=== PATIENT | female | born 1975 | race American Indian/Alaskan Native ===

== ENCOUNTER 2017-04-01 17:31 | Emergency (ER) | payer MEDICAID ==
[2017-04-01 18:28] LABS: Alanine Aminotransferase 9 units/L (7-56); Albumin 3.9 g/dL (3.9-5); BUN/Creatinine Ratio 15; Basophils % (Auto) 0.5 % (0.0-1.8); Blood Urea Nitrogen 9 mg/dL (7-17); Calcium 8.5 mg/dL (8.4-10.2); Eosinophils # (Auto) 0.1 K/mm3 (0.0-0.4); Eosinophils % (Auto) 0.6 % (0.0-4.3); Hematocrit 28.8 % (30.3-42.9); Hemoglobin 9.3 gm/dl (10.1-14.3); Hemolysis Index 7; Lipase 84 units/L (13-60); Lymphocytes # (Auto) 3.5 K/mm3 (1.2-5.4); Lymphocytes % (Auto) 38.7 % (13.4-35.0); Mean Corpuscular HGB Conc 32 % (30-34); Mean Corpuscular Volume 79 fl (79-97); Monocytes # (Auto) 0.7 K/mm3 (0.0-0.8); Monocytes % (Auto) 7.9 % (0.0-7.3); Platelet Count 203 K/mm3 (140-440); Red Blood Count 3.66 M/mm3 (3.65-5.03)
[2017-04-01 18:33] LABS: Mean Corpuscular Hemoglobin 25 pg (28-32)
[2017-04-01 18:34] LABS: Red Cell Distribution Width 22.6 % (13.2-15.2)
[2017-04-01] MEDS ORDERED: MORPHINE IV ONE ×2 (20:56→23:01)
--- NOTE | 2017-04-01 20:59 | Emergency Department Report ---
HPI - General Chief Complaint: Vaginal Bleeding Time Seen by Provider: 04/01/17 20:25 - HPI HPI: 41-year-old female presents to the emergency department with complaint of a 2-3 day history of abdominal and pelvic pain and vaginal bleeding. The abdominal pain is generalized but worse in the upper quadrants with some radiation towards her back. The pelvic pain is less intense but is associated with heavy vaginal bleeding with clots. The patient says that the symptoms started around the time of her last menstrual cycle. She does have a history of fibroids that was diagnosed last year but she does not know how many or how large and does not have an [facility]. She does have a history of pancreatitis in the past. She has a previous cholecystectomy and has had gastric bypass surgery. She is not taking anything for symptoms of her presentation. No recent travel or sick contacts at home. Her primary care physician is a Dr. Little. ED Past Medical Hx - Past Medical History Previous Medical History?: Yes Hx Hypertension: Yes Additional medical history: Uterine fibroids with heavy vaginal bleeding, Pancreatitis - Surgical History Past Surgical History?: Yes Hx Cholecystectomy: Yes Additional Surgical History: Gastric bypassin 2006 - Social History Smoking Status: Never Smoker Substance Use Type: Alcohol, Non Opiate Pain, Prescribed - Medications Home Medications: Home Medications Medication Instructions Recorded Confirmed Last Taken Type HYDROcodone/ACETAMINOPHEN [[place] 1 each PO Q6H PRN #12 tablet 04/01/17 Unknown Rx 5-325 Tablet] ED Review of Systems ROS: Stated complaint: VAGINAL BLEEDING Other details as noted in HPI Comment: All other systems reviewed and negative Constitutional: denies: chills, fever Eyes: denies: eye pain, eye discharge, vision change ENT: denies: ear pain, throat pain Respiratory: denies: cough, shortness of breath, wheezing Cardiovascular: denies: chest pain, palpitations Gastrointestinal: abdominal pain. denies: vomiting Genitourinary: other (vaginal bleeding). denies: urgency, dysuria, discharge Musculoskeletal: denies: back pain, joint swelling, arthralgia Skin: denies: rash, lesions Neurological: denies: headache, weakness, paresthesias Physical Exam - Physical Exam Vital Signs: Vital Signs 04/01/17 04/01/17 17:36 20:29 Temperature 99.5 F Pulse Rate 110 H Respiratory 18 18 Rate Blood Pressure 119/83 O2 Sat by Pulse 99 100 Oximetry Physical Exam: GENERAL: The patient is well-developed well-nourished. HENT: Normocephalic. Atraumatic. Patient has moist mucous membranes. EYES: Extraocular motions are intact. Pupils equal reactive to light bilaterally. NECK: Supple. No meningitic signs are noted. There is no adenopathy noted. CHEST/LUNGS: Clear to auscultation. There is no respiratory distress noted. HEART/CARDIOVASCULAR: Regular. There is no tachycardia. There is no murmur. ABDOMEN: Abdomen is soft. Upper abdominal tenderness to palpation. No guarding or rebound tenderness. Patient has normal bowel sounds. Obese habitus. SKIN: There is no rash. There is no edema. There is no diaphoresis. NEURO: The patient is awake, alert, and oriented. The patient is cooperative. The patient has no focal neurologic deficits. The patient has normal speech. MUSCULOSKELETAL: There is no tenderness or deformity. There is no limitation range of motion. There is no evidence of acute injury. ED Course Vital Signs 04/01/17 04/01/17 17:36 20:29 Temperature 99.5 F Pulse Rate 110 H Respiratory 18 18 Rate Blood Pressure 119/83 O2 Sat by Pulse 99 100 Oximetry ED Medical Decision Making - Lab Data Result diagrams: 04/01/17 17:53 04/01/17 17:53 - Radiology Data Radiology results: report reviewed EXAM: US Abdomen CLINICAL INDICATIONS: Upper abd pain that radiates to back FINDINGS: Real-time ultrasound of the abdomen was performed. The visualized portion of pancreas is unremarkable. The right kidney measures 10.8 x 4.6 x 5.8 cm. Cortical thickness is 1.6 cm, which is normal. The left kidney measures 10.2 x 6.1 x 6.1 cm with cortical thickness of 1.9 cm. There is no evidence of hydronephrosis. The liver appears normal in size and echotexture. The aorta proximally measures 1.8 cm which is within normal limits. The spleen measures 10.8 cm which is within normal limits. There is been a cholecystectomy. The common duct measures 0.76 cm which is within normal limits for patient status post cholecystectomy. IMPRESSION: CHOLECYSTECTOMY NO HYDRONEPHROSIS OF EITHER KIDNEY Transcribed By: ENOCH Dictated By: MARKY ORELLANA MD Electronically Authenticated By: MARKY ORELLANA MD Signed Date/Time: 04/01/171847 EXAM: US Pelvic Trans-Vaginal CLINICAL INDICATIONS: pelvic pain, vaginal bleeding FINDINGS: Real-time ultrasound of the pelvis was performed by endovaginal technique and demonstrates that the uterus measures 9.6 x 5.1 x 5.6 cm. The endometrial stripe measures 0.24 cm which is within normal limits. There are uterine leiomyomas, the largest of which is on the right, 2.4 cm. Left uterine leiomyoma measures 1.9 cm. Anterior uterine leiomyoma measures 1.5 cm. The right ovary is not identified. The left ovary measures 2.3 x 1.9 x 2.2 cm. No adnexal mass or evidence of ovarian torsion is seen. IMPRESSION: UTERINE LEIOMYOMAS NORMAL LEFT OVARY THE RIGHT OVARY IS NOT SEEN Transcribed By: ENOCH Dictated By: MARKY ORELLANA MD Electronically Authenticated By: MARKY ORELLANA MD Signed Date/Time: 04/01/171846 PROCEDURE: XR ABDOMEN 2V TECHNIQUE: Abdominal series, including supine and upright AP views. HISTORY: Abdominal pain. COMPARISON: No prior studies are available for comparison. FINDINGS: Bowel gas pattern:Diffusely air-filled bowel, predominantly colon. Moderate stool in the ascending colon. Few mildly prominent scattered loops of small bowel. Masses or calcifications:None . Bony structures:Small multilevel osteophytes. Pneumoperitoneum:None . Other:Cholecystectomy. Impression Diffusely air-filled bowel, predominantly colon. Moderate stool in the ascending colon. Consider constipation. Consider ileus. Obstruction felt to be unlikely. Transcribed By: SHARYN Dictated By: GABY DAVIS MD Electronically Authenticated By: GABY DAVIS MD Signed Date/Time: 04/01/171922 - Medical Decision Making Patient presents with a few days of some abdominal discomfort, mostly in the upper abdomen, some mild pelvic discomfort and increased vaginal bleeding. Hemoglobin is 9.3 which does not appear to be a level that requires transfusion. She does not have any complaints of shortness breath, chest pain, weakness or anything to show signs of symptomatic anemia. There is no leukocytosis. No renal insufficiency. Normal bilirubin and LFTs. Her lipase is elevated at 80. Abdominal x-ray shows some nonspecific bowel gas but does not appear consistent with obstruction. Abdominal ultrasound shows previous cholecystectomy and normal-appearing kidneys. The portion of the pancreas that was visualized was normal. Transvaginal ultrasound does not show any signs of ovarian torsion but does show 3 small fibroids. This may be part of the source of her pelvic discomfort and increased or abnormal vaginal bleeding. I recommended to the patient that we get a CT scan to fully rule out any possible obstruction or pancreatitis but the patient says that she has an appointment coming up with her PCP and would rather go home. She had some hypokalemia that was replaced with potassium chloride. Vital signs stable throughout her ED course. The patient will be discharged home with a small amount of pain medication and encouraged to return to the emergency department immediately with any worsening of her symptoms or any acute distress. She's been encouraged to stay away from foods that are greasy, spicy, fatty and to stay away from alcohol consumption. - Differential Diagnosis pancreatitis, gastritis, diverticulitis, colitis, ovarian torsion, fibroids Critical Care Time: No Critical care attestation.: If time is entered above; I have spent that time in minutes in the direct care of this critically ill patient, excluding procedure time. ED Disposition Clinical Impression: Dysfunctional uterine bleeding Abdominal pain Qualifiers: Abdominal location: generalized Qualified Code(s): R10.84 - Generalized abdominal pain Fibroids Qualifiers: Uterine leiomyoma location: unspecified location Qualified Code(s): D25.9 - Leiomyoma of uterus, unspecified Anemia Qualifiers: Anemia type: iron deficiency Iron deficiency anemia type: unspecified iron deficiency Qualified Code(s): D50.9 - Iron deficiency anemia, unspecified Disposition: DC-01 TO HOME OR SELFCARE Is pt being admited?: No Condition: Stable Instructions: Dysfunctional Uterine Bleeding (ED), Abdominal Pain (ED), Menorrhagia (ED), Anemia (ED) Additional Instructions: Please follow-up with your primary care physician as soon as possible. I have given you multiple referrals for [facility] to follow up regarding your uterine fibroids and dysfunctional uterine bleeding. Return to the emergency Department with any worsening of her symptoms, development of shortness of breath, weakness, or any acute distress. You have been prescribed a medication that is sedating and therefore should not be taken prior to driving, working, and responsible for children and in no way should be mixed with alcohol of any quantity. Prescriptions: HYDROcodone/ACETAMINOPHEN [[place] 5-325 Tablet] 1 each PO Q6H PRN #12 tablet PRN Reason: Pain Referrals: [facility] [Provider Group] - 3-5 Days [facility] [Provider Group] - 3-5 Days [facility] [Provider Group] - 3-5 Days Time of Disposition: 23:46
[2017-04-01 21:47] LABS: Bacteria,Urine 4+ /HPF (Negative); Bilirubin,Urine NEG (Negative); Blood,Urine MOD (Negative); Color,Urine Yellow (Yellow); Hyaline Casts,Urine 20 /LPF; Mucus,Urine 2+ /HPF; Nitrite,Urine POS (Negative)
[2017-04-01 21:59] LABS: HCG Qualitative,Urine Negative (Negative)
[2017-04-01] MEDS ORDERED: K-DUR PO ONE (22:43)
--- NOTE | 2017-04-01 22:49 | Ultrasound Report ---
FINAL REPORT EXAM: US Pelvic Trans-Vaginal CLINICAL INDICATIONS: pelvic pain, vaginal bleeding FINDINGS: Real-time ultrasound of the pelvis was performed by endovaginal technique and demonstrates that the uterus measures 9.6 x 5.1 x 5.6 cm. The endometrial stripe measures 0.24 cm which is within normal limits. There are uterine leiomyomas, the largest of which is on the right, 2.4 cm. Left uterine leiomyoma measures 1.9 cm. Anterior uterine leiomyoma measures 1.5 cm. The right ovary is not identified. The left ovary measures 2.3 x 1.9 x 2.2 cm. No adnexal mass or evidence of ovarian torsion is seen. IMPRESSION: UTERINE LEIOMYOMAS NORMAL LEFT OVARY THE RIGHT OVARY IS NOT SEEN
--- NOTE | 2017-04-01 22:50 | Ultrasound Report ---
FINAL REPORT EXAM: US Abdomen CLINICAL INDICATIONS: Upper abd pain that radiates to back FINDINGS: Real-time ultrasound of the abdomen was performed. The visualized portion of pancreas is unremarkable. The right kidney measures 10.8 x 4.6 x 5.8 cm. Cortical thickness is 1.6 cm, which is normal. The left kidney measures 10.2 x 6.1 x 6.1 cm with cortical thickness of 1.9 cm. There is no evidence of hydronephrosis. The liver appears normal in size and echotexture. The aorta proximally measures 1.8 cm which is within normal limits. The spleen measures 10.8 cm which is within normal limits. There is been a cholecystectomy. The common duct measures 0.76 cm which is within normal limits for patient status post cholecystectomy. IMPRESSION: CHOLECYSTECTOMY NO HYDRONEPHROSIS OF EITHER KIDNEY
[2017-04-01 23:12] VITALS: BP 118/79
--- NOTE | 2017-04-01 23:25 | XRay Report ---
FINAL REPORT PROCEDURE: XR ABDOMEN 2V TECHNIQUE: Abdominal series, including supine and upright AP views. HISTORY: Abdominal pain. COMPARISON: No prior studies are available for comparison. FINDINGS: Bowel gas pattern:Diffusely air-filled bowel, predominantly colon. Moderate stool in the ascending colon. Few mildly prominent scattered loops of small bowel. Masses or calcifications:None . Bony structures:Small multilevel osteophytes. Pneumoperitoneum:None . Other:Cholecystectomy. Impression Diffusely air-filled bowel, predominantly colon. Moderate stool in the ascending colon. Consider constipation. Consider ileus. Obstruction felt to be unlikely.
== END 2017-04-01 23:15 | disposition home or self-care (01) ==
LOC: ED 17:31
DX: N93.8 Other specified abnormal uterine and vaginal bleeding (principal); R10.84 Generalized abdominal pain; D50.9 Iron deficiency anemia, unspecified; D25.9 Leiomyoma of uterus, unspecified; I10 Essential (primary) hypertension; K85.90 Acute pancreatitis without necrosis or infection, unspecified
CPT/HCPCS: 36415; 74019; 76700; 76830; 80053; 81001; 81025; 83690; 85025; 86850; 86900; 86901; 93975; 96374; 96376; 99285; J2270

== ENCOUNTER 2019-01-04 10:15 | Inpatient (IN) | payer MEDICAID ==
[2019-01-04 11:33] LABS: Hematocrit 26.2 % (30.3-42.9); Hemoglobin 7.8 gm/dl (10.1-14.3); Mean Corpuscular HGB Conc 30 % (30-34); Mean Corpuscular Volume 99 fl (79-97); Platelet Count 348 K/mm3 (140-440); Red Blood Count 2.64 M/mm3 (3.65-5.03)
[2019-01-04 11:37] LABS: Red Cell Distribution Width 26.1 % (13.2-15.2)
[2019-01-04] MEDS ORDERED: SODIUM CHLORIDE 0.9% 1000 ML 500 ML IV ONE (11:47)
[2019-01-04] MEDS ORDERED: SODIUM CHLORIDE 0.9% 500 ML 500 ML ONE (11:49)
[2019-01-04 11:52] LABS: Albumin 2.4 g/dL (3.9-5); Bilirubin,Direct 7.9 mg/dL (0-0.2)
--- NOTE | 2019-01-04 11:53 | XRay Report ---
CHEST 1 VIEW INDICATION: hypertension. COMPARISON: None. FINDINGS: Support devices: None. Heart: Upper limits of normal. Lungs/Pleura: No acute pulmonary or pleural findings. IMPRESSION: 1. No acute findings. Signer Name: Addison Quezada MD Signed: 01/04/2019 11:48 AM Workstation Name: [id number]
[2019-01-04 11:55] LABS: INR 2.14 (0.87-1.13)
[2019-01-04 12:02] LABS: Free T4 (Free Thyroxine) 0.83 ng/dL (0.76-1.46)
[2019-01-04 12:08] LABS: Total Cells Counted 100
[2019-01-04 12:09] LABS: Anisocytosis 2+; Band Neutrophils # (Manual) 3.8 K/mm3; Basophils % (Manual) 0 % (0.0-1.8); Eosinophils % (Manual) 0 % (0.0-4.3); Macrocytosis Few; Platelet Estimate Consistent w Auto
--- NOTE | 2019-01-04 12:29 | Cat Scan Report ---
CT HEAD WITHOUT CONTRAST INDICATION / CLINICAL INFORMATION: Altered mental status. TECHNIQUE: Axial imaging performed from the skull apex through the skull base without the use of cont rast. Sagittal and coronal reformatted images. All CT scans at this location are performed using CT dose reduction for ALARA by means of automated exposure control. COMPARISON: None available. FINDINGS: CEREBRAL PARENCHYMA: No significant abnormality. No acute territorial infarct. HEMORRHAGE: None. EXTRA-AXIAL SPACES: Normal in size and morphology for the patient's age. VENTRICULAR SYSTEM: Normal in size and morphology for the patient's age. MIDLINE SHIFT OR HERNIATION: None. CEREBELLUM / BRAINSTEM: No significant abnormality. CALVARIUM: No significant abnormality. ORBITS: Normal as visualized. PARANASAL SINUSES / MASTOID AIR CELLS: Normal as visualized. SOFT TISSUES of HEAD: No significant abnormality. ADDITIONAL FINDINGS: None. IMPRESSION: No acute intracranial abnormality. Signer Name: Trevon Burton Jr, MD Signed: 01/04/2019 12:24 PM Workstation Name: [id number]
[2019-01-04] MEDS ORDERED: MEROPENEM/NS 1 GRAM/100 ML 1 GRAM/100 ML BAG IV ONE (12:39)
[2019-01-04] MEDS ORDERED: VANCOMYCIN PHARMACY TO DOSE IV SCH (13:00)
[2019-01-04] MEDS ORDERED: SODIUM BICARBONATE 150 MEQ in DEXTROSE 5% IN WATER 1,000 ML IV ONE (13:00)
--- NOTE | 2019-01-04 13:18 | Emergency Department Report ---
ED General Adult HPI - General Chief complaint: Weakness Stated complaint: WEAKNESS Time Seen by Provider: 01/04/19 11:13 Source: patient, EMS Mode of arrival: Stretcher Limitations: Altered Mental Status - History of Present Illness Initial comments: This is a 43-year-old female who is confused and unable to provide any historical information. She is not frankly complaining of any pain on questioning. However she is not coherently speaking nor apparently oriented. She arrives with her daughter who states the patient indeed has been in bed for the past several days. The daughter states she is "getting worse". By this, I think she is referring to her confusional state and her inability to take care of herself. The daughter is fairly nonspecific about her long-term condition. She does admit that the patient is a heavy drinker. She really doesn't provide much further history. She does not think the patient is taking any current medications. Review of the patient's past medical records here reveals little. There are however remarkable for normal renal function in 2018. Severity scale (0 -10): 0 - Related Data Previous Rx's Medication Instructions Recorded Last Taken Type HYDROcodone/ACETAMINOPHEN [[place] 1 each PO Q6H PRN #12 tablet 04/01/17 Unknown Rx 5-325 Tablet] Allergies Allergy/AdvReac Type Severity Reaction Status Date / Time No Known Allergies Allergy Unverified 04/01/17 17:36 ED Review of Systems ROS: Stated complaint: WEAKNESS Other details as noted in HPI Comment: Unobtainable due to pts medical conditions ED Past Medical Hx - Past Medical History Previous Medical History?: No Hx Hypertension: Yes Additional medical history: Uterine fibroids with heavy vaginal bleeding, Pancreatitis, ETOH - Surgical History Hx Cholecystectomy: Yes Additional Surgical History: Gastric bypassin 2006 - Social History Smoking Status: Never Smoker Substance Use Type: Alcohol - Medications Home Medications: Home Medications Medication Instructions Recorded Confirmed Last Taken Type HYDROcodone/ACETAMINOPHEN [[place] 1 each PO Q6H PRN #12 tablet 04/01/17 Unknown Rx 5-325 Tablet] ED Physical Exam - General Limitations: Altered Mental Status General appearance: in no apparent distress, lethargic, other (ill appearing) - Head Head exam: Present: atraumatic, normocephalic - Eye Eye exam: Present: scleral icterus - ENT ENT exam: Present: mucous membranes dry - Neck Neck exam: Present: normal inspection, full ROM. Absent: tenderness, meningismus, lymphadenopathy, thyromegaly - Respiratory Respiratory exam: Present: normal lung sounds bilaterally. Absent: respiratory distress - Cardiovascular Cardiovascular Exam: Present: regular rate, normal rhythm. Absent: systolic murmur, diastolic murmur, rubs, gallop - GI/Abdominal GI/Abdominal exam: Present: soft, normal bowel sounds, other (obese). Absent: distended, tenderness, guarding, rebound - Extremities Exam Extremities exam: Present: other (3-4+ pitting pedal edema and leg edema) - Back Exam Back exam: Present: other (unable to inspect yet) - Neurological Exam Neurological exam: Present: altered, CN II-XII intact (no gross focal deficit evident). Absent: motor sensory deficit (no lateralizing weakness or numbness) - Psychiatric Psychiatric exam: Present: flat affect - Skin Skin exam: Present: warm, dry ED Course Vital Signs 01/04/19 01/04/19 01/04/19 10:44 10:45 10:47 Temperature 97.6 F Pulse Rate 98 H Respiratory 16 Rate Blood Pressure 102/57 102/57 O2 Sat by Pulse 100 100 100 Oximetry 01/04/19 01/04/19 01/04/19 11:00 11:15 11:30 Temperature Pulse Rate Respiratory Rate Blood Pressure 85/42 91/50 93/60 O2 Sat by Pulse 100 100 100 Oximetry 01/04/19 01/04/19 01/04/19 11:40 11:50 12:00 Temperature Pulse Rate Respiratory 16 Rate Blood Pressure 93/60 99/58 110/55 O2 Sat by Pulse 100 100 100 Oximetry 01/04/19 01/04/19 01/04/19 12:17 12:20 12:30 Temperature Pulse Rate Respiratory Rate Blood Pressure 110/55 110/55 100/62 O2 Sat by Pulse 100 100 99 Oximetry 01/04/19 01/04/19 01/04/19 12:40 12:50 13:00 Temperature Pulse Rate 153 H 97 H 97 H Respiratory 20 20 Rate Blood Pressure 100/62 107/70 111/72 O2 Sat by Pulse 100 100 Oximetry 01/04/19 01/04/19 01/04/19 13:10 13:20 13:30 Temperature Pulse Rate 97 H 97 H 96 H Respiratory 18 21 20 Rate Blood Pressure 111/72 160/129 105/59 O2 Sat by Pulse 100 100 Oximetry 01/04/19 13:40 Temperature Pulse Rate 98 H Respiratory 14 Rate Blood Pressure 105/59 O2 Sat by Pulse 100 Oximetry - Reevaluation(s) Reevaluation #1: The patient's initial blood pressure was low. She was given a 500 mL bolus. Her blood pressure became normotensive with a systolic over 100. The patient was treated with empiric antibiotics. Bicarbonate drip was started Considering the patient's lactic acidosis an extremely low CO2 as well as her renal failure. Historian Research Assistant Dr. Mccoy was consultation who agreed with the above. I'm going to continue her fluid substation judiciously as her proBNP is over 5000. Her chest x-ray is yet clear. Her albumin is 2.4. She is in liver failure with an elevated ammonia. Her daughter has been informed that the patient is likely septic and has multiple organ failure. Her prognosis is obviously guarded. She will be admitted by the hospitalist service to the intensive care unit. 01/04/19 13:18 ED Medical Decision Making - Lab Data Result diagrams: 01/04/19 11:08 01/04/19 11:15 Laboratory Results - last 24 hr 01/04/19 01/04/19 01/04/19 11:08 11:08 11:08 WBC 34.3 H RBC 2.64 L Hgb 7.8 L Hct 26.2 L MCV 99 H MCH 30 MCHC 30 RDW 26.1 H Plt Count 348 Add Manual Diff Complete Total Counted 100 Seg Neuts % (Manual) 67.0 Band Neutrophils % 11.0 Lymphocytes % (Manual) 15.0 Reactive Lymphs % (Man) 0 Monocytes % (Manual) 7.0 Eosinophils % (Manual) 0 Basophils % (Manual) 0 Metamyelocytes % 0 Myelocytes % 0 Promyelocytes % 0 Blast Cells % 0 Nucleated RBC % Not Reportable Seg Neutrophils # Man 23.0 H Band Neutrophils # 3.8 Lymphocytes # (Manual) 5.1 Abs React Lymphs (Man) 0.0 Monocytes # (Manual) 2.4 H Eosinophils # (Manual) 0.0 Basophils # (Manual) 0.0 Metamyelocytes # 0.0 Myelocytes # 0.0 Promyelocytes # 0.0 Blast Cells # 0.0 WBC Morphology Not Reportable Hypersegmented Neuts Not Reportable Hyposegmented Neuts Not Reportable Hypogranular Neuts Not Reportable Smudge Cells Not Reportable Toxic Granulation Not Reportable Toxic Vacuolation Not Reportable Dohle Bodies Not Reportable Pelger-Huet Anomaly Not Reportable Jonathan Rods Not Reportable Platelet Estimate Consistent w auto Clumped Platelets Not Reportable Plt Clumps, EDTA Not Reportable Large Platelets Not Reportable Giant Platelets Not Reportable Platelet Satelliting Not Reportable Plt Morphology Comment Not Reportable RBC Morphology Not Reportable Dimorphic RBCs Not Reportable Polychromasia Few Hypochromasia Not Reportable Poikilocytosis Not Reportable Anisocytosis 2+ Microcytosis Few Macrocytosis Few Spherocytes Not Reportable Pappenheimer Bodies Not Reportable Sickle Cells Not Reportable Target Cells Not Reportable Tear Drop Cells Not Reportable Ovalocytes Not Reportable Helmet Cells Not Reportable [place] Bodies Not Reportable [place] Rings Not Reportable [place] Cells Not Reportable Bite Cells Not Reportable Crenated Cell Not Reportable Elliptocytes Not Reportable Acanthocytes (Spur) Not Reportable Rouleaux Not Reportable Hemoglobin C Crystals Not Reportable Schistocytes Not Reportable Malaria parasites Not Reportable Bhavik Bodies Not Reportable Hem Pathologist Commnt No PT INR Sodium Potassium Chloride Carbon Dioxide Anion Gap BUN Creatinine Estimated GFR BUN/Creatinine Ratio Glucose POC Glucose Lactic Acid Calcium Magnesium Total Bilirubin Direct Bilirubin Indirect Bilirubin AST ALT Alkaline Phosphatase Ammonia NT-Pro-B Natriuret Pep 5269 H Total Protein Albumin Albumin/Globulin Ratio Lipase 8 L TSH Free T4 HCG, Qual Negative Acetaminophen Blood Type Antibody Screen 01/04/19 01/04/19 01/04/19 11:15 11:15 11:15 WBC RBC Hgb Hct MCV MCH MCHC RDW Plt Count Add Manual Diff Total Counted Seg Neuts % (Manual) Band Neutrophils % Lymphocytes % (Manual) Reactive Lymphs % (Man) Monocytes % (Manual) Eosinophils % (Manual) Basophils % (Manual) Metamyelocytes % Myelocytes % Promyelocytes % Blast Cells % Nucleated RBC % Seg Neutrophils # Man Band Neutrophils # Lymphocytes # (Manual) Abs React Lymphs (Man) Monocytes # (Manual) Eosinophils # (Manual) Basophils # (Manual) Metamyelocytes # Myelocytes # Promyelocytes # Blast Cells # WBC Morphology Hypersegmented Neuts Hyposegmented Neuts Hypogranular Neuts Smudge Cells Toxic Granulation Toxic Vacuolation Dohle Bodies Pelger-Huet Anomaly Jonathan Rods Platelet Estimate Clumped Platelets Plt Clumps, EDTA Large Platelets Giant Platelets Platelet Satelliting Plt Morphology Comment RBC Morphology Dimorphic RBCs Polychromasia Hypochromasia Poikilocytosis Anisocytosis Microcytosis Macrocytosis Spherocytes Pappenheimer Bodies Sickle Cells Target Cells Tear Drop Cells Ovalocytes Helmet Cells Felix-[place] Bodies [place] Rings [place] Cells Bite Cells Crenated Cell Elliptocytes Acanthocytes (Spur) Rouleaux Hemoglobin C Crystals Schistocytes Malaria parasites Bhavik Bodies Hem Pathologist Commnt PT INR Sodium 135 L Potassium 4.4 Chloride 90.7 L Carbon Dioxide 8 L* Anion Gap 41 BUN 44 H Creatinine 3.4 H Estimated GFR 18 BUN/Creatinine Ratio 13 Glucose 70 POC Glucose Lactic Acid Calcium 9.0 Magnesium 1.70 Total Bilirubin 10.20 H Direct Bilirubin 7.9 H Indirect Bilirubin 2.3 AST 227 H ALT 50 Alkaline Phosphatase 69 Ammonia NT-Pro-B Natriuret Pep Total Protein 7.5 Albumin 2.4 L Albumin/Globulin Ratio 0.5 Lipase TSH 2.830 Free T4 0.83 HCG, Qual Acetaminophen < 5.0 L Blood Type Antibody Screen 01/04/19 01/04/19 01/04/19 11:31 11:32 11:52 WBC RBC Hgb Hct MCV MCH MCHC RDW Plt Count Add Manual Diff Total Counted Seg Neuts % (Manual) Band Neutrophils % Lymphocytes % (Manual) Reactive Lymphs % (Man) Monocytes % (Manual) Eosinophils % (Manual) Basophils % (Manual) Metamyelocytes % Myelocytes % Promyelocytes % Blast Cells % Nucleated RBC % Seg Neutrophils # Man Band Neutrophils # Lymphocytes # (Manual) Abs React Lymphs (Man) Monocytes # (Manual) Eosinophils # (Manual) Basophils # (Manual) Metamyelocytes # Myelocytes # Promyelocytes # Blast Cells # WBC Morphology Hypersegmented Neuts Hyposegmented Neuts Hypogranular Neuts Smudge Cells Toxic Granulation Toxic Vacuolation Dohle Bodies Pelger-Huet Anomaly Jonathan Rods Platelet Estimate Clumped Platelets Plt Clumps, EDTA Large Platelets Giant Platelets Platelet Satelliting Plt Morphology Comment RBC Morphology Dimorphic RBCs Polychromasia Hypochromasia Poikilocytosis Anisocytosis Microcytosis Macrocytosis Spherocytes Pappenheimer Bodies Sickle Cells Target Cells Tear Drop Cells Ovalocytes Helmet Cells Felix-[place] Bodies [place] Rings [place] Cells Bite Cells Crenated Cell Elliptocytes Acanthocytes (Spur) Rouleaux Hemoglobin C Crystals Schistocytes Malaria parasites Bhavik Bodies Hem Pathologist Commnt PT 23.5 H INR 2.14 H Sodium Potassium Chloride Carbon Dioxide Anion Gap BUN Creatinine Estimated GFR BUN/Creatinine Ratio Glucose POC Glucose 82 Lactic Acid Calcium Magnesium Total Bilirubin Direct Bilirubin Indirect Bilirubin AST ALT Alkaline Phosphatase Ammonia NT-Pro-B Natriuret Pep Total Protein Albumin Albumin/Globulin Ratio Lipase TSH Free T4 HCG, Qual Acetaminophen Blood Type B POSITIVE Antibody Screen Negative 01/04/19 01/04/19 11:53 11:53 WBC RBC Hgb Hct MCV MCH MCHC RDW Plt Count Add Manual Diff Total Counted Seg Neuts % (Manual) Band Neutrophils % Lymphocytes % (Manual) Reactive Lymphs % (Man) Monocytes % (Manual) Eosinophils % (Manual) Basophils % (Manual) Metamyelocytes % Myelocytes % Promyelocytes % Blast Cells % Nucleated RBC % Seg Neutrophils # Man Band Neutrophils # Lymphocytes # (Manual) Abs React Lymphs (Man) Monocytes # (Manual) Eosinophils # (Manual) Basophils # (Manual) Metamyelocytes # Myelocytes # Promyelocytes # Blast Cells # WBC Morphology Hypersegmented Neuts Hyposegmented Neuts Hypogranular Neuts Smudge Cells Toxic Granulation Toxic Vacuolation Dohle Bodies Pelger-Huet Anomaly Jonathan Rods Platelet Estimate Clumped Platelets Plt Clumps, EDTA Large Platelets Giant Platelets Platelet Satelliting Plt Morphology Comment RBC Morphology Dimorphic RBCs Polychromasia Hypochromasia Poikilocytosis Anisocytosis Microcytosis Macrocytosis Spherocytes Pappenheimer Bodies Sickle Cells Target Cells Tear Drop Cells Ovalocytes Helmet Cells Felix-[place] Bodies [place] Rings [place] Cells Bite Cells Crenated Cell Elliptocytes Acanthocytes (Spur) Rouleaux Hemoglobin C Crystals Schistocytes Malaria parasites Bhavik Bodies Hem Pathologist Commnt PT INR Sodium Potassium Chloride Carbon Dioxide Anion Gap BUN Creatinine Estimated GFR BUN/Creatinine Ratio Glucose POC Glucose Lactic Acid 13.90 H* Calcium Magnesium Total Bilirubin Direct Bilirubin Indirect Bilirubin AST ALT Alkaline Phosphatase Ammonia 99.0 H NT-Pro-B Natriuret Pep Total Protein Albumin Albumin/Globulin Ratio Lipase TSH Free T4 HCG, Qual Acetaminophen Blood Type Antibody Screen - EKG Data -: EKG Interpreted by Me EKG shows normal: sinus rhythm Rate: normal - EKG Data Interpretation: other (low-voltage nonspecific changes.) - Radiology Data Radiology results: report reviewed (CT of the head and chest x-ray no acute process), image reviewed Critical Care Time: Yes Critical care time in (mins) excluding proc time.: 80 Critical care attestation.: If time is entered above; I have spent that time in minutes in the direct care of this critically ill patient, excluding procedure time. ED Disposition Clinical Impression: Severe sepsis, Acute encephalopathy, Metabolic acidosis, increased anion gap Acute renal failure Qualifiers: Acute renal failure type: unspecified Qualified Code(s): N17.9 - Acute kidney failure, unspecified Hepatic failure Qualifiers: Liver failure chronicity: acute Hepatic coma status: with hepatic coma Qualified Code(s): K72.01 - Acute and subacute hepatic failure with coma Disposition: DC-09 OP ADMIT IP TO THIS HOSP Is pt being admited?: Yes Does the pt Need Aspirin: Yes Condition: Stable Referrals: PRIMARY CARE, [Primary Care Provider] - 3-5 Days Time of Disposition: 13:53
[2019-01-04] MEDS ORDERED: SODIUM CHLORIDE 0.9% 1000 ML 1,000 ML IV ONE (13:20)
[2019-01-04] MEDS ORDERED: ASPIRIN 81 MG TAB CHEW PO ONE (13:53)
[2019-01-04] MEDS ORDERED: VANCOMYCIN 2,000 MG in SODIUM CHLORIDE 0.9% 500 ML 500 ML IV ONE (14:00)
[2019-01-04] MEDS ORDERED: HYDROmorphone 1 MG/1 ML INJ IV PRN (17:16)
[2019-01-04] MEDS ORDERED: HYDROmorphone 1 MG/1 ML INJ ONE (17:26)
--- NOTE | 2019-01-04 17:58 | Consultation ---
History of Present Illness - Reason for Consult acute renal failure - History of Present Illness This is a 43-year-old female with known liver disease, alcohol use who presents with acute confusion and lack of appropriate mentation. Much of history is provided by her family at bedside; patient known to be alcohol drinker with known liver disease. Family does not believe patient is taking any current me dications. She is not known to have any kidney problems and was known to have normal kidney function in 2018. No further pertinent information is available at time of consult. Past History Past Medical History: liver disease Past Surgical History: No surgical history Social history: lives with family, alcohol abuse Family history: no significant family history Medications and Allergies Allergies Allergy/AdvReac Type Severity Reaction Status Date / Time No Known Allergies Allergy Unverified 04/01/17 17:36 Home Medications Medication Instructions Recorded Confirmed Last Taken Type HYDROcodone/ACETAMINOPHEN [[place] 1 each PO Q6H PRN #12 tablet 04/01/17 Unknown Rx 5-325 Tablet] Active Meds: Active Medications Hydromorphone HCl (Dilaudid) 0.5 mg IV Q3H PRN PRN Reason: Pain , Severe (7-10) Sodium Bicarbonate 150 meq/ (Dextrose) 1,150 mls @ 75 mls/hr IV DIRECT ONE Stop: 01/05/19 04:19 Last Admin: 01/04/19 14:14 Dose: 75 mls/hr Documented by: Vancomycin HCl 1,500 mg/ (Sodium Chloride) 530 mls @ 333.333 mls/hr IV Q12H JULIETA Sodium Chloride (Nacl 0.9% 1000 Ml) 1,000 mls @ 125 mls/hr IV ONCE ONE Stop: 01/04/19 21:19 Last Admin: 01/04/19 15:28 Dose: 125 mls/hr Documented by: Review of Systems ROS unobtainable: due to mental status (unable to communicate well) Exam - Vital Signs Vital signs: Vital Signs Pulse Ox 100 01/04/19 10:44 - General Appearance General appearance: moderate distress, fatigue, frail, other (sick appearing) EENT: mucous membranes dry Neck: Present: neck supple, trachea midline Respiratory: Decreased Breath Sounds Heart: regular, S1S2 Gastrointestinal: Present: tenderness, distended Integumentary: no rash, warm and dry Neurologic: no focal deficit, no asterixis, confused, disoriented Musculoskeletal: Absent: deformities, joint swelling Results - Lab Results 01/04/19 11:08 01/04/19 11:15 Most recent lab results Calcium 9.0 mg/dL (8.4-10.2) 01/04/19 11:15 Magnesium 1.70 mg/dL (1.7-2.3) 01/04/19 11:15 Assessment and Plan This is a 43 year old woman with liver disease who presents with confusion, found to have severe lactic acidosis and ELIZABETH. # Acute Kidney Injury: differential for ELIZABETH in this patient includes tubular injury vs HRS vs infectious GN vs pre-renal. At this time, suspect tubular injury in setting of sepsis/infection and lactic acidosis. Cannot say HRS at this time given need to rule out other etiologies, so would not treat for HRS. - sending urinalysis, urine na/creatinine for further investigation - renal ultrasound - no indication for renal replacement therapy, but did discuss potential need if worsening injury with family - daily renal function panel - strict Is/Os - would be ok with cautious use of IVF as patient is very likely intravascularly depleted, but would monitor closely for volume overload on chest exam # Elevated Anion Gap Metabolic Acidosis: likely from lactate of 13.9 - ok to use HCO3 gtt, but need to treat underlying condition as noted below - sending ABG/VBG - agree with drugs of abuse panel given elevated gap - adding on serum osm # Leukocytosis: - concern for infection, f/u blood and urine cultures. Consider diagnostic paracentesis per primary team Thank you for this interesting consult. We will continue to follow patient closely. Please do not hesitate to call me on my cell at with any questions regarding this case.
[2019-01-04] MEDS ORDERED: LORazepam 2 MG/ML VIAL IV PRN ×2 (19:32)
[2019-01-04] MEDS ORDERED: HALOPERIDOL LACTATE 5 MG/1 ML INJ IV PRN (19:39)
--- NOTE | 2019-01-04 19:43 | History and Physical Report ---
History of Present Illness Date of examination: 01/04/19 Date of admission: 01/04/19 13:53 Chief complaint: ALtered mental status for 2 days History of present illness: 43-year-old female with history of HTN and heavy alcohol consumption comes in for altered sensorium and severe confusion.Family noticed yellow eyes.Patient drinks heavily on a regular basis.Unable to quantify.No fever or chills.Nausea present.No vomiting.No Hallucinations. Past Medical History Previous Medical History?: No Hypertension: Yes Additional medical history: Uterine fibroids with heavy vaginal bleeding, Pancreatitis, ETOH use --heavy Surgical History Cholecystectomy: Yes Additional Surgical History: Gastric bypassin 2006 Social History Smoking Status: Never Smoker Substance Use Type: Alcohol--regular and heavy Family history Htn Past History Past Medical History: liver disease Past Surgical History: No surgical history Social history: lives with family, alcohol abuse Family history: no significant family history Medications and Allergies Allergies Allergy/AdvReac Type Severity Reaction Status Date / Time No Known Allergies Allergy Unverified 04/01/17 17:36 Home Medications Medication Instructions Recorded Confirmed Last Taken Type HYDROcodone/ACETAMINOPHEN [[place] 1 each PO Q6H PRN #12 tablet 04/01/17 Unknown Rx 5-325 Tablet] Active Meds: Active Medications Hydromorphone HCl (Dilaudid) 0.5 mg IV Q3H PRN PRN Reason: Pain , Severe (7-10) Sodium Bicarbonate 150 meq/ (Dextrose) 1,150 mls @ 75 mls/hr IV DIRECT ONE Stop: 01/05/19 04:19 Last Admin: 01/04/19 14:14 Dose: 75 mls/hr Documented by: Vancomycin HCl 1,500 mg/ (Sodium Chloride) 530 mls @ 333.333 mls/hr IV Q12H JULIETA Sodium Chloride (Nacl 0.9% 1000 Ml) 1,000 mls @ 125 mls/hr IV ONCE ONE Stop: 01/04/19 21:19 Last Admin: 01/04/19 15:28 Dose: 125 mls/hr Documented by: Lorazepam (Ativan) 2 mg IV Q1H PRN PRN Reason: CIWA-Ar 8-15 Lorazepam (Ativan) 4 mg IV Q1H PRN PRN Reason: CIWA-Ar 16-25 Review of Systems Constitutional: weight loss, anorexia, fatigue, weakness, malaise, lethargy, poor appetite Cardiovascular: shortness of breath Gastrointestinal: nausea, early satiety, heartburn, jaundice Genitourinary Female: menorrhagia Integumentary: pruritis, jaundice Neurological: seizures, syncope Psychiatric: disorientation, confusion Exam - Constitutional Vitals: Temp Pulse Resp BP Pulse Ox 97.6 F 97 H 18 115/73 100 01/04/19 10:47 01/04/19 17:30 01/04/19 17:30 01/04/19 17:30 01/04/19 17:30 General appearance: Present: mild distress, well-nourished - EENT Eyes: Present: PERRL, scleral icterus ENT: hearing intact, clear oral mucosa - Neck Neck: Present: supple, normal ROM - Respiratory Respiratory effort: normal Respiratory: bilateral: CTA - Cardiovascular Heart rate: 98 Rhythm: regular Heart Sounds: Present: S1 & S2. Absent: rub, click - Extremities Extremities: no ischemia, pulses intact, pulses symmetrical, No edema Peripheral Pulses: within normal limits - Abdominal General gastrointestinal: Present: soft, non-tender, non-distended, normal bowel sounds Female genitourinary: Present: normal - Integumentary Integumentary: Present: clear, warm, dry - Musculoskeletal Musculoskeletal: strength equal bilaterally, generalized weakness - Psychiatric Psychiatric: other (Altered sensorium.COnfusion.Intermittently Lucid) - Neurologic Neurologic: CNII-XII intact, moves all extremities Results - Labs CBC & Chem 7: 01/04/19 11:08 01/05/19 01:20 Labs: Laboratory Last Values WBC 34.3 K/mm3 (4.5-11.0) H 01/04/19 11:08 RBC 2.64 M/mm3 (3.65-5.03) L 01/04/19 11:08 Hgb 7.8 gm/dl (10.1-14.3) L 01/04/19 11:08 Hct 26.2 % (30.3-42.9) L 01/04/19 11:08 MCV 99 fl (79-97) H 01/04/19 11:08 MCH 30 pg (28-32) 01/04/19 11:08 MCHC 30 % (30-34) 01/04/19 11:08 RDW 26.1 % (13.2-15.2) H 01/04/19 11:08 Plt Count 348 K/mm3 (140-440) 01/04/19 11:08 Add Manual Diff Complete 01/04/19 11:08 Total Counted 100 01/04/19 11:08 Seg Neuts % (Manual) 67.0 % (40.0-70.0) 01/04/19 11:08 Band Neutrophils % 11.0 % 01/04/19 11:08 Lymphocytes % (Manual) 15.0 % (13.4-35.0) 01/04/19 11:08 Reactive Lymphs % (Man) 0 % 01/04/19 11:08 Monocytes % (Manual) 7.0 % (0.0-7.3) 01/04/19 11:08 Eosinophils % (Manual) 0 % (0.0-4.3) 01/04/19 11:08 Basophils % (Manual) 0 % (0.0-1.8) 01/04/19 11:08 Metamyelocytes % 0 % 01/04/19 11:08 Myelocytes % 0 % 01/04/19 11:08 Promyelocytes % 0 % 01/04/19 11:08 Blast Cells % 0 % 01/04/19 11:08 Nucleated RBC % Not Reportable 01/04/19 11:08 Seg Neutrophils # Man 23.0 K/mm3 (1.8-7.7) H 01/04/19 11:08 Band Neutrophils # 3.8 K/mm3 01/04/19 11:08 Lymphocytes # (Manual) 5.1 K/mm3 (1.2-5.4) 01/04/19 11:08 Abs React Lymphs (Man) 0.0 K/mm3 01/04/19 11:08 Monocytes # (Manual) 2.4 K/mm3 (0.0-0.8) H 01/04/19 11:08 Eosinophils # (Manual) 0.0 K/mm3 (0.0-0.4) 01/04/19 11:08 Basophils # (Manual) 0.0 K/mm3 (0.0-0.1) 01/04/19 11:08 Metamyelocytes # 0.0 K/mm3 01/04/19 11:08 Myelocytes # 0.0 K/mm3 01/04/19 11:08 Promyelocytes # 0.0 K/mm3 01/04/19 11:08 Blast Cells # 0.0 K/mm3 01/04/19 11:08 WBC Morphology Not Reportable 01/04/19 11:08 Hypersegmented Neuts Not Reportable 01/04/19 11:08 Hyposegmented Neuts Not Reportable 01/04/19 11:08 Hypogranular Neuts Not Reportable 01/04/19 11:08 Smudge Cells Not Reportable 01/04/19 11:08 Toxic Granulation Not Reportable 01/04/19 11:08 Toxic Vacuolation Not Reportable 01/04/19 11:08 Dohle Bodies Not Reportable 01/04/19 11:08 Pelger-Huet Anomaly Not Reportable 01/04/19 11:08 Jonathan Rods Not Reportable 01/04/19 11:08 Platelet Estimate Consistent w auto 01/04/19 11:08 Clumped Platelets Not Reportable 01/04/19 11:08 Plt Clumps, EDTA Not Reportable 01/04/19 11:08 Large Platelets Not Reportable 01/04/19 11:08 Giant Platelets Not Reportable 01/04/19 11:08 Platelet Satelliting Not Reportable 01/04/19 11:08 Plt Morphology Comment Not Reportable 01/04/19 11:08 RBC Morphology Not Reportable 01/04/19 11:08 Dimorphic RBCs Not Reportable 01/04/19 11:08 Polychromasia Few 01/04/19 11:08 Hypochromasia Not Reportable 01/04/19 11:08 Poikilocytosis Not Reportable 01/04/19 11:08 Anisocytosis 2+ 01/04/19 11:08 Microcytosis Few 01/04/19 11:08 Macrocytosis Few 01/04/19 11:08 Spherocytes Not Reportable 01/04/19 11:08 Pappenheimer Bodies Not Reportable 01/04/19 11:08 Sickle Cells Not Reportable 01/04/19 11:08 Target Cells Not Reportable 01/04/19 11:08 Tear Drop Cells Not Reportable 01/04/19 11:08 Ovalocytes Not Reportable 01/04/19 11:08 Helmet Cells Not Reportable 01/04/19 11:08 Felix-Mcfarlan Bodies Not Reportable 01/04/19 11:08 [place] Rings Not Reportable 01/04/19 11:08 Louis Cells Not Reportable 01/04/19 11:08 Bite Cells Not Reportable 01/04/19 11:08 Crenated Cell Not Reportable 01/04/19 11:08 Elliptocytes Not Reportable 01/04/19 11:08 Acanthocytes (Spur) Not Reportable 01/04/19 11:08 Rouleaux Not Reportable 01/04/19 11:08 Hemoglobin C Crystals Not Reportable 01/04/19 11:08 Schistocytes Not Reportable 01/04/19 11:08 Malaria parasites Not Reportable 01/04/19 11:08 Bhavik Bodies Not Reportable 01/04/19 11:08 Hem Pathologist Commnt No 01/04/19 11:08 PT 23.5 Sec. (12.2-14.9) H 01/04/19 11:32 INR 2.14 (0.87-1.13) H 01/04/19 11:32 Sodium 135 mmol/L (137-145) L 01/04/19 11:15 Potassium 4.4 mmol/L (3.6-5.0) 01/04/19 11:15 Chloride 90.7 mmol/L (98-107) L 01/04/19 11:15 Carbon Dioxide 8 mmol/L (22-30) L* 01/04/19 11:15 Anion Gap 41 mmol/L 01/04/19 11:15 BUN 44 mg/dL (7-17) H 01/04/19 11:15 Creatinine 3.4 mg/dL (0.7-1.2) H 01/04/19 11:15 Estimated GFR 18 ml/min 01/04/19 11:15 BUN/Creatinine Ratio 13 % 01/04/19 11:15 Glucose 70 mg/dL (65-100) 01/04/19 11:15 POC Glucose 82 (70-105) 01/04/19 11:52 Osmolality 307 Mosm/kg 01/04/19 18:32 Lactic Acid 13.90 mmol/L (0.7-2.0) H* 01/04/19 11:53 Calcium 9.0 mg/dL (8.4-10.2) 01/04/19 11:15 Magnesium 1.70 mg/dL (1.7-2.3) 01/04/19 11:15 Total Bilirubin 10.20 mg/dL (0.1-1.2) H 01/04/19 11:15 Direct Bilirubin 7.9 mg/dL (0-0.2) H 01/04/19 11:15 Indirect Bilirubin 2.3 mg/dL 01/04/19 11:15 AST 227 units/L (5-40) H 01/04/19 11:15 ALT 50 units/L (7-56) 01/04/19 11:15 Alkaline Phosphatase 69 units/L (35-129) 01/04/19 11:15 Ammonia 99.0 umol/L (25-60) H 01/04/19 11:53 NT-Pro-B Natriuret Pep 5269 pg/mL (0-450) H 01/04/19 11:08 Total Protein 7.5 g/dL (6.3-8.2) 01/04/19 11:15 Albumin 2.4 g/dL (3.9-5) L 01/04/19 11:15 Albumin/Globulin Ratio 0.5 % 01/04/19 11:15 Lipase 8 units/L (13-60) L 01/04/19 11:08 TSH 2.830 mlU/mL (0.270-4.200) 01/04/19 11:15 Free T4 0.83 ng/dL (0.76-1.46) 01/04/19 11:15 HCG, Qual Negative (Negative) 01/04/19 11:08 Acetaminophen < 5.0 ug/mL (10.0-30.0) L 01/04/19 11:15 Blood Type B POSITIVE 01/04/19 11:31 Antibody Screen Negative 01/04/19 11:31 Short CBC 01/04/19 Range/Units 11:08 WBC 34.3 H (4.5-11.0) K/mm3 Hgb 7.8 L (10.1-14.3) gm/dl Hct 26.2 L (30.3-42.9) % Plt Count 348 (140-440) K/mm3 BMP 01/04/19 01/04/19 01/05/19 11:15 19:48 01:20 Sodium 135 L 132 L Potassium 4.4 7.1 H* D Chloride 90.7 L 92.7 L Carbon Dioxide 8 L* 11 L BUN 44 H 47 H Creatinine 3.4 H 2.5 H Glucose 70 117 H Calcium 9.0 8.6 8.1 L Liver Function 01/04/19 01/04/19 Range/Units 11:15 19:48 Total Bilirubin 10.20 H (0.1-1.2) mg/dL Direct Bilirubin 7.9 H (0-0.2) mg/dL AST 227 H (5-40) units/L ALT 50 (7-56) units/L Alkaline Phosphatase 69 (35-129) units/L Albumin 2.4 L 2.0 L (3.9-5) g/dL - Imaging and Cardiology EKG: report reviewed Chest x-ray: report reviewed (NAF) CT scan - abdomen: report reviewed CT Scan - head: report reviewed (NAF) Imaging and Cardiology: CT Abdomen IMPRESSION: 1. Hepatomegaly with marked diffuse fatty infiltration. Borderline splenomegaly. 2. Small pericardial effusion. Assessment and Plan Assessment and plan: CCT 42 minutes Advance Directives: Yes (Full code) VTE prophylaxis?: Chemical Plan of care discussed with patient/family: Yes - Patient Problems (1) Acute encephalopathy Current Visit: Yes Status: Acute Plan to address problem: Sec to hepatic failure Hyperammonemia Lactulose and Abx IV Fluids CIWA protocol for anticipated DT's (2) Hepatic failure Current Visit: Yes Status: Acute Qualifiers: Liver failure chronicity: acute Hepatic coma status: without hepatic coma Qualified Code(s): K72.00 - Acute and subacute hepatic failure without coma Plan to address problem: High Bilirubin levels and elevated transaminases c/w acute Hepatitis and Hepatic failure GI consult requested (3) Severe sepsis Current Visit: Yes Status: Acute Plan to address problem: On Zosyn and Vancomycin No source of infection identified (4) ELIZABETH (acute kidney injury) Current Visit: Yes Status: Acute Plan to address problem: Sec to ATN and volume depletion IV Fluids for now Nephrology consult requested (5) Hyperkalemia Current Visit: Yes Status: Acute Plan to address problem: treated (6) DVT prophylaxis Current Visit: Yes Status: Acute Plan to address problem: SCD's and GI prophylaxis
[2019-01-04] MEDS ORDERED: SODIUM CHLORIDE 0.9% 1000 ML 1,000 ML IV SCH (20:00)
[2019-01-04 20:30] LABS: Calcium 8.6 mg/dL (8.4-10.2)
--- NOTE | 2019-01-04 22:01 | Cat Scan Report ---
CT OF THE ABDOMEN AND PELVIS WITHOUT CONTRAST INDICATION / CLINICAL INFORMATION: Hepatic failure. TECHNIQUE: All CT scans at this location are performed using CT dose reduction for ALARA by means of automated e xposure control. COMPARISON: None available. FINDINGS: ABDOMEN: The liver measures 23.7 cm in length and demonstrates marked generalized decreased density c ompared to the spleen. The spleen measures 13.6 cm in greatest dimension. No focal hepatic or splenic lesion is seen. There is no evidence of ascites or varices. The gallbladder is surgically absent. There are surgical changes involving the stomach consistent wit h prior gastrojejunal gastric bypass. The bile ducts, pancreas, adrenal glands, kidneys and bowel are otherwise unremarkable. No adenopathy is seen. The lung bases are clear. There is a small pericardia l effusion. PELVIS: The distal ureters and urinary bladder are normal. There is a small amount of free fluid in t he pelvis. The uterus and adnexal regions are unremarkable. A normal appendix is present and there is no evidence of diverticulitis. No acute osseous abnormality is seen. IMPRESSION: 1. Hepatomegaly with marked diffuse fatty infiltration. Borderline splenomegaly. 2. Small pericardial effusion. Signer Name: Rony Little MD Signed: 01/04/2019 9:56 PM Workstation Name: [id number]
[2019-01-04] MEDS: PIPERACIL-TAZO 2.25 GM/50 ML 2.25 GM/50 ML BAG IV SCH (23:05)
[2019-01-05] MEDS ORDERED: MAGNESIUM SULFATE 1 GM in SODIUM CHLORIDE 0.9% 50 ML IV ONE (00:49)
[2019-01-05 02:42] LABS: Calcium 8.1 mg/dL (8.4-10.2)
[2019-01-05] MEDS ORDERED: INSULIN NPH/REGULAR 70/30 INJ SUB-Q ONE (03:11)
[2019-01-05] MEDS ORDERED: DEXTROSE 50% IN WATER (25GM) 50 ML SYRINGE IV ONE (03:11)
[2019-01-05] MEDS ORDERED: CALCIUM CHLORIDE 1,000 MG/10 ML SYRINGE IV ONE (03:11)
[2019-01-05] MEDS ORDERED: SODIUM BICARB 8.4% 50 MEQ/50 ML SYRINGE IV ONE (03:12)
[2019-01-05] MEDS ORDERED: INSULIN REGULAR, HUMAN 100 UNITS/1 ML SUB-Q ONE (03:47)
[2019-01-05] MEDS ORDERED: CALCIUM GLUCONATE 1,000 MG in SODIUM CHLORIDE 0.9% 100 ML IV ONE (03:48)
[2019-01-05] MEDS ORDERED: CALCIUM CHLORIDE 1,000 MG in SODIUM CHLORIDE 0.9% 100 ML IV ONE (04:00)
--- NOTE | 2019-01-05 04:07 | Event Note ---
Date: 01/05/19 Potassium 7.1, hyperkalemic cocktail given, follow-up on potassium labs
[2019-01-05] MEDS: PIPERACIL-TAZO 2.25 GM/50 ML 2.25 GM/50 ML BAG IV SCH ×2 (05:21→14:23)
[2019-01-05] MEDS ORDERED: MAGNESIUM SULFATE 2 GM/50 ML BAG IV ONE (06:35)
[2019-01-05] MEDS ORDERED: LACTULOSE 20 GM/30 ML ORAL LIQD PO PRN (06:39)
--- NOTE | 2019-01-05 08:08 | Consultation ---
History of Present Illness - Reason for Consult Consult date: 01/05/19 Liver Failure Requesting physician: MARTÍN HUBER - History of Present Illness 43 y/o female with known ETOH abuse, brought in by daughter for altered mental state. Patient found to be in presumptive acute renal failure, elevated AST, lactic acidosis and hyperkalemic. This am patient is Alert and oriented only to place. She continues to give [facility] for every answer. No family is present at bedside. Past History Past Medical History: liver disease Past Surgical History: No surgical history Social history: lives with family, alcohol abuse Family history: no significant family history Medications and Allergies Allergies Allergy/AdvReac Type Severity Reaction Status Date / Time No Known Allergies Allergy Unverified 04/01/17 17:36 Home Medications Medication Instructions Recorded Confirmed Last Taken Type HYDROcodone/ACETAMINOPHEN [[place] 1 each PO Q6H PRN #12 tablet 04/01/17 Unknown Rx 5-325 Tablet] Active Meds: Active Medications Fluconazole (Diflucan) 150 mg PO ONCE ONE Stop: 01/05/19 10:01 Haloperidol Lactate (Haldol) 5 mg IV Q1H PRN PRN Reason: Unrespon. to mult. doses BZD's Hydromorphone HCl (Dilaudid) 0.5 mg IV Q3H PRN PRN Reason: Pain , Severe (7-10) Last Admin: 01/04/19 17:30 Dose: 0.5 mg Documented by: Vancomycin HCl 1,500 mg/ (Sodium Chloride) 530 mls @ 333.333 mls/hr IV Q24H JULIETA Sodium Chloride (Nacl 0.9% 1000 Ml) 1,000 mls @ 100 mls/hr IV DIRECT JULIETA Last Admin: 01/05/19 05:19 Dose: 100 mls/hr Documented by: Piperacillin Sod/Tazobactam Sod (Zosyn/Ns 2.25 Gm/50ml) 2.25 gm in 50 mls @ 100 mls/hr IV Q8HR JULIETA; Protocol Last Admin: 01/05/19 05:21 Dose: 100 mls/hr Documented by: Magnesium Sulfate (Magnesium Sulfate 2gm/50ml) 2 gm in 50 mls @ 25 mls/hr IV ONCE ONE Stop: 01/05/19 08:34 Lactulose (Cephulac) 20 gm PO Q6H PRN PRN Reason: Constipation Lactulose (Cephulac) 20 gm PO Q2HR JULIETA Lorazepam (Ativan) 2 mg IV Q1H PRN PRN Reason: CIWA-Ar 8-15 Lorazepam (Ativan) 4 mg IV Q1H PRN PRN Reason: CIWA-Ar 16-25 Metronidazole (Flagyl) 500 mg PO Q12HR JULIETA; Protocol Sodium Chloride (Sodium Chloride Flush Syringe 10 Ml) 10 ml IV BID JULIETA Last Admin: 01/04/19 23:06 Dose: 10 ml Documented by: Sodium Chloride (Sodium Chloride Flush Syringe 10 Ml) 10 ml IV PRN PRN PRN Reason: LINE FLUSH Review of Systems ROS unobtainable: due to mental status Exam - Constitutional Vitals: Temp Pulse Resp BP Pulse Ox 97.9 F 102 H 16 98/55 99 01/05/19 04:00 01/05/19 05:31 01/05/19 05:31 01/05/19 05:31 01/05/19 05:31 General appearance: Present: no acute distress, obese - EENT ENT: poor dentition, edentulous - Neck Neck: Present: supple - Respiratory Respiratory effort: normal Respiratory: bilateral: CTA - Cardiovascular Rhythm: regular Heart Sounds: Present: S1 & S2 - Abdominal General gastrointestinal: Present: soft, non-tender, hepatomegaly Female genitourinary: Present: deferred - Rectal Rectal Exam: deferred Results - Labs CBC & Chem 7: 01/04/19 11:08 01/05/19 01:20 Labs: Abnormal lab results 01/04/19 01/04/19 01/04/19 Range/Units 11:08 11:08 11:15 WBC 34.3 H (4.5-11.0) K/mm3 RBC 2.64 L (3.65-5.03) M/mm3 Hgb 7.8 L (10.1-14.3) gm/dl Hct 26.2 L (30.3-42.9) % MCV 99 H (79-97) fl RDW 26.1 H (13.2-15.2) % Seg Neutrophils # Man 23.0 H (1.8-7.7) K/mm3 Monocytes # (Manual) 2.4 H (0.0-0.8) K/mm3 PT (12.2-14.9) Sec. INR (0.87-1.13) Sodium 135 L (137-145) mmol/L Potassium (3.6-5.0) mmol/L Chloride 90.7 L (98-107) mmol/L Carbon Dioxide 8 L* (22-30) mmol/L BUN 44 H (7-17) mg/dL Creatinine 3.4 H (0.7-1.2) mg/dL Glucose (65-100) mg/dL Lactic Acid (0.7-2.0) mmol/L Calcium (8.4-10.2) mg/dL Phosphorus (2.5-4.5) mg/dL Magnesium (1.7-2.3) mg/dL Total Bilirubin 10.20 H (0.1-1.2) mg/dL Direct Bilirubin 7.9 H (0-0.2) mg/dL AST 227 H (5-40) units/L Ammonia (25-60) umol/L NT-Pro-B Natriuret Pep 5269 H (0-450) pg/mL Albumin 2.4 L (3.9-5) g/dL Amylase (27-131) units/L Lipase 8 L (13-60) units/L Acetaminophen (10.0-30.0) ug/mL 01/04/19 01/04/19 01/04/19 Range/Units 11:15 11:32 11:53 WBC (4.5-11.0) K/mm3 RBC (3.65-5.03) M/mm3 Hgb (10.1-14.3) gm/dl Hct (30.3-42.9) % MCV (79-97) fl RDW (13.2-15.2) % Seg Neutrophils # Man (1.8-7.7) K/mm3 Monocytes # (Manual) (0.0-0.8) K/mm3 PT 23.5 H (12.2-14.9) Sec. INR 2.14 H (0.87-1.13) Sodium (137-145) mmol/L Potassium (3.6-5.0) mmol/L Chloride (98-107) mmol/L Carbon Dioxide (22-30) mmol/L BUN (7-17) mg/dL Creatinine (0.7-1.2) mg/dL Glucose (65-100) mg/dL Lactic Acid (0.7-2.0) mmol/L Calcium (8.4-10.2) mg/dL Phosphorus (2.5-4.5) mg/dL Magnesium (1.7-2.3) mg/dL Total Bilirubin (0.1-1.2) mg/dL Direct Bilirubin (0-0.2) mg/dL AST (5-40) units/L Ammonia 99.0 H (25-60) umol/L NT-Pro-B Natriuret Pep (0-450) pg/mL Albumin (3.9-5) g/dL Amylase (27-131) units/L Lipase (13-60) units/L Acetaminophen < 5.0 L (10.0-30.0) ug/mL 01/04/19 01/04/19 01/05/19 Range/Units 11:53 19:48 01:20 WBC (4.5-11.0) K/mm3 RBC (3.65-5.03) M/mm3 Hgb (10.1-14.3) gm/dl Hct (30.3-42.9) % MCV (79-97) fl RDW (13.2-15.2) % Seg Neutrophils # Man (1.8-7.7) K/mm3 Monocytes # (Manual) (0.0-0.8) K/mm3 PT (12.2-14.9) Sec. INR (0.87-1.13) Sodium 132 L (137-145) mmol/L Potassium 7.1 H* D (3.6-5.0) mmol/L Chloride 92.7 L (98-107) mmol/L Carbon Dioxide 11 L (22-30) mmol/L BUN 47 H (7-17) mg/dL Creatinine 2.5 H (0.7-1.2) mg/dL Glucose 117 H (65-100) mg/dL Lactic Acid 13.90 H* (0.7-2.0) mmol/L Calcium 8.1 L (8.4-10.2) mg/dL Phosphorus 6.40 H (2.5-4.5) mg/dL Magnesium 1.60 L (1.7-2.3) mg/dL Total Bilirubin (0.1-1.2) mg/dL Direct Bilirubin (0-0.2) mg/dL AST (5-40) units/L Ammonia (25-60) umol/L NT-Pro-B Natriuret Pep (0-450) pg/mL Albumin 2.0 L (3.9-5) g/dL Amylase 19 L (27-131) units/L Lipase (13-60) units/L Acetaminophen (10.0-30.0) ug/mL - Imaging and Cardiology Chest x-ray: image reviewed CT Scan - head: report reviewed CT scan - pelvis: report reviewed Assessment and Plan 43 y/o female with history of ETOH abuse admitted with elevated AST, altered mental state, renal failure, hyperkalemia and coagulopathy. 1. CT shows fatty infiltration of liver. Platelets normal but patient is coagulopathic. Consider giving Vitamin K x1. Agree with GI consultation. Likely needs abdominal ultrasound but had CT of ABD/Pelvis as well. Will defer to GI. Agree with lactulose and have asked that it be given every 2 hours until BM achieved, and then we can go back to PRN dosing. 2. Altered mental state is likely multifactorial. Renal failure, liver disease, ETOH abuse, metabolic acidosis. Addressing all of these issues. Head CT done and unremarkable 3. Renal Failure-evaluated by renal. Work up pending. Hydration has helped with Cr. Per labs this am patient was hyperkalemic and Cross cover treated with sub Q insulin. Appropriate therapy would be IV regular insulin accompanied by D50 to prevent hypoglycemia. ordered repeat K stat and will treat according. Doesn't make sense that K would increase with a decrease in Cr. Unless this specimen was hemolyzed or patient is undergoing active hemolysis. Will repeat CBC as well. Bladder scanning patient, if large amount will place florentino for accurate I/O 4. Agree with obtaining echo. Patient likely has some right heart disease. Concern for pericardial effusion on CT of chest. Can evaluate this as well. 5. ID- nursing concerned for yeast infection vs bacterial vaginosis. Will treat with Flagyl and Diflucan. No exam performed. 6. Overall prognosis is guarded. Uncertain of patient last drink. Does not appear to be in withdrawl at this time. patient not really a candidate for ICU, would be more of a step down patient. Pending other evaluations today, may try to down grade.
--- NOTE | 2019-01-05 08:46 | Progress Note ---
Assessment and Plan Assessment and plan: Patient is a 43 yo woman with a history of alcohol abuse, pancreatitis, obesity, uterine fibroids with heavy bleeding who presented to [facility] with AMS and jaundice. Last alcoholic drink unknown. * CT abd/pelvis without contrast IMPRESSION: 1. Hepatomegaly with marked diffuse fatty infiltration. Borderline splenomegaly. 2. Small pericardial effusion. * pCXR unremarkable * CT head without contrast reported no acute findings * UA ordered but uncollected per EMR AMS with Acute hepatic encephalopathy: treat with Lactulose Acute Alcoholic Liver Failure: consult GI, give vitamin k, follow coags and CMP Hypotension, tachycardic with SIRs with organ dysfunction, poa with suspected Sepsis: treat with empiric abx, need UA, blood cultures pending Alcoholic related fatty liver per CT: once mental status improve licensed mental health counselor on stopping alcohol use Hyponatremia: treat with IVF and monitor bmp/cmp Hyperkalemia: treat with kayexalate Metabolic Acidosis: treat the renal failure Acute Renal Failure vasomotor nephropathy, poa: treat with IVFs Hypomagnesemia: replete and monitor closely Severe Malnutrition: consult Offline Cutter BMI 37.4: lifesytle modification Hyperbilirubemina: treat the liver failure, get GB US Isolated AST elevation, serum ETOH not measured HyperAmmonemia: serial ammonia levels and treat with Lactulose Coagulopathic: best with vitamin k Small pericardial effusion: ECHO ordered Vaginal Discharge per chart: on flagyl, given Diflucan x 1 DVT ppx; scd only due to coagulopathy CCT 38 minutes History Interval history: Patient was seen and examined. Follow-up on current diagnosis of AMS. No overnight events reported to me. Imaging, nursing note, chart, labs and old chart reviewed. Hospitalist Physical - Physical exam Narrative exam: Gen: ill appearing, bmi 37.4 confused HEENT: NCAT, EOMI, PERRL, OP Clear, sclera icterus Neck: supple, no adenopathy, no thyromegaly, no JVD CVS/Heart: RRR, normal S1S2, pulses present bilaterally Chest/Lungs: CTA B, Symmetrical chest expansion, good air entry bilaterally GI/Abdomen: soft, NTND, good bowel sounds, no guarding or rebound /Bladder: no suprapubic tenderness, no CVA or paraspinal tenderness Extermity/Skin: jaundice MSK: spontaneous FROM x 4 Neuro: CN 2-12 grossly intact, doesn't follow all commands Psych: confused - Constitutional Vitals: Temp Pulse Resp BP Pulse Ox 97.9 F 102 H 16 98/55 99 01/05/19 04:00 01/05/19 05:31 01/05/19 05:31 01/05/19 05:31 01/05/19 05:31 General appearance: Present: no acute distress, obese Results - Labs CBC & Chem 7: 01/05/19 11:51 01/05/19 11:51 Labs: Laboratory Last Values WBC 34.3 K/mm3 (4.5-11.0) H 01/04/19 11:08 RBC 2.64 M/mm3 (3.65-5.03) L 01/04/19 11:08 Hgb 7.8 gm/dl (10.1-14.3) L 01/04/19 11:08 Hct 26.2 % (30.3-42.9) L 01/04/19 11:08 MCV 99 fl (79-97) H 01/04/19 11:08 MCH 30 pg (28-32) 01/04/19 11:08 MCHC 30 % (30-34) 01/04/19 11:08 RDW 26.1 % (13.2-15.2) H 01/04/19 11:08 Plt Count 348 K/mm3 (140-440) 01/04/19 11:08 Add Manual Diff Complete 01/04/19 11:08 Total Counted 100 01/04/19 11:08 Seg Neuts % (Manual) 67.0 % (40.0-70.0) 01/04/19 11:08 Band Neutrophils % 11.0 % 01/04/19 11:08 Lymphocytes % (Manual) 15.0 % (13.4-35.0) 01/04/19 11:08 Reactive Lymphs % (Man) 0 % 01/04/19 11:08 Monocytes % (Manual) 7.0 % (0.0-7.3) 01/04/19 11:08 Eosinophils % (Manual) 0 % (0.0-4.3) 01/04/19 11:08 Basophils % (Manual) 0 % (0.0-1.8) 01/04/19 11:08 Metamyelocytes % 0 % 01/04/19 11:08 Myelocytes % 0 % 01/04/19 11:08 Promyelocytes % 0 % 01/04/19 11:08 Blast Cells % 0 % 01/04/19 11:08 Nucleated RBC % Not Reportable 01/04/19 11:08 Seg Neutrophils # Man 23.0 K/mm3 (1.8-7.7) H 01/04/19 11:08 Band Neutrophils # 3.8 K/mm3 01/04/19 11:08 Lymphocytes # (Manual) 5.1 K/mm3 (1.2-5.4) 01/04/19 11:08 Abs React Lymphs (Man) 0.0 K/mm3 01/04/19 11:08 Monocytes # (Manual) 2.4 K/mm3 (0.0-0.8) H 01/04/19 11:08 Eosinophils # (Manual) 0.0 K/mm3 (0.0-0.4) 01/04/19 11:08 Basophils # (Manual) 0.0 K/mm3 (0.0-0.1) 01/04/19 11:08 Metamyelocytes # 0.0 K/mm3 01/04/19 11:08 Myelocytes # 0.0 K/mm3 01/04/19 11:08 Promyelocytes # 0.0 K/mm3 01/04/19 11:08 Blast Cells # 0.0 K/mm3 01/04/19 11:08 WBC Morphology Not Reportable 01/04/19 11:08 Hypersegmented Neuts Not Reportable 01/04/19 11:08 Hyposegmented Neuts Not Reportable 01/04/19 11:08 Hypogranular Neuts Not Reportable 01/04/19 11:08 Smudge Cells Not Reportable 01/04/19 11:08 Toxic Granulation Not Reportable 01/04/19 11:08 Toxic Vacuolation Not Reportable 01/04/19 11:08 Dohle Bodies Not Reportable 01/04/19 11:08 Pelger-Huet Anomaly Not Reportable 01/04/19 11:08 Jonathan Rods Not Reportable 01/04/19 11:08 Platelet Estimate Consistent w auto 01/04/19 11:08 Clumped Platelets Not Reportable 01/04/19 11:08 Plt Clumps, EDTA Not Reportable 01/04/19 11:08 Large Platelets Not Reportable 01/04/19 11:08 Giant Platelets Not Reportable 01/04/19 11:08 Platelet Satelliting Not Reportable 01/04/19 11:08 Plt Morphology Comment Not Reportable 01/04/19 11:08 RBC Morphology Not Reportable 01/04/19 11:08 Dimorphic RBCs Not Reportable 01/04/19 11:08 Polychromasia Few 01/04/19 11:08 Hypochromasia Not Reportable 01/04/19 11:08 Poikilocytosis Not Reportable 01/04/19 11:08 Anisocytosis 2+ 01/04/19 11:08 Microcytosis Few 01/04/19 11:08 Macrocytosis Few 01/04/19 11:08 Spherocytes Not Reportable 01/04/19 11:08 Pappenheimer Bodies Not Reportable 01/04/19 11:08 Sickle Cells Not Reportable 01/04/19 11:08 Target Cells Not Reportable 01/04/19 11:08 Tear Drop Cells Not Reportable 01/04/19 11:08 Ovalocytes Not Reportable 01/04/19 11:08 Helmet Cells Not Reportable 01/04/19 11:08 [place] Bodies Not Reportable 01/04/19 11:08 [place] Rings Not Reportable 01/04/19 11:08 Louis Cells Not Reportable 01/04/19 11:08 Bite Cells Not Reportable 01/04/19 11:08 Crenated Cell Not Reportable 01/04/19 11:08 Elliptocytes Not Reportable 01/04/19 11:08 Acanthocytes (Spur) Not Reportable 01/04/19 11:08 Rouleaux Not Reportable 01/04/19 11:08 Hemoglobin C Crystals Not Reportable 01/04/19 11:08 Schistocytes Not Reportable 01/04/19 11:08 Malaria parasites Not Reportable 01/04/19 11:08 Bhavik Bodies Not Reportable 01/04/19 11:08 Hem Pathologist Commnt No 01/04/19 11:08 PT 23.5 Sec. (12.2-14.9) H 01/04/19 11:32 INR 2.14 (0.87-1.13) H 01/04/19 11:32 Sodium 132 mmol/L (137-145) L 01/05/19 01:20 Potassium 7.1 mmol/L (3.6-5.0) H* D 01/05/19 01:20 Chloride 92.7 mmol/L (98-107) L 01/05/19 01:20 Carbon Dioxide 11 mmol/L (22-30) L 01/05/19 01:20 Anion Gap 35 mmol/L 01/05/19 01:20 BUN 47 mg/dL (7-17) H 01/05/19 01:20 Creatinine 2.5 mg/dL (0.7-1.2) H 01/05/19 01:20 Estimated GFR 25 ml/min 01/05/19 01:20 BUN/Creatinine Ratio 19 % 01/05/19 01:20 Glucose 117 mg/dL (65-100) H 01/05/19 01:20 POC Glucose 82 (70-105) 01/04/19 11:52 Osmolality 307 Mosm/kg 01/04/19 18:32 Lactic Acid 13.90 mmol/L (0.7-2.0) H* 01/04/19 11:53 Calcium 8.1 mg/dL (8.4-10.2) L 01/05/19 01:20 Phosphorus 6.40 mg/dL (2.5-4.5) H 01/04/19 19:48 Magnesium 1.60 mg/dL (1.7-2.3) L 01/04/19 19:48 Total Bilirubin 10.20 mg/dL (0.1-1.2) H 01/04/19 11:15 Direct Bilirubin 7.9 mg/dL (0-0.2) H 01/04/19 11:15 Indirect Bilirubin 2.3 mg/dL 01/04/19 11:15 AST 227 units/L (5-40) H 01/04/19 11:15 ALT 50 units/L (7-56) 01/04/19 11:15 Alkaline Phosphatase 69 units/L (35-129) 01/04/19 11:15 Ammonia 99.0 umol/L (25-60) H 01/04/19 11:53 NT-Pro-B Natriuret Pep 5269 pg/mL (0-450) H 01/04/19 11:08 Total Protein 7.5 g/dL (6.3-8.2) 01/04/19 11:15 Albumin 2.0 g/dL (3.9-5) L 01/04/19 19:48 Albumin/Globulin Ratio 0.5 % 01/04/19 11:15 Amylase 19 units/L (27-131) L 01/04/19 19:48 Lipase 8 units/L (13-60) L 01/04/19 11:08 TSH 2.830 mlU/mL (0.270-4.200) 01/04/19 11:15 Free T4 0.83 ng/dL (0.76-1.46) 01/04/19 11:15 HCG, Qual Negative (Negative) 01/04/19 11:08 Acetaminophen < 5.0 ug/mL (10.0-30.0) L 01/04/19 11:15 Blood Type B POSITIVE 01/04/19 11:31 Antibody Screen Negative 01/04/19 11:31 Active Medications - Current Medications Current Medications: Generic Name Dose Route Start Last Admin Trade Name Freq PRN Reason Stop Dose Admin Fluconazole 150 mg 01/05/19 10:00 Diflucan PO 01/05/19 10:01 ONCE ONE Haloperidol Lactate 5 mg 01/04/19 19:39 Haldol IV Q1H PRN Unrespon. to mult. doses BZD's Hydromorphone HCl 0.5 mg 01/04/19 17:16 01/04/19 17:30 Dilaudid IV 0.5 mg Q3H PRN Administration Pain , Severe (7-10) Vancomycin HCl 1,500 mg/ 530 mls @ 333.333 mls/hr 01/05/19 14:00 Sodium Chloride IV Q24H JULIETA Sodium Chloride 1,000 mls @ 100 mls/hr 01/04/19 20:00 01/05/19 05:19 Nacl 0.9% 1000 Ml IV 100 mls/hr DIRECT JULIETA Administration Piperacillin Sod/Tazobactam Sod 2.25 gm in 50 mls @ 100 mls/hr 01/04/19 22:00 01/05/19 05:21 Zosyn/Ns 2.25 Gm/50ml IV 100 mls/hr Q8HR JULIETA Administration Protocol Lactulose 20 gm 01/05/19 06:39 Cephulac PO Q6H PRN Constipation Lactulose 20 gm 01/05/19 08:00 Cephulac PO Q2HR JULIETA Lorazepam 2 mg 01/04/19 19:32 Ativan IV Q1H PRN CIWA-Ar 8-15 Lorazepam 4 mg 01/04/19 19:32 Ativan IV Q1H PRN CIWA-Ar 16-25 Metronidazole 500 mg 01/05/19 10:00 Flagyl PO Q12HR JULIETA Protocol Sodium Chloride 10 ml 01/04/19 22:00 01/04/19 23:06 Sodium Chloride Flush Syringe 10 Ml IV 10 ml BID JULIETA Administration Sodium Chloride 10 ml 01/04/19 19:36 Sodium Chloride Flush Syringe 10 Ml IV PRN PRN LINE FLUSH
[2019-01-05] MEDS: LACTULOSE 20 GM/30 ML ORAL LIQD PO SCH ×9 (08:54→22:36)
[2019-01-05] MEDS: metroNIDAZOLE 500 MG TAB PO SCH ×2 (09:01→22:36)
[2019-01-05] MEDS ORDERED: FLUCONAZOLE 150 MG TAB PO ONE (10:00)
--- NOTE | 2019-01-05 11:16 | XRay Report ---
ABDOMEN 1 VIEW(S) INDICATION / CLINICAL INFORMATION: dobhoff placement. COMPARISON: Chest x-ray from yesterday FINDINGS: TUBES / LINES: Dobbhoff tube tip in the proximal stomach should be advanced at least 10 cm into the d uodenum. BOWEL GAS PATTERN: No significant abnormality. FREE AIR / EXTRALUMINAL GAS: None seen. ADDITIONAL FINDINGS: No significant additional findings. IMPRESSION: 1. DHT as above. Signer Name: Jose Odonnell MD Signed: 01/05/2019 11:12 AM Workstation Name: [id number]
--- NOTE | 2019-01-05 11:42 | Ultrasound Report ---
ULTRASOUND ABDOMEN, COMPLETE INDICATION: Liver failure and renal failure. COMPARISON: None available. FINDINGS: Suboptimal examination due to body habitus. PANCREAS: Not well seen due to body habitus and bowel gas. ABDOMINAL AORTA: The distal abdominal aorta is obscured by bowel gas. The proximal and mid abdominal aorta are unremarkable. IVC: No significant abnormality.. LIVER: 16 cm in length with moderate generalized increased echogenicity compared to the right renal c ortex. No focal lesion. GALLBLADDER: Surgically absent. BILE DUCTS: No significant abnormality. Common bile duct measures 7.9 mm. KIDNEYS: Right: No significant abnormality Left: Suboptimally evaluated due to body habitus. SPLEEN: No significant abnormality. FREE FLUID: None. ADDITIONAL FINDINGS: None. IMPRESSION: 1. Suboptimal study due to body habitus and bowel gas. 2. Moderate diffuse fatty infiltration of the liver. 3. Mild bile duct prominence in a postcholecystectomy patient. Signer Name: Rony Little MD Signed: 01/05/2019 11:38 AM Workstation Name: [id number]
[2019-01-05 12:34] LABS: Hematocrit 23.6 % (30.3-42.9); Hemoglobin 7.6 gm/dl (10.1-14.3); Mean Corpuscular HGB Conc 32 % (30-34); Mean Corpuscular Volume 93 fl (79-97); Platelet Count 325 K/mm3 (140-440); Red Blood Count 2.55 M/mm3 (3.65-5.03)
[2019-01-05 12:40] LABS: Calcium 8.1 mg/dL (8.4-10.2)
--- NOTE | 2019-01-05 12:47 | XRay Report ---
ABDOMEN 1 VIEW(S) INDICATION / CLINICAL INFORMATION: advanced dobhoff. COMPARISON: Earlier today FINDINGS: TUBES / LINES: Dobbhoff tube tip remains in the proximal stomach and should be advanced at least 10 c m into the duodenum. BOWEL GAS PATTERN: No significant abnormality. FREE AIR / EXTRALUMINAL GAS: None seen. ADDITIONAL FINDINGS: No significant additional findings. IMPRESSION: 1. DHT as above. Signer Name: Jose Odonnell MD Signed: 01/05/2019 12:42 PM Workstation Name: [id number]
[2019-01-05 13:50] LABS: Anisocytosis 2+; Band Neutrophils # (Manual) 4.6 K/mm3; Basophils % (Manual) 0 % (0.0-1.8); Eosinophils % (Manual) 0 % (0.0-4.3); Hypochromasia 1+; Macrocytosis 1+; Platelet Clumps Rare; Platelet Estimate Consistent w Auto; Target Cells 1+; Total Cells Counted 100
[2019-01-05] MEDS ORDERED: VANCOMYCIN 1,500 MG in SODIUM CHLORIDE 0.9% 500 ML 500 ML IV SCH (14:00)
[2019-01-05 16:02] LABS: Hepatitis B Surface Antigen Non-Reactive (Negative); Hepatitis C Virus Antibody Non-Reactive (NonReactive)
--- NOTE | 2019-01-05 18:14 | Progress Note ---
Assessment and Plan This is a 43 year old woman with liver disease who presents with confusion, found to have severe lactic acidosis and ELIZABETH. # Acute Kidney Injury: differential for ELIZABETH in this patient includes tubular injury vs HRS vs infectious GN vs pre-renal. At this time, suspect tubular injury in setting of sepsis/infection and lactic acidosis. Creatinine stable since admission. Cannot say HRS at this time given need to rule out other etiologies, so would not treat for HRS. - sending urinalysis, urine na/creatinine for further investigation - renal ultrasound without acute abnormalities - no indication for renal replacement therapy, but did discuss potential need if worsening injury with family - daily renal function panel - strict Is/Os - would be ok with cautious use of IVF as patient is very likely intravascularly depleted, but would monitor closely for volume overload on chest exam - supportive care per primary # Elevated Anion Gap Metabolic Acidosis: likely from lactate of 13.9, improving - no indication for HCO3 gtt - supportive measures # Leukocytosis: - concern for infection, f/u blood and urine cultures. Consider diagnostic paracentesis per primary team Thank you for this interesting consult. We will continue to follow patient closely. Please do not hesitate to call me on my cell at with any questions regarding this case. Subjective Date of service: 01/05/19 Interval history: no acute events noted overnight. Initial K found be 7.1, but repeat was normal. Discussed with family and patient. Objective - Exam Narrative Exam: General appearance: no acute distress, fatigue, frail, other (sick appearing) EENT: mucous membranes dry Neck: Present: neck supple, trachea midline Respiratory: Decreased Breath Sounds bilaterally Heart: regular, S1S2 Gastrointestinal: Present: tenderness, distended Integumentary: no rash, warm and dry Neurologic: no focal deficit, no asterixis, confused, disoriented Musculoskeletal: Absent: deformities, joint swelling - Vital Signs Vital signs: Vital Signs - 12hr 01/05/19 01/05/19 01/05/19 06:21 06:31 06:41 Temperature Pulse Rate 102 H 102 H 102 H Respiratory 20 19 17 Rate Blood Pressure 95/58 95/58 95/58 O2 Sat by Pulse 99 99 98 Oximetry 01/05/19 01/05/19 01/05/19 06:51 07:00 07:11 Temperature Pulse Rate 102 H 102 H 102 H Respiratory 16 19 18 Rate Blood Pressure 95/58 95/58 95/58 O2 Sat by Pulse 99 100 99 Oximetry 01/05/19 01/05/19 01/05/19 07:21 07:31 07:41 Temperature Pulse Rate 101 H 102 H 102 H Respiratory 16 15 17 Rate Blood Pressure 95/58 95/58 95/58 O2 Sat by Pulse 99 99 99 Oximetry 01/05/19 01/05/19 01/05/19 07:51 08:00 08:11 Temperature 97.8 F Pulse Rate 102 H 101 H 101 H Respiratory 17 15 14 Rate Blood Pressure 95/58 98/61 98/61 O2 Sat by Pulse 99 98 99 Oximetry 01/05/19 01/05/19 01/05/19 08:21 08:31 08:41 Temperature Pulse Rate 102 H 102 H 101 H Respiratory 15 14 15 Rate Blood Pressure 98/61 98/61 98/61 O2 Sat by Pulse 99 98 97 Oximetry 01/05/19 01/05/19 01/05/19 08:51 09:01 09:11 Temperature Pulse Rate 101 H 101 H 101 H Respiratory 16 15 19 Rate Blood Pressure 98/61 97/51 97/51 O2 Sat by Pulse 98 99 99 Oximetry 01/05/19 01/05/19 01/05/19 09:21 09:31 09:41 Temperature Pulse Rate 102 H 102 H 102 H Respiratory 14 18 16 Rate Blood Pressure 97/51 97/51 97/51 O2 Sat by Pulse 96 94 93 Oximetry 01/05/19 01/05/19 01/05/19 09:51 10:00 10:01 Temperature Pulse Rate 102 H 104 H 101 H Respiratory 18 19 Rate Blood Pressure 97/51 94/62 O2 Sat by Pulse 97 98 Oximetry 01/05/19 01/05/19 01/05/19 10:11 10:21 10:31 Temperature Pulse Rate 101 H 101 H 101 H Respiratory 16 15 16 Rate Blood Pressure 94/62 94/62 94/62 O2 Sat by Pulse 97 99 97 Oximetry 01/05/19 01/05/19 01/05/19 10:41 10:51 11:02 Temperature Pulse Rate 101 H 100 H 100 H Respiratory 15 16 15 Rate Blood Pressure 94/62 94/62 101/70 O2 Sat by Pulse 97 97 98 Oximetry 10/26/19 10/26/19 10/26/19 11:10 11:21 11:31 Temperature Pulse Rate 100 H 101 H 100 H Respiratory 15 16 13 Rate Blood Pressure 101/70 101/70 O2 Sat by Pulse 98 97 96 Oximetry 01/05/19 01/05/19 01/05/19 11:41 11:51 12:00 Temperature 98.2 F Pulse Rate 100 H 100 H 100 H Respiratory 15 15 15 Rate Blood Pressure 101/70 101/70 101/68 O2 Sat by Pulse 97 96 98 Oximetry 01/05/19 01/05/19 01/05/19 12:11 12:21 12:31 Temperature Pulse Rate 101 H 101 H 102 H Respiratory 15 17 18 Rate Blood Pressure 101/68 101/68 101/68 O2 Sat by Pulse 97 99 98 Oximetry 01/05/19 01/05/19 01/05/19 12:41 12:51 13:00 Temperature Pulse Rate 103 H 102 H 101 H Respiratory 19 17 16 Rate Blood Pressure 101/68 101/68 102/54 O2 Sat by Pulse 99 97 98 Oximetry 01/05/19 01/05/19 01/05/19 13:11 13:21 13:31 Temperature Pulse Rate 101 H 101 H 101 H Respiratory 18 17 17 Rate Blood Pressure 102/54 102/54 102/54 O2 Sat by Pulse 98 97 98 Oximetry 01/05/19 01/05/19 01/05/19 13:41 13:51 14:00 Temperature Pulse Rate 101 H 101 H 101 H Respiratory 17 16 18 Rate Blood Pressure 102/54 102/54 92/55 O2 Sat by Pulse 98 98 98 Oximetry 01/05/19 01/05/19 01/05/19 14:11 14:21 14:30 Temperature Pulse Rate 101 H 101 H 99 H Respiratory 16 17 18 Rate Blood Pressure 92/55 92/55 92/55 O2 Sat by Pulse 98 98 98 Oximetry 01/05/19 01/05/19 01/05/19 14:40 14:50 15:00 Temperature Pulse Rate 100 H 101 H 101 H Respiratory 17 20 19 Rate Blood Pressure 92/55 92/55 94/61 O2 Sat by Pulse 98 97 97 Oximetry 01/05/19 01/05/19 01/05/19 15:10 15:20 15:30 Temperature Pulse Rate 101 H 100 H 100 H Respiratory 19 17 16 Rate Blood Pressure 94/61 94/61 94/61 O2 Sat by Pulse 97 97 97 Oximetry 10/26/19 10/26/19 10/26/19 15:40 15:50 16:00 Temperature 98.4 F Pulse Rate 98 H 101 H 101 H Respiratory 13 20 19 Rate Blood Pressure 94/61 94/61 103/64 O2 Sat by Pulse 97 98 98 Oximetry 01/05/19 01/05/19 01/05/19 16:10 16:20 16:30 Temperature Pulse Rate 101 H 100 H 100 H Respiratory 18 18 18 Rate Blood Pressure 103/64 103/64 103/64 O2 Sat by Pulse 98 98 97 Oximetry 01/05/19 01/05/19 01/05/19 16:40 16:50 17:00 Temperature Pulse Rate 100 H 101 H 101 H Respiratory 16 17 20 Rate Blood Pressure 103/64 103/64 111/64 O2 Sat by Pulse 97 99 98 Oximetry 01/05/19 01/05/19 01/05/19 17:10 17:20 17:30 Temperature Pulse Rate 101 H 100 H 101 H Respiratory 20 18 20 Rate Blood Pressure 111/64 111/64 111/64 O2 Sat by Pulse 98 98 97 Oximetry 01/05/19 01/05/19 01/05/19 17:40 17:50 18:00 Temperature Pulse Rate 101 H 102 H 101 H Respiratory 15 20 22 Rate Blood Pressure 111/64 111/64 101/59 O2 Sat by Pulse 98 98 98 Oximetry - Lab 01/05/19 11:51 01/05/19 11:51 Most recent lab results Calcium 8.1 mg/dL (8.4-10.2) L 01/05/19 11:51 Phosphorus 6.40 mg/dL (2.5-4.5) H 01/04/19 19:48 Magnesium 1.60 mg/dL (1.7-2.3) L 01/04/19 19:48 Medications & Allergies - Medications Allergies/Adverse Reactions: Allergies No Known Allergies Allergy (Unverified 04/01/17 17:36) Home Medications: Home Medications Medication Instructions Recorded Confirmed Last Taken Type HYDROcodone/ACETAMINOPHEN [[place] 1 each PO Q6H PRN #12 tablet 04/01/17 01/05/19 Unknown Rx 5-325 Tablet] Amoxicillin [Trimox CAP] 500 mg PO TID 01/05/19 01/05/19 Unknown History Cetirizine HCl [Allergy Relief] 10 mg PO QDAY 01/05/19 01/05/19 Unknown History Ferrous Sulfate [Ferrous Sulfate 324 mg PO QDAY 01/05/19 01/05/19 Unknown History 324 MG] Fexofenadine (Nf) 180 mg PO QDAY PRN 01/05/19 01/05/19 Unknown History Gabapentin 300 mg PO TID 01/05/19 01/05/19 Unknown History Montelukast [Singulair] 10 mg PO QPM 01/05/19 01/05/19 Unknown History Multivit-Min/Iron/Folic Acid/K 1 each PO QDAY 01/05/19 01/05/19 Unknown History [Adults Multivitamin Tablet] Omeprazole 40 mg PO PRN PRN 01/05/19 01/05/19 Unknown History Ranitidine HCl [Zantac] 300 mg PO QDAY 01/05/19 01/05/19 Unknown History Sod Phos Di, [place]/K Phos [place] 1 tab PO BID 01/05/19 01/05/19 Unknown History [Virt-Phos 250 Neutral Tablet] traZODone [Desyrel] 50 mg PO QHS 01/05/19 01/05/19 Unknown History Active Medications: Generic Name Dose Route Start Last Admin Trade Name Freq PRN Reason Stop Dose Admin Haloperidol Lactate 5 mg 01/04/19 19:39 Haldol IV Q1H PRN Unrespon. to mult. doses BZD's Hydromorphone HCl 0.5 mg 01/04/19 17:16 01/04/19 17:30 Dilaudid IV 0.5 mg Q3H PRN Administration Pain , Severe (7-10) Vancomycin HCl 1,500 mg/ 530 mls @ 333.333 mls/hr 01/05/19 14:00 01/05/19 14:24 Sodium Chloride IV 333.333 mls/hr Q24H JULIETA Administration Piperacillin Sod/Tazobactam Sod 2.25 gm in 50 mls @ 100 mls/hr 01/04/19 22:00 01/05/19 14:23 Zosyn/Ns 2.25 Gm/50ml IV 100 mls/hr Q8HR JULIETA Administration Protocol Lactulose 20 gm 01/05/19 06:39 Cephulac PO Q6H PRN Constipation Lactulose 20 gm 01/05/19 08:00 01/05/19 16:44 Cephulac PO 20 gm Q2HR JULIETA Administration Lorazepam 2 mg 01/04/19 19:32 Ativan IV Q1H PRN CIWA-Ar 8-15 Lorazepam 4 mg 01/04/19 19:32 Ativan IV Q1H PRN CIWA-Ar 16-25 Metronidazole 500 mg 01/05/19 10:00 01/05/19 09:01 Flagyl PO 500 mg Q12HR JULIETA Administration Protocol Sodium Chloride 10 ml 01/04/19 22:00 01/05/19 09:01 Sodium Chloride Flush Syringe 10 Ml IV 10 ml BID JULIETA Administration Sodium Chloride 10 ml 01/04/19 19:36 Sodium Chloride Flush Syringe 10 Ml IV PRN PRN LINE FLUSH
--- NOTE | 2019-01-05 19:06 | Consultation ---
History of Present Illness - Reason for Consult Consult date: 01/05/19 - History of Present Illness 43 yo F with known history of alcohol abuse admitted to the hospital in liver failure with altered mental status and confusion. She was also found to be in acute renal failure as well. I spoke with her daughter who notes that over the past few weeks the patient has not been activing like herself. SHe is normally independent, but has been requiring help to go to the bathroom and has not been eating as well. She also notes that the patient had been slurring her speech and not making sense. Afebrile since admission with an elevated white count now to 31. Currently receiving vancomycin, pip-ty, and metronidazole. Imaging personally reviewed: CTAP: fatty infilatration of the liver CXR: No acute abnormality. Past History Past Medical History: liver disease Past Surgical History: No surgical history Social history: lives with family, alcohol abuse Family history: no significant family history Medications and Allergies Allergies Allergy/AdvReac Type Severity Reaction Status Date / Time No Known Allergies Allergy Unverified 04/01/17 17:36 Home Medications Medication Instructions Recorded Confirmed Last Taken Type HYDROcodone/ACETAMINOPHEN [[place] 1 each PO Q6H PRN #12 tablet 04/01/17 01/05/19 Unknown Rx 5-325 Tablet] Amoxicillin [Trimox CAP] 500 mg PO TID 01/05/19 01/05/19 Unknown History Cetirizine HCl [Allergy Relief] 10 mg PO QDAY 01/05/19 01/05/19 Unknown History Ferrous Sulfate [Ferrous Sulfate 324 mg PO QDAY 01/05/19 01/05/19 Unknown History 324 MG] Fexofenadine (Nf) 180 mg PO QDAY PRN 01/05/19 01/05/19 Unknown History Gabapentin 300 mg PO TID 01/05/19 01/05/19 Unknown History Montelukast [Singulair] 10 mg PO QPM 01/05/19 01/05/19 Unknown History Multivit-Min/Iron/Folic Acid/K 1 each PO QDAY 01/05/19 01/05/19 Unknown History [Adults Multivitamin Tablet] Omeprazole 40 mg PO PRN PRN 01/05/19 01/05/19 Unknown History Ranitidine HCl [Zantac] 300 mg PO QDAY 01/05/19 01/05/19 Unknown History Sod Phos Di, [place]/K Phos [place] 1 tab PO BID 01/05/19 01/05/19 Unknown History [Virt-Phos 250 Neutral Tablet] traZODone [Desyrel] 50 mg PO QHS 01/05/19 01/05/19 Unknown History Active Meds: Active Medications Haloperidol Lactate (Haldol) 5 mg IV Q1H PRN PRN Reason: Unrespon. to mult. doses BZD's Hydromorphone HCl (Dilaudid) 0.5 mg IV Q3H PRN PRN Reason: Pain , Severe (7-10) Last Admin: 01/04/19 17:30 Dose: 0.5 mg Documented by: Vancomycin HCl 1,500 mg/ (Sodium Chloride) 530 mls @ 333.333 mls/hr IV Q24H JULIETA Last Admin: 01/05/19 14:24 Dose: 333.333 mls/hr Documented by: Piperacillin Sod/Tazobactam Sod (Zosyn/Ns 2.25 Gm/50ml) 2.25 gm in 50 mls @ 100 mls/hr IV Q8HR JULIETA; Protocol Last Admin: 01/05/19 14:23 Dose: 100 mls/hr Documented by: Lactulose (Cephulac) 20 gm PO Q6H PRN PRN Reason: Constipation Lactulose (Cephulac) 20 gm PO Q2HR JULIETA Last Admin: 01/05/19 18:29 Dose: 20 gm Documented by: Lorazepam (Ativan) 2 mg IV Q1H PRN PRN Reason: CIWA-Ar 8-15 Lorazepam (Ativan) 4 mg IV Q1H PRN PRN Reason: CIWA-Ar 16-25 Metronidazole (Flagyl) 500 mg PO Q12HR JULIETA; Protocol Last Admin: 01/05/19 09:01 Dose: 500 mg Documented by: Sodium Chloride (Sodium Chloride Flush Syringe 10 Ml) 10 ml IV BID JULIETA Last Admin: 01/05/19 09:01 Dose: 10 ml Documented by: Sodium Chloride (Sodium Chloride Flush Syringe 10 Ml) 10 ml IV PRN PRN PRN Reason: LINE FLUSH Review of Systems ROS unobtainable: due to mental status Physical Examination - Physical Exam Narrative exam: Constitutional: Alert, cooperative. No acute distress Head, Ears, Nose: Normocephalic, atraumatic. External ears, nose normal Eyes: Conjunctivae/corneas clear. No icterus. No ptosis. Neck: Supple, no meningeal signs Oral: dentition fair, no thrush Cardiovascular: S1, S2 normal. Respiratory: Good air entry, clear to auscultation bilaterally GI: Soft, non-tender; bowel sounds normal. No peritoneal signs. Musculoskeletal: No pedal edema, no cyanosis. Skin: No rash or abscess Hem/Lymphatic: No palpable cervical or supraclavicular nodes. No lymphangitis Psych: Mood ok. Affect normal Neurological: Awake, alert, oriented. No gross abnormality - Constitutional Vitals: Vital Signs Temp Pulse Resp BP Pulse Ox 98.4 F 101 H 22 101/59 98 01/05/19 16:00 01/05/19 18:00 01/05/19 18:00 01/05/19 18:00 01/05/19 18:00 Temperature -Last 24 Hours Temperature 98.4 F Temperature 98.2 F Temperature 97.8 F Temperature 97.9 F Temperature 97.6 F Temperature 97.2 F Temperature 97.6 F Results - Labs CBC & Chem 7: 01/05/19 11:51 01/05/19 11:51 Labs: Abnormal lab results 01/04/19 01/05/19 01/05/19 Range/Units 19:48 01:20 11:51 WBC 30.6 H (4.5-11.0) K/mm3 RBC 2.55 L (3.65-5.03) M/mm3 Hgb 7.6 L (10.1-14.3) gm/dl Hct 23.6 L (30.3-42.9) % RDW 26.0 H (13.2-15.2) % Seg Neutrophils # Man 19.0 H (1.8-7.7) K/mm3 Monocytes # (Manual) 1.2 H (0.0-0.8) K/mm3 Sodium 132 L (137-145) mmol/L Potassium 7.1 H* D (3.6-5.0) mmol/L Chloride 92.7 L (98-107) mmol/L Carbon Dioxide 11 L (22-30) mmol/L BUN 47 H (7-17) mg/dL Creatinine 2.5 H (0.7-1.2) mg/dL Glucose 117 H (65-100) mg/dL Calcium 8.1 L (8.4-10.2) mg/dL Phosphorus 6.40 H (2.5-4.5) mg/dL Magnesium 1.60 L (1.7-2.3) mg/dL Total Bilirubin (0.1-1.2) mg/dL AST (5-40) units/L ALT (7-56) units/L Albumin 2.0 L (3.9-5) g/dL Amylase 19 L (27-131) units/L 01/05/19 Range/Units 11:51 WBC (4.5-11.0) K/mm3 RBC (3.65-5.03) M/mm3 Hgb (10.1-14.3) gm/dl Hct (30.3-42.9) % RDW (13.2-15.2) % Seg Neutrophils # Man (1.8-7.7) K/mm3 Monocytes # (Manual) (0.0-0.8) K/mm3 Sodium (137-145) mmol/L Potassium (3.6-5.0) mmol/L Chloride 95.4 L (98-107) mmol/L Carbon Dioxide 20 L D (22-30) mmol/L BUN 47 H (7-17) mg/dL Creatinine 2.9 H (0.7-1.2) mg/dL Glucose (65-100) mg/dL Calcium 8.1 L (8.4-10.2) mg/dL Phosphorus (2.5-4.5) mg/dL Magnesium (1.7-2.3) mg/dL Total Bilirubin 9.10 H (0.1-1.2) mg/dL AST 257 H (5-40) units/L ALT 58 H (7-56) units/L Albumin 2.0 L (3.9-5) g/dL Amylase (27-131) units/L Assessment and Plan Cultures: 01/04/2019 blood cultures - no growth to date A/P: 43 yo F PMHx alcohol abuse admitted with altered mental status. 1. SIRS possible sepsis - unclear source, present on admission with leukocytosis and tachycardia. Would check HIV at this time, but so far no clear infectious cause of this issue, though she does have a significant bandemia but remains afebrile. Acute hepatitis panel negative. Would continue vancomycin, but discontinue pip-ty to avoid further nephrotoxicity in this patient,. Start cefepime while work up is pending. Agree with TTE which is pending. Given progress neurologic symptoms would get MRI of the brain and consider neurology consult 2. ELIZABETH - renally dose antibiotics 3. lactic Acidosis Recs: - continue vancomycin dosed per pharmacy, goal trough 15-20 - stop pip-ty - start cefepime 2g q24h - stasrt metronidazole 500mg q8h - follow up blood cultures - follow up TTE - HIV screen - MRI brain - consider neuo consult Thank you for the consult, we will continue to follow. Whitney June MD [facility] ([facility] M: [phone] O: [phone] F: [phone]
[2019-01-05] MEDS: CEFEPIME/NS 2 GM/100 ML 2 GM/100 ML BAG IV SCH (22:35)
[2019-01-06] MEDS: LACTULOSE 20 GM/30 ML ORAL LIQD PO SCH ×8 (00:04→13:01)
--- NOTE | 2019-01-06 05:43 | Progress Note ---
Assessment and Plan Assessment and plan: Patient is a 43 yo woman with a history of alcohol abuse, pancreatitis, obesity, uterine fibroids with heavy bleeding who presented to [facility] with AMS and jaundice. Last alcoholic drink unknown. * CT abd/pelvis without contrast IMPRESSION: 1. Hepatomegaly with marked diffuse fatty infiltration. Borderline splenomegaly. 2. Small pericardial effusion. * pCXR unremarkable * CT head without contrast reported no acute findings * UA ordered but uncollected per EMR * TTE Conclusions: There is a a small moderate size circumferential pericardial effusion, no evidence of tamponade, global left ventricular systolic function is normal, the estimated EF is 60-65%, trace MR, trace TR * US abdomen complete IMPRESSION: 1. Suboptimal study due to body habitus and bowel gas. 2. Moderate diffuse fatty infiltration of the liver. 3. Mild bile duct prominence in a postcholecystectomy patient. AMS with Acute hepatic encephalopathy: treat with Lactulose Acute Alcoholic Liver Failure: consult GI, give vitamin k, follow coags and CMP Hypotension, tachycardic with SIRs with organ dysfunction, poa with suspected Sepsis: treat with empiric abx, re-ordered UA, blood cultures pending Alcoholic related fatty liver per CT: once mental status improve, children's counselor on stopping alcohol use Hyponatremia: treated with IVF and monitor bmp/cmp Hyperkalemia: treated with kayexalate Metabolic Acidosis: treat the renal failure Acute Renal Failure vasomotor nephropathy, poa: treat with IVFs, Renal is following, input noted, abd/renal u/s reviewed Hypomagnesemia: replete and monitor closely Severe Malnutrition: consulted Maintenance Scheduler BMI 37.4: lifestyle modification Hyperbilirubemia: treat the liver failure, get GB US reviewed Isolated AST elevation, serum ETOH not measured HyperAmmonemia: serial ammonia levels and treat with Lactulose Coagulopathic: best with vitamin k Small pericardial effusion: ECHO ordered and reviewed, no tamponade Vaginal Discharge per chart: on flagyl, given Diflucan x 1 DVT ppx; scd only due to coagulopathy History Interval history: Patient was seen and examined. Follow-up on current diagnosis of AMS. No overnight events reported to me. Imaging, nursing note, chart, labs and old chart reviewed. Hospitalist Physical - Physical exam Narrative exam: Gen: ill appearing, bmi 37.4 confused HEENT: NCAT, EOMI, PERRL, OP Clear, sclera icterus Neck: supple, no adenopathy, no thyromegaly, no JVD CVS/Heart: RRR, normal S1S2, pulses present bilaterally Chest/Lungs: CTA B, Symmetrical chest expansion, good air entry bilaterally GI/Abdomen: soft, NTND, good bowel sounds, no guarding or rebound /Bladder: no suprapubic tenderness, no CVA or paraspinal tenderness Extermity/Skin: jaundice MSK: spontaneous FROM x 4 Neuro: CN 2-12 grossly intact, doesn't follow all commands Psych: confused - Constitutional Vitals: Temp Pulse Resp BP Pulse Ox 97.9 F 100 H 15 103/47 97 01/06/19 00:00 01/06/19 01:30 01/06/19 01:30 01/06/19 01:30 01/06/19 01:30 General appearance: Present: no acute distress, obese Results - Labs CBC & Chem 7: 01/05/19 11:51 01/05/19 11:51 Labs: Laboratory Last Values WBC 30.6 K/mm3 (4.5-11.0) H 01/05/19 11:51 RBC 2.55 M/mm3 (3.65-5.03) L 01/05/19 11:51 Hgb 7.6 gm/dl (10.1-14.3) L 01/05/19 11:51 Hct 23.6 % (30.3-42.9) L 01/05/19 11:51 MCV 93 fl (79-97) 01/05/19 11:51 MCH 30 pg (28-32) 01/05/19 11:51 MCHC 32 % (30-34) 01/05/19 11:51 RDW 26.0 % (13.2-15.2) H 01/05/19 11:51 Plt Count 325 K/mm3 (140-440) 01/05/19 11:51 Lymph % (Auto) Architecture Department Chair 01/05/19 11:51 Warrick % (Auto) Architecture Department Chair 01/05/19 11:51 Eos % (Auto) Architecture Department Chair 01/05/19 11:51 Baso % (Auto) Architecture Department Chair 01/05/19 11:51 Lymph # Architecture Department Chair 01/05/19 11:51 Warrick # Architecture Department Chair 01/05/19 11:51 Eos # Architecture Department Chair 01/05/19 11:51 Baso # Architecture Department Chair 01/05/19 11:51 Add Manual Diff Complete 01/05/19 11:51 Total Counted 100 01/05/19 11:51 Seg Neutrophils % Architecture Department Chair 01/05/19 11:51 Seg Neuts % (Manual) 62.0 % (40.0-70.0) 01/05/19 11:51 Band Neutrophils % 15.0 % 01/05/19 11:51 Lymphocytes % (Manual) 16.0 % (13.4-35.0) 01/05/19 11:51 Reactive Lymphs % (Man) 2.0 % 01/05/19 11:51 Monocytes % (Manual) 4.0 % (0.0-7.3) 01/05/19 11:51 Eosinophils % (Manual) 0 % (0.0-4.3) 01/05/19 11:51 Basophils % (Manual) 0 % (0.0-1.8) 01/05/19 11:51 Metamyelocytes % 1.0 % 01/05/19 11:51 Myelocytes % 0 % 01/05/19 11:51 Promyelocytes % 0 % 01/05/19 11:51 Blast Cells % 0 % 01/05/19 11:51 Nucleated RBC % Not Reportable 01/05/19 11:51 Seg Neutrophils # Architecture Department Chair 01/05/19 11:51 Seg Neutrophils # Man 19.0 K/mm3 (1.8-7.7) H 01/05/19 11:51 Band Neutrophils # 4.6 K/mm3 01/05/19 11:51 Lymphocytes # (Manual) 4.9 K/mm3 (1.2-5.4) 01/05/19 11:51 Abs React Lymphs (Man) 0.6 K/mm3 01/05/19 11:51 Monocytes # (Manual) 1.2 K/mm3 (0.0-0.8) H 01/05/19 11:51 Eosinophils # (Manual) 0.0 K/mm3 (0.0-0.4) 01/05/19 11:51 Basophils # (Manual) 0.0 K/mm3 (0.0-0.1) 01/05/19 11:51 Metamyelocytes # 0.3 K/mm3 01/05/19 11:51 Myelocytes # 0.0 K/mm3 01/05/19 11:51 Promyelocytes # 0.0 K/mm3 01/05/19 11:51 Blast Cells # 0.0 K/mm3 01/05/19 11:51 WBC Morphology Not Reportable 01/05/19 11:51 Hypersegmented Neuts Not Reportable 01/05/19 11:51 Hyposegmented Neuts Not Reportable 01/05/19 11:51 Hypogranular Neuts Not Reportable 01/05/19 11:51 Smudge Cells Not Reportable 01/05/19 11:51 Toxic Granulation Not Reportable 01/05/19 11:51 Toxic Vacuolation Not Reportable 01/05/19 11:51 Dohle Bodies Not Reportable 01/05/19 11:51 Pelger-Huet Anomaly Not Reportable 01/05/19 11:51 Jonathan Rods Not Reportable 01/05/19 11:51 Platelet Estimate Consistent w auto 01/05/19 11:51 Clumped Platelets Rare 01/05/19 11:51 Plt Clumps, EDTA Not Reportable 01/05/19 11:51 Large Platelets Not Reportable 01/05/19 11:51 Giant Platelets Not Reportable 01/05/19 11:51 Platelet Satelliting Not Reportable 01/05/19 11:51 Plt Morphology Comment Not Reportable 01/05/19 11:51 RBC Morphology Not Reportable 01/05/19 11:51 Dimorphic RBCs Not Reportable 01/05/19 11:51 Polychromasia Not Reportable 01/05/19 11:51 Hypochromasia 1+ 01/05/19 11:51 Poikilocytosis Not Reportable 01/05/19 11:51 Anisocytosis 2+ 01/05/19 11:51 Microcytosis Not Reportable 01/05/19 11:51 Macrocytosis 1+ 01/05/19 11:51 Spherocytes Not Reportable 01/05/19 11:51 Pappenheimer Bodies Not Reportable 01/05/19 11:51 Sickle Cells Not Reportable 01/05/19 11:51 Target Cells 1+ 01/05/19 11:51 Tear Drop Cells Not Reportable 01/05/19 11:51 Ovalocytes Not Reportable 01/05/19 11:51 Helmet Cells Not Reportable 01/05/19 11:51 [place] Bodies Not Reportable 01/05/19 11:51 [place] Rings Not Reportable 01/05/19 11:51 Louis Cells Not Reportable 01/05/19 11:51 Bite Cells Not Reportable 01/05/19 11:51 Crenated Cell Not Reportable 01/05/19 11:51 Elliptocytes Not Reportable 01/05/19 11:51 Acanthocytes (Spur) Not Reportable 01/05/19 11:51 Rouleaux Not Reportable 01/05/19 11:51 Hemoglobin C Crystals Not Reportable 01/05/19 11:51 Schistocytes Not Reportable 01/05/19 11:51 Malaria parasites Not Reportable 01/05/19 11:51 Bhavik Bodies Not Reportable 01/05/19 11:51 Hem Pathologist Commnt No 01/05/19 11:51 PT 23.5 Sec. (12.2-14.9) H 01/04/19 11:32 INR 2.14 (0.87-1.13) H 01/04/19 11:32 Sodium 139 mmol/L (137-145) D 01/05/19 11:51 Potassium 3.6 mmol/L (3.6-5.0) 01/05/19 11:51 Potassium 3.8 mmol/L (3.6-5.0) D 01/05/19 11:51 Chloride 95.4 mmol/L (98-107) L 01/05/19 11:51 Carbon Dioxide 20 mmol/L (22-30) L D 01/05/19 11:51 Anion Gap 27 mmol/L 01/05/19 11:51 BUN 47 mg/dL (7-17) H 01/05/19 11:51 Creatinine 2.9 mg/dL (0.7-1.2) H 01/05/19 11:51 Estimated GFR 21 ml/min 01/05/19 11:51 BUN/Creatinine Ratio 16 % 01/05/19 11:51 Glucose 88 mg/dL (65-100) 01/05/19 11:51 POC Glucose 82 (70-105) 01/04/19 11:52 Osmolality 307 Mosm/kg 01/04/19 18:32 Lactic Acid 13.90 mmol/L (0.7-2.0) H* 01/04/19 11:53 Calcium 8.1 mg/dL (8.4-10.2) L 01/05/19 11:51 Phosphorus 6.40 mg/dL (2.5-4.5) H 01/04/19 19:48 Magnesium 1.60 mg/dL (1.7-2.3) L 01/04/19 19:48 Total Bilirubin 9.10 mg/dL (0.1-1.2) H 01/05/19 11:51 Direct Bilirubin 7.9 mg/dL (0-0.2) H 01/04/19 11:15 Indirect Bilirubin 2.3 mg/dL 01/04/19 11:15 AST 257 units/L (5-40) H 01/05/19 11:51 ALT 58 units/L (7-56) H 01/05/19 11:51 Alkaline Phosphatase 65 units/L (35-129) 01/05/19 11:51 Ammonia 99.0 umol/L (25-60) H 01/04/19 11:53 NT-Pro-B Natriuret Pep 5269 pg/mL (0-450) H 01/04/19 11:08 Total Protein 6.6 g/dL (6.3-8.2) 01/05/19 11:51 Albumin 2.0 g/dL (3.9-5) L 01/05/19 11:51 Albumin/Globulin Ratio 0.4 % 01/05/19 11:51 Amylase 19 units/L (27-131) L 01/04/19 19:48 Lipase 8 units/L (13-60) L 01/04/19 11:08 TSH 2.830 mlU/mL (0.270-4.200) 01/04/19 11:15 Free T4 0.83 ng/dL (0.76-1.46) 01/04/19 11:15 HCG, Qual Negative (Negative) 01/04/19 11:08 Acetaminophen < 5.0 ug/mL (10.0-30.0) L 01/04/19 11:15 Hepatitis A IgM Ab Non-reactive (NonReactive) 01/05/19 11:51 Hep Bs Antigen Non-reactive (Negative) 01/05/19 11:51 Hep B Core IgM Ab Non-reactive (NonReactive) 01/05/19 11:51 Hepatitis C Antibody Non-reactive (NonReactive) 01/05/19 11:51 Blood Type B POSITIVE 01/04/19 11:31 Antibody Screen Negative 01/04/19 11:31 Active Medications - Current Medications Current Medications: Generic Name Dose Route Start Last Admin Trade Name Freq PRN Reason Stop Dose Admin Haloperidol Lactate 5 mg 01/04/19 19:39 Haldol IV Q1H PRN Unrespon. to mult. doses BZD's Hydromorphone HCl 0.5 mg 01/04/19 17:16 01/04/19 17:30 Dilaudid IV 0.5 mg Q3H PRN Administration Pain , Severe (7-10) Vancomycin HCl 1,500 mg/ 530 mls @ 333.333 mls/hr 01/05/19 14:00 01/05/19 14:24 Sodium Chloride IV 333.333 mls/hr Q24H JULIETA Administration Cefepime HCl 2 gm in 100 mls @ 200 mls/hr 01/05/19 20:00 01/05/19 22:35 Cefepime/Ns 2 Gm/100 Ml IV 200 mls/hr Q24H JULIETA Administration Protocol Lactulose 20 gm 01/05/19 06:39 Cephulac PO Q6H PRN Constipation Lactulose 20 gm 01/05/19 08:00 01/06/19 04:00 Cephulac PO Not Given Q2HR JULIETA Lorazepam 2 mg 01/04/19 19:32 Ativan IV Q1H PRN CIWA-Ar 8-15 Lorazepam 4 mg 01/04/19 19:32 Ativan IV Q1H PRN CIWA-Ar 16-25 Metronidazole 500 mg 01/05/19 10:00 01/05/19 22:36 Flagyl PO 500 mg Q12HR JULIETA Administration Protocol Sodium Chloride 10 ml 01/04/19 22:00 01/05/19 22:46 Sodium Chloride Flush Syringe 10 Ml IV 10 ml BID JULIETA Administration Sodium Chloride 10 ml 01/04/19 19:36 Sodium Chloride Flush Syringe 10 Ml IV PRN PRN LINE FLUSH Nutrition/Malnutrition Assess - Dietary Evaluation Nutrition/Malnutrition Findings: Nutrition Notes Start: 01/05/19 13:04 Freq: Status: Active Protocol: Document 01/05/19 13:04 CHAPIN (Rec: 01/05/19 13:06 CHAPIN [id number]) Nutrition Notes Need for Assessment generated from: MD Order,Education Initial or Follow up Brief Note Current Diagnosis Hypertension Other Pertinent Diagnosis AMS, ELIZABETH, liver disease, pancreatitis Subjective/Other Information Pt consulted for diet education. Labratory was in pt room during both attempted visits Nutrition Intervention Follow-Up By: 01/07/[address] to f/u for diet education
[2019-01-06 10:12] LABS: Hematocrit 22.3 % (30.3-42.9); Hemoglobin 7.4 gm/dl (10.1-14.3); Mean Corpuscular HGB Conc 33 % (30-34); Mean Corpuscular Volume 92 fl (79-97); Platelet Count 284 K/mm3 (140-440); Red Blood Count 2.42 M/mm3 (3.65-5.03)
[2019-01-06 10:14] LABS: Red Cell Distribution Width 25.8 % (13.2-15.2)
[2019-01-06 10:30] LABS: Albumin 1.9 g/dL (3.9-5); Calcium 8.3 mg/dL (8.4-10.2)
[2019-01-06] MEDS ORDERED: LIP THERAPY VASELINE TP PRN (10:33)
[2019-01-06] MEDS ORDERED: SODIUM BICARBONATE 325 MG TAB FEEDTUBE PRN (10:59)
[2019-01-06] MEDS ORDERED: SIMPLE SYRUP 15 ML FEEDTUBE PRN ×2 (10:59)
[2019-01-06] MEDS ORDERED: LIPASE 10,500/PROTEASE 25,000/AMYLASE 43,750 (UNITS) DR CAP FEEDTUBE PRN (10:59)
--- NOTE | 2019-01-06 13:11 | Progress Note ---
Assessment and Plan 43 y/o female with history of ETOH abuse admitted with elevated AST, altered mental state, renal failure, hyperkalemia and coagulopathy. 1. CT shows fatty infiltration of liver. Platelets normal but patient is coagulopathic. Consider giving Vitamin K x1. Agree with GI consultation. Likely needs abdominal ultrasound but had CT of ABD/Pelvis as well. Will defer to GI. Stopped scheduled lactulose. Continue PRN. Will need to have at least 3 bowel movements daily. 2. Altered mental state is likely multifactorial. Renal failure, liver disease, ETOH abuse, metabolic acidosis. Addressing all of these issues. Head CT done and unremarkable 3. Renal Failure-evaluated by renal. Work up pending. Hydration has helped with Cr. Cr is improving. Renal following. 4. Echo done and read but I cannot see this report ont his computer. 5. ID- consulted and made changes to abx therapy. Defer to them for further management. 6. Overall prognosis is guarded. Uncertain of patient last drink. Does not appear to be in withdrawl at this time. Stable for transfer to [facility] Subjective Date of service: 01/06/19 Interval history: Mental states is improved today. Can answer some orienting questions better with prompting. Objective - Constitutional Vitals: Vital Signs - 12hr 01/06/19 01/06/19 01/06/19 01:10 01:20 01:30 Temperature Pulse Rate 100 H 100 H 100 H Respiratory 15 16 15 Rate Blood Pressure 103/47 103/47 103/47 O2 Sat by Pulse 98 98 97 Oximetry 01/06/19 01/06/19 01/06/19 01:40 01:50 02:00 Temperature Pulse Rate 100 H 102 H 101 H Respiratory 15 19 18 Rate Blood Pressure 103/47 103/47 106/66 O2 Sat by Pulse 98 99 98 Oximetry 01/06/19 01/06/19 01/06/19 02:10 02:20 02:30 Temperature Pulse Rate 102 H 99 H 98 H Respiratory 18 16 14 Rate Blood Pressure 106/66 106/66 106/66 O2 Sat by Pulse 98 98 98 Oximetry 01/06/19 01/06/19 01/06/19 02:40 02:50 03:00 Temperature Pulse Rate 100 H 103 H 101 H Respiratory 17 22 19 Rate Blood Pressure 106/66 106/66 105/61 O2 Sat by Pulse 99 99 98 Oximetry 01/06/19 01/06/19 01/06/19 03:10 03:20 03:30 Temperature Pulse Rate 101 H 100 H 99 H Respiratory 20 19 18 Rate Blood Pressure 105/61 105/61 105/61 O2 Sat by Pulse 98 98 99 Oximetry 01/06/19 01/06/19 01/06/19 03:40 03:50 04:00 Temperature 97.9 F Pulse Rate 100 H 100 H 99 H Respiratory 16 19 17 Rate Blood Pressure 105/61 105/61 109/63 O2 Sat by Pulse 98 98 98 Oximetry 01/06/19 01/06/19 01/06/19 04:10 04:20 04:30 Temperature Pulse Rate 99 H 97 H 97 H Respiratory 19 16 16 Rate Blood Pressure 109/63 109/63 109/63 O2 Sat by Pulse 99 97 98 Oximetry 01/06/19 01/06/19 01/06/19 04:40 04:50 05:00 Temperature Pulse Rate 98 H 97 H 98 H Respiratory 16 17 16 Rate Blood Pressure 109/63 109/63 91/54 O2 Sat by Pulse 79 L 98 96 Oximetry 01/06/19 01/06/19 01/06/19 05:10 05:20 05:30 Temperature Pulse Rate 99 H 99 H 100 H Respiratory 18 16 15 Rate Blood Pressure 91/54 91/54 91/54 O2 Sat by Pulse 98 98 99 Oximetry 01/06/19 01/06/19 01/06/19 05:40 05:50 06:00 Temperature Pulse Rate 99 H 99 H 100 H Respiratory 18 16 18 Rate Blood Pressure 91/54 91/54 107/61 O2 Sat by Pulse 98 96 98 Oximetry 01/06/19 01/06/19 01/06/19 06:06 06:10 06:20 Temperature Pulse Rate 100 H 98 H 98 H Respiratory 18 16 17 Rate Blood Pressure 107/61 107/61 O2 Sat by Pulse 99 97 98 Oximetry 01/06/19 01/06/19 01/06/19 06:30 06:40 06:50 Temperature Pulse Rate 98 H 97 H 97 H Respiratory 16 12 15 Rate Blood Pressure 107/61 107/61 107/61 O2 Sat by Pulse 98 98 97 Oximetry 01/06/19 01/06/19 01/06/19 07:00 07:10 07:20 Temperature Pulse Rate 97 H 98 H 98 H Respiratory 15 14 15 Rate Blood Pressure 89/51 89/51 89/51 O2 Sat by Pulse 97 97 97 Oximetry 01/06/19 01/06/19 01/06/19 07:30 07:40 07:50 Temperature Pulse Rate 99 H 100 H 99 H Respiratory 15 18 17 Rate Blood Pressure 89/51 89/51 89/51 O2 Sat by Pulse 98 98 97 Oximetry 01/06/19 01/06/19 01/06/19 08:00 08:10 08:20 Temperature 98.4 F Pulse Rate 99 H 99 H 98 H Respiratory 16 16 12 Rate Blood Pressure 104/64 104/64 104/64 O2 Sat by Pulse 97 98 98 Oximetry 01/06/19 01/06/19 01/06/19 08:30 08:40 08:50 Temperature Pulse Rate 99 H 99 H 100 H Respiratory 16 17 21 Rate Blood Pressure 104/64 104/64 104/64 O2 Sat by Pulse 95 98 98 Oximetry 01/06/19 01/06/19 01/06/19 09:00 09:10 09:20 Temperature Pulse Rate 100 H 97 H 97 H Respiratory 16 19 18 Rate Blood Pressure 106/59 106/59 106/59 O2 Sat by Pulse 99 97 Oximetry 01/06/19 01/06/19 01/06/19 09:30 09:40 09:50 Temperature Pulse Rate 96 H 97 H 96 H Respiratory 18 16 18 Rate Blood Pressure 106/59 106/59 106/59 O2 Sat by Pulse 98 98 98 Oximetry 01/06/19 01/06/19 01/06/19 10:00 10:10 10:20 Temperature Pulse Rate 97 H 97 H 97 H Respiratory 17 17 16 Rate Blood Pressure 106/61 106/61 106/61 O2 Sat by Pulse 97 97 98 Oximetry 01/06/19 01/06/19 01/06/19 10:30 10:40 10:50 Temperature Pulse Rate 97 H 96 H 96 H Respiratory 16 16 15 Rate Blood Pressure 106/61 106/61 O2 Sat by Pulse 98 98 98 Oximetry 01/06/19 01/06/19 01/06/19 11:00 11:10 11:20 Temperature Pulse Rate 99 H 97 H 96 H Respiratory 19 19 16 Rate Blood Pressure 106/61 116/70 116/70 O2 Sat by Pulse 99 99 99 Oximetry 01/06/19 01/06/19 01/06/19 11:30 11:40 11:50 Temperature Pulse Rate 96 H 96 H 96 H Respiratory 16 15 16 Rate Blood Pressure 116/70 116/70 116/70 O2 Sat by Pulse 98 98 98 Oximetry 01/06/19 01/06/19 01/06/19 12:00 12:10 12:20 Temperature Pulse Rate 97 H 96 H 96 H Respiratory 18 15 15 Rate Blood Pressure 118/65 118/65 118/65 O2 Sat by Pulse 98 98 98 Oximetry 01/06/19 01/06/19 01/06/19 12:30 12:40 12:50 Temperature Pulse Rate 96 H 96 H 96 H Respiratory 16 15 15 Rate Blood Pressure 118/65 118/65 118/65 O2 Sat by Pulse 98 98 99 Oximetry 01/06/19 13:00 Temperature Pulse Rate 97 H Respiratory 17 Rate Blood Pressure 125/66 O2 Sat by Pulse 99 Oximetry - Labs CBC & Chem 7: 01/06/19 09:45 01/06/19 09:45 Labs: Abnormal lab results 01/05/19 01/06/19 01/06/19 Range/Units 11:51 09:45 09:45 WBC 29.6 H (4.5-11.0) K/mm3 RBC 2.42 L (3.65-5.03) M/mm3 Hgb 7.4 L (10.1-14.3) gm/dl Hct 22.3 L (30.3-42.9) % RDW 25.8 H (13.2-15.2) % Seg Neutrophils # Man 19.0 H (1.8-7.7) K/mm3 Monocytes # (Manual) 1.2 H (0.0-0.8) K/mm3 Chloride 97.9 L (98-107) mmol/L Carbon Dioxide 18 L (22-30) mmol/L BUN 52 H (7-17) mg/dL Creatinine 1.6 H (0.7-1.2) mg/dL Glucose 101 H (65-100) mg/dL Calcium 8.3 L (8.4-10.2) mg/dL Total Bilirubin 9.30 H (0.1-1.2) mg/dL AST 264 H (5-40) units/L ALT 61 H (7-56) units/L Albumin 1.9 L (3.9-5) g/dL Medications & Allergies - Medications Allergies/Adverse Reactions: Allergies No Known Allergies Allergy (Unverified 04/01/17 17:36) Home Medications: Home Medications Medication Instructions Recorded Confirmed Last Taken Type HYDROcodone/ACETAMINOPHEN [[place] 1 each PO Q6H PRN #12 tablet 04/01/17 01/05/19 Unknown Rx 5-325 Tablet] Amoxicillin [Trimox CAP] 500 mg PO TID 01/05/19 01/05/19 Unknown History Cetirizine HCl [Allergy Relief] 10 mg PO QDAY 01/05/19 01/05/19 Unknown History Ferrous Sulfate [Ferrous Sulfate 324 mg PO QDAY 01/05/19 01/05/19 Unknown History 324 MG] Fexofenadine (Nf) 180 mg PO QDAY PRN 01/05/19 01/05/19 Unknown History Gabapentin 300 mg PO TID 01/05/19 01/05/19 Unknown History Montelukast [Singulair] 10 mg PO QPM 01/05/19 01/05/19 Unknown History Multivit-Min/Iron/Folic Acid/K 1 each PO QDAY 01/05/19 01/05/19 Unknown History [Adults Multivitamin Tablet] Omeprazole 40 mg PO PRN PRN 01/05/19 01/05/19 Unknown History Ranitidine HCl [Zantac] 300 mg PO QDAY 01/05/19 01/05/19 Unknown History Sod Phos Di, [place]/K Phos [place] 1 tab PO BID 01/05/19 01/05/19 Unknown History [Virt-Phos 250 Neutral Tablet] traZODone [Desyrel] 50 mg PO QHS 01/05/19 01/05/19 Unknown History Active Medications: Generic Name Dose Route Start Last Admin Trade Name Freq PRN Reason Stop Dose Admin Lipase/Protease/Amylase 1 each 01/06/19 10:[address] 10,500 Unit FEEDTUBE PRN PRN For Clogged Feeding Tube Haloperidol Lactate 5 mg 01/04/19 19:39 Haldol IV Q1H PRN Unrespon. to mult. doses BZD's Hydromorphone HCl 0.5 mg 01/04/19 17:16 01/04/19 17:30 Dilaudid IV 0.5 mg Q3H PRN Administration Pain , Severe (7-10) Hydrophilic Ointment 1 applic 01/06/19 10:33 01/06/19 10:53 Vaseline Lip Therapy TP 1 applic DIRECT PRN Administration Dry Lips Cefepime HCl 2 gm in 100 mls @ 200 mls/hr 01/05/19 20:00 01/05/19 22:35 Cefepime/Ns 2 Gm/100 Ml IV 200 mls/hr Q24H JULIETA Administration Protocol Metronidazole 500 mg in 100 mls @ 100 mls/hr 01/06/19 14:00 Flagyl 500 Mg/100 Ml IV Q8HR JULIETA Lactulose 20 gm 01/05/19 06:39 Cephulac PO Q6H PRN Constipation Lorazepam 2 mg 01/04/19 19:32 Ativan IV Q1H PRN CIWA-Ar 8-15 Lorazepam 4 mg 01/04/19 19:32 Ativan IV Q1H PRN CIWA-Ar 16-25 Simple Syrup 15 ml 01/06/19 10:59 Simple Syrup FEEDTUBE PRN PRN Hypoglycemia Simple Syrup 30 ml 01/06/19 10:59 Simple Syrup FEEDTUBE PRN PRN Hypoglycemia Sodium Bicarbonate 325 mg 01/06/19 10:59 Sodium Bicarbonate FEEDTUBE PRN PRN For Clogged Feeding Tube Sodium Chloride 10 ml 01/04/19 22:00 01/06/19 10:53 Sodium Chloride Flush Syringe 10 Ml IV 10 ml BID JULIETA Administration Sodium Chloride 10 ml 01/04/19 19:36 Sodium Chloride Flush Syringe 10 Ml IV PRN PRN LINE FLUSH
--- NOTE | 2019-01-06 13:36 | Progress Note ---
Assessment and Plan This is a 43 year old woman with liver disease who presents with confusion, found to have severe lactic acidosis and ELIZABETH. # Acute Kidney Injury: differential for ELIZABETH in this patient includes tubular injury vs HRS vs infectious GN vs pre-renal. At this time, suspect tubular injury in setting of sepsis/infection and lactic acidosis. Creatinine improved since admission. Cannot say HRS at this time given need to rule out other etiologies, so would not treat for HRS. - sending urinalysis, urine na/creatinine for further investigation, has not been collected yet - renal ultrasound without acute abnormalities - no indication for renal replacement therapy - daily renal function panel - strict Is/Os - would be ok with cautious use of IVF as patient is very likely intravascularly depleted, but would monitor closely for volume overload on chest exam - supportive care per primary # Elevated Anion Gap Metabolic Acidosis: likely from lactate of 13.9, improving - no indication for HCO3 gtt - supportive measures # Leukocytosis: - concern for infection, f/u blood and urine cultures. Consider diagnostic paracentesis per primary team Thank you for this interesting consult. We will continue to follow patient closely. Please do not hesitate to call me on my cell at with any questions regarding this case. Subjective Date of service: 01/06/19 Interval history: no acute events noted overnight. Renal labs discussed with family and patient. Patient denies complaints Objective - Exam Narrative Exam: General appearance: no acute distress, fatigue, frail, other (sick appearing) EENT: mucous membranes dry Neck: Present: neck supple, trachea midline Respiratory: Decreased Breath Sounds bilaterally Heart: regular, S1S2 Gastrointestinal: Present: tenderness, distended Integumentary: no rash, warm and dry Neurologic: no focal deficit, no asterixis, confused, disoriented Musculoskeletal: Absent: deformities, joint swelling - Vital Signs Vital signs: Vital Signs - 12hr 01/06/19 01/06/19 01/06/19 01:40 01:50 02:00 Temperature Pulse Rate 100 H 102 H 101 H Respiratory 15 19 18 Rate Blood Pressure 103/47 103/47 106/66 O2 Sat by Pulse 98 99 98 Oximetry 01/06/19 01/06/19 01/06/19 02:10 02:20 02:30 Temperature Pulse Rate 102 H 99 H 98 H Respiratory 18 16 14 Rate Blood Pressure 106/66 106/66 106/66 O2 Sat by Pulse 98 98 98 Oximetry 01/06/19 01/06/19 01/06/19 02:40 02:50 03:00 Temperature Pulse Rate 100 H 103 H 101 H Respiratory 17 22 19 Rate Blood Pressure 106/66 106/66 105/61 O2 Sat by Pulse 99 99 98 Oximetry 01/06/19 01/06/19 01/06/19 03:10 03:20 03:30 Temperature Pulse Rate 101 H 100 H 99 H Respiratory 20 19 18 Rate Blood Pressure 105/61 105/61 105/61 O2 Sat by Pulse 98 98 99 Oximetry 01/06/19 01/06/19 01/06/19 03:40 03:50 04:00 Temperature 97.9 F Pulse Rate 100 H 100 H 99 H Respiratory 16 19 17 Rate Blood Pressure 105/61 105/61 109/63 O2 Sat by Pulse 98 98 98 Oximetry 01/06/19 01/06/19 01/06/19 04:10 04:20 04:30 Temperature Pulse Rate 99 H 97 H 97 H Respiratory 19 16 16 Rate Blood Pressure 109/63 109/63 109/63 O2 Sat by Pulse 99 97 98 Oximetry 01/06/19 01/06/19 01/06/19 04:40 04:50 05:00 Temperature Pulse Rate 98 H 97 H 98 H Respiratory 16 17 16 Rate Blood Pressure 109/63 109/63 91/54 O2 Sat by Pulse 79 L 98 96 Oximetry 01/06/19 01/06/19 01/06/19 05:10 05:20 05:30 Temperature Pulse Rate 99 H 99 H 100 H Respiratory 18 16 15 Rate Blood Pressure 91/54 91/54 91/54 O2 Sat by Pulse 98 98 99 Oximetry 01/06/19 01/06/19 01/06/19 05:40 05:50 06:00 Temperature Pulse Rate 99 H 99 H 100 H Respiratory 18 16 18 Rate Blood Pressure 91/54 91/54 107/61 O2 Sat by Pulse 98 96 98 Oximetry 01/06/19 01/06/19 01/06/19 06:06 06:10 06:20 Temperature Pulse Rate 100 H 98 H 98 H Respiratory 18 16 17 Rate Blood Pressure 107/61 107/61 O2 Sat by Pulse 99 97 98 Oximetry 01/06/19 01/06/19 01/06/19 06:30 06:40 06:50 Temperature Pulse Rate 98 H 97 H 97 H Respiratory 16 12 15 Rate Blood Pressure 107/61 107/61 107/61 O2 Sat by Pulse 98 98 97 Oximetry 01/06/19 01/06/19 01/06/19 07:00 07:10 07:20 Temperature Pulse Rate 97 H 98 H 98 H Respiratory 15 14 15 Rate Blood Pressure 89/51 89/51 89/51 O2 Sat by Pulse 97 97 97 Oximetry 01/06/19 01/06/19 01/06/19 07:30 07:40 07:50 Temperature Pulse Rate 99 H 100 H 99 H Respiratory 15 18 17 Rate Blood Pressure 89/51 89/51 89/51 O2 Sat by Pulse 98 98 97 Oximetry 01/06/19 01/06/19 01/06/19 08:00 08:10 08:20 Temperature 98.4 F Pulse Rate 99 H 99 H 98 H Respiratory 16 16 12 Rate Blood Pressure 104/64 104/64 104/64 O2 Sat by Pulse 97 98 98 Oximetry 01/06/19 01/06/19 01/06/19 08:30 08:40 08:50 Temperature Pulse Rate 99 H 99 H 100 H Respiratory 16 17 21 Rate Blood Pressure 104/64 104/64 104/64 O2 Sat by Pulse 95 98 98 Oximetry 01/06/19 01/06/19 01/06/19 09:00 09:10 09:20 Temperature Pulse Rate 100 H 97 H 97 H Respiratory 16 19 18 Rate Blood Pressure 106/59 106/59 106/59 O2 Sat by Pulse 99 97 Oximetry 01/06/19 01/06/19 01/06/19 09:30 09:40 09:50 Temperature Pulse Rate 96 H 97 H 96 H Respiratory 18 16 18 Rate Blood Pressure 106/59 106/59 106/59 O2 Sat by Pulse 98 98 98 Oximetry 01/06/19 01/06/19 01/06/19 10:00 10:10 10:20 Temperature Pulse Rate 97 H 97 H 97 H Respiratory 17 17 16 Rate Blood Pressure 106/61 106/61 106/61 O2 Sat by Pulse 97 97 98 Oximetry 01/06/19 01/06/19 01/06/19 10:30 10:40 10:50 Temperature Pulse Rate 97 H 96 H 96 H Respiratory 16 16 15 Rate Blood Pressure 106/61 106/61 O2 Sat by Pulse 98 98 98 Oximetry 1001/06/19 01/06/19 11:00 11:10 11:20 Temperature Pulse Rate 99 H 97 H 96 H Respiratory 19 19 16 Rate Blood Pressure 106/61 116/70 116/70 O2 Sat by Pulse 99 99 99 Oximetry 01/06/19 01/06/19 01/06/19 11:30 11:40 11:50 Temperature Pulse Rate 96 H 96 H 96 H Respiratory 16 15 16 Rate Blood Pressure 116/70 116/70 116/70 O2 Sat by Pulse 98 98 98 Oximetry 01/06/19 01/06/19 01/06/19 12:00 12:10 12:20 Temperature Pulse Rate 97 H 96 H 96 H Respiratory 18 15 15 Rate Blood Pressure 118/65 118/65 118/65 O2 Sat by Pulse 98 98 98 Oximetry 01/06/19 01/06/19 01/06/19 12:30 12:40 12:50 Temperature Pulse Rate 96 H 96 H 96 H Respiratory 16 15 15 Rate Blood Pressure 118/65 118/65 118/65 O2 Sat by Pulse 98 98 99 Oximetry 01/06/19 13:00 Temperature Pulse Rate 97 H Respiratory 17 Rate Blood Pressure 125/66 O2 Sat by Pulse 99 Oximetry - Lab 01/06/19 09:45 01/06/19 09:45 Most recent lab results Calcium 8.3 mg/dL (8.4-10.2) L 01/06/19 09:45 Phosphorus 6.40 mg/dL (2.5-4.5) H 01/04/19 19:48 Magnesium 1.60 mg/dL (1.7-2.3) L 01/04/19 19:48 Medications & Allergies - Medications Allergies/Adverse Reactions: Allergies No Known Allergies Allergy (Unverified 04/01/17 17:36) Home Medications: Home Medications Medication Instructions Recorded Confirmed Last Taken Type HYDROcodone/ACETAMINOPHEN [[place] 1 each PO Q6H PRN #12 tablet 04/01/17 01/05/19 Unknown Rx 5-325 Tablet] Amoxicillin [Trimox CAP] 500 mg PO TID 01/05/19 01/05/19 Unknown History Cetirizine HCl [Allergy Relief] 10 mg PO QDAY 01/05/19 01/05/19 Unknown History Ferrous Sulfate [Ferrous Sulfate 324 mg PO QDAY 01/05/19 01/05/19 Unknown History 324 MG] Fexofenadine (Nf) 180 mg PO QDAY PRN 01/05/19 01/05/19 Unknown History Gabapentin 300 mg PO TID 01/05/19 01/05/19 Unknown History Montelukast [Singulair] 10 mg PO QPM 01/05/19 01/05/19 Unknown History Multivit-Min/Iron/Folic Acid/K 1 each PO QDAY 01/05/19 01/05/19 Unknown History [Adults Multivitamin Tablet] Omeprazole 40 mg PO PRN PRN 01/05/19 01/05/19 Unknown History Ranitidine HCl [Zantac] 300 mg PO QDAY 01/05/19 01/05/19 Unknown History Sod Phos Di, [place]/K Phos [place] 1 tab PO BID 01/05/19 01/05/19 Unknown History [Virt-Phos 250 Neutral Tablet] traZODone [Desyrel] 50 mg PO QHS 01/05/19 01/05/19 Unknown History Active Medications: Generic Name Dose Route Start Last Admin Trade Name Freq PRN Reason Stop Dose Admin Lipase/Protease/Amylase 1 each 01/06/19 10:[address] 10,500 Unit FEEDTUBE PRN PRN For Clogged Feeding Tube Haloperidol Lactate 5 mg 01/04/19 19:39 Haldol IV Q1H PRN Unrespon. to mult. doses BZD's Hydromorphone HCl 0.5 mg 01/04/19 17:16 01/04/19 17:30 Dilaudid IV 0.5 mg Q3H PRN Administration Pain , Severe (7-10) Hydrophilic Ointment 1 applic 01/06/19 10:33 01/06/19 10:53 Vaseline Lip Therapy TP 1 applic DIRECT PRN Administration Dry Lips Cefepime HCl 2 gm in 100 mls @ 200 mls/hr 01/05/19 20:00 01/05/19 22:35 Cefepime/Ns 2 Gm/100 Ml IV 200 mls/hr Q24H JULIETA Administration Protocol Metronidazole 500 mg in 100 mls @ 100 mls/hr 01/06/19 14:00 Flagyl 500 Mg/100 Ml IV Q8HR JULIETA Lactulose 20 gm 01/05/19 06:39 Cephulac PO Q6H PRN Constipation Lorazepam 2 mg 01/04/19 19:32 Ativan IV Q1H PRN CIWA-Ar 8-15 Lorazepam 4 mg 01/04/19 19:32 Ativan IV Q1H PRN CIWA-Ar 16-25 Simple Syrup 15 ml 01/06/19 10:59 Simple Syrup FEEDTUBE PRN PRN Hypoglycemia Simple Syrup 30 ml 01/06/19 10:59 Simple Syrup FEEDTUBE PRN PRN Hypoglycemia Sodium Bicarbonate 325 mg 01/06/19 10:59 Sodium Bicarbonate FEEDTUBE PRN PRN For Clogged Feeding Tube Sodium Chloride 10 ml 01/04/19 22:00 01/06/19 10:53 Sodium Chloride Flush Syringe 10 Ml IV 10 ml BID JULIETA Administration Sodium Chloride 10 ml 01/04/19 19:36 Sodium Chloride Flush Syringe 10 Ml IV PRN PRN LINE FLUSH
[2019-01-06] MEDS: metroNIDAZOLE/NS 500 MG/100 ML 500 MG/100 ML BAG IV SCH ×2 (14:38→21:24)
--- NOTE | 2019-01-06 16:22 | Consultation ---
History of Present Illness - Reason for Consult Consult date: 01/06/19 Abnormal LFTs Requesting physician: KRISTIN ZAYAS - History of Present Illness Mrs. Nolen is a 43-year-old woman brought to the emergency room for altered mental status and jaundice. She was initially admitted to the intensive care unit because of elevated lactic acidosis. She was noted to have markedly jaundice and GI consultation is obtained. Family not available and patient is confused and fixated on 19 in terms of how many years she has had anything. On admission, her ammonia was elevated at 99. Her AST was moderately elevated but her alkaline phosphatase and AST are normal. Her platelet count is normal. Her bilirubin is elevated at approximately 10. Patient has a history of gastric bypass in 2006. There is reported history of alcohol abuse per the chart. Currently, patient denies any discomfort. Past History Past Medical History: anemia (due to uterine fibroids. Hgb 9.3 in 03/2017), liver disease, other Past Surgical History: cholecystectomy, Other (Gastric bypass - 2006) Social history: lives with family, alcohol abuse Family history: no significant family history Medications and Allergies Allergies Allergy/AdvReac Type Severity Reaction Status Date / Time No Known Allergies Allergy Unverified 04/01/17 17:36 Home Medications Medication Instructions Recorded Confirmed Last Taken Type HYDROcodone/ACETAMINOPHEN [[place] 1 each PO Q6H PRN #12 tablet 04/01/17 01/05/19 Unknown Rx 5-325 Tablet] Amoxicillin [Trimox CAP] 500 mg PO TID 01/05/19 01/05/19 Unknown History Cetirizine HCl [Allergy Relief] 10 mg PO QDAY 01/05/19 01/05/19 Unknown History Ferrous Sulfate [Ferrous Sulfate 324 mg PO QDAY 01/05/19 01/05/19 Unknown History 324 MG] Fexofenadine (Nf) 180 mg PO QDAY PRN 01/05/19 01/05/19 Unknown History Gabapentin 300 mg PO TID 01/05/19 01/05/19 Unknown History Montelukast [Singulair] 10 mg PO QPM 01/05/19 01/05/19 Unknown History Multivit-Min/Iron/Folic Acid/K 1 each PO QDAY 01/05/19 01/05/19 Unknown History [Adults Multivitamin Tablet] Omeprazole 40 mg PO PRN PRN 01/05/19 01/05/19 Unknown History Ranitidine HCl [Zantac] 300 mg PO QDAY 01/05/19 01/05/19 Unknown History Sod Phos Di, [place]/K Phos [place] 1 tab PO BID 01/05/19 01/05/19 Unknown History [Virt-Phos 250 Neutral Tablet] traZODone [Desyrel] 50 mg PO QHS 01/05/19 01/05/19 Unknown History Active Meds: Active Medications Lipase/Protease/Amylase (Priya Barber 10,500 Unit) 1 each FEEDTUBE PRN PRN PRN Reason: For Clogged Feeding Tube Haloperidol Lactate (Haldol) 5 mg IV Q1H PRN PRN Reason: Unrespon. to mult. doses BZD's Hydromorphone HCl (Dilaudid) 0.5 mg IV Q3H PRN PRN Reason: Pain , Severe (7-10) Last Admin: 01/04/19 17:30 Dose: 0.5 mg Documented by: Hydrophilic Ointment (Vaseline Lip Therapy) 1 applic TP DIRECT PRN PRN Reason: Dry Lips Last Admin: 01/06/19 10:53 Dose: 1 applic Documented by: Cefepime HCl (Cefepime/Ns 2 Gm/100 Ml) 2 gm in 100 mls @ 200 mls/hr IV Q24H JULIETA; Protocol Last Admin: 01/05/19 22:35 Dose: 200 mls/hr Documented by: Metronidazole (Flagyl 500 Mg/100 Ml) 500 mg in 100 mls @ 100 mls/hr IV Q8HR JULIETA Last Admin: 01/06/19 14:38 Dose: 100 mls/hr Documented by: Lactulose (Cephulac) 20 gm PO Q6H PRN PRN Reason: Constipation Lorazepam (Ativan) 2 mg IV Q1H PRN PRN Reason: CIWA-Ar 8-15 Lorazepam (Ativan) 4 mg IV Q1H PRN PRN Reason: CIWA-Ar 16-25 Simple Syrup (Simple Syrup) 15 ml FEEDTUBE PRN PRN PRN Reason: Hypoglycemia Simple Syrup (Simple Syrup) 30 ml FEEDTUBE PRN PRN PRN Reason: Hypoglycemia Sodium Bicarbonate (Sodium Bicarbonate) 325 mg FEEDTUBE PRN PRN PRN Reason: For Clogged Feeding Tube Sodium Chloride (Sodium Chloride Flush Syringe 10 Ml) 10 ml IV BID JULIETA Last Admin: 01/06/19 10:53 Dose: 10 ml Documented by: Sodium Chloride (Sodium Chloride Flush Syringe 10 Ml) 10 ml IV PRN PRN PRN Reason: LINE FLUSH Review of Systems ROS unobtainable: due to mental status Exam - Constitutional Vitals: Temp Pulse Resp BP Pulse Ox 97.8 F 97 H 15 114/63 98 01/06/19 12:00 01/06/19 15:00 01/06/19 15:00 01/06/19 15:00 01/06/19 15:00 General appearance: Present: no acute distress, obese - EENT Eyes: Present: PERRL, EOM intact, scleral icterus ENT: hearing intact - Respiratory Respiratory effort: normal Respiratory: bilateral: CTA - Cardiovascular Rhythm: regular Heart Sounds: Present: S1 & S2 - Abdominal General gastrointestinal: Present: soft, non-tender, normal bowel sounds Results - Labs CBC & Chem 7: 01/06/19 09:45 01/06/19 09:45 Labs: Abnormal lab results 01/06/19 01/06/19 Range/Units 09:45 09:45 WBC 29.6 H (4.5-11.0) K/mm3 RBC 2.42 L (3.65-5.03) M/mm3 Hgb 7.4 L (10.1-14.3) gm/dl Hct 22.3 L (30.3-42.9) % RDW 25.8 H (13.2-15.2) % Chloride 97.9 L (98-107) mmol/L Carbon Dioxide 18 L (22-30) mmol/L BUN 52 H (7-17) mg/dL Creatinine 1.6 H (0.7-1.2) mg/dL Glucose 101 H (65-100) mg/dL Calcium 8.3 L (8.4-10.2) mg/dL Total Bilirubin 9.30 H (0.1-1.2) mg/dL AST 264 H (5-40) units/L ALT 61 H (7-56) units/L Albumin 1.9 L (3.9-5) g/dL - Imaging and Cardiology CT scan - abdomen: report reviewed (fatty liver) US - abdomen: report reviewed (fatty liver) Assessment and Plan 1. Jaundice - with elevated T Bili and AST, but normal ALT and ALP. Plt count normal, not consistent with cirrhosis. This may be alcoholic hepatitis, or cholestasis for other reasons, and not necessarily a primary liver disease. Pt is confused but states she has been jaundiced for over a year. Viral serologies negative. Could be a nutritional component with bypass if pt not taking vitamins appropriately. - give vit K and recheck INR - agree with empiric lactulose - attempt to get more history. 2. Anemia - chronic. No evidence of GI losses. May be due to menstrual losses and to poor absorption from bypass.
[2019-01-06] MEDS ORDERED: PHYTONADIONE(ADULT ONLY) 10 MG in SODIUM CHLORIDE 0.9% 50 ML IV ONE (17:00)
[2019-01-06] MEDS: CEFEPIME/NS 2 GM/100 ML 2 GM/100 ML BAG IV SCH (20:55)
[2019-01-07 02:58] LABS: INR 1.96 (0.87-1.13)
[2019-01-07] MEDS: metroNIDAZOLE/NS 500 MG/100 ML 500 MG/100 ML BAG IV SCH ×3 (05:07→21:41)
--- NOTE | 2019-01-07 07:57 | Progress Note ---
Assessment and Plan Assessment and plan: Patient is a 43 yo woman with a history of alcohol abuse, pancreatitis, obesity, uterine fibroids with heavy bleeding who presented to [facility] with AMS and jaundice. Last alcoholic drink unknown. * CT abd/pelvis without contrast IMPRESSION: 1. Hepatomegaly with marked diffuse fatty infiltration. Borderline splenomegaly. 2. Small pericardial effusion. * pCXR unremarkable * CT head without contrast reported no acute findings * UA ordered but uncollected per EMR * TTE Conclusions: There is a a small moderate size circumferential pericardial effusion, no evidence of tamponade, global left ventricular systolic function is normal, the estimated EF is 60-65%, trace MR, trace TR * US abdomen complete IMPRESSION: 1. Suboptimal study due to body habitus and bowel gas. 2. Moderate diffuse fatty infiltration of the liver. 3. Mild bile duct prominence in a postcholecystectomy patient. AMS with Acute hepatic encephalopathy: treat with Lactulose Acute Alcoholic Liver Failure: consult GI, give vitamin k, follow coags and CMP Hypotension, tachycardic with SIRs with organ dysfunction, poa with suspected Sepsis: treat with empiric abx, re-ordered UA, blood cultures pending Alcoholic related fatty liver per CT: once mental status improve, marriage and family counselor on stopping alcohol use Hyponatremia: treated with IVF and monitor bmp/cmp Hyperkalemia: treated with kayexalate Metabolic Acidosis: treat the renal failure Acute Renal Failure vasomotor nephropathy, poa: treat with IVFs, Renal is following, input noted, abd/renal u/s reviewed Hypomagnesemia: replete and monitor closely Severe Malnutrition: consulted Immigration Associate BMI 37.4: lifestyle modification Hyperbilirubemia: treat the liver failure, get GB US reviewed Isolated AST elevation, serum ETOH not measured HyperAmmonemia: serial ammonia levels and treat with Lactulose Coagulopathic: best with vitamin k Small pericardial effusion: ECHO ordered and reviewed, no tamponade Vaginal Discharge per chart: on flagyl, given Diflucan x 1 Nutrition: dobhuff TF, consulted Immigration Associate Hypotension: give 1 liter NSS bolus DVT ppx; scd only due to coagulopathy full code History Interval history: Patient was seen and examined. Follow-up on current diagnosis of AMS. No overnight events reported to me. Imaging, nursing note, chart, labs and old chart reviewed. Hospitalist Physical - Physical exam Narrative exam: Gen: ill appearing, bmi 37.4 confused HEENT: NCAT, EOMI, PERRL, OP Clear, sclera icterus Neck: supple, no adenopathy, no thyromegaly, no JVD CVS/Heart: RRR, normal S1S2, pulses present bilaterally Chest/Lungs: CTA B, Symmetrical chest expansion, good air entry bilaterally GI/Abdomen: soft, NTND, good bowel sounds, no guarding or rebound /Bladder: no suprapubic tenderness, no CVA or paraspinal tenderness Extermity/Skin: jaundice MSK: spontaneous FROM x 4 Neuro: CN 2-12 grossly intact, doesn't follow all commands Psych: confused - Constitutional Vitals: Temp Pulse Resp BP Pulse Ox 98.5 F 103 H 19 108/74 100 01/07/19 04:03 01/07/19 04:03 01/07/19 04:03 01/07/19 04:03 01/07/19 04:03 General appearance: Present: no acute distress, obese Results - Labs CBC & Chem 7: 01/06/19 09:45 01/07/19 11:40 Labs: Laboratory Last Values WBC 29.6 K/mm3 (4.5-11.0) H 01/06/19 09:45 RBC 2.42 M/mm3 (3.65-5.03) L 01/06/19 09:45 Hgb 7.4 gm/dl (10.1-14.3) L 01/06/19 09:45 Hct 22.3 % (30.3-42.9) L 01/06/19 09:45 MCV 92 fl (79-97) 01/06/19 09:45 MCH 31 pg (28-32) 01/06/19 09:45 MCHC 33 % (30-34) 01/06/19 09:45 RDW 25.8 % (13.2-15.2) H 01/06/19 09:45 Plt Count 284 K/mm3 (140-440) 01/06/19 09:45 Lymph % (Auto) Cnc Manager 01/05/19 11:51 [place] % (Auto) Cnc Manager 01/05/19 11:51 Eos % (Auto) Cnc Manager 01/05/19 11:51 Baso % (Auto) Cnc Manager 01/05/19 11:51 Lymph # Cnc Manager 01/05/19 11:51 [place] # Cnc Manager 01/05/19 11:51 Eos # Cnc Manager 01/05/19 11:51 Baso # Cnc Manager 01/05/19 11:51 Add Manual Diff Complete 01/05/19 11:51 Total Counted 100 01/05/19 11:51 Seg Neutrophils % Cnc Manager 01/05/19 11:51 Seg Neuts % (Manual) 62.0 % (40.0-70.0) 01/05/19 11:51 Band Neutrophils % 15.0 % 01/05/19 11:51 Lymphocytes % (Manual) 16.0 % (13.4-35.0) 01/05/19 11:51 Reactive Lymphs % (Man) 2.0 % 01/05/19 11:51 Monocytes % (Manual) 4.0 % (0.0-7.3) 01/05/19 11:51 Eosinophils % (Manual) 0 % (0.0-4.3) 01/05/19 11:51 Basophils % (Manual) 0 % (0.0-1.8) 01/05/19 11:51 Metamyelocytes % 1.0 % 01/05/19 11:51 Myelocytes % 0 % 01/05/19 11:51 Promyelocytes % 0 % 01/05/19 11:51 Blast Cells % 0 % 01/05/19 11:51 Nucleated RBC % Not Reportable 01/05/19 11:51 Seg Neutrophils # Cnc Manager 01/05/19 11:51 Seg Neutrophils # Man 19.0 K/mm3 (1.8-7.7) H 01/05/19 11:51 Band Neutrophils # 4.6 K/mm3 01/05/19 11:51 Lymphocytes # (Manual) 4.9 K/mm3 (1.2-5.4) 01/05/19 11:51 Abs React Lymphs (Man) 0.6 K/mm3 01/05/19 11:51 Monocytes # (Manual) 1.2 K/mm3 (0.0-0.8) H 01/05/19 11:51 Eosinophils # (Manual) 0.0 K/mm3 (0.0-0.4) 01/05/19 11:51 Basophils # (Manual) 0.0 K/mm3 (0.0-0.1) 01/05/19 11:51 Metamyelocytes # 0.3 K/mm3 01/05/19 11:51 Myelocytes # 0.0 K/mm3 01/05/19 11:51 Promyelocytes # 0.0 K/mm3 01/05/19 11:51 Blast Cells # 0.0 K/mm3 01/05/19 11:51 WBC Morphology Not Reportable 01/05/19 11:51 Hypersegmented Neuts Not Reportable 01/05/19 11:51 Hyposegmented Neuts Not Reportable 01/05/19 11:51 Hypogranular Neuts Not Reportable 01/05/19 11:51 Smudge Cells Not Reportable 01/05/19 11:51 Toxic Granulation Not Reportable 01/05/19 11:51 Toxic Vacuolation Not Reportable 01/05/19 11:51 Dohle Bodies Not Reportable 01/05/19 11:51 Pelger-Huet Anomaly Not Reportable 01/05/19 11:51 Jonathan Rods Not Reportable 01/05/19 11:51 Platelet Estimate Consistent w auto 01/05/19 11:51 Clumped Platelets Rare 01/05/19 11:51 Plt Clumps, EDTA Not Reportable 01/05/19 11:51 Large Platelets Not Reportable 01/05/19 11:51 Giant Platelets Not Reportable 01/05/19 11:51 Platelet Satelliting Not Reportable 01/05/19 11:51 Plt Morphology Comment Not Reportable 01/05/19 11:51 RBC Morphology Not Reportable 01/05/19 11:51 Dimorphic RBCs Not Reportable 01/05/19 11:51 Polychromasia Not Reportable 01/05/19 11:51 Hypochromasia 1+ 01/05/19 11:51 Poikilocytosis Not Reportable 01/05/19 11:51 Anisocytosis 2+ 01/05/19 11:51 Microcytosis Not Reportable 01/05/19 11:51 Macrocytosis 1+ 01/05/19 11:51 Spherocytes Not Reportable 01/05/19 11:51 Pappenheimer Bodies Not Reportable 01/05/19 11:51 Sickle Cells Not Reportable 01/05/19 11:51 Target Cells 1+ 01/05/19 11:51 Tear Drop Cells Not Reportable 01/05/19 11:51 Ovalocytes Not Reportable 01/05/19 11:51 Helmet Cells Not Reportable 01/05/19 11:51 [place] Bodies Not Reportable 01/05/19 11:51 Guinda Rings Not Reportable 01/05/19 11:51 [place] Cells Not Reportable 01/05/19 11:51 Bite Cells Not Reportable 01/05/19 11:51 Crenated Cell Not Reportable 01/05/19 11:51 Elliptocytes Not Reportable 01/05/19 11:51 Acanthocytes (Spur) Not Reportable 01/05/19 11:51 Rouleaux Not Reportable 01/05/19 11:51 Hemoglobin C Crystals Not Reportable 01/05/19 11:51 Schistocytes Not Reportable 01/05/19 11:51 Malaria parasites Not Reportable 01/05/19 11:51 Bhavik Bodies Not Reportable 01/05/19 11:51 Hem Pathologist Commnt No 01/05/19 11:51 PT 22.0 Sec. (12.2-14.9) H 01/07/19 01:21 INR 1.96 (0.87-1.13) H 01/07/19 01:21 Sodium 139 mmol/L (137-145) 01/06/19 09:45 Potassium 4.2 mmol/L (3.6-5.0) 01/06/19 09:45 Chloride 97.9 mmol/L (98-107) L 01/06/19 09:45 Carbon Dioxide 18 mmol/L (22-30) L 01/06/19 09:45 Anion Gap 27 mmol/L 01/06/19 09:45 BUN 52 mg/dL (7-17) H 01/06/19 09:45 Creatinine 1.6 mg/dL (0.7-1.2) H 01/06/19 09:45 Estimated GFR 42 ml/min 01/06/19 09:45 BUN/Creatinine Ratio 33 % 01/06/19 09:45 Glucose 101 mg/dL (65-100) H 01/06/19 09:45 POC Glucose 82 (70-105) 01/04/19 11:52 Osmolality 307 Mosm/kg 01/04/19 18:32 Lactic Acid 13.90 mmol/L (0.7-2.0) H* 01/04/19 11:53 Calcium 8.3 mg/dL (8.4-10.2) L 01/06/19 09:45 Phosphorus 6.40 mg/dL (2.5-4.5) H 01/04/19 19:48 Magnesium 1.60 mg/dL (1.7-2.3) L 01/04/19 19:48 Total Bilirubin 9.30 mg/dL (0.1-1.2) H 01/06/19 09:45 Direct Bilirubin 7.9 mg/dL (0-0.2) H 01/04/19 11:15 Indirect Bilirubin 2.3 mg/dL 01/04/19 11:15 AST 264 units/L (5-40) H 01/06/19 09:45 ALT 61 units/L (7-56) H 01/06/19 09:45 Alkaline Phosphatase 64 units/L (35-129) 01/06/19 09:45 Ammonia 99.0 umol/L (25-60) H 01/04/19 11:53 NT-Pro-B Natriuret Pep 5269 pg/mL (0-450) H 01/04/19 11:08 Total Protein 7.4 g/dL (6.3-8.2) 01/06/19 09:45 Albumin 1.9 g/dL (3.9-5) L 01/06/19 09:45 Albumin/Globulin Ratio 0.3 % 01/06/19 09:45 Amylase 19 units/L (27-131) L 01/04/19 19:48 Lipase 8 units/L (13-60) L 01/04/19 11:08 TSH 2.830 mlU/mL (0.270-4.200) 01/04/19 11:15 Free T4 0.83 ng/dL (0.76-1.46) 01/04/19 11:15 HCG, Qual Negative (Negative) 01/04/19 11:08 Random Vancomycin 24.7 ug/mL (0-40.0) 01/07/19 02:31 Acetaminophen < 5.0 ug/mL (10.0-30.0) L 01/04/19 11:15 Hepatitis A IgM Ab Non-reactive (NonReactive) 01/05/19 11:51 Hep Bs Antigen Non-reactive (Negative) 01/05/19 11:51 Hep B Core IgM Ab Non-reactive (NonReactive) 01/05/19 11:51 Hepatitis C Antibody Non-reactive (NonReactive) 01/05/19 11:51 Blood Type B POSITIVE 01/04/19 11:31 Antibody Screen Negative 01/04/19 11:31 Active Medications - Current Medications Current Medications: Generic Name Dose Route Start Last Admin Trade Name Freq PRN Reason Stop Dose Admin Lipase/Protease/Amylase 1 each 01/06/19 10:59 Pancreaze 10,500 Unit FEEDTUBE PRN PRN For Clogged Feeding Tube Haloperidol Lactate 5 mg 01/04/19 19:39 Haldol IV Q1H PRN Unrespon. to mult. doses BZD's Hydrophilic Ointment 1 applic 01/06/19 10:33 01/06/19 10:53 Vaseline Lip Therapy TP 1 applic DIRECT PRN Administration Dry Lips Cefepime HCl 2 gm in 100 mls @ 200 mls/hr 01/05/19 20:00 01/06/19 20:55 Cefepime/Ns 2 Gm/100 Ml IV 200 mls/hr Q24H JULIETA Administration Protocol Metronidazole 500 mg in 100 mls @ 100 mls/hr 01/06/19 14:00 01/07/19 05:07 Flagyl 500 Mg/100 Ml IV 100 mls/hr Q8HR JULIETA Administration Lactulose 20 gm 01/05/19 06:39 Cephulac PO Q6H PRN Constipation Lorazepam 2 mg 01/04/19 19:32 Ativan IV Q1H PRN CIWA-Ar 8-15 Lorazepam 4 mg 01/04/19 19:32 Ativan IV Q1H PRN CIWA-Ar 16-25 Simple Syrup 15 ml 01/06/19 10:59 Simple Syrup FEEDTUBE PRN PRN Hypoglycemia Simple Syrup 30 ml 01/06/19 10:59 Simple Syrup FEEDTUBE PRN PRN Hypoglycemia Sodium Bicarbonate 325 mg 01/06/19 10:59 Sodium Bicarbonate FEEDTUBE PRN PRN For Clogged Feeding Tube Sodium Chloride 10 ml 01/04/19 22:00 01/06/19 22:27 Sodium Chloride Flush Syringe 10 Ml IV 10 ml BID JULIETA Administration Sodium Chloride 10 ml 01/04/19 19:36 Sodium Chloride Flush Syringe 10 Ml IV PRN PRN LINE FLUSH Nutrition/Malnutrition Assess - Dietary Evaluation Nutrition/Malnutrition Findings: Nutrition Notes Start: 01/05/19 13:04 Freq: Status: Active Protocol: Document 01/06/19 10:49 LP (Rec: 01/06/19 10:58 LP [email or web address]) Nutrition Notes Need for Assessment generated from: MD Order Initial or Follow up Assessment Current Diagnosis Acute Kidney Injury,Decubitus( Pressure Ulcer),Sepsis, Hypertension Other Pertinent Diagnosis AMS, ETOH abuse, liver disease , pancreatitis, sacral wound Current Diet NPO Labs/Tests BUN 52 Cr 1.6 Bili 9.3 Pertinent Medications Reviewed Height 5 ft 6 in Weight 105 kg [place] Body Weight (kg) 59.09 BMI 37.3 Subjective/Other Information Consult for TF. Pt noted to be lethargic. 2+ and 4+ edema noted in LE. Pt with wound on sacrum. Unable to obtain nutrition hx. 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 No Is Patient Ambulatory and/or Out of Bed No REE-([facility]-confined to bed) 2063.064 Kcal/Kg value to use for calculation 15 Approximate Energy Requirements Using 1575 kcal/Kg Calculation Used for Recommendations Kcal/kg Additional Notes Protein needs are 71-85g (1-1. 2g/kg Adjusted wt 70kg) Considering kidneys, liver, malnutrition, and wound. Fluid needs per MD Nutrition Intervention Change Diet Order: TF Nutrition Support: Nepro at 40ml/hr Flush with 130ml q4h Kcal 1,728 Protein (gm) 78 Fluid (mL) 698 Goal #1 Meet at least 80% of kcal and protein needs via TF Anticipated Discharge Needs: Unable to determine at this time Follow-Up By: 01/08/19 Additional Comments Follow for TF start/tolerance, renal labs
[2019-01-07] MEDS ORDERED: PHYTONADIONE(ADULT ONLY) 10 MG in SODIUM CHLORIDE 0.9% 50 ML IV ONE (10:15)
--- NOTE | 2019-01-07 11:13 | Gastroenterology Progress Note ---
<DARYA BELLE - Last Filed: 01/07/19 11:28> Assessment and Plan 1.jaundice 2.elevated LFTs 3.ETOH abuse 4.H/o gastric bypass -afebrile -WBC 29.6-trending down -H/H 7.4/22.3-stable; macrocytic; no active signs of bleeding -plt WNL -INR 1.96-trended down with vit K challenge -LFTs- T.tj 9.30, AST 264, ALT 61, alk phos 64 -abd CT and U/S- fatty liver -acetaminophen and hepatitis panel negative -etiology-most likely 2/2 alcoholic hepatitis -DF >32- will start on prednisolone 40mg daily -continue empiric lactulose -TFs via dietary recommendations -continue to trend labs and supportive care -need for alcohol cessation discussed with pt/family -will follow Subjective Date of service: 01/07/19 Principal diagnosis: jaundice, acute hepatic failure Interval history: Patient w/o acute distress but noted to be somnolent. No evidence of abd pain, N/v, or active signs of bleeding. Tolerating TFs. Family at bedside this am who reports patient has a hx of chronic heavy ETOH abuse. Objective - Constitutional Vitals: Temp Pulse Resp BP Pulse Ox 98.5 F 103 H 19 108/74 100 01/07/19 04:03 01/07/19 04:03 01/07/19 04:03 01/07/19 04:03 01/07/19 04:03 General appearance: no acute distress, other (somnolent) - EENT Eyes: scleral icterus ENT: other (+Dobhoff) - Respiratory Respiratory effort: normal - Cardiovascular Rhythm: other (tachycardia) - Gastrointestinal General gastrointestinal: Present: soft, non-distended, normal bowel sounds - Integumentary Integumentary: Present: warm, dry - Neurologic Neurological: oriented to person - Labs CBC & Chem 7: 01/06/19 09:45 01/06/19 09:45 Labs: Laboratory Results - last 24 hr 01/07/19 01/07/19 01:21 02:31 PT 22.0 H INR 1.96 H Random Vancomycin 24.7 <DELROY RIOS - Last Filed: 01/08/19 14:09> Assessment and Plan Pt seen and examined. Sister in room. Plan as noted. Objective - Constitutional Vitals: Temp Pulse Resp BP Pulse Ox 98.8 F 110 H 20 127/76 94 01/08/19 12:42 01/08/19 12:42 01/08/19 12:42 01/08/19 12:42 01/08/19 12:42 - Labs CBC & Chem 7: 01/06/19 09:45 01/08/19 07:32 Labs: Laboratory Results - last 24 hr 01/07/19 01/08/19 01/08/19 13:55 07:32 07:32 PT 19.4 H INR 1.67 H Sodium 142 Potassium 3.2 L Chloride 102.8 Carbon Dioxide 21 L Anion Gap 21 BUN 62 H Creatinine 1.6 H Estimated GFR 42 BUN/Creatinine Ratio 39 Glucose 269 H Calcium 8.5 Total Bilirubin 9.20 H AST 170 H ALT 51 Alkaline Phosphatase 67 Ammonia Total Protein 7.5 Albumin 1.9 L Albumin/Globulin Ratio 0.3 Urine Color Teena Urine Turbidity Cloudy Urine pH 5.0 Ur Specific [place] 1.018 Urine Protein 30 mg/dl Urine Glucose (UA) Neg Urine Ketones Neg Urine Blood Mod Urine Nitrite Neg Urine Bilirubin Mod Urine Ictotest Positive Urine Urobilinogen 2.0 Ur Leukocyte Esterase Mod Urine WBC (Auto) 33.0 H Urine RBC (Auto) 12.0 U Epithel Cells (Auto) 2.0 Urine Bacteria (Auto) 1+ Urine WBC Clumps 2+ Urine Mucus Few 01/08/19 07:32 PT INR Sodium Potassium Chloride Carbon Dioxide Anion Gap BUN Creatinine Estimated GFR BUN/Creatinine Ratio Glucose Calcium Total Bilirubin AST ALT Alkaline Phosphatase Ammonia 71.0 H Total Protein Albumin Albumin/Globulin Ratio Urine Color Urine Turbidity Urine pH Ur Specific [place] Urine Protein Urine Glucose (UA) Urine Ketones Urine Blood Urine Nitrite Urine Bilirubin Urine Ictotest Urine Urobilinogen Ur Leukocyte Esterase Urine WBC (Auto) Urine RBC (Auto) U Epithel Cells (Auto) Urine Bacteria (Auto) Urine WBC Clumps Urine Mucus
[2019-01-07 12:31] LABS: Calcium 8.8 mg/dL (8.4-10.2)
[2019-01-07] MEDS ORDERED: SODIUM CHLORIDE 0.9% 1000 ML 1,000 ML IV ONE (13:04)
[2019-01-07 14:14] LABS: Bacteria,Urine 1+ /HPF (Negative); Bilirubin,Urine MOD (Negative); Blood,Urine MOD (Negative); Color,Urine Amber (Yellow); Mucus,Urine FEW /HPF
[2019-01-07 14:18] LABS: Ictotest,Urine Positive (Negative)
--- NOTE | 2019-01-07 14:35 | Progress Note ---
Assessment and Plan Cultures: 01/04/2019 blood cultures - no growth to date A/P: 43 yo F PMHx alcohol abuse admitted with altered mental status. 1. SIRS possible sepsis - unclear source, present on admission with leukocytosis and tachycardia. TTE without acute infectious issue. MRI cancelled. Source of confusion most likely hepatic encephalopathy. Still has leukocytosis, likely made worse by steroid therapy. 2. ELIZABETH - renally dose antibiotics 3. lactic Acidosis Recs: - continue vancomycin dosed per pharmacy, goal trough 15-20 - continue cefepime 2g q24h - Continue metronidazole 500mg q8h - follow up blood cultures - HIV screen Thank you for the consult, we will continue to follow. Whitney June MD [facility] ([facility]) M: [phone] O: [phone] F: [phone] Subjective Date of service: 01/07/19 Principal diagnosis: jaundice, acute hepatic failure Interval history: Mildly improved mentation today. Objective - Exam Narrative Exam: Constitutional: confused, slurred speech Head, Ears, Nose: Normocephalic, atraumatic. External ears, nose normal Eyes: Conjunctivae/corneas clear. No icterus. No ptosis. Neck: Supple, no meningeal signs Oral: dentition fair, no thrush Cardiovascular: S1, S2 normal. Respiratory: Good air entry, clear to auscultation bilaterally GI: Soft, non-tender; bowel sounds normal. No peritoneal signs. Musculoskeletal: No pedal edema, no cyanosis. Skin: No rash or abscess Hem/Lymphatic: No palpable cervical or supraclavicular nodes. No lymphangitis Psych: Mood ok. Affect normal Neurological: Awake, alert, oriented. No gross abnormality - Constitutional Vitals: Vital Signs Temp Pulse Resp BP Pulse Ox 98.6 F 101 H 18 86/60 98 01/07/19 12:37 01/07/19 12:37 01/07/19 12:37 01/07/19 12:37 01/07/19 12:37 Temperature -Last 24 Hours Temperature 98.6 F Temperature 98.5 F Temperature 97.8 F Temperature 97.8 F - Labs CBC & Chem 7: 01/06/19 09:45 01/07/19 11:40 Labs: Abnormal lab results 01/07/19 01/07/19 01/07/19 Range/Units 01:21 11:40 13:55 PT 22.0 H (12.2-14.9) Sec. INR 1.96 H (0.87-1.13) Potassium 3.1 L D (3.6-5.0) mmol/L Carbon Dioxide 19 L (22-30) mmol/L BUN 60 H (7-17) mg/dL Creatinine 1.8 H (0.7-1.2) mg/dL Glucose 179 H (65-100) mg/dL Urine WBC (Auto) 33.0 H (0.0-6.0) /HPF
--- NOTE | 2019-01-07 17:51 | Progress Note ---
Assessment and Plan Assessment: * Acute kidney injury secondary to prerenal azotemia vs ATN vs HRS * SIRS --Blood cx negative (Jan 04) * Jaundice - r/o alcoholic hepatitis * Hepatic encephalopathy * Coagulopathy * Anion gap metabolic acidosis secondary to lactic acidosis * Alcohol abuse Plan: * Renal function improved but remains guarded * No acute indication for renal replacement therapy at this time * Dose medications for renal function * Abx per ID - Vanco/Cefepime/Flagyl * GI recommendations noted * Avoid potential nephrotoxins * Daughters and sister at bedside - updated Subjective Date of service: 01/07/19 Principal diagnosis: jaundice, acute hepatic failure Interval history: Patient seen this AM. Objective - Vital Signs Vital signs: Vital Signs - 12hr 01/07/19 12:37 Temperature 98.6 F Pulse Rate 101 H Respiratory 18 Rate Blood Pressure 86/60 O2 Sat by Pulse 98 Oximetry - General Appearance General appearance: well-developed, well-nourished EENT: ATNC, sclera incterus, other (DHT in place) Respiratory: Present: Clear to Ascultation Cardiology: regular Gastrointestinal: normal, no tenderness Integumentary: warm and dry, other (jaundiced) Musculoskeletal: other (no edema) Psychiatric: cooperative - Lab 01/06/19 09:45 01/07/19 11:40 Most recent lab results Calcium 8.8 mg/dL (8.4-10.2) 01/07/19 11:40 Phosphorus 6.40 mg/dL (2.5-4.5) H 01/04/19 19:48 Magnesium 1.60 mg/dL (1.7-2.3) L 01/04/19 19:48 Medications & Allergies - Medications Allergies/Adverse Reactions: Allergies No Known Allergies Allergy (Unverified 04/01/17 17:36) Home Medications: Home Medications Medication Instructions Recorded Confirmed Last Taken Type HYDROcodone/ACETAMINOPHEN [[place] 1 each PO Q6H PRN #12 tablet 04/01/17 01/05/19 Unknown Rx 5-325 Tablet] Amoxicillin [Trimox CAP] 500 mg PO TID 01/05/19 01/05/19 Unknown History Cetirizine HCl [Allergy Relief] 10 mg PO QDAY 01/05/19 01/05/19 Unknown History Ferrous Sulfate [Ferrous Sulfate 324 mg PO QDAY 01/05/19 01/05/19 Unknown Hist ory 324 MG] Fexofenadine (Nf) 180 mg PO QDAY PRN 01/05/19 01/05/19 Unknown History Gabapentin 300 mg PO TID 01/05/19 01/05/19 Unknown History Montelukast [Singulair] 10 mg PO QPM 01/05/19 01/05/19 Unknown History Multivit-Min/Iron/Folic Acid/K 1 each PO QDAY 01/05/19 01/05/19 Unknown History [Adults Multivitamin Tablet] Omeprazole 40 mg PO PRN PRN 01/05/19 01/05/19 Unknown History Ranitidine HCl [Zantac] 300 mg PO QDAY 01/05/19 01/05/19 Unknown History Sod Phos Di, Pickett/K Phos Pickett 1 tab PO BID 01/05/19 01/05/19 Unknown History [Virt-Phos 250 Neutral Tablet] traZODone [Desyrel] 50 mg PO QHS 01/05/19 01/05/19 Unknown History Active Medications: Generic Name Dose Route Start Last Admin Trade Name Freq PRN Reason Stop Dose Admin Lipase/Protease/Amylase 1 each 01/06/19 10:59 Pancreaze 10,500 Unit FEEDTUBE PRN PRN For Clogged Feeding Tube Haloperidol Lactate 5 mg 01/04/19 19:39 Haldol IV Q1H PRN Unrespon. to mult. doses BZD's Hydrophilic Ointment 1 applic 01/06/19 10:33 01/06/19 10:53 Vaseline Lip Therapy TP 1 applic DIRECT PRN Administration Dry Lips Cefepime HCl 2 gm in 100 mls @ 200 mls/hr 01/05/19 20:00 01/06/19 20:55 Cefepime/Ns 2 Gm/100 Ml IV 200 mls/hr Q24H JULIETA Administration Protocol Metronidazole 500 mg in 100 mls @ 100 mls/hr 01/06/19 14:00 01/07/19 14:57 Flagyl 500 Mg/100 Ml IV 100 mls/hr Q8HR JULIETA Administration Lactulose 20 gm 01/05/19 06:39 Cephulac PO Q6H PRN Constipation Lorazepam 2 mg 01/04/19 19:32 Ativan IV Q1H PRN CIWA-Ar 8-15 Lorazepam 4 mg 01/04/19 19:32 Ativan IV Q1H PRN LORRIWA-Ar 16-25 Prednisolone Sodium Phosphate 40 mg 01/07/19 14:00 Orapred PO DAILY JULIETA Simple Syrup 15 ml 01/06/19 10:59 Simple Syrup FEEDTUBE PRN PRN Hypoglycemia Simple Syrup 30 ml 01/06/19 10:59 Simple Syrup FEEDTUBE PRN PRN Hypoglycemia Sodium Bicarbonate 325 mg 01/06/19 10:59 Sodium Bicarbonate FEEDTUBE PRN PRN For Clogged Feeding Tube Sodium Chloride 10 ml 01/04/19 22:00 01/07/19 12:25 Sodium Chloride Flush Syringe 10 Ml IV 10 ml BID JULIETA Administration Sodium Chloride 10 ml 01/04/19 19:36 Sodium Chloride Flush Syringe 10 Ml IV PRN PRN LINE FLUSH
[2019-01-07] MEDS ORDERED: LIP THERAPY VASELINE TP PRN (17:56)
[2019-01-07] MEDS: prednisoLONE SOD PHOSPHATE 15 MG/5 ML ORAL LIQD PO SCH (18:05)
[2019-01-07] MEDS: CEFEPIME/NS 2 GM/100 ML 2 GM/100 ML BAG IV SCH (21:02)
[2019-01-08] MEDS: metroNIDAZOLE/NS 500 MG/100 ML 500 MG/100 ML BAG IV SCH ×3 (06:33→21:40)
[2019-01-08 08:26] LABS: INR 1.67 (0.87-1.13)
--- NOTE | 2019-01-08 08:28 | Progress Note ---
Assessment and Plan Assessment: * Acute kidney injury secondary to prerenal azotemia vs ATN vs HRS * SIRS --Blood cx negative (Jan 04) * Jaundice - r/o alcoholic hepatitis * Hepatic encephalopathy * Coagulopathy * Anion gap metabolic acidosis secondary to lactic acidosis * Alcohol abuse Plan: * Renal function is stable; rise in BUN likely related to steroids * No acute indication for renal replacement therapy at this time * Replete lytes prn - ordered KCl 40meq x 1 dose * Dose medications for renal function * Abx per ID - Vanco/Cefepime/Flagyl * GI recommendations noted * Avoid potential nephrotoxins * Daughter at bedside - updated Subjective Date of service: 01/08/19 Principal diagnosis: jaundice, acute hepatic failure Interval history: No acute events overnight Objective - Vital Signs Vital signs: Vital Signs - 12hr 01/07/19 01/07/19 01/07/19 20:43 21:09 23:29 Temperature 98.9 F Pulse Rate 105 H Pulse Rate [ 108 H From Monitor] Respiratory 18 Rate Blood Pressure 111/70 117/70 O2 Sat by Pulse 96 96 Oximetry 01/08/19 05:55 Temperature 99.2 F Pulse Rate 109 H Pulse Rate [ From Monitor] Respiratory 18 Rate Blood Pressure 123/72 O2 Sat by Pulse 92 Oximetry - General Appearance General appearance: well-developed, well-nourished EENT: ATNC, sclera incterus Neck: no JVD Respiratory: Present: Clear to Ascultation, Decreased Breath Sounds (at lateral bases) Cardiology: regular, S1S2 Gastrointestinal: no tenderness, no distended Neurologic: other (slow to respond to questions) Musculoskeletal: other (no edema) - Lab 01/06/19 09:45 01/08/19 07:32 Most recent lab results Calcium 8.8 mg/dL (8.4-10.2) 01/07/19 11:40 Phosphorus 6.40 mg/dL (2.5-4.5) H 01/04/19 19:48 Magnesium 1.60 mg/dL (1.7-2.3) L 01/04/19 19:48 Medications & Allergies - Medications Allergies/Adverse Reactions: Allergies No Known Allergies Allergy (Unverified 04/01/17 17:36) Home Medications: Home Medications Medication Instructions Recorded Confirmed Last Taken Type HYDROcodone/ACETAMINOPHEN [[place] 1 each PO Q6H PRN #12 tablet 04/01/17 01/05/19 Unknown Rx 5-325 Tablet] Amoxicillin [Trimox CAP] 500 mg PO TID 01/05/19 01/05/19 Unknown History Cetirizine HCl [Allergy Relief] 10 mg PO QDAY 01/05/19 01/05/19 Unknown History Ferrous Sulfate [Ferrous Sulfate 324 mg PO QDAY 01/05/19 01/05/19 Unknown History 324 MG] Fexofenadine (Nf) 180 mg PO QDAY PRN 01/05/19 01/05/19 Unknown History Gabapentin 300 mg PO TID 01/05/19 01/05/19 Unknown History Montelukast [Singulair] 10 mg PO QPM 01/05/19 01/05/19 Unknown History Multivit-Min/Iron/Folic Acid/K 1 each PO QDAY 01/05/19 01/05/19 Unknown History [Adults Multivitamin Tablet] Omeprazole 40 mg PO PRN PRN 01/05/19 01/05/19 Unknown History Ranitidine HCl [Zantac] 300 mg PO QDAY 01/05/19 01/05/19 Unknown History Sod Phos Di, [place]/K Phos [place] 1 tab PO BID 01/05/19 01/05/19 Unknown History [Virt-Phos 250 Neutral Tablet] traZODone [Desyrel] 50 mg PO QHS 01/05/19 01/05/19 Unknown History Active Medications: Generic Name Dose Route Start Last Admin Trade Name Freq PRN Reason Stop Dose Admin Lipase/Protease/Amylase 1 each 01/06/19 10:[address] 10,500 Unit FEEDTUBE PRN PRN For Clogged Feeding Tube Haloperidol Lactate 5 mg 01/04/19 19:39 Haldol IV Q1H PRN Unrespon. to mult. doses BZD's Hydrophilic Ointment 1 applic 01/06/19 10:33 01/06/19 10:53 Vaseline Lip Therapy TP 1 applic DIRECT PRN Administration Dry Lips Hydrophilic Ointment 1 applic 01/07/19 17:56 Vaseline Lip Therapy TP DIRECT PRN Dry Lips Cefepime HCl 2 gm in 100 mls @ 200 mls/hr 01/05/19 20:00 01/07/19 21:02 Cefepime/Ns 2 Gm/100 Ml IV 200 mls/hr Q24H JULIETA Administration Protocol Metronidazole 500 mg in 100 mls @ 100 mls/hr 01/06/19 14:00 01/08/19 06:33 Flagyl 500 Mg/100 Ml IV 100 mls/hr Q8HR JULIETA Administration Lactulose 20 gm 01/05/19 06:39 Cephulac PO Q6H PRN Constipation Lorazepam 2 mg 01/04/19 19:32 Ativan IV Q1H PRN CIWA-Ar 8-15 Lorazepam 4 mg 01/04/19 19:32 Ativan IV Q1H PRN CIWA-Ar 16-25 Prednisolone Sodium Phosphate 40 mg 01/07/19 14:00 01/07/19 18:05 Orapred PO 40 mg DAILY JULIETA Administration Simple Syrup 15 ml 01/06/19 10:59 Simple Syrup FEEDTUBE PRN PRN Hypoglycemia Simple Syrup 30 ml 01/06/19 10:59 Simple Syrup FEEDTUBE PRN PRN Hypoglycemia Sodium Bicarbonate 325 mg 01/06/19 10:59 Sodium Bicarbonate FEEDTUBE PRN PRN For Clogged Feeding Tube Sodium Chloride 10 ml 01/04/19 22:00 01/07/19 22:46 Sodium Chloride Flush Syringe 10 Ml IV 10 ml BID JULIETA Administration Sodium Chloride 10 ml 01/04/19 19:36 Sodium Chloride Flush Syringe 10 Ml IV PRN PRN LINE FLUSH
[2019-01-08 08:41] LABS: Albumin 1.9 g/dL (3.9-5); Calcium 8.5 mg/dL (8.4-10.2)
[2019-01-08] MEDS: prednisoLONE SOD PHOSPHATE 15 MG/5 ML ORAL LIQD PO SCH (09:19)
[2019-01-08] MEDS ORDERED: LORazepam 2 MG/ML VIAL IV NR (10:00)
[2019-01-08] MEDS ORDERED: POTASSIUM CHLORIDE 20 MEQ PACKET FEEDTUBE ONE ×2 (10:00→13:00)
--- NOTE | 2019-01-08 10:27 | Gastroenterology Progress Note ---
<DARYA BELLE - Last Filed: 01/08/19 10:24> Assessment and Plan 1.jaundice 2.elevated LFTs 3.ETOH abuse 4.H/o gastric bypass -WBC 29.6-trending down -H/H 7.4/22.3-stable; macrocytic; no active signs of bleeding -plt WNL -INR 1.67-trended down -LFTs- stable -abd CT and U/S- fatty liver -acetaminophen and hepatitis panel negative -etiology-most likely 2/2 alcoholic hepatitis -DF >32- continue prednisolone 40mg daily -continue empiric lactulose -TFs via dietary recommendations -continue to trend labs and supportive care -alcohol cessation discussed with pt/family -will follow Subjective Date of service: 01/08/19 Principal diagnosis: jaundice, acute hepatic failure Interval history: Patient remains confused but noted to be more alert today. No acute distress, evidence of abd pain, N/V, or signs of bleeding. Objective - Constitutional Vitals: Temp Pulse Resp BP Pulse Ox 99.2 F 109 H 18 123/72 92 01/08/19 05:55 01/08/19 05:55 01/08/19 05:55 01/08/19 05:55 01/08/19 05:55 General appearance: no acute distress, other (somnolent/confused) - EENT ENT: other (+Dobhoff) - Respiratory Respiratory effort: normal - Cardiovascular Rhythm: other (tachycardia) - Gastrointestinal General gastrointestinal: Present: soft, non-distended, normal bowel sounds - Neurologic Neurological: oriented to person - Labs CBC & Chem 7: 01/06/19 09:45 01/08/19 07:32 Labs: Laboratory Results - last 24 hr 01/04/19 01/07/19 01/07/19 12:10 11:40 13:55 Pathologist Review PT INR Sodium 141 Potassium 3.1 L D Chloride 100.8 Carbon Dioxide 19 L Anion Gap 24 BUN 60 H Creatinine 1.8 H Estimated GFR 37 BUN/Creatinine Ratio 33 Glucose 179 H Calcium 8.8 Total Bilirubin AST ALT Alkaline Phosphatase Ammonia Total Protein Albumin Albumin/Globulin Ratio Urine Color Teena Urine Turbidity Cloudy Urine pH 5.0 Ur Specific [place] 1.018 Urine Protein 30 mg/dl Urine Glucose (UA) Neg Urine Ketones Neg Urine Blood Mod Urine Nitrite Neg Urine Bilirubin Mod Urine Ictotest Positive Urine Urobilinogen 2.0 Ur Leukocyte Esterase Mod Urine WBC (Auto) 33.0 H Urine RBC (Auto) 12.0 U Epithel Cells (Auto) 2.0 Urine Bacteria (Auto) 1+ Urine WBC Clumps 2+ Urine Mucus Few 01/08/19 01/08/19 01/08/19 07:32 07:32 07:32 Pathologist Review PT 19.4 H INR 1.67 H Sodium 142 Potassium 3.2 L Chloride 102.8 Carbon Dioxide 21 L Anion Gap 21 BUN 62 H Creatinine 1.6 H Estimated GFR 42 BUN/Creatinine Ratio 39 Glucose 269 H Calcium 8.5 Total Bilirubin 9.20 H AST 170 H ALT 51 Alkaline Phosphatase 67 Ammonia 71.0 H Total Protein 7.5 Albumin 1.9 L Albumin/Globulin Ratio 0.3 Urine Color Urine Turbidity Urine pH Ur Specific [place] Urine Protein Urine Glucose (UA) Urine Ketones Urine Blood Urine Nitrite Urine Bilirubin Urine Ictotest Urine Urobilinogen Ur Leukocyte Esterase Urine WBC (Auto) Urine RBC (Auto) U Epithel Cells (Auto) Urine Bacteria (Auto) Urine WBC Clumps Urine Mucus <DELROY RIOS R - Last Filed: 01/08/19 14:11> Assessment and Plan Plans as noted. On empiric steroids for EtOHic hepatitis. Improving by labs. May be able to initiate oral diet soon. Objective - Constitutional Vitals: Temp Pulse Resp BP Pulse Ox 98.8 F 110 H 20 127/76 94 01/08/19 12:42 01/08/19 12:42 01/08/19 12:42 01/08/19 12:42 01/08/19 12:42 - Labs CBC & Chem 7: 01/06/19 09:45 01/08/19 07:32 Labs: Laboratory Results - last 24 hr 01/07/19 01/08/19 01/08/19 13:55 07:32 07:32 PT 19.4 H INR 1.67 H Sodium 142 Potassium 3.2 L Chloride 102.8 Carbon Dioxide 21 L Anion Gap 21 BUN 62 H Creatinine 1.6 H Estimated GFR 42 BUN/Creatinine Ratio 39 Glucose 269 H Calcium 8.5 Total Bilirubin 9.20 H AST 170 H ALT 51 Alkaline Phosphatase 67 Ammonia Total Protein 7.5 Albumin 1.9 L Albumin/Globulin Ratio 0.3 Urine Color Teena Urine Turbidity Cloudy Urine pH 5.0 Ur Specific [place] 1.018 Urine Protein 30 mg/dl Urine Glucose (UA) Neg Urine Ketones Neg Urine Blood Mod Urine Nitrite Neg Urine Bilirubin Mod Urine Ictotest Positive Urine Urobilinogen 2.0 Ur Leukocyte Esterase Mod Urine WBC (Auto) 33.0 H Urine RBC (Auto) 12.0 U Epithel Cells (Auto) 2.0 Urine Bacteria (Auto) 1+ Urine WBC Clumps 2+ Urine Mucus Few 01/08/19 07:32 PT INR Sodium Potassium Chloride Carbon Dioxide Anion Gap BUN Creatinine Estimated GFR BUN/Creatinine Ratio Glucose Calcium Total Bilirubin AST ALT Alkaline Phosphatase Ammonia 71.0 H Total Protein Albumin Albumin/Globulin Ratio Urine Color Urine Turbidity Urine pH Ur Specific [place] Urine Protein Urine Glucose (UA) Urine Ketones Urine Blood Urine Nitrite Urine Bilirubin Urine Ictotest Urine Urobilinogen Ur Leukocyte Esterase Urine WBC (Auto) Urine RBC (Auto) U Epithel Cells (Auto) Urine Bacteria (Auto) Urine WBC Clumps Urine Mucus
--- NOTE | 2019-01-08 11:46 | Progress Note ---
Assessment and Plan Cultures: 01/04/2019 blood cultures - no growth to date A/P: 43 yo F PMHx alcohol abuse admitted with altered mental status. 1. SIRS possible sepsis - unclear source, present on admission with leukocytosis and tachycardia. TTE without acute infectious issue. MRI cancelled. Source of confusion most likely hepatic encephalopathy. Still has leukocytosis, likely made worse by steroid therapy. 2. ELIZABETH - renally dose antibiotics 3. lactic Acidosis Recs: - continue vancomycin dosed per pharmacy, goal trough 15-20 - continue cefepime 2g q24h - Continue metronidazole 500mg q8h - pending AM CBC will potentially de-escalate antibiotics. - follow up blood cultures Thank you for the consult, we will continue to follow. Whitney June MD [facility] ([facility]) M: [phone] O: [phone] F: [phone] Subjective Date of service: 01/08/19 Principal diagnosis: jaundice, acute hepatic failure Interval history: Mildly improved mentation today. Objective - Exam Narrative Exam: Constitutional: confused, slurred speech Head, Ears, Nose: Normocephalic, atraumatic. External ears, nose normal Eyes: Conjunctivae/corneas clear. No icterus. No ptosis. Neck: Supple, no meningeal signs Oral: dentition fair, no thrush Cardiovascular: S1, S2 normal. Respiratory: Good air entry, clear to auscultation bilaterally GI: Soft, non-tender; bowel sounds normal. No peritoneal signs. Musculoskeletal: No pedal edema, no cyanosis. Skin: No rash or abscess Hem/Lymphatic: No palpable cervical or supraclavicular nodes. No lymphangitis Psych: Mood ok. Affect normal Neurological: Awake, alert, oriented. No gross abnormality - Constitutional Vitals: Vital Signs Temp Pulse Resp BP Pulse Ox 99.2 F 109 H 18 123/72 92 01/08/19 05:55 01/08/19 05:55 01/08/19 05:55 01/08/19 05:55 01/08/19 05:55 Temperature -Last 24 Hours Temperature 99.2 F Temperature 98.9 F Temperature 98.7 F Temperature 98.6 F - Labs CBC & Chem 7: 01/06/19 09:45 01/08/19 07:32 Labs: Abnormal lab results 01/07/19 01/07/19 01/08/19 Range/Units 11:40 13:55 07:32 PT (12.2-14.9) Sec. INR (0.87-1.13) Potassium 3.1 L D 3.2 L (3.6-5.0) mmol/L Carbon Dioxide 19 L 21 L (22-30) mmol/L BUN 60 H 62 H (7-17) mg/dL Creatinine 1.8 H 1.6 H (0.7-1.2) mg/dL Glucose 179 H 269 H (65-100) mg/dL Total Bilirubin 9.20 H (0.1-1.2) mg/dL AST 170 H (5-40) units/L Ammonia (25-60) umol/L Albumin 1.9 L (3.9-5) g/dL Urine WBC (Auto) 33.0 H (0.0-6.0) /HPF 01/08/19 01/08/19 Range/Units 07:32 07:32 PT 19.4 H (12.2-14.9) Sec. INR 1.67 H (0.87-1.13) Potassium (3.6-5.0) mmol/L Carbon Dioxide (22-30) mmol/L BUN (7-17) mg/dL Creatinine (0.7-1.2) mg/dL Glucose (65-100) mg/dL Total Bilirubin (0.1-1.2) mg/dL AST (5-40) units/L Ammonia 71.0 H (25-60) umol/L Albumin (3.9-5) g/dL Urine WBC (Auto) (0.0-6.0) /HPF
[2019-01-08] MEDS ORDERED: VANCOMYCIN 1,500 MG in SODIUM CHLORIDE 0.9% 500 ML 500 ML IV ONE (12:00)
--- NOTE | 2019-01-08 15:55 | Magnetic Resonance Report ---
MRI BRAIN WITHOUT CONTRAST INDICATION / CLINICAL INFORMATION: ams, gait instability, dysphagia. TECHNIQUE: Multiplanar, multisequence MR images of the brain were obtained. COMPARISON: The study is compared to the earlier CT of 01/04/2019. FINDINGS: BRAIN / INTRACRANIAL CONTENTS: The motion degrades the image quality. However, the brain appears to d emonstrate appropriate signal characteristics. The diffusion imaging reveals no evidence of acute inf arction. The ventricular system is appropriate in size and configuration. No extra-axial fluid collec tions or significant mass effect is identified. CRANIOCERVICAL JUNCTION: No significant abnormality. VASCULAR FLOW-VOIDS: There is relative small caliber of the vertebral basilar system which is likely developmental. ORBITS: No significant abnormality of visualized orbits. SINUSES / MASTOIDS: No significant abnormality of the visualized paranasal sinuses or mastoid air orestes ls. ADDITIONAL FINDINGS: None. IMPRESSION: 1. The motion degrades image quality. However, the MRI of the brain appears unremarkable without evid ence of recent infarction. Signer Name: Jonathan Brooks MD Signed: 01/08/2019 3:50 PM Workstation Name: [id number]
--- NOTE | 2019-01-08 18:40 | Consultation ---
Past History Past Medical History: anemia (due to uterine fibroids. Hgb 9.3 in 03/2017), liver disease, other Past Surgical History: cholecystectomy, Other (Gastric bypass - 2006) Social history: lives with family, alcohol abuse Family history: no significant family history Medications and Allergies Allergies Allergy/AdvReac Type Severity Reaction Status Date / Time No Known Allergies Allergy Unverified 04/01/17 17:36 Home Medications Medication Instructions Recorded Confirmed Last Taken Type HYDROcodone/ACETAMINOPHEN [[place] 1 each PO Q6H PRN #12 tablet 04/01/17 01/05/19 Unknown Rx 5-325 Tablet] Amoxicillin [Trimox CAP] 500 mg PO TID 01/05/19 01/05/19 Unknown History Cetirizine HCl [Allergy Relief] 10 mg PO QDAY 01/05/19 01/05/19 Unknown History Ferrous Sulfate [Ferrous Sulfate 324 mg PO QDAY 01/05/19 01/05/19 Unknown History 324 MG] Fexofenadine (Nf) 180 mg PO QDAY PRN 01/05/19 01/05/19 Unknown History Gabapentin 300 mg PO TID 01/05/19 01/05/19 Unknown History Montelukast [Singulair] 10 mg PO QPM 01/05/19 01/05/19 Unknown History Multivit-Min/Iron/Folic Acid/K 1 each PO QDAY 01/05/19 01/05/19 Unknown History [Adults Multivitamin Tablet] Omeprazole 40 mg PO PRN PRN 01/05/19 01/05/19 Unknown History Ranitidine HCl [Zantac] 300 mg PO QDAY 01/05/19 01/05/19 Unknown History Sod Phos Di, [place]/K Phos [place] 1 tab PO BID 01/05/19 01/05/19 Unknown History [Virt-Phos 250 Neutral Tablet] traZODone [Desyrel] 50 mg PO QHS 01/05/19 01/05/19 Unknown History Active Meds: Active Medications Lipase/Protease/Amylase (Priya Barber 10,500 Unit) 1 each FEEDTUBE PRN PRN PRN Reason: For Clogged Feeding Tube Haloperidol Lactate (Haldol) 5 mg IV Q1H PRN PRN Reason: Unrespon. to mult. doses BZD's Hydrophilic Ointment (Vaseline Lip Therapy) 1 applic TP DIRECT PRN PRN Reason: Dry Lips Last Admin: 01/06/19 10:53 Dose: 1 applic Documented by: Hydrophilic Ointment (Vaseline Lip Therapy) 1 applic TP DIRECT PRN PRN Reason: Dry Lips Cefepime HCl (Cefepime/Ns 2 Gm/100 Ml) 2 gm in 100 mls @ 200 mls/hr IV Q24H JULIETA; Protocol Last Admin: 01/07/19 21:02 Dose: 200 mls/hr Documented by: Metronidazole (Flagyl 500 Mg/100 Ml) 500 mg in 100 mls @ 100 mls/hr IV Q8HR JULIETA Last Admin: 01/08/19 13:10 Dose: 100 mls/hr Documented by: Lactulose (Cephulac) 20 gm PO Q6H PRN PRN Reason: Constipation Lorazepam (Ativan) 2 mg IV Q1H PRN PRN Reason: CIWA-Ar 8-15 Lorazepam (Ativan) 4 mg IV Q1H PRN PRN Reason: CIWA-Ar 16-25 Lorazepam (Ativan) 2 mg IV MANAGER PRESENTATION NR Stop: 01/08/19 22:00 Last Admin: 01/08/19 13:10 Dose: 2 mg Documented by: Prednisolone Sodium Phosphate (Orapred) 40 mg PO DAILY [facility] Last Admin: 01/08/19 09:19 Dose: 40 mg Documented by: Simple Syrup (Simple Syrup) 15 ml FEEDTUBE PRN PRN PRN Reason: Hypoglycemia Simple Syrup (Simple Syrup) 30 ml FEEDTUBE PRN PRN PRN Reason: Hypoglycemia Sodium Bicarbonate (Sodium Bicarbonate) 325 mg FEEDTUBE PRN PRN PRN Reason: For Clogged Feeding Tube Sodium Chloride (Sodium Chloride Flush Syringe 10 Ml) 10 ml IV BID [facility] Last Admin: 01/08/19 12:22 Dose: 10 ml Documented by: Sodium Chloride (Sodium Chloride Flush Syringe 10 Ml) 10 ml IV PRN PRN PRN Reason: LINE FLUSH Physical Examination - Vital Signs Vital Signs: Vital Signs Pulse Ox 100 01/04/19 10:44 Results - Laboratory Findings CBC and BMP: 01/06/19 09:45 01/08/19 07:32 Abnormal Lab Findings: Abnormal Labs 01/04/19 01/04/19 01/04/19 11:08 11:08 11:15 WBC 34.3 H RBC 2.64 L Hgb 7.8 L Hct 26.2 L MCV 99 H RDW 26.1 H Seg Neutrophils # Man 23.0 H Monocytes # (Manual) 2.4 H PT INR Sodium 135 L Potassium Chloride 90.7 L Carbon Dioxide 8 L* BUN 44 H Creatinine 3.4 H Glucose Lactic Acid Calcium Phosphorus Magnesium Total Bilirubin 10.20 H Direct Bilirubin 7.9 H AST 227 H ALT Ammonia NT-Pro-B Natriuret Pep 5269 H Albumin 2.4 L Amylase Lipase 8 L Urine WBC (Auto) Acetaminophen 01/04/19 01/04/19 01/04/19 11:15 11:32 11:53 WBC RBC Hgb Hct MCV RDW Seg Neutrophils # Man Monocytes # (Manual) PT 23.5 H INR 2.14 H Sodium Potassium Chloride Carbon Dioxide BUN Creatinine Glucose Lactic Acid Calcium Phosphorus Magnesium Total Bilirubin Direct Bilirubin AST ALT Ammonia 99.0 H NT-Pro-B Natriuret Pep Albumin Amylase Lipase Urine WBC (Auto) Acetaminophen < 5.0 L 01/04/19 01/04/19 01/05/19 11:53 19:48 01:20 WBC RBC Hgb Hct MCV RDW Seg Neutrophils # Man Monocytes # (Manual) PT INR Sodium 132 L Potassium 7.1 H* D Chloride 92.7 L Carbon Dioxide 11 L BUN 47 H Creatinine 2.5 H Glucose 117 H Lactic Acid 13.90 H* Calcium 8.1 L Phosphorus 6.40 H Magnesium 1.60 L Total Bilirubin Direct Bilirubin AST ALT Ammonia NT-Pro-B Natriuret Pep Albumin 2.0 L Amylase 19 L Lipase Urine WBC (Auto) Acetaminophen 01/05/19 01/05/19 01/06/19 11:51 11:51 09:45 WBC 30.6 H 29.6 H RBC 2.55 L 2.42 L Hgb 7.6 L 7.4 L Hct 23.6 L 22.3 L MCV RDW 26.0 H 25.8 H Seg Neutrophils # Man 19.0 H Monocytes # (Manual) 1.2 H PT INR Sodium Potassium Chloride 95.4 L Carbon Dioxide 20 L D BUN 47 H Creatinine 2.9 H Glucose Lactic Acid Calcium 8.1 L Phosphorus Magnesium Total Bilirubin 9.10 H Direct Bilirubin AST 257 H ALT 58 H Ammonia NT-Pro-B Natriuret Pep Albumin 2.0 L Amylase Lipase Urine WBC (Auto) Acetaminophen 01/06/19 01/07/19 01/07/19 09:45 01:21 11:40 WBC RBC Hgb Hct MCV RDW Seg Neutrophils # Man Monocytes # (Manual) PT 22.0 H INR 1.96 H Sodium Potassium 3.1 L D Chloride 97.9 L Carbon Dioxide 18 L 19 L BUN 52 H 60 H Creatinine 1.6 H 1.8 H Glucose 101 H 179 H Lactic Acid Calcium 8.3 L Phosphorus Magnesium Total Bilirubin 9.30 H Direct Bilirubin AST 264 H ALT 61 H Ammonia NT-Pro-B Natriuret Pep Albumin 1.9 L Amylase Lipase Urine WBC (Auto) Acetaminophen 01/07/19 01/08/19 01/08/19 13:55 07:32 07:32 WBC RBC Hgb Hct MCV RDW Seg Neutrophils # Man Monocytes # (Manual) PT 19.4 H INR 1.67 H Sodium Potassium 3.2 L Chloride Carbon Dioxide 21 L BUN 62 H Creatinine 1.6 H Glucose 269 H Lactic Acid Calcium Phosphorus Magnesium Total Bilirubin 9.20 H Direct Bilirubin AST 170 H ALT Ammonia NT-Pro-B Natriuret Pep Albumin 1.9 L Amylase Lipase Urine WBC (Auto) 33.0 H Acetaminophen 01/08/19 07:32 WBC RBC Hgb Hct MCV RDW Seg Neutrophils # Man Monocytes # (Manual) PT INR Sodium Potassium Chloride Carbon Dioxide BUN Creatinine Glucose Lactic Acid Calcium Phosphorus Magnesium Total Bilirubin Direct Bilirubin AST ALT Ammonia 71.0 H NT-Pro-B Natriuret Pep Albumin Amylase Lipase Urine WBC (Auto) Acetaminophen Assessment and Plan 43YR OLD FEMALE WITH HISTORY OF CHRONIC ETOH ABUSE AND ADVANCED LIVER DISEASE WHO WAS BROUGHT IN BY [facility] ON BECAUSE OF CONFUSION WHICH STARTED FEW DAYS PRIOR TO THE ER VISIT. PATIENT [facility] REPORTED THAT SHE DEVELOPED LETHARGY AND FOUND TO BE CONFUSED WHICH GOT LITTLE BETTER AT TIMES AND AGAIN BECAME WORSE.AFTER ADMISSION SHE HAD EVIDENCE OF UTI AND ALSO INCREASED WBC IN THE BLOOD. ANTIBIOTICS HAS BEEN STARTED. [facility] REPORTS TODAY THAT SHE IS BETTER THAN WHEN SHE CAME IN CT SCAN WAS NORMAL. LIVER FUNCTION TESTS SHOWS EVIDENCE OF SIGNIFICANT LIVER DYSFUNCTION.DESPITE CONTINUED ADVISE FROM HER GASTRO ENTEROLOGIST SHE CONTINUES TO DRINK ALCOHOL PHYSICAL EXAMINATION PATIENT IS UNDER SEDATION,UNCOOPERATIVE,RESISTS EXAMINATION.MOVES ALL FOUR EXTREMITIES.FOLLOWS SIMPLE COMMAND AT TIMES. CRANIAL NERVES ARE WITHIN NORMAL LIMIT WITHIN LIMITATION OF EXAMINATION.REFLEXES ARE WITH IN NORMAL LIMIT WITH BILATERAL DOWN GOING TOES. COORDINATION AND GAIT COULD BNOT BE TESTED DUE PATIENT'S LACK OF COOPERATION. IMPRESSION. 1. SEPTIC METABOLIC ENCEPHALOPATHY FROM UTI AND PROBABLE SYSTEMIC INFECTION 2. ADVANCED HEPATIC DYSFUNCTION RECOMMEND 1. PLEASE CHECK SERUM AMMONIA AND IF FOUND ELEVATED WILL NEED LACTULOSE FOE A LONGER PERIOD. 2. CHANGE LACTULOSE TO TID INSTEAD OF TID PRN. 3. WILL FOLLOW UP FOR FURTHER RECOMMENDATION IF INDICATED.
[2019-01-08] MEDS: CEFEPIME/NS 2 GM/100 ML 2 GM/100 ML BAG IV SCH (20:44)
[2019-01-08] MEDS: LACTULOSE 20 GM/30 ML ORAL LIQD PO SCH (21:39)
[2019-01-09] MEDS: LACTULOSE 20 GM/30 ML ORAL LIQD PO SCH ×3 (02:44→22:00)
[2019-01-09] MEDS: metroNIDAZOLE/NS 500 MG/100 ML 500 MG/100 ML BAG IV SCH ×3 (05:03→22:39)
[2019-01-09 05:13] LABS: Hematocrit 21.8 % (30.3-42.9); Hemoglobin 6.9 gm/dl (10.1-14.3); Mean Corpuscular HGB Conc 32 % (30-34); Mean Corpuscular Volume 94 fl (79-97); Platelet Count 227 K/mm3 (140-440); Red Blood Count 2.33 M/mm3 (3.65-5.03)
[2019-01-09 05:17] LABS: Red Cell Distribution Width 25.6 % (13.2-15.2)
[2019-01-09 05:23] LABS: INR 1.63 (0.87-1.13)
[2019-01-09 05:25] LABS: Calcium 8.8 mg/dL (8.4-10.2)
[2019-01-09 07:45] LABS: Basophils % (Manual) 0 % (0.0-1.8); Eosinophils % (Manual) 0 % (0.0-4.3); Total Cells Counted 100
[2019-01-09 07:46] LABS: Anisocytosis 2+; Platelet Estimate Consistent w Auto; Poikilocytosis 1+; Target Cells 1+
--- NOTE | 2019-01-09 07:54 | Progress Note ---
Assessment and Plan Assessment: * Acute kidney injury secondary to prerenal azotemia vs ATN vs HRS * SIRS --Blood cx negative (Jan 04) * Jaundice - r/o alcoholic hepatitis * Hepatic encephalopathy * Coagulopathy * Anion gap metabolic acidosis secondary to lactic acidosis * Alcohol abuse Plan: * Renal function is stable; rise in BUN likely related to steroids * No acute indication for renal replacement therapy at this time * Replete lytes prn - note order for KCl 40meq this AM; will order an additional dose * Check Mg * Repeat BMP this afternoon * Dose medications for renal function * Abx per ID - Vanco/Cefepime/Flagyl * GI recommendations noted * Avoid potential nephrotoxins * Daughter at bedside - updated Subjective Date of service: 01/09/19 Principal diagnosis: jaundice, acute hepatic failure Interval history: No acute events overnight. Objective - Vital Signs Vital signs: Vital Signs - 12hr 01/08/19 01/08/19 01/09/19 22:00 22:50 05:33 Temperature 98.5 F 98.0 F Pulse Rate 116 H 109 H Respiratory 20 18 18 Rate Blood Pressure 122/77 125/72 O2 Sat by Pulse 93 96 Oximetry - General Appearance General appearance: well-developed, well-nourished EENT: ATNC, sclera incterus Respiratory: Present: Clear to Ascultation Cardiology: regular, S1S2 Gastrointestinal: no tenderness, no distended Integumentary: warm and dry - Lab 01/09/19 04:41 01/09/19 04:41 Most recent lab results Calcium 8.8 mg/dL (8.4-10.2) 01/09/19 04:41 Phosphorus 6.40 mg/dL (2.5-4.5) H 01/04/19 19:48 Magnesium 1.60 mg/dL (1.7-2.3) L 01/04/19 19:48 Medications & Allergies - Medications Allergies/Adverse Reactions: Allergies No Known Allergies Allergy (Unverified 04/01/17 17:36) Home Medications: Home Medications Medication Instructions Recorded Confirmed Last Taken Type HYDROcodone/ACETAMINOPHEN [[place] 1 each PO Q6H PRN #12 tablet 04/01/17 01/05/19 Unknown Rx 5-325 Tablet] Amoxicillin [Trimox CAP] 500 mg PO TID 01/05/19 01/05/19 Unknown History Cetirizine HCl [Allergy Relief] 10 mg PO QDAY 01/05/19 01/05/19 Unknown History Ferrous Sulfate [Ferrous Sulfate 324 mg PO QDAY 01/05/19 01/05/19 Unknown History 324 MG] Fexofenadine (Nf) 180 mg PO QDAY PRN 01/05/19 01/05/19 Unknown History Gabapentin 300 mg PO TID 01/05/19 01/05/19 Unknown History Montelukast [Singulair] 10 mg PO QPM 01/05/19 01/05/19 Unknown History Multivit-Min/Iron/Folic Acid/K 1 each PO QDAY 01/05/19 01/05/19 Unknown History [Adults Multivitamin Tablet] Omeprazole 40 mg PO PRN PRN 01/05/19 01/05/19 Unknown History Ranitidine HCl [Zantac] 300 mg PO QDAY 01/05/19 01/05/19 Unknown History Sod Phos Di, [place]/K Phos [place] 1 tab PO BID 01/05/19 01/05/19 Unknown History [Virt-Phos 250 Neutral Tablet] traZODone [Desyrel] 50 mg PO QHS 01/05/19 01/05/19 Unknown History Active Medications: Generic Name Dose Route Start Last Admin Trade Name Freq PRN Reason Stop Dose Admin Lipase/Protease/Amylase 1 each 01/06/19 10:59 Pancreaze 10,500 Unit FEEDTUBE PRN PRN For Clogged Feeding Tube Haloperidol Lactate 5 mg 01/04/19 19:39 Haldol IV Q1H PRN Unrespon. to mult. doses BZD's Hydrophilic Ointment 1 applic 01/07/19 17:56 Vaseline Lip Therapy TP DIRECT PRN Dry Lips Cefepime HCl 2 gm in 100 mls @ 200 mls/hr 01/05/19 20:00 01/08/19 20:44 Cefepime/Ns 2 Gm/100 Ml IV 200 mls/hr Q24H JULIETA Administration Protocol Metronidazole 500 mg in 100 mls @ 100 mls/hr 01/06/19 14:00 01/09/19 05:03 Flagyl 500 Mg/100 Ml IV 100 mls/hr Q8HR JULIETA Administration Lactulose 20 gm 01/05/19 06:39 Cephulac PO Q6H PRN Constipation Lactulose 20 gm 01/08/19 21:00 01/09/19 02:44 Cephulac PO 01/10/19 20:59 20 gm Q6H JULIETA Administration Lorazepam 2 mg 01/04/19 19:32 Ativan IV Q1H PRN CIWA-Ar 8-15 Lorazepam 4 mg 01/04/19 19:32 Ativan IV Q1H PRN CIWA-Ar 16-25 Potassium Chloride 40 meq 01/09/19 08:30 Potassium Chloride FEEDTUBE 01/09/19 08:31 ONCE ONE Prednisolone Sodium Phosphate 40 mg 01/07/19 14:00 01/08/19 09:19 Orapred PO 40 mg DAILY JULIETA Administration Simple Syrup 15 ml 01/06/19 10:59 Simple Syrup FEEDTUBE PRN PRN Hypoglycemia Simple Syrup 30 ml 01/06/19 10:59 Simple Syrup FEEDTUBE PRN PRN Hypoglycemia Sodium Bicarbonate 325 mg 01/06/19 10:59 Sodium Bicarbonate FEEDTUBE PRN PRN For Clogged Feeding Tube Sodium Chloride 10 ml 01/04/19 22:00 01/08/19 21:39 Sodium Chloride Flush Syringe 10 Ml IV 10 ml BID JULIETA Administration Sodium Chloride 10 ml 01/04/19 19:36 Sodium Chloride Flush Syringe 10 Ml IV PRN PRN LINE FLUSH
[2019-01-09] MEDS ORDERED: POTASSIUM CHLORIDE 20 MEQ PACKET FEEDTUBE ONE ×2 (08:30→12:00)
--- NOTE | 2019-01-09 09:56 | Progress Note ---
Assessment and Plan Assessment and plan: 43-year-old woman with history of alcohol abuse who was brought into the hospital by her daughter. They state that the patient was confused and jaundiced. The patient had became housebound, progressively weak, jaundiced and not eating. They also stated that she had been having trouble sleeping at [facility]. Alcoholic liver cirrhosis with decompensated liver failure GI input appreciated, patient has history of gastric bypass. Continue prednisolone -Coagulopathy, patient received vitamin K and improved Hyponatremia and hypokalemia Most likely alcoholic potomania improved with IV fluids : Hepatic encephalopathy Continue lactulose Altered mentation MR brain, neurology consult Acute kidney injury due to vasomotor nephropathy, ATN and prerenal azotemia Improving, continue hydration Etoh dependence and withdrawal - ciwa protocol, thiamine and folate -preventative health counseling performed for 17 minutes with both her daughters Sirs Empiric antibiotics, no obvious source of infection, infectious disease input appreciated Patient had episodes of hypotension which were likely due to dehydration. Severe malnutrition; dietitian consult Dysphasia Continue tube feeding, continue speech and swallow therapy Hypokalemia Has been repleted, tube feeding changed from Nepro to Glucerna Hyperglycemia Sliding scale insulin, obtain A1c Explained to her daughter as it is unlikely that she will improve, this is most likely her new state. Disposition is home with services when patient is im proved Awaiting PT evaluation History Interval history: Patient apparently has episodes of agitation and confusion She has been bedbound and weak Per nursing staff she wakes up and is conversant and makes sense most of the time but sometimes goes off tangents She has not been sleeping well at night No vomiting no seizures, no reported pain anywhere Hospitalist Physical - Physical exam Narrative exam: General.: Appears chronically ill HEENT: Moist mucous membranes, icteric sclera Neck: supple Cardiac: S1-S2 heard Lungs: clear to auscultation bilaterally Abdomen: soft , nontender, nondistended, bowel sounds positive Extremities: no edema clubbing or cyanosis Skin: no rash or lesions Neurologic: Patient is somnolent, she apparently received Ativan in the middle of the night, but she wakes up and is conversant. Speaks a few words and goes back to sleep Psych: Calm and cooperative - Constitutional Vitals: Temp Pulse Resp BP Pulse Ox 98.0 F 109 H 18 125/72 96 01/09/19 05:33 01/09/19 05:33 01/09/19 05:33 01/09/19 05:33 01/09/19 05:33 General appearance: Present: no acute distress, obese Results - Labs CBC & Chem 7: 01/09/19 04:41 01/09/19 04:41 Labs: Laboratory Last Values WBC 32.4 K/mm3 (4.5-11.0) H 01/09/19 04:41 RBC 2.33 M/mm3 (3.65-5.03) L 01/09/19 04:41 Hgb 6.9 gm/dl (10.1-14.3) L 01/09/19 04:41 Hct 21.8 % (30.3-42.9) L 01/09/19 04:41 MCV 94 fl (79-97) 01/09/19 04:41 MCH 30 pg (28-32) 01/09/19 04:41 MCHC 32 % (30-34) 01/09/19 04:41 RDW 25.6 % (13.2-15.2) H 01/09/19 04:41 Plt Count 227 K/mm3 (140-440) 01/09/19 04:41 Lymph % (Auto) Gas Shovel [employer] 01/05/19 11:51 [place] % (Auto) Gas Shovel Operator 01/05/19 11:51 Eos % (Auto) Gas Shovel Operator 01/05/19 11:51 Baso % (Auto) Gas Sho[employer] Operator 01/05/19 11:51 Lymph # [employer] Operator 01/09/19 04:41 [place] # Gas Shovel Operator 01/05/19 11:51 Eos # Gas Shovel Operator 01/05/19 11:51 Baso # Gas Shovel Operator 01/05/19 11:51 Add Manual Diff Complete 01/09/19 04:41 Total Counted 100 01/09/19 04:41 Seg Neutrophils % Gas Shovel Operator 01/05/19 11:51 Seg Neuts % (Manual) 90.0 % (40.0-70.0) H 01/09/19 04:41 Band Neutrophils % 0 % 01/09/19 04:41 Lymphocytes % (Manual) 5.0 % (13.4-35.0) L 01/09/19 04:41 Reactive Lymphs % (Man) 0 % 01/09/19 04:41 Monocytes % (Manual) 4.0 % (0.0-7.3) 01/09/19 04:41 Eosinophils % (Manual) 0 % (0.0-4.3) 01/09/19 04:41 Basophils % (Manual) 0 % (0.0-1.8) 01/09/19 04:41 Metamyelocytes % 1.0 % 01/09/19 04:41 Myelocytes % 0 % 01/09/19 04:41 Promyelocytes % 0 % 01/09/19 04:41 Blast Cells % 0 % 01/09/19 04:41 Nucleated RBC % Not Reportable 01/09/19 04:41 Seg Neutrophils # Gas Shovel Operator 01/05/19 11:51 Seg Neutrophils # Man 29.2 K/mm3 (1.8-7.7) H 01/09/19 04:41 Band Neutrophils # 0.0 K/mm3 01/09/19 04:41 Lymphocytes # (Manual) 1.6 K/mm3 (1.2-5.4) 01/09/19 04:41 Abs React Lymphs (Man) 0.0 K/mm3 01/09/19 04:41 Monocytes # (Manual) 1.3 K/mm3 (0.0-0.8) H 01/09/19 04:41 Eosinophils # (Manual) 0.0 K/mm3 (0.0-0.4) 01/09/19 04:41 Basophils # (Manual) 0.0 K/mm3 (0.0-0.1) 01/09/19 04:41 Metamyelocytes # 0.3 K/mm3 01/09/19 04:41 Myelocytes # 0.0 K/mm3 01/09/19 04:41 Promyelocytes # 0.0 K/mm3 01/09/19 04:41 Blast Cells # 0.0 K/mm3 01/09/19 04:41 Pathologist Review 01/04/19 12:10 WBC Morphology Not Reportable 01/09/19 04:41 Hypersegmented Neuts Not Reportable 01/09/19 04:41 Hyposegmented Neuts Not Reportable 01/09/19 04:41 Hypogranular Neuts Not Reportable 01/09/19 04:41 Smudge Cells Not Reportable 01/09/19 04:41 Toxic Granulation Not Reportable 01/09/19 04:41 Toxic Vacuolation Not Reportable 01/09/19 04:41 Dohle Bodies Not Reportable 01/09/19 04:41 Pelger-Huet Anomaly Not Reportable 01/09/19 04:41 Jonathan Rods Not Reportable 01/09/19 04:41 Platelet Estimate Consistent w auto 01/09/19 04:41 Clumped Platelets Not Reportable 01/09/19 04:41 Plt Clumps, EDTA Not Reportable 01/09/19 04:41 Large Platelets Not Reportable 01/09/19 04:41 Giant Platelets Not Reportable 01/09/19 04:41 Platelet Satelliting Not Reportable 01/09/19 04:41 Plt Morphology Comment Not Reportable 01/09/19 04:41 RBC Morphology Not Reportable 01/09/19 04:41 Dimorphic RBCs Not Reportable 01/09/19 04:41 Polychromasia Not Reportable 01/09/19 04:41 Hypochromasia Not Reportable 01/09/19 04:41 Poikilocytosis 1+ 01/09/19 04:41 Anisocytosis 2+ 01/09/19 04:41 Microcytosis Not Reportable 01/09/19 04:41 Macrocytosis Not Reportable 01/09/19 04:41 Spherocytes Not Reportable 01/09/19 04:41 Pappenheimer Bodies Not Reportable 01/09/19 04:41 Sickle Cells Not Reportable 01/09/19 04:41 Target Cells 1+ 01/09/19 04:41 Tear Drop Cells Not Reportable 01/09/19 04:41 Ovalocytes Not Reportable 01/09/19 04:41 Helmet Cells Not Reportable 01/09/19 04:41 Felix-Fairford Bodies Not Reportable 01/09/19 04:41 [place] Rings Not Reportable 01/09/19 04:41 Louis Cells Not Reportable 01/09/19 04:41 Bite Cells Not Reportable 01/09/19 04:41 Crenated Cell Not Reportable 01/09/19 04:41 Elliptocytes Not Reportable 01/09/19 04:41 Acanthocytes (Spur) Not Reportable 01/09/19 04:41 Rouleaux Not Reportable 01/09/19 04:41 Hemoglobin C Crystals Not Reportable 01/09/19 04:41 Schistocytes Not Reportable 01/09/19 04:41 Malaria parasites Not Reportable 01/09/19 04:41 Bhavik Bodies Not Reportable 01/09/19 04:41 Hem Pathologist Commnt No 01/09/19 04:41 PT 19.1 Sec. (12.2-14.9) H 01/09/19 04:41 INR 1.63 (0.87-1.13) H 01/09/19 04:41 Sodium 144 mmol/L (137-145) 01/09/19 04:41 Potassium 2.9 mmol/L (3.6-5.0) L* 01/09/19 04:41 Chloride 106.8 mmol/L (98-107) 01/09/19 04:41 Carbon Dioxide 22 mmol/L (22-30) 01/09/19 04:41 Anion Gap 18 mmol/L 01/09/19 04:41 BUN 62 mg/dL (7-17) H 01/09/19 04:41 Creatinine 1.3 mg/dL (0.7-1.2) H 01/09/19 04:41 Estimated GFR 54 ml/min 01/09/19 04:41 BUN/Creatinine Ratio 48 % 01/09/19 04:41 Glucose 282 mg/dL (65-100) H 01/09/19 04:41 POC Glucose 82 (70-105) 01/04/19 11:52 Osmolality 307 Mosm/kg 01/04/19 18:32 Lactic Acid 13.90 mmol/L (0.7-2.0) H* 01/04/19 11:53 Calcium 8.8 mg/dL (8.4-10.2) 01/09/19 04:41 Phosphorus 6.40 mg/dL (2.5-4.5) H 01/04/19 19:48 Magnesium 1.60 mg/dL (1.7-2.3) L 01/04/19 19:48 Total Bilirubin 9.50 mg/dL (0.1-1.2) H 01/09/19 04:41 Direct Bilirubin 7.9 mg/dL (0-0.2) H 01/04/19 11:15 Indirect Bilirubin 2.3 mg/dL 01/04/19 11:15 AST 149 units/L (5-40) H 01/09/19 04:41 ALT 52 units/L (7-56) 01/09/19 04:41 Alkaline Phosphatase 57 units/L (35-129) 01/09/19 04:41 Ammonia 43.0 umol/L (25-60) 01/09/19 04:41 NT-Pro-B Natriuret Pep 5269 pg/mL (0-450) H 01/04/19 11:08 Total Protein 7.4 g/dL (6.3-8.2) 01/09/19 04:41 Albumin 2.0 g/dL (3.9-5) L 01/09/19 04:41 Albumin/Globulin Ratio 0.4 % 01/09/19 04:41 Amylase 19 units/L (27-131) L 01/04/19 19:48 Lipase 8 units/L (13-60) L 01/04/19 11:08 TSH 2.830 mlU/mL (0.270-4.200) 01/04/19 11:15 Free T4 0.83 ng/dL (0.76-1.46) 01/04/19 11:15 HCG, Qual Negative (Negative) 01/04/19 11:08 Urine Color Teena (Yellow) 01/07/19 13:55 Urine Turbidity Cloudy (Clear) 01/07/19 13:55 Urine pH 5.0 (5.0-7.0) 01/07/19 13:55 Ur Specific [place] 1.018 (1.003-1.030) 01/07/19 13:55 Urine Protein 30 mg/dl mg/dL (Negative) 01/07/19 13:55 Urine Glucose (UA) Neg mg/dL (Negative) 01/07/19 13:55 Urine Ketones Neg mg/dL (Negative) 01/07/19 13:55 Urine Blood Mod (Negative) 01/07/19 13:55 Urine Nitrite Neg (Negative) 01/07/19 13:55 Urine Bilirubin Mod (Negative) 01/07/19 13:55 Urine Ictotest Positive (Negative) 01/07/19 13:55 Urine Urobilinogen 2.0 mg/dL (<2.0) 01/07/19 13:55 Ur Leukocyte Esterase Mod (Negative) 01/07/19 13:55 Urine WBC (Auto) 33.0 /HPF (0.0-6.0) H 01/07/19 13:55 Urine RBC (Auto) 12.0 /HPF (0.0-6.0) 01/07/19 13:55 U Epithel Cells (Auto) 2.0 /HPF (0-13.0) 01/07/19 13:55 Urine Bacteria (Auto) 1+ /HPF (Negative) 01/07/19 13:55 Urine WBC Clumps 2+ /HPF 01/07/19 13:55 Urine Mucus Few /HPF 01/07/19 13:55 Random Vancomycin 24.8 ug/mL (0-40.0) 01/09/19 04:41 Acetaminophen < 5.0 ug/mL (10.0-30.0) L 01/04/19 11:15 Hepatitis A IgM Ab Non-reactive (NonReactive) 01/05/19 11:51 Hep Bs Antigen Non-reactive (Negative) 01/05/19 11:51 Hep B Core IgM Ab Non-reactive (NonReactive) 01/05/19 11:51 Hepatitis C Antibody Non-reactive (NonReactive) 01/05/19 11:51 Blood Type B POSITIVE 01/04/19 11:31 Antibody Screen Negative 01/04/19 11:31 Active Medications - Current Medications Current Medications: Generic Name Dose Route Start Last Admin Trade Name Freq PRN Reason Stop Dose Admin Lipase/Protease/Amylase 1 each 01/06/19 10:[address] 10,500 Unit FEEDTUBE PRN PRN For Clogged Feeding Tube Haloperidol Lactate 5 mg 01/04/19 19:39 Haldol IV Q1H PRN Unrespon. to mult. doses BZD's Hydrophilic Ointment 1 applic 01/07/19 17:56 Vaseline Lip Therapy TP DIRECT PRN Dry Lips Cefepime HCl 2 gm in 100 mls @ 200 mls/hr 01/05/19 20:00 01/08/19 20:44 Cefepime/Ns 2 Gm/100 Ml IV 200 mls/hr Q24H JULIETA Administration Protocol Metronidazole 500 mg in 100 mls @ 100 mls/hr 01/06/19 14:00 01/09/19 05:03 Flagyl 500 Mg/100 Ml IV 100 mls/hr Q8HR JULIETA Administration Vancomycin HCl 1,500 mg/ 530 mls @ 333.333 mls/hr 01/09/19 12:00 Sodium Chloride IV Q24HR@1200 JULIETA Potassium Chloride 40 meq/ 520 mls @ 125 mls/hr 01/09/19 10:00 Sodium Chloride IV 01/09/19 14:10 DIRECT JULIETA Magnesium Sulfate 2 gm in 50 mls @ 25 mls/hr 01/09/19 09:54 Magnesium Sulfate 2gm/50ml IV 01/09/19 11:53 ONCE ONE Lactulose 20 gm 01/05/19 06:39 Cephulac PO Q6H PRN Constipation Lactulose 20 gm 01/09/19 14:00 Cephulac PO TID JULIETA Lorazepam 2 mg 01/04/19 19:32 Ativan IV Q1H PRN CIWA-Ar 8-15 Lorazepam 4 mg 01/04/19 19:32 Ativan IV Q1H PRN CIWA-Ar 16-25 Potassium Chloride 40 meq 01/09/19 12:00 Potassium Chloride FEEDTUBE 01/09/19 12:01 ONCE ONE Prednisolone Sodium Phosphate 40 mg 01/07/19 14:00 01/08/19 09:19 Orapred PO 40 mg DAILY JULIETA Administration Simple Syrup 15 ml 01/06/19 10:59 Simple Syrup FEEDTUBE PRN PRN Hypoglycemia Simple Syrup 30 ml 01/06/19 10:59 Simple Syrup FEEDTUBE PRN PRN Hypoglycemia Sodium Bicarbonate 325 mg 01/06/19 10:59 Sodium Bicarbonate FEEDTUBE PRN PRN For Clogged Feeding Tube Sodium Chloride 10 ml 01/04/19 22:00 01/08/19 21:39 Sodium Chloride Flush Syringe 10 Ml IV 10 ml BID JULIETA Administration Sodium Chloride 10 ml 01/04/19 19:36 Sodium Chloride Flush Syringe 10 Ml IV PRN PRN LINE FLUSH Nutrition/Malnutrition Assess - Dietary Evaluation Nutrition/Malnutrition Findings: Nutrition Notes Start: 01/05/19 13:04 Freq: Status: Active Protocol: Document 01/08/19 11:46 AP (Rec: 01/08/19 11:52 AP [id number]) Co-Sign 01/08/19 11:46 LP Nutrition Notes Need for Assessment generated from: MD Order Initial or Follow up Reassessment Current Diagnosis Acute Kidney Injury,Decubitus( Pressure Ulcer),Sepsis, Hypertension Other Pertinent Diagnosis AMS, ETOH abuse, liver disease , pancreatitis, sacral wound Current Diet Nepro w/carb steady at 40ml/hr Labs/Tests BUN 62 Cr 1.2 BG 269 Ammonia 71 Pertinent Medications Reviewed Height 5 ft 6 in Weight 96.9 kg [place] Body Weight (kg) 59.09 BMI 34.4 Weight change and time frame Weight loss noted. Subjective/Other Information F/U for TF intitiation/ tolerance. Pt TF running at 40ml/hr, tolerating. Percent of energy/protein needs met: 89%/97% Burn Absent Trauma Absent Minimum of two criteria Yes Fluid Accumulation Moderate to Severe (severe) Reduced Wheat Grower Strength Measurably Reduced (severe) #2 Nutrition Diagnosis Inadequate oral intake Diagnosis Progress(for reassessment Continues documentation) #1 Nutrition Diagnosis Malnutrition Diagnosis Progress(for reassessment Continues documentation) Is patient on ventilator? No Is Patient Ambulatory and/or Out of Bed No REE-([place]-confined to bed) 1965.960 Kcal/Kg value to use for calculation 16 Approximate Energy Requirements Using 1550 kcal/Kg Calculation Used for Recommendations Kcal/kg Additional Notes Protein needs are 71-85g (1-1. 2g/kg Adjusted wt 70kg) Considering kidneys, liver, malnutrition, and wound. Fluid needs per MD Nutrition Intervention Change Diet Order: TF Nutrition Support: Nepro at 40ml/hr Flush with 130ml q4h Kcal 1,728 Protein (gm) 78 Fluid (mL) 698 Goal #1 Meet at least 80% of kcal and protein needs via TF Anticipated Discharge Needs: Unable to determine at this time Follow-Up By: 01/11/19 Additional Comments F/U for TF tolerance/renal labs.
[2019-01-09] MEDS: prednisoLONE SOD PHOSPHATE 15 MG/5 ML ORAL LIQD PO SCH (10:00)
[2019-01-09] MEDS ORDERED: POTASSIUM CHLORIDE 40 MEQ in SODIUM CHLORIDE 0.45% 500 ML IV ONE (11:00)
[2019-01-09] MEDS ORDERED: MAGNESIUM SULFATE 2 GM/50 ML BAG IV ONE (11:00)
--- NOTE | 2019-01-09 11:29 | Gastroenterology Progress Note ---
<DARYA BELLE - Last Filed: 01/09/19 11:52> Assessment and Plan 1.jaundice 2.elevated LFTs 3.ETOH abuse 4.H/o gastric bypass -WBC 32.4 (no source of infection found; reactive?) -H/H 6.9/21.8 -no active signs of bleeding -plt WNL -INR 1.63-trended down -LFTs- stable -ammonia now WNL -abd CT and U/S- fatty liver -acetaminophen and hepatitis panel negative -etiology-most likely 2/2 alcoholic hepatitis -DF >32- continue prednisolone 40mg daily -continue empiric lactulose -TFs via dietary recommendations -continue to trend labs and supportive care -alcohol cessation discussed with pt/family -will follow Subjective Date of service: 01/09/19 Principal diagnosis: jaundice, acute hepatic failure Interval history: No acute distress. Remains somnolent. No evidence of abd pain, N/V, or signs of bleeding. Objective - Constitutional Vitals: Temp Pulse Resp BP Pulse Ox 98.0 F 109 H 18 125/72 96 01/09/19 05:33 01/09/19 05:33 01/09/19 05:33 01/09/19 05:33 01/09/19 05:33 General appearance: no acute distress, other (somnolent) - EENT ENT: other (+Dobhoff) - Respiratory Respiratory effort: normal - Cardiovascular Rhythm: other (tachycardia) - Gastrointestinal General gastrointestinal: Present: soft, non-distended, normal bowel sounds - Neurologic Neurological: oriented to person, other - Labs CBC & Chem 7: 01/09/19 04:41 01/09/19 04:41 Labs: Laboratory Results - last 24 hr 01/09/19 01/09/19 01/09/19 04:41 04:41 04:41 WBC 32.4 H RBC 2.33 L Hgb 6.9 L Hct 21.8 L MCV 94 MCH 30 MCHC 32 RDW 25.6 H Plt Count 227 Lymph # Hydraulic Press Tender Add Manual Diff Complete Total Counted 100 Seg Neuts % (Manual) 90.0 H Band Neutrophils % 0 Lymphocytes % (Manual) 5.0 L Reactive Lymphs % (Man) 0 Monocytes % (Manual) 4.0 Eosinophils % (Manual) 0 Basophils % (Manual) 0 Metamyelocytes % 1.0 Myelocytes % 0 Promyelocytes % 0 Blast Cells % 0 Nucleated RBC % Not Reportable Seg Neutrophils # Man 29.2 H Band Neutrophils # 0.0 Lymphocytes # (Manual) 1.6 Abs React Lymphs (Man) 0.0 Monocytes # (Manual) 1.3 H Eosinophils # (Manual) 0.0 Basophils # (Manual) 0.0 Metamyelocytes # 0.3 Myelocytes # 0.0 Promyelocytes # 0.0 Blast Cells # 0.0 WBC Morphology Not Reportable Hypersegmented Neuts Not Reportable Hyposegmented Neuts Not Reportable Hypogranular Neuts Not Reportable Smudge Cells Not Reportable Toxic Granulation Not Reportable Toxic Vacuolation Not Reportable Dohle Bodies Not Reportable Pelger-Huet Anomaly Not Reportable Jonathan Rods Not Reportable Platelet Estimate Consistent w auto Clumped Platelets Not Reportable Plt Clumps, EDTA Not Reportable Large Platelets Not Reportable Giant Platelets Not Reportable Platelet Satelliting Not Reportable Plt Morphology Comment Not Reportable RBC Morphology Not Reportable Dimorphic RBCs Not Reportable Polychromasia Not Reportable Hypochromasia Not Reportable Poikilocytosis 1+ Anisocytosis 2+ Microcytosis Not Reportable Macrocytosis Not Reportable Spherocytes Not Reportable Pappenheimer Bodies Not Reportable Sickle Cells Not Reportable Target Cells 1+ Tear Drop Cells Not Reportable Ovalocytes Not Reportable Helmet Cells Not Reportable [place] Bodies Not Reportable [place] Rings Not Reportable Paige Cells Not Reportable Bite Cells Not Reportable Crenated Cell Not Reportable Elliptocytes Not Reportable Acanthocytes (Spur) Not Reportable Rouleaux Not Reportable Hemoglobin C Crystals Not Reportable Schistocytes Not Reportable Malaria parasites Not Reportable Bhavik Bodies Not Reportable Hem Pathologist Commnt No PT 19.1 H INR 1.63 H Sodium 144 Potassium 2.9 L* Chloride 106.8 Carbon Dioxide 22 Anion Gap 18 BUN 62 H Creatinine 1.3 H Estimated GFR 54 BUN/Creatinine Ratio 48 Glucose 282 H Calcium 8.8 Phosphorus Magnesium Total Bilirubin 9.50 H AST 149 H ALT 52 Alkaline Phosphatase 57 Ammonia Total Protein 7.4 Albumin 2.0 L Albumin/Globulin Ratio 0.4 Random Vancomycin 01/09/19 01/09/19 01/09/19 04:41 04:41 04:41 WBC RBC Hgb Hct MCV MCH MCHC RDW Plt Count Lymph # Add Manual Diff Total Counted Seg Neuts % (Manual) Band Neutrophils % Lymphocytes % (Manual) Reactive Lymphs % (Man) Monocytes % (Manual) Eosinophils % (Manual) Basophils % (Manual) Metamyelocytes % Myelocytes % Promyelocytes % Blast Cells % Nucleated RBC % Seg Neutrophils # Man Band Neutrophils # Lymphocytes # (Manual) Abs React Lymphs (Man) Monocytes # (Manual) Eosinophils # (Manual) Basophils # (Manual) Metamyelocytes # Myelocytes # Promyelocytes # Blast Cells # WBC Morphology Hypersegmented Neuts Hyposegmented Neuts Hypogranular Neuts Smudge Cells Toxic Granulation Toxic Vacuolation Dohle Bodies Pelger-Huet Anomaly Jonathan Rods Platelet Estimate Clumped Platelets Plt Clumps, EDTA Large Platelets Giant Platelets Platelet Satelliting Plt Morphology Comment RBC Morphology Dimorphic RBCs Polychromasia Hypochromasia Poikilocytosis Anisocytosis Microcytosis Macrocytosis Spherocytes Pappenheimer Bodies Sickle Cells Target Cells Tear Drop Cells Ovalocytes Helmet Cells [place] Bodies [place] Cells Bite Cells Crenated Cell Elliptocytes Acanthocytes (Spur) Rouleaux Hemoglobin C Crystals Schistocytes Malaria parasites Bhavik Bodies Hem Pathologist Commnt PT INR Sodium Potassium Chloride Carbon Dioxide Anion Gap BUN Creatinine Estimated GFR BUN/Creatinine Ratio Glucose Calcium Phosphorus 2.60 Magnesium 1.90 Total Bilirubin AST ALT Alkaline Phosphatase Ammonia 43.0 Total Protein Albumin Albumin/Globulin Ratio Random Vancomycin 24.8 <DELROY RIOS R - Last Filed: 01/09/19 16:00> Assessment and Plan No significant change. Plan as noted. Minimize narcotics and benzodiazepines. Objective - Constitutional Vitals: Temp Pulse Resp BP Pulse Ox 98.6 F 109 H 20 123/78 98 01/09/19 11:19 01/09/19 11:19 01/09/19 11:19 01/09/19 11:19 01/09/19 11:19 - Labs CBC & Chem 7: 01/09/19 04:41 01/09/19 04:41 Labs: Laboratory Results - last 24 hr 01/09/19 01/09/19 01/09/19 04:41 04:41 04:41 WBC 32.4 H RBC 2.33 L Hgb 6.9 L Hct 21.8 L MCV 94 MCH 30 MCHC 32 RDW 25.6 H Plt Count 227 Lymph # Hydraulic Press Tender Add Manual Diff Complete Total Counted 100 Seg Neuts % (Manual) 90.0 H Band Neutrophils % 0 Lymphocytes % (Manual) 5.0 L Reactive Lymphs % (Man) 0 Monocytes % (Manual) 4.0 Eosinophils % (Manual) 0 Basophils % (Manual) 0 Metamyelocytes % 1.0 Myelocytes % 0 Promyelocytes % 0 Blast Cells % 0 Nucleated RBC % Not Reportable Seg Neutrophils # Man 29.2 H Band Neutrophils # 0.0 Lymphocytes # (Manual) 1.6 Abs React Lymphs (Man) 0.0 Monocytes # (Manual) 1.3 H Eosinophils # (Manual) 0.0 Basophils # (Manual) 0.0 Metamyelocytes # 0.3 Myelocytes # 0.0 Promyelocytes # 0.0 Blast Cells # 0.0 WBC Morphology Not Reportable Hypersegmented Neuts Not Reportable Hyposegmented Neuts Not Reportable Hypogranular Neuts Not Reportable Smudge Cells Not Reportable Toxic Granulation Not Reportable Toxic Vacuolation Not Reportable Dohle Bodies Not Reportable Pelger-Huet Anomaly Not Reportable Jonathan Rods Not Reportable Platelet Estimate Consistent w auto Clumped Platelets Not Reportable Plt Clumps, EDTA Not Reportable Large Platelets Not Reportable Giant Platelets Not Reportable Platelet Satelliting Not Reportable Plt Morphology Comment Not Reportable RBC Morphology Not Reportable Dimorphic RBCs Not Reportable Polychromasia Not Reportable Hypochromasia Not Reportable Poikilocytosis 1+ Anisocytosis 2+ Microcytosis Not Reportable Macrocytosis Not Reportable Spherocytes Not Reportable Pappenheimer Bodies Not Reportable Sickle Cells Not Reportable Target Cells 1+ Tear Drop Cells Not Reportable Ovalocytes Not Reportable Helmet Cells Not Reportable [place] Bodies Not Reportable [place] Rings Not Reportable Paige Cells Not Reportable Bite Cells Not Reportable Crenated Cell Not Reportable Elliptocytes Not Reportable Acanthocytes (Spur) Not Reportable Rouleaux Not Reportable Hemoglobin C Crystals Not Reportable Schistocytes Not Reportable Malaria parasites Not Reportable Bhavik Bodies Not Reportable Hem Pathologist Commnt No PT 19.1 H INR 1.63 H Sodium 144 Potassium 2.9 L* Chloride 106.8 Carbon Dioxide 22 Anion Gap 18 BUN 62 H Creatinine 1.3 H Estimated GFR 54 BUN/Creatinine Ratio 48 Glucose 282 H POC Glucose Calcium 8.8 Phosphorus Magnesium Total Bilirubin 9.50 H AST 149 H ALT 52 Alkaline Phosphatase 57 Ammonia Total Protein 7.4 Albumin 2.0 L Albumin/Globulin Ratio 0.4 Random Vancomycin 01/09/19 01/09/19 01/09/19 04:41 04:41 04:41 WBC RBC Hgb Hct MCV MCH MCHC RDW Plt Count Lymph # Add Manual Diff Total Counted Seg Neuts % (Manual) Band Neutrophils % Lymphocytes % (Manual) Reactive Lymphs % (Man) Monocytes % (Manual) Eosinophils % (Manual) Basophils % (Manual) Metamyelocytes % Myelocytes % Promyelocytes % Blast Cells % Nucleated RBC % Seg Neutrophils # Man Band Neutrophils # Lymphocytes # (Manual) Abs React Lymphs (Man) Monocytes # (Manual) Eosinophils # (Manual) Basophils # (Manual) Metamyelocytes # Myelocytes # Promyelocytes # Blast Cells # WBC Morphology Hypersegmented Neuts Hyposegmented Neuts Hypogranular Neuts Smudge Cells Toxic Granulation Toxic Vacuolation Dohle Bodies Pelger-Huet Anomaly Jonathan Rods Platelet Estimate Clumped Platelets Plt Clumps, EDTA Large Platelets Giant Platelets Platelet Satelliting Plt Morphology Comment RBC Morphology Dimorphic RBCs Polychromasia Hypochromasia Poikilocytosis Anisocytosis Microcytosis Macrocytosis Spherocytes Pappenheimer Bodies Sickle Cells Target Cells Tear Drop Cells Ovalocytes Helmet Cells [place] Bodies [place] Cells Bite Cells Crenated Cell Elliptocytes Acanthocytes (Spur) Rouleaux Hemoglobin C Crystals Schistocytes Malaria parasites Bhavik Bodies Hem Pathologist Commnt PT INR Sodium Potassium Chloride Carbon Dioxide Anion Gap BUN Creatinine Estimated GFR BUN/Creatinine Ratio Glucose POC Glucose Calcium Phosphorus 2.60 Magnesium 1.90 Total Bilirubin AST ALT Alkaline Phosphatase Ammonia 43.0 Total Protein Albumin Albumin/Globulin Ratio Random Vancomycin 24.8 01/09/19 11:30 WBC RBC Hgb Hct MCV MCH MCHC RDW Plt Count Lymph # Add Manual Diff Total Counted Seg Neuts % (Manual) Band Neutrophils % Lymphocytes % (Manual) Reactive Lymphs % (Man) Monocytes % (Manual) Eosinophils % (Manual) Basophils % (Manual) Metamyelocytes % Myelocytes % Promyelocytes % Blast Cells % Nucleated RBC % Seg Neutrophils # Man Band Neutrophils # Lymphocytes # (Manual) Abs React Lymphs (Man) Monocytes # (Manual) Eosinophils # (Manual) Basophils # (Manual) Metamyelocytes # Myelocytes # Promyelocytes # Blast Cells # WBC Morphology Hypersegmented Neuts Hyposegmented Neuts Hypogranular Neuts Smudge Cells Toxic Granulation Toxic Vacuolation Dohle Bodies Pelger-Huet Anomaly Jonathan Rods Platelet Estimate Clumped Platelets Plt Clumps, EDTA Large Platelets Giant Platelets Platelet Satelliting Plt Morphology Comment RBC Morphology Dimorphic RBCs Polychromasia Hypochromasia Poikilocytosis Anisocytosis Microcytosis Macrocytosis Spherocytes Pappenheimer Bodies Sickle Cells Target Cells Tear Drop Cells Ovalocytes Helmet Cells [place] Bodies [place] Rings Paige Cells Bite Cells Crenated Cell Elliptocytes Acanthocytes (Spur) Rouleaux Hemoglobin C Crystals Schistocytes Malaria parasites Bhavik Bodies Hem Pathologist Commnt PT INR Sodium Potassium Chloride Carbon Dioxide Anion Gap BUN Creatinine Estimated GFR BUN/Creatinine Ratio Glucose POC Glucose 240 H Calcium Phosphorus Magnesium Total Bilirubin AST ALT Alkaline Phosphatase Ammonia Total Protein Albumin Albumin/Globulin Ratio Random Vancomycin
[2019-01-09] MEDS ORDERED: SODIUM CHLORIDE 0.9% 500 ML 500 ML IV NR (11:54)
[2019-01-09] MEDS ORDERED: VANCOMYCIN 1,500 MG in SODIUM CHLORIDE 0.9% 500 ML 500 ML IV SCH (12:00)
--- NOTE | 2019-01-09 12:01 | Progress Note ---
Assessment and Plan Assessment and plan: 43-year-old woman with history of alcohol abuse who was brought into the hospital by her daughter. They state that the patient was confused and jaundiced. The patient had became housebound, progressively weak, jaundiced and not eating. They also stated that she had been having trouble sleeping at [facility]. Alcoholic liver cirrhosis with decompensated liver failure GI input appreciated, patient has history of gastric bypass. Continue prednisolone and rifaximin -Coagulopathy, patient received vitamin K and improved Hyponatremia and hypokalemia Most likely alcoholic potomania improved with IV fluids : Hepatic encephalopathy Continue lactulose Altered mentation MR brain, neurology consult Acute kidney injury due to vasomotor nephropathy, ATN and prerenal azotemia Improving, continue hydration Etoh dependence and withdrawal - ciwa protocol, thiamine and folate -preventative health counseling performed for 17 minutes with both her daughters Sirs Empiric antibiotics, no obvious source of infection, infectious disease input appreciated Patient had episodes of hypotension which were likely due to dehydration. Severe malnutrition; dietitian consult Dysphasia Continue tube feeding, continue speech and swallow therapy Hypokalemia Replete Explained to her daughter as it is unlikely that she will improve, this is most likely her new state. Disposition is home with services when patient is improved History Interval history: Patient apparently has episodes of agitation and confusion She has been bedbound and weak Per nursing staff she wakes up and is conversant and makes sense most of the time but sometimes goes off tangents She has not been sleeping well at night No vomiting no seizures, no reported pain anywhere Hospitalist Physical - Physical exam Narrative exam: General.: Appears chronically ill HEENT: Moist mucous membranes, sclerae [place] Neck: supple Cardiac: S1-S2 heard Lungs: clear to auscultation bilaterally Abdomen: soft , nontender, nondistended, bowel sounds positive Extremities: no edema clubbing or cyanosis Skin: no rash or lesions Neurologic: Patient is sedated, has just received Ativan Psych: Sedated - Constitutional Vitals: Temp Pulse Resp BP Pulse Ox 98.0 F 109 H 18 125/72 96 01/09/19 05:33 01/09/19 05:33 01/09/19 05:33 01/09/19 05:33 01/09/19 05:33 General appearance: Present: no acute distress, obese Results - Labs CBC & Chem 7: 01/09/19 04:41 01/09/19 04:41 Labs: Laboratory Last Values WBC 32.4 K/mm3 (4.5-11.0) H 01/09/19 04:41 RBC 2.33 M/mm3 (3.65-5.03) L 01/09/19 04:41 Hgb 6.9 gm/dl (10.1-14.3) L 01/09/19 04:41 Hct 21.8 % (30.3-42.9) L 01/09/19 04:41 MCV 94 fl (79-97) 01/09/19 04:41 MCH 30 pg (28-32) 01/09/19 04:41 MCHC 32 % (30-34) 01/09/19 04:41 RDW 25.6 % (13.2-15.2) H 01/09/19 04:41 Plt Count 227 K/mm3 (140-440) 01/09/19 04:41 Lymph % (Auto) Personnel Research Psychologist 01/05/19 11:51 Collin % (Auto) Personnel Research Psychologist 01/05/19 11:51 Eos % (Auto) Personnel Research Psychologist 01/05/19 11:51 Baso % (Auto) Personnel Research Psychologist 01/05/19 11:51 Lymph # Personnel Research Psychologist 01/09/19 04:41 Collin # Personnel Research Psychologist 01/05/19 11:51 Eos # Personnel Research Psychologist 01/05/19 11:51 Baso # Personnel Research Psychologist 01/05/19 11:51 Add Manual Diff Complete 01/09/19 04:41 Total Counted 100 01/09/19 04:41 Seg Neutrophils % Personnel Research Psychologist 01/05/19 11:51 Seg Neuts % (Manual) 90.0 % (40.0-70.0) H 01/09/19 04:41 Band Neutrophils % 0 % 01/09/19 04:41 Lymphocytes % (Manual) 5.0 % (13.4-35.0) L 01/09/19 04:41 Reactive Lymphs % (Man) 0 % 01/09/19 04:41 Monocytes % (Manual) 4.0 % (0.0-7.3) 01/09/19 04:41 Eosinophils % (Manual) 0 % (0.0-4.3) 01/09/19 04:41 Basophils % (Manual) 0 % (0.0-1.8) 01/09/19 04:41 Metamyelocytes % 1.0 % 01/09/19 04:41 Myelocytes % 0 % 01/09/19 04:41 Promyelocytes % 0 % 01/09/19 04:41 Blast Cells % 0 % 01/09/19 04:41 Nucleated RBC % Not Reportable 01/09/19 04:41 Seg Neutrophils # Personnel Research Psychologist 01/05/19 11:51 Seg Neutrophils # Man 29.2 K/mm3 (1.8-7.7) H 01/09/19 04:41 Band Neutrophils # 0.0 K/mm3 01/09/19 04:41 Lymphocytes # (Manual) 1.6 K/mm3 (1.2-5.4) 01/09/19 04:41 Abs React Lymphs (Man) 0.0 K/mm3 01/09/19 04:41 Monocytes # (Manual) 1.3 K/mm3 (0.0-0.8) H 01/09/19 04:41 Eosinophils # (Manual) 0.0 K/mm3 (0.0-0.4) 01/09/19 04:41 Basophils # (Manual) 0.0 K/mm3 (0.0-0.1) 01/09/19 04:41 Metamyelocytes # 0.3 K/mm3 01/09/19 04:41 Myelocytes # 0.0 K/mm3 01/09/19 04:41 Promyelocytes # 0.0 K/mm3 01/09/19 04:41 Blast Cells # 0.0 K/mm3 01/09/19 04:41 Pathologist Review 01/04/19 12:10 WBC Morphology Not Reportable 01/09/19 04:41 Hypersegmented Neuts Not Reportable 01/09/19 04:41 Hyposegmented Neuts Not Reportable 01/09/19 04:41 Hypogranular Neuts Not Reportable 01/09/19 04:41 Smudge Cells Not Reportable 01/09/19 04:41 Toxic Granulation Not Reportable 01/09/19 04:41 Toxic Vacuolation Not Reportable 01/09/19 04:41 Dohle Bodies Not Reportable 01/09/19 04:41 Pelger-Huet Anomaly Not Reportable 01/09/19 04:41 Jonathan Rods Not Reportable 01/09/19 04:41 Platelet Estimate Consistent w auto 01/09/19 04:41 Clumped Platelets Not Reportable 01/09/19 04:41 Plt Clumps, EDTA Not Reportable 01/09/19 04:41 Large Platelets Not Reportable 01/09/19 04:41 Giant Platelets Not Reportable 01/09/19 04:41 Platelet Satelliting Not Reportable 01/09/19 04:41 Plt Morphology Comment Not Reportable 01/09/19 04:41 RBC Morphology Not Reportable 01/09/19 04:41 Dimorphic RBCs Not Reportable 01/09/19 04:41 Polychromasia Not Reportable 01/09/19 04:41 Hypochromasia Not Reportable 01/09/19 04:41 Poikilocytosis 1+ 01/09/19 04:41 Anisocytosis 2+ 01/09/19 04:41 Microcytosis Not Reportable 01/09/19 04:41 Macrocytosis Not Reportable 01/09/19 04:41 Spherocytes Not Reportable 01/09/19 04:41 Pappenheimer Bodies Not Reportable 01/09/19 04:41 Sickle Cells Not Reportable 01/09/19 04:41 Target Cells 1+ 01/09/19 04:41 Tear Drop Cells Not Reportable 01/09/19 04:41 Ovalocytes Not Reportable 01/09/19 04:41 Helmet Cells Not Reportable 01/09/19 04:41 [place] Bodies Not Reportable 01/09/19 04:41 [place] Rings Not Reportable 01/09/19 04:41 Louis Cells Not Reportable 01/09/19 04:41 Bite Cells Not Reportable 01/09/19 04:41 Crenated Cell Not Reportable 01/09/19 04:41 Elliptocytes Not Reportable 01/09/19 04:41 Acanthocytes (Spur) Not Reportable 01/09/19 04:41 Rouleaux Not Reportable 01/09/19 04:41 Hemoglobin C Crystals Not Reportable 01/09/19 04:41 Schistocytes Not Reportable 01/09/19 04:41 Malaria parasites Not Reportable 01/09/19 04:41 Bhavik Bodies Not Reportable 01/09/19 04:41 Hem Pathologist Commnt No 01/09/19 04:41 PT 19.1 Sec. (12.2-14.9) H 01/09/19 04:41 INR 1.63 (0.87-1.13) H 01/09/19 04:41 Sodium 144 mmol/L (137-145) 01/09/19 04:41 Potassium 2.9 mmol/L (3.6-5.0) L* 01/09/19 04:41 Chloride 106.8 mmol/L (98-107) 01/09/19 04:41 Carbon Dioxide 22 mmol/L (22-30) 01/09/19 04:41 Anion Gap 18 mmol/L 01/09/19 04:41 BUN 62 mg/dL (7-17) H 01/09/19 04:41 Creatinine 1.3 mg/dL (0.7-1.2) H 01/09/19 04:41 Estimated GFR 54 ml/min 01/09/19 04:41 BUN/Creatinine Ratio 48 % 01/09/19 04:41 Glucose 282 mg/dL (65-100) H 01/09/19 04:41 POC Glucose 82 (70-105) 01/04/19 11:52 Osmolality 307 Mosm/kg 01/04/19 18:32 Lactic Acid 13.90 mmol/L (0.7-2.0) H* 01/04/19 11:53 Calcium 8.8 mg/dL (8.4-10.2) 01/09/19 04:41 Phosphorus 2.60 mg/dL (2.5-4.5) 01/09/19 04:41 Magnesium 1.90 mg/dL (1.7-2.3) 01/09/19 04:41 Total Bilirubin 9.50 mg/dL (0.1-1.2) H 01/09/19 04:41 Direct Bilirubin 7.9 mg/dL (0-0.2) H 01/04/19 11:15 Indirect Bilirubin 2.3 mg/dL 01/04/19 11:15 AST 149 units/L (5-40) H 01/09/19 04:41 ALT 52 units/L (7-56) 01/09/19 04:41 Alkaline Phosphatase 57 units/L (35-129) 01/09/19 04:41 Ammonia 43.0 umol/L (25-60) 01/09/19 04:41 NT-Pro-B Natriuret Pep 5269 pg/mL (0-450) H 01/04/19 11:08 Total Protein 7.4 g/dL (6.3-8.2) 01/09/19 04:41 Albumin 2.0 g/dL (3.9-5) L 01/09/19 04:41 Albumin/Globulin Ratio 0.4 % 01/09/19 04:41 Amylase 19 units/L (27-131) L 01/04/19 19:48 Lipase 8 units/L (13-60) L 01/04/19 11:08 TSH 2.830 mlU/mL (0.270-4.200) 01/04/19 11:15 Free T4 0.83 ng/dL (0.76-1.46) 01/04/19 11:15 HCG, Qual Negative (Negative) 01/04/19 11:08 Urine Color Teena (Yellow) 01/07/19 13:55 Urine Turbidity Cloudy (Clear) 01/07/19 13:55 Urine pH 5.0 (5.0-7.0) 01/07/19 13:55 Ur Specific [place] 1.018 (1.003-1.030) 01/07/19 13:55 Urine Protein 30 mg/dl mg/dL (Negative) 01/07/19 13:55 Urine Glucose (UA) Neg mg/dL (Negative) 01/07/19 13:55 Urine Ketones Neg mg/dL (Negative) 01/07/19 13:55 Urine Blood Mod (Negative) 01/07/19 13:55 Urine Nitrite Neg (Negative) 01/07/19 13:55 Urine Bilirubin Mod (Negative) 01/07/19 13:55 Urine Ictotest Positive (Negative) 01/07/19 13:55 Urine Urobilinogen 2.0 mg/dL (<2.0) 01/07/19 13:55 Ur Leukocyte Esterase Mod (Negative) 01/07/19 13:55 Urine WBC (Auto) 33.0 /HPF (0.0-6.0) H 01/07/19 13:55 Urine RBC (Auto) 12.0 /HPF (0.0-6.0) 01/07/19 13:55 U Epithel Cells (Auto) 2.0 /HPF (0-13.0) 01/07/19 13:55 Urine Bacteria (Auto) 1+ /HPF (Negative) 01/07/19 13:55 Urine WBC Clumps 2+ /HPF 01/07/19 13:55 Urine Mucus Few /HPF 01/07/19 13:55 Random Vancomycin 24.8 ug/mL (0-40.0) 01/09/19 04:41 Acetaminophen < 5.0 ug/mL (10.0-30.0) L 01/04/19 11:15 Hepatitis A IgM Ab Non-reactive (NonReactive) 01/05/19 11:51 Hep Bs Antigen Non-reactive (Negative) 01/05/19 11:51 Hep B Core IgM Ab Non-reactive (NonReactive) 01/05/19 11:51 Hepatitis C Antibody Non-reactive (NonReactive) 01/05/19 11:51 Blood Type B POSITIVE 01/04/19 11:31 Antibody Screen Negative 01/04/19 11:31 Active Medications - Current Medications Current Medications: Generic Name Dose Route Start Last Admin Trade Name Freq PRN Reason Stop Dose Admin Lipase/Protease/Amylase 1 each 01/06/19 10:[address] 10,500 Unit FEEDTUBE PRN PRN For Clogged Feeding Tube Haloperidol Lactate 5 mg 01/04/19 19:39 Haldol IV Q1H PRN Unrespon. to mult. doses BZD's Hydrophilic Ointment 1 applic 01/07/19 17:56 Vaseline Lip Therapy TP DIRECT PRN Dry Lips Cefepime HCl 2 gm in 100 mls @ 200 mls/hr 01/05/19 20:00 01/08/19 20:44 Cefepime/Ns 2 Gm/100 Ml IV 200 mls/hr Q24H JULIETA Administration Protocol Metronidazole 500 mg in 100 mls @ 100 mls/hr 01/06/19 14:00 01/09/19 05:03 Flagyl 500 Mg/100 Ml IV 100 mls/hr Q8HR JULIETA Administration Vancomycin HCl 1,500 mg/ 530 mls @ 333.333 mls/hr 01/09/19 12:00 Sodium Chloride IV Q24HR@1200 JULIETA Potassium Chloride 40 meq/ 520 mls @ 125 mls/hr 01/09/19 11:00 01/09/19 11:34 Sodium Chloride IV 01/09/19 15:09 125 mls/hr ONCE ONE Administration Magnesium Sulfate 2 gm in 50 mls @ 25 mls/hr 01/09/19 11:00 01/09/19 11:40 Magnesium Sulfate 2gm/50ml IV 01/09/19 12:59 25 mls/hr ONCE ONE Administration Sodium Chloride 500 mls @ 0 mls/hr 01/09/19 11:54 Nacl 0.9% 500 Ml IV 01/09/19 11:55 ONCE ONE As Directed Lactulose 20 gm 01/05/19 06:39 Cephulac PO Q6H PRN Constipation Lactulose 20 gm 01/09/19 14:00 Cephulac PO TID JULIETA Lorazepam 2 mg 01/04/19 19:32 Ativan IV Q1H PRN CIWA-Ar 8-15 Lorazepam 4 mg 01/04/19 19:32 Ativan IV Q1H PRN CIWA-Ar 16-25 Prednisolone Sodium Phosphate 40 mg 01/07/19 14:00 01/08/19 09:19 Orapred PO 40 mg DAILY JULIETA Administration Simple Syrup 15 ml 01/06/19 10:59 Simple Syrup FEEDTUBE PRN PRN Hypoglycemia Simple Syrup 30 ml 01/06/19 10:59 Simple Syrup FEEDTUBE PRN PRN Hypoglycemia Sodium Bicarbonate 325 mg 01/06/19 10:59 Sodium Bicarbonate FEEDTUBE PRN PRN For Clogged Feeding Tube Sodium Chloride 10 ml 01/04/19 22:00 01/08/19 21:39 Sodium Chloride Flush Syringe 10 Ml IV 10 ml BID JULIETA Administration Sodium Chloride 10 ml 01/04/19 19:36 Sodium Chloride Flush Syringe 10 Ml IV PRN PRN LINE FLUSH Nutrition/Malnutrition Assess - Dietary Evaluation Nutrition/Malnutrition Findings: Nutrition Notes Start: 01/05/19 13:04 Freq: Status: Active Protocol: Document 01/08/19 11:46 AP (Rec: 01/08/19 11:52 AP [id number]) Co-Sign 01/08/19 11:46 LP Nutrition Notes Need for Assessment generated from: MD Order Initial or Follow up Reassessment Current Diagnosis Acute Kidney Injury,Decubitus( Pressure Ulcer),Sepsis, Hypertension Other Pertinent Diagnosis AMS, ETOH abuse, liver disease , pancreatitis, sacral wound Current Diet Nepro w/carb steady at 40ml/hr Labs/Tests BUN 62 Cr 1.2 BG 269 Ammonia 71 Pertinent Medications Reviewed Height 5 ft 6 in Weight 96.9 kg [place] Body Weight (kg) 59.09 BMI 34.4 Weight change and time frame Weight loss noted. Subjective/Other Information F/U for TF intitiation/ tolerance. Pt TF running at 40ml/hr, tolerating. Percent of energy/protein needs met: 89%/97% Burn Absent Trauma Absent Minimum of two criteria Yes Fluid Accumulation Moderate to Severe (severe) Reduced [employer] [place] Strength Measurably Reduced (severe) #2 Nutrition Diagnosis Inadequate oral intake Diagnosis Progress(for reassessment Continues documentation) #1 Nutrition Diagnosis Malnutrition Diagnosis Progress(for reassessment Continues documentation) Is patient on ventilator? No Is Patient Ambulatory and/or Out of Bed No REE-([place]-confined to bed) 1965.960 Kcal/Kg value to use for calculation 16 Approximate Energy Requirements Using 1550 kcal/Kg Calculation Used for Recommendations Kcal/kg Additional Notes Protein needs are 71-85g (1-1. 2g/kg Adjusted wt 70kg) Considering kidneys, liver, malnutrition, and wound. Fluid needs per MD Nutrition Intervention Change Diet Order: TF Nutrition Support: Nepro at 40ml/hr Flush with 130ml q4h Kcal 1,728 Protein (gm) 78 Fluid (mL) 698 Goal #1 Meet at least 80% of kcal and protein needs via TF Anticipated Discharge Needs: Unable to determine at this time Follow-Up By: 01/11/19 Additional Comments F/U for TF tolerance/renal labs.
--- NOTE | 2019-01-09 13:21 | Progress Note ---
Assessment and Plan Cultures: 01/04/2019 blood cultures - negative A/P: 43 yo F PMHx alcohol abuse admitted with altered mental status. 1. SIRS possible sepsis - unclear source, present on admission with leukocytosis and tachycardia. TTE without acute infectious issue. MRI cancelled. Source of confusion most likely hepatic encephalopathy. Still has leukocytosis, likely reactive, and now with systemic steroids. Cultures negative, and UTI fully treated at this point. Begin de-escalation of antibiotics today. 2. ELIZABETH - renally dose antibiotics 3. lactic Acidosis Recs: - stop vancomycin - continue cefepime 2g q12h - Continue metronidazole 500mg q8h Thank you for the consult, we will continue to follow. Whitney June MD [facility] ([facility]) M: [phone] O: [phone] F: [phone] Subjective Date of service: 01/09/19 Principal diagnosis: jaundice, acute hepatic failure Interval history: Mildly improved mentation today. Objective - Exam Narrative Exam: Constitutional: confused, slurred speech Head, Ears, Nose: Normocephalic, atraumatic. External ears, nose normal Eyes: Conjunctivae/corneas clear. No icterus. No ptosis. Neck: Supple, no meningeal signs Oral: dentition fair, no thrush Cardiovascular: S1, S2 normal. Respiratory: Good air entry, clear to auscultation bilaterally GI: Soft, non-tender; bowel sounds normal. No peritoneal signs. Musculoskeletal: No pedal edema, no cyanosis. Skin: No rash or abscess Hem/Lymphatic: No palpable cervical or supraclavicular nodes. No lymphangitis Psych: Mood ok. Affect normal Neurological: Awake, alert, oriented. No gross abnormality - Constitutional Vitals: Vital Signs Temp Pulse Resp BP Pulse Ox 98.6 F 109 H 20 123/78 98 01/09/19 11:19 01/09/19 11:19 01/09/19 11:19 01/09/19 11:19 01/09/19 11:19 Temperature -Last 24 Hours Temperature 98.6 F Temperature 98.0 F Temperature 98.5 F Temperature 99.0 F - Labs CBC & Chem 7: 01/09/19 04:41 01/09/19 04:41 Labs: Abnormal lab results 01/09/19 01/09/19 01/09/19 Range/Units 04:41 04:41 04:41 WBC 32.4 H (4.5-11.0) K/mm3 RBC 2.33 L (3.65-5.03) M/mm3 Hgb 6.9 L (10.1-14.3) gm/dl Hct 21.8 L (30.3-42.9) % RDW 25.6 H (13.2-15.2) % Seg Neuts % (Manual) 90.0 H (40.0-70.0) % Lymphocytes % (Manual) 5.0 L (13.4-35.0) % Seg Neutrophils # Man 29.2 H (1.8-7.7) K/mm3 Monocytes # (Manual) 1.3 H (0.0-0.8) K/mm3 PT 19.1 H (12.2-14.9) Sec. INR 1.63 H (0.87-1.13) Potassium 2.9 L* (3.6-5.0) mmol/L BUN 62 H (7-17) mg/dL Creatinine 1.3 H (0.7-1.2) mg/dL Glucose 282 H (65-100) mg/dL POC Glucose (70-105) Total Bilirubin 9.50 H (0.1-1.2) mg/dL AST 149 H (5-40) units/L Albumin 2.0 L (3.9-5) g/dL 01/09/19 Range/Units 11:30 WBC (4.5-11.0) K/mm3 RBC (3.65-5.03) M/mm3 Hgb (10.1-14.3) gm/dl Hct (30.3-42.9) % RDW (13.2-15.2) % Seg Neuts % (Manual) (40.0-70.0) % Lymphocytes % (Manual) (13.4-35.0) % Seg Neutrophils # Man (1.8-7.7) K/mm3 Monocytes # (Manual) (0.0-0.8) K/mm3 PT (12.2-14.9) Sec. INR (0.87-1.13) Potassium (3.6-5.0) mmol/L BUN (7-17) mg/dL Creatinine (0.7-1.2) mg/dL Glucose (65-100) mg/dL POC Glucose 240 H (70-105) Total Bilirubin (0.1-1.2) mg/dL AST (5-40) units/L Albumin (3.9-5) g/dL
[2019-01-09] MEDS ORDERED: DEXTROSE 50% IN WATER (25GM) 50 ML SYRINGE IV PRN (15:35)
[2019-01-09] MEDS: INSULIN LISPRO 100 UNIT/ML SUB-Q SCH (18:00)
--- NOTE | 2019-01-09 18:44 | Progress Note ---
Assessment and Plan PATIENT IS ALERT AND APPROPRIATE. MAKES EYE CONTACT, TRIES TO TALK AND STATES THAT SHE FINDS IT DIFFICULT TO TALK. SHE KNOWS WHERE SHE IS AND KNOWS WHO I WAS. SERUM AMMONIA HAS SHOWN IMPROVEMENT WITH LACTULOSE GIVEN ON REGULAR DOSE INSTEAD OF PRN, ALSO WBC COUNT IS DOWN FROM PREVIOUS LEVEL. RESPONDING TO ANTIBIOTICS, SERUM AMMONIA IS 42 THIS MORNING COMPARED TO 70 YESTERDAY RECOMMEND. 1.CONTINUE LACTULOSE AND ANTIBIOTICS 2. 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 Subjective Principal diagnosis: jaundice, acute hepatic failure Objective - Vital Sign Vital Signs - 12hr 01/09/19 11:19 Temperature 98.6 F Pulse Rate 109 H Respiratory 20 Rate Blood Pressure 123/78 O2 Sat by Pulse 98 Oximetry - Laboratory Findings CBC and BMP: 01/09/19 04:41 01/09/19 04:41 Abnormal Lab Findings: Abnormal Labs 01/04/19 01/04/19 01/04/19 11:08 11:08 11:15 WBC 34.3 H RBC 2.64 L Hgb 7.8 L Hct 26.2 L MCV 99 H RDW 26.1 H Seg Neuts % (Manual) Lymphocytes % (Manual) Seg Neutrophils # Man 23.0 H Monocytes # (Manual) 2.4 H PT INR Sodium 135 L Potassium Chloride 90.7 L Carbon Dioxide 8 L* BUN 44 H Creatinine 3.4 H Glucose POC Glucose Lactic Acid Calcium Phosphorus Magnesium Total Bilirubin 10.20 H Direct Bilirubin 7.9 H AST 227 H ALT Ammonia NT-Pro-B Natriuret Pep 5269 H Albumin 2.4 L Amylase Lipase 8 L Urine WBC (Auto) Acetaminophen 01/04/19 01/04/19 01/04/19 11:15 11:32 11:53 WBC RBC Hgb Hct MCV RDW Seg Neuts % (Manual) Lymphocytes % (Manual) Seg Neutrophils # Man Monocytes # (Manual) PT 23.5 H INR 2.14 H Sodium Potassium Chloride Carbon Dioxide BUN Creatinine Glucose POC Glucose Lactic Acid Calcium Phosphorus Magnesium Total Bilirubin Direct Bilirubin AST ALT Ammonia 99.0 H NT-Pro-B Natriuret Pep Albumin Amylase Lipase Urine WBC (Auto) Acetaminophen < 5.0 L 01/04/19 01/04/19 01/05/19 11:53 19:48 01:20 WBC RBC Hgb Hct MCV RDW Seg Neuts % (Manual) Lymphocytes % (Manual) Seg Neutrophils # Man Monocytes # (Manual) PT INR Sodium 132 L Potassium 7.1 H* D Chloride 92.7 L Carbon Dioxide 11 L BUN 47 H Creatinine 2.5 H Glucose 117 H POC Glucose Lactic Acid 13.90 H* Calcium 8.1 L Phosphorus 6.40 H Magnesium 1.60 L Total Bilirubin Direct Bilirubin AST ALT Ammonia NT-Pro-B Natriuret Pep Albumin 2.0 L Amylase 19 L Lipase Urine WBC (Auto) Acetaminophen 01/05/19 01/05/19 01/06/19 11:51 11:51 09:45 WBC 30.6 H 29.6 H RBC 2.55 L 2.42 L Hgb 7.6 L 7.4 L Hct 23.6 L 22.3 L MCV RDW 26.0 H 25.8 H Seg Neuts % (Manual) Lymphocytes % (Manual) Seg Neutrophils # Man 19.0 H Monocytes # (Manual) 1.2 H PT INR Sodium Potassium Chloride 95.4 L Carbon Dioxide 20 L D BUN 47 H Creatinine 2.9 H Glucose POC Glucose Lactic Acid Calcium 8.1 L Phosphorus Magnesium Total Bilirubin 9.10 H Direct Bilirubin AST 257 H ALT 58 H Ammonia NT-Pro-B Natriuret Pep Albumin 2.0 L Amylase Lipase Urine WBC (Auto) Acetaminophen 01/06/19 01/07/19 01/07/19 09:45 01:21 11:40 WBC RBC Hgb Hct MCV RDW Seg Neuts % (Manual) Lymphocytes % (Manual) Seg Neutrophils # Man Monocytes # (Manual) PT 22.0 H INR 1.96 H Sodium Potassium 3.1 L D Chloride 97.9 L Carbon Dioxide 18 L 19 L BUN 52 H 60 H Creatinine 1.6 H 1.8 H Glucose 101 H 179 H POC Glucose Lactic Acid Calcium 8.3 L Phosphorus Magnesium Total Bilirubin 9.30 H Direct Bilirubin AST 264 H ALT 61 H Ammonia NT-Pro-B Natriuret Pep Albumin 1.9 L Amylase Lipase Urine WBC (Auto) Acetaminophen 01/07/19 01/08/19 01/08/19 13:55 07:32 07:32 WBC RBC Hgb Hct MCV RDW Seg Neuts % (Manual) Lymphocytes % (Manual) Seg Neutrophils # Man Monocytes # (Manual) PT 19.4 H INR 1.67 H Sodium Potassium 3.2 L Chloride Carbon Dioxide 21 L BUN 62 H Creatinine 1.6 H Glucose 269 H POC Glucose Lactic Acid Calcium Phosphorus Magnesium Total Bilirubin 9.20 H Direct Bilirubin AST 170 H ALT Ammonia NT-Pro-B Natriuret Pep Albumin 1.9 L Amylase Lipase Urine WBC (Auto) 33.0 H Acetaminophen 01/08/19 01/09/19 01/09/19 07:32 04:41 04:41 WBC 32.4 H RBC 2.33 L Hgb 6.9 L Hct 21.8 L MCV RDW 25.6 H Seg Neuts % (Manual) 90.0 H Lymphocytes % (Manual) 5.0 L Seg Neutrophils # Man 29.2 H Monocytes # (Manual) 1.3 H PT INR Sodium Potassium 2.9 L* Chloride Carbon Dioxide BUN 62 H Creatinine 1.3 H Glucose 282 H POC Glucose Lactic Acid Calcium Phosphorus Magnesium Total Bilirubin 9.50 H Direct Bilirubin AST 149 H ALT Ammonia 71.0 H NT-Pro-B Natriuret Pep Albumin 2.0 L Amylase Lipase Urine WBC (Auto) Acetaminophen 01/09/19 01/09/19 04:41 11:30 WBC RBC Hgb Hct MCV RDW Seg Neuts % (Manual) Lymphocytes % (Manual) Seg Neutrophils # Man Monocytes # (Manual) PT 19.1 H INR 1.63 H Sodium Potassium Chloride Carbon Dioxide BUN Creatinine Glucose POC Glucose 240 H Lactic Acid Calcium Phosphorus Magnesium Total Bilirubin Direct Bilirubin AST ALT Ammonia NT-Pro-B Natriuret Pep Albumin Amylase Lipase Urine WBC (Auto) Acetaminophen
[2019-01-09] MEDS: CEFEPIME/NS 2 GM/100 ML 2 GM/100 ML BAG IV SCH (21:59)
[2019-01-09] MEDS: traZODone 50 MG TAB PO SCH (22:00)
[2019-01-09 22:11] LABS: Hematocrit 22.2 % (30.3-42.9); Mean Corpuscular HGB Conc 31 % (30-34); Mean Corpuscular Volume 96 fl (79-97); Platelet Count 191 K/mm3 (140-440); Red Blood Count 2.31 M/mm3 (3.65-5.03)
[2019-01-09 22:14] LABS: Red Cell Distribution Width 25.2 % (13.2-15.2)
[2019-01-09 22:21] LABS: BUN/Creatinine Ratio 56; Blood Urea Nitrogen 56 mg/dL (7-17); Calcium 8.8 mg/dL (8.4-10.2); Hemolysis Index 6
[2019-01-09 22:50] LABS: Anisocytosis 2+; Basophils % (Manual) 0 % (0.0-1.8); Eosinophils % (Manual) 0 % (0.0-4.3); Poikilocytosis 1+; Target Cells 1+; Total Cells Counted 100
[2019-01-09 22:51] LABS: Dimorphic RBC Yes
[2019-01-10] MEDS: INSULIN LISPRO 100 UNIT/ML SUB-Q SCH ×4 (01:15→18:35)
[2019-01-10] MEDS: metroNIDAZOLE/NS 500 MG/100 ML 500 MG/100 ML BAG IV SCH ×3 (06:15→22:05)
[2019-01-10] MEDS: LACTULOSE 20 GM/30 ML ORAL LIQD PO SCH ×3 (08:00→20:54)
[2019-01-10] MEDS: prednisoLONE SOD PHOSPHATE 15 MG/5 ML ORAL LIQD PO SCH (10:00)
[2019-01-10] MEDS: CEFEPIME/NS 2 GM/100 ML 2 GM/100 ML BAG IV SCH ×2 (10:00→22:05)
--- NOTE | 2019-01-10 10:16 | Event Note ---
Date: 01/09/19 Was alerted by the RN that patient had dark blood in the diaper. Patient is not actively passing bloody stool at this time. Vitals stable Stat CBC ordered, communicated to Dr. Farr to follow-up labs -Patient placed n.p.o., lactulose held, tube feeds held
--- NOTE | 2019-01-10 11:27 | Gastroenterology Progress Note ---
<DARYA BELLE - Last Filed: 01/10/19 11:22> Assessment and Plan 1.jaundice 2.elevated LFTs 3.ETOH abuse 4.H/o gastric bypass -WBC 29-trending down (no source of infection found; reactive?) -H/H 7.0/22.2-stable; no active signs of bleeding -plt WNL -INR trending down -LFTs- stable -ammonia now WNL -abd CT and U/S- fatty liver -acetaminophen and hepatitis panel negative -etiology-most likely 2/2 alcoholic hepatitis -DF >32- continue prednisolone 40mg daily -continue PPI and empiric lactulose -recommend speech re-evaluate patient's swallowing- if safe for PO, start on diet and transition meds to PO -continue to trend labs and supportive care -alcohol cessation discussed with pt/family -will follow (d/c hopefully in the next 1-2 days) Subjective Date of service: 01/10/19 Principal diagnosis: jaundice, acute hepatic failure Interval history: Patient sitting up in bed this am w/o acute distress. Noted to be alert and more commutative with mental status improved. Objective - Constitutional Vitals: Temp Pulse Resp BP Pulse Ox 98.4 F 103 H 20 128/82 97 01/10/19 05:17 01/10/19 05:17 01/10/19 05:17 01/10/19 05:17 01/10/19 05:17 General appearance: no acute distress, other (alert) - EENT Eyes: scleral icterus - Respiratory Respiratory effort: normal - Cardiovascular Rhythm: other (tachycardia) - Gastrointestinal General gastrointestinal: Present: soft, non-distended, normal bowel sounds - Neurologic Neurological: oriented to person, oriented to place - Labs CBC & Chem 7: 01/09/19 21:48 01/09/19 21:48 Labs: Laboratory Results - last 24 hr 01/09/19 01/09/19 01/09/19 11:30 21:32 21:48 WBC RBC Hgb Hct MCV MCH MCHC RDW Plt Count Add Manual Diff Total Counted Seg Neuts % (Manual) Band Neutrophils % Lymphocytes % (Manual) Reactive Lymphs % (Man) Monocytes % (Manual) Eosinophils % (Manual) Basophils % (Manual) Metamyelocytes % Myelocytes % Promyelocytes % Blast Cells % Nucleated RBC % Seg Neutrophils # Man Band Neutrophils # Lymphocytes # (Manual) Abs React Lymphs (Man) Monocytes # (Manual) Eosinophils # (Manual) Basophils # (Manual) Metamyelocytes # Myelocytes # Promyelocytes # Blast Cells # WBC Morphology Hypersegmented Neuts Hyposegmented Neuts Hypogranular Neuts Smudge Cells Toxic Granulation Toxic Vacuolation Dohle Bodies Pelger-Huet Anomaly Jonathan Rods Platelet Estimate Clumped Platelets Plt Clumps, EDTA Large Platelets Giant Platelets Platelet Satelliting Plt Morphology Comment RBC Morphology Dimorphic RBCs Polychromasia Hypochromasia Poikilocytosis Anisocytosis Microcytosis Macrocytosis Spherocytes Pappenheimer Bodies Sickle Cells Target Cells Tear Drop Cells Ovalocytes Helmet Cells Felix-Seama Bodies [place] Rings [place] Cells Bite Cells Crenated Cell Elliptocytes Acanthocytes (Spur) Rouleaux Hemoglobin C Crystals Schistocytes Malaria parasites Bhavik Bodies Hem Pathologist Commnt Sodium 145 Potassium 3.6 D Chloride 110.8 H Carbon Dioxide 19 L Anion Gap 19 BUN 56 H Creatinine 1.0 Estimated GFR > 60 BUN/Creatinine Ratio 56 Glucose 286 H POC Glucose 240 H Calcium 8.8 Blood Type B POSITIVE Antibody Screen Negative Crossmatch See Detail 01/09/19 01/09/19 01/10/19 21:48 23:52 05:50 WBC 29.0 H RBC 2.31 L Hgb 7.0 L Hct 22.2 L MCV 96 MCH 30 MCHC 31 RDW 25.2 H Plt Count 191 Add Manual Diff Complete Total Counted 100 Seg Neuts % (Manual) 81.0 H Band Neutrophils % 0 Lymphocytes % (Manual) 12.0 L Reactive Lymphs % (Man) 0 Monocytes % (Manual) 7.0 Eosinophils % (Manual) 0 Basophils % (Manual) 0 Metamyelocytes % 0 Myelocytes % 0 Promyelocytes % 0 Blast Cells % 0 Nucleated RBC % Not Reportable Seg Neutrophils # Man 23.5 H Band Neutrophils # 0.0 Lymphocytes # (Manual) 3.5 Abs React Lymphs (Man) 0.0 Monocytes # (Manual) 2.0 H Eosinophils # (Manual) 0.0 Basophils # (Manual) 0.0 Metamyelocytes # 0.0 Myelocytes # 0.0 Promyelocytes # 0.0 Blast Cells # 0.0 WBC Morphology Not Reportable Hypersegmented Neuts Not Reportable Hyposegmented Neuts Not Reportable Hypogranular Neuts Not Reportable Smudge Cells Not Reportable Toxic Granulation Not Reportable Toxic Vacuolation Not Reportable Dohle Bodies Not Reportable Pelger-Huet Anomaly Not Reportable Jonathan Rods Not Reportable Platelet Estimate Not Reportable Clumped Platelets Not Reportable Plt Clumps, EDTA Not Reportable Large Platelets Not Reportable Giant Platelets Not Reportable Platelet Satelliting Not Reportable Plt Morphology Comment Not Reportable RBC Morphology Not Reportable Dimorphic RBCs Yes Polychromasia Not Reportable Hypochromasia Not Reportable Poikilocytosis 1+ Anisocytosis 2+ Microcytosis Not Reportable Macrocytosis Not Reportable Spherocytes Not Reportable Pappenheimer Bodies Not Reportable Sickle Cells Not Reportable Target Cells 1+ Tear Drop Cells Not Reportable Ovalocytes Not Reportable Helmet Cells Not Reportable Felix-Seama Bodies Not Reportable [place] Rings Not Reportable Louis Cells Not Reportable Bite Cells Not Reportable Crenated Cell Not Reportable Elliptocytes Not Reportable Acanthocytes (Spur) Not Reportable Rouleaux Not Reportable Hemoglobin C Crystals Not Reportable Schistocytes Not Reportable Malaria parasites Not Reportable Bhavik Bodies Not Reportable Hem Pathologist Commnt No Sodium Potassium Chloride Carbon Dioxide Anion Gap BUN Creatinine Estimated GFR BUN/Creatinine Ratio Glucose POC Glucose 302 H 197 H Calcium Blood Type Antibody Screen Crossmatch <DELROY RIOS R - Last Filed: 01/10/19 14:54> Assessment and Plan Pt seen and examined. Stool yellowish brown. Plan as noted. Hopefully can advance diet, and stop Dobhoff. Objective - Constitutional Vitals: Temp Pulse Resp BP Pulse Ox 98.1 F 105 H 22 112/72 98 01/10/19 11:53 01/10/19 11:53 01/10/19 11:53 01/10/19 11:53 01/10/19 11:53 - Labs CBC & Chem 7: 01/10/19 14:06 01/09/19 21:48 Labs: Laboratory Results - last 24 hr 01/09/19 01/09/19 01/09/19 21:32 21:48 21:48 WBC 29.0 H RBC 2.31 L Hgb 7.0 L Hct 22.2 L MCV 96 MCH 30 MCHC 31 RDW 25.2 H Plt Count 191 Add Manual Diff Complete Total Counted 100 Seg Neuts % (Manual) 81.0 H Band Neutrophils % 0 Lymphocytes % (Manual) 12.0 L Reactive Lymphs % (Man) 0 Monocytes % (Manual) 7.0 Eosinophils % (Manual) 0 Basophils % (Manual) 0 Metamyelocytes % 0 Myelocytes % 0 Promyelocytes % 0 Blast Cells % 0 Nucleated RBC % Not Reportable Seg Neutrophils # Man 23.5 H Band Neutrophils # 0.0 Lymphocytes # (Manual) 3.5 Abs React Lymphs (Man) 0.0 Monocytes # (Manual) 2.0 H Eosinophils # (Manual) 0.0 Basophils # (Manual) 0.0 Metamyelocytes # 0.0 Myelocytes # 0.0 Promyelocytes # 0.0 Blast Cells # 0.0 WBC Morphology Not Reportable Hypersegmented Neuts Not Reportable Hyposegmented Neuts Not Reportable Hypogranular Neuts Not Reportable Smudge Cells Not Reportable Toxic Granulation Not Reportable Toxic Vacuolation Not Reportable Dohle Bodies Not Reportable Pelger-Huet Anomaly Not Reportable Jonathan Rods Not Reportable Platelet Estimate Not Reportable Clumped Platelets Not Reportable Plt Clumps, EDTA Not Reportable Large Platelets Not Reportable Giant Platelets Not Reportable Platelet Satelliting Not Reportable Plt Morphology Comment Not Reportable RBC Morphology Not Reportable Dimorphic RBCs Yes Polychromasia Not Reportable Hypochromasia Not Reportable Poikilocytosis 1+ Anisocytosis 2+ Microcytosis Not Reportable Macrocytosis Not Reportable Spherocytes Not Reportable Pappenheimer Bodies Not Reportable Sickle Cells Not Reportable Target Cells 1+ Tear Drop Cells Not Reportable Ovalocytes Not Reportable Helmet Cells Not Reportable Felix-Seama Bodies Not Reportable [place] Rings Not Reportable Louis Cells Not Reportable Bite Cells Not Reportable Crenated Cell Not Reportable Elliptocytes Not Reportable Acanthocytes (Spur) Not Reportable Rouleaux Not Reportable Hemoglobin C Crystals Not Reportable Schistocytes Not Reportable Malaria parasites Not Reportable Bhavik Bodies Not Reportable Hem Pathologist Commnt No PT INR Sodium 145 Potassium 3.6 D Chloride 110.8 H Carbon Dioxide 19 L Anion Gap 19 BUN 56 H Creatinine 1.0 Estimated GFR > 60 BUN/Creatinine Ratio 56 Glucose 286 H POC Glucose Calcium 8.8 Blood Type B POSITIVE Antibody Screen Negative Crossmatch See Detail 01/09/19 01/10/19 01/10/19 23:52 05:50 12:01 WBC RBC Hgb Hct MCV MCH MCHC RDW Plt Count Add Manual Diff Total Counted Seg Neuts % (Manual) Band Neutrophils % Lymphocytes % (Manual) Reactive Lymphs % (Man) Monocytes % (Manual) Eosinophils % (Manual) Basophils % (Manual) Metamyelocytes % Myelocytes % Promyelocytes % Blast Cells % Nucleated RBC % Seg Neutrophils # Man Band Neutrophils # Lymphocytes # (Manual) Abs React Lymphs (Man) Monocytes # (Manual) Eosinophils # (Manual) Basophils # (Manual) Metamyelocytes # Myelocytes # Promyelocytes # Blast Cells # WBC Morphology Hypersegmented Neuts Hyposegmented Neuts Hypogranular Neuts Smudge Cells Toxic Granulation Toxic Vacuolation Dohle Bodies Pelger-Huet Anomaly Jonathan Rods Platelet Estimate Clumped Platelets Plt Clumps, EDTA Large Platelets Giant Platelets Platelet Satelliting Plt Morphology Comment RBC Morphology Dimorphic RBCs Polychromasia Hypochromasia Poikilocytosis Anisocytosis Microcytosis Macrocytosis Spherocytes Pappenheimer Bodies Sickle Cells Target Cells Tear Drop Cells Ovalocytes Helmet Cells Felix-Seama Bodies [place] Rings [place] Cells Bite Cells Crenated Cell Elliptocytes Acanthocytes (Spur) Rouleaux Hemoglobin C Crystals Schistocytes Malaria parasites Bhavik Bodies Hem Pathologist Commnt PT INR Sodium Potassium Chloride Carbon Dioxide Anion Gap BUN Creatinine Estimated GFR BUN/Creatinine Ratio Glucose POC Glucose 302 H 197 H 187 H Calcium Blood Type Antibody Screen Crossmatch 01/10/19 01/10/19 14:06 14:06 WBC 34.3 H RBC 2.69 L Hgb 8.2 L Hct 25.5 L MCV 95 MCH 31 MCHC 32 RDW 23.1 H Plt Count 198 Add Manual Diff Total Counted Seg Neuts % (Manual) Band Neutrophils % Lymphocytes % (Manual) Reactive Lymphs % (Man) Monocytes % (Manual) Eosinophils % (Manual) Basophils % (Manual) Metamyelocytes % Myelocytes % Promyelocytes % Blast Cells % Nucleated RBC % Seg Neutrophils # Man Band Neutrophils # Lymphocytes # (Manual) Abs React Lymphs (Man) Monocytes # (Manual) Eosinophils # (Manual) Basophils # (Manual) Metamyelocytes # Myelocytes # Promyelocytes # Blast Cells # WBC Morphology Hypersegmented Neuts Hyposegmented Neuts Hypogranular Neuts Smudge Cells Toxic Granulation Toxic Vacuolation Dohle Bodies Pelger-Huet Anomaly Jonathan Rods Platelet Estimate Clumped Platelets Plt Clumps, EDTA Large Platelets Giant Platelets Platelet Satelliting Plt Morphology Comment RBC Morphology Dimorphic RBCs Polychromasia Hypochromasia Poikilocytosis Anisocytosis Microcytosis Macrocytosis Spherocytes Pappenheimer Bodies Sickle Cells Target Cells Tear Drop Cells Ovalocytes Helmet Cells Felix-Seama Bodies [place] Rings [place] Cells Bite Cells Crenated Cell Elliptocytes Acanthocytes (Spur) Rouleaux Hemoglobin C Crystals Schistocytes Malaria parasites Bhavik Bodies Hem Pathologist Commnt PT 19.1 H INR 1.63 H Sodium Potassium Chloride Carbon Dioxide Anion Gap BUN Creatinine Estimated GFR BUN/Creatinine Ratio Glucose POC Glucose Calcium Blood Type Antibody Screen Crossmatch
--- NOTE | 2019-01-10 11:31 | Progress Note ---
Assessment and Plan Cultures: 01/04/2019 blood cultures - negative A/P: 43 yo F PMHx alcohol abuse admitted with altered mental status. 1. SIRS possible sepsis - unclear source, present on admission with leukocytosis and tachycardia. TTE without acute infectious issue. MRI cancelled. Source of confusion most likely hepatic encephalopathy. Still has leukocytosis, likely reactive, and now with systemic steroids. Cultures negative, and UTI fully treated at this point. Will consider stopping antibiotics tomorrow. No infective focus found, and she remains afebrile. 2. ELIZABETH - renally dose antibiotics 3. lactic Acidosis Recs: - repeat CBC in AM - continue cefepime 2g q12h - Continue metronidazole 500mg q8h Thank you for the consult, we will continue to follow. Whitney June MD [facility] ([facility] ([facility]) M: [phone] O: [phone] F: [phone] Subjective Date of service: 01/10/19 Principal diagnosis: jaundice, acute hepatic failure Interval history: Mildly improved mentation today. Objective - Exam Narrative Exam: Constitutional: more alert today. Head, Ears, Nose: Normocephalic, atraumatic. External ears, nose normal Eyes: Conjunctivae/corneas clear. No icterus. No ptosis. Neck: Supple, no meningeal signs Oral: dentition fair, no thrush Cardiovascular: S1, S2 normal. Respiratory: Good air entry, clear to auscultation bilaterally GI: Soft, non-tender; bowel sounds normal. No peritoneal signs. Musculoskeletal: No pedal edema, no cyanosis. Skin: No rash or abscess Hem/Lymphatic: No palpable cervical or supraclavicular nodes. No lymphangitis Psych: Mood ok. Affect normal Neurological: Awake, alert, oriented. No gross abnormality - Constitutional Vitals: Vital Signs Temp Pulse Resp BP Pulse Ox 98.4 F 103 H 20 128/82 97 01/10/19 05:17 01/10/19 05:17 01/10/19 05:17 01/10/19 05:17 01/10/19 05:17 Temperature -Last 24 Hours Temperature 98.4 F Temperature 98.7 F Temperature 98.8 F - Labs CBC & Chem 7: 01/09/19 21:48 01/09/19 21:48 Labs: Abnormal lab results 01/09/19 01/09/19 01/09/19 Range/Units 11:30 21:32 21:48 WBC (4.5-11.0) K/mm3 RBC (3.65-5.03) M/mm3 Hgb (10.1-14.3) gm/dl Hct (30.3-42.9) % RDW (13.2-15.2) % Seg Neuts % (Manual) (40.0-70.0) % Lymphocytes % (Manual) (13.4-35.0) % Seg Neutrophils # Man (1.8-7.7) K/mm3 Monocytes # (Manual) (0.0-0.8) K/mm3 Chloride 110.8 H (98-107) mmol/L Carbon Dioxide 19 L (22-30) mmol/L BUN 56 H (7-17) mg/dL Glucose 286 H (65-100) mg/dL POC Glucose 240 H (70-105) Crossmatch See Detail 01/09/19 01/09/19 01/10/19 Range/Units 21:48 23:52 05:50 WBC 29.0 H (4.5-11.0) K/mm3 RBC 2.31 L (3.65-5.03) M/mm3 Hgb 7.0 L (10.1-14.3) gm/dl Hct 22.2 L (30.3-42.9) % RDW 25.2 H (13.2-15.2) % Seg Neuts % (Manual) 81.0 H (40.0-70.0) % Lymphocytes % (Manual) 12.0 L (13.4-35.0) % Seg Neutrophils # Man 23.5 H (1.8-7.7) K/mm3 Monocytes # (Manual) 2.0 H (0.0-0.8) K/mm3 Chloride (98-107) mmol/L Carbon Dioxide (22-30) mmol/L BUN (7-17) mg/dL Glucose (65-100) mg/dL POC Glucose 302 H 197 H (70-105) Crossmatch
[2019-01-10] MEDS: PANTOPRAZOLE 40 MG INJ IV SCH ×2 (12:00→22:08)
--- NOTE | 2019-01-10 13:38 | Progress Note ---
Assessment and Plan Assessment: * Acute kidney injury secondary to prerenal azotemia vs ATN vs HRS * SIRS --Blood cx negative (Jan 04) * Jaundice - r/o alcoholic hepatitis * Hepatic encephalopathy * Coagulopathy * Anion gap metabolic acidosis secondary to lactic acidosis * Alcohol abuse Plan: * AM labs not collected * However, renal function has improved. No acute indication for renal replacement therapy at this time * Replete lytes prn * Dose medications for renal function * Abx per ID - Vanco/Cefepime/Flagyl * GI recommendations noted * Avoid potential nephrotoxins Subjective Date of service: 01/10/19 Principal diagnosis: jaundice, acute hepatic failure Interval history: No acute event. More alert but remains confused Objective - Vital Signs Vital signs: Vital Signs - 12hr 01/10/19 01/10/19 01/10/19 03:24 05:17 11:53 Temperature 98.4 F 98.1 F Pulse Rate 103 H 105 H Pulse Rate [ 107 H Right Dorsalis Pedis] Respiratory 20 22 Rate Blood Pressure 128/82 112/72 O2 Sat by Pulse 97 98 Oximetry - General Appearance General appearance: well-developed, well-nourished EENT: ATNC, sclera incterus Respiratory: Present: Clear to Ascultation Cardiology: regular, S1S2 Gastrointestinal: normal, no tenderness, no distended Neurologic: confused Psychiatric: cooperative - Lab 01/11/19 04:09 01/11/19 04:09 Medications & Allergies - Medications Allergies/Adverse Reactions: Allergies No Known Allergies Allergy (Unverified 04/01/17 17:36) Home Medications: Home Medications Medication Instructions Recorded Confirmed Last Taken Type HYDROcodone/ACETAMINOPHEN [[place] 1 each PO Q6H PRN #12 tablet 04/01/17 01/05/19 Unknown Rx 5-325 Tablet] Amoxicillin [Trimox CAP] 500 mg PO TID 01/05/19 01/05/19 Unknown History Cetirizine HCl [Allergy Relief] 10 mg PO QDAY 01/05/19 01/05/19 Unknown History Ferrous Sulfate [Ferrous Sulfate 324 mg PO QDAY 01/05/19 01/05/19 Unknown History 324 MG] Fexofenadine (Nf) 180 mg PO QDAY PRN 01/05/19 01/05/19 Unknown History Gabapentin 300 mg PO TID 01/05/19 01/05/19 Unknown History Montelukast [Singulair] 10 mg PO QPM 01/05/19 01/05/19 Unknown History Multivit-Min/Iron/Folic Acid/K 1 each PO QDAY 01/05/19 01/05/19 Unknown History [Adults Multivitamin Tablet] Omeprazole 40 mg PO PRN PRN 01/05/19 01/05/19 Unknown History Ranitidine HCl [Zantac] 300 mg PO QDAY 01/05/19 01/05/19 Unknown History Sod Phos Di, Bland/K Phos Bland 1 tab PO BID 01/05/19 01/05/19 Unknown History [Virt-Phos 250 Neutral Tablet] traZODone [Desyrel] 50 mg PO QHS 01/05/19 01/05/19 Unknown History Active Medications: Generic Name Dose Route Start Last Admin Trade Name Freq PRN Reason Stop Dose Admin Lipase/Protease/Amylase 1 each 01/06/19 10:[address] 10,500 Unit FEEDTUBE PRN PRN For Clogged Feeding Tube Dextrose 50 ml 01/09/19 15:35 D50w (25gm) Syringe IV Q30MIN PRN Hypoglycemia Hydrophilic Ointment 1 applic 01/07/19 17:56 Vaseline Lip Therapy TP DIRECT PRN Dry Lips Metronidazole 500 mg in 100 mls @ 100 mls/hr 01/06/19 14:00 01/10/19 06:15 Flagyl 500 Mg/100 Ml IV 100 mls/hr Q8HR JULIETA Administration Cefepime HCl 2 gm in 100 mls @ 200 mls/hr 01/09/19 22:00 01/09/19 21:59 Cefepime/Ns 2 Gm/100 Ml IV 200 mls/hr Q12HR JULIETA Administration Protocol Insulin Human Lispro 0 unit 01/09/19 18:00 01/10/19 06:28 Humalog SUB-Q 2 unit Q6HR JULIETA Administration Protocol Lactulose 20 gm 01/05/19 06:39 Cephulac PO Q6H PRN Constipation Lactulose 20 gm 01/09/19 14:00 01/09/19 22:00 Cephulac PO Not Given TID JULIETA Pantoprazole Sodium 40 mg 01/10/19 12:00 Protonix IV BID JULIETA Prednisolone Sodium Phosphate 40 mg 01/07/19 14:00 01/09/19 10:00 Orapred PO 40 mg DAILY JULIETA Administration Simple Syrup 15 ml 01/06/19 10:59 Simple Syrup FEEDTUBE PRN PRN Hypoglycemia Simple Syrup 30 ml 01/06/19 10:59 Simple Syrup FEEDTUBE PRN PRN Hypoglycemia Sodium Bicarbonate 325 mg 01/06/19 10:59 Sodium Bicarbonate FEEDTUBE PRN PRN For Clogged Feeding Tube Sodium Chloride 10 ml 01/04/19 22:00 01/09/19 22:00 Sodium Chloride Flush Syringe 10 Ml IV 10 ml BID JULIETA Administration Sodium Chloride 10 ml 01/04/19 19:36 Sodium Chloride Flush Syringe 10 Ml IV PRN PRN LINE FLUSH Trazodone HCl 50 mg 01/09/19 22:00 01/09/19 22:00 Desyrel PO 50 mg QHS JULIETA Administration
[2019-01-10 14:33] LABS: Hematocrit 25.5 % (30.3-42.9); Hemoglobin 8.2 gm/dl (10.1-14.3); Mean Corpuscular HGB Conc 32 % (30-34); Mean Corpuscular Volume 95 fl (79-97); Platelet Count 198 K/mm3 (140-440); Red Blood Count 2.69 M/mm3 (3.65-5.03); Red Cell Distribution Width 23.1 % (13.2-15.2)
[2019-01-10 14:45] LABS: INR 1.63 (0.87-1.13)
[2019-01-10 14:54] LABS: Alanine Aminotransferase 65 units/L (7-56); BUN/Creatinine Ratio 55; Blood Urea Nitrogen 55 mg/dL (7-17); Calcium 9.1 mg/dL (8.4-10.2); Hemolysis Index 3
--- NOTE | 2019-01-10 14:54 | Progress Note ---
Assessment and Plan Assessment and plan: 43-year-old woman with history of alcohol abuse who was brought into the hospital by her daughter. They state that the patient was confused and jaundiced. The patient had became housebound, progressively weak, jaundiced and not eating. They also stated that she had been having trouble sleeping at [facility]. 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 Continue prednisolone -Coagulopathy, patient received vitamin K and improved Hyponatremia and hypokalemia Most likely alcoholic potomania improved with IV fluids : Hepatic encephalopathy Continue lactulose Altered mentation MR brain, neurology consult Acute kidney injury due to vasomotor nephropathy, ATN and prerenal azotemia Resolved with hydration Etoh dependence and withdrawal - ciwa protocol, thiamine and folate -preventative health counseling performed for 17 minutes with both her daughters Sirs Empiric antibiotics, no obvious source of infection, infectious disease input appreciated Patient had episodes of hypotension which were likely due to dehydration. Severe malnutrition; dietitian consult appreciated Dysphasia Speech and swallow eval appreciated. Patient started on pured diet with nectar thickened liquids per speech therapy recommendation Hypokalemia Was repleted Hyperglycemia, concern for type 2 diabetes Sliding scale insulin, obtain A1c Explained to her daughter as it is unlikely that she will improve, this is most likely her new state. Disposition is home with services when patient is improved Awaiting PT evaluation GI bleed appears to have resolved, spoke to the RN Cindy and asked her to restart lactulose Daughters were unhappy because they found that that they are not listed as the next of kin in the medical record. Her sister is instead listed as the next of kin. The patient sister stated that she is not the next of kin and does not want the chart to reflect that. Discussed with Wilfred case management assistant who will speak to registration/risk-management to have the chart amended and corrected. History Interval history: Patient is confused, but conversant and pleasant today She has been bedbound and weak Per nursing staff she wakes up and is conversant and makes sense most of the time but sometimes goes off tangents Slept well last night No vomiting no seizures, no reported pain anywhere No further episodes of blood in diaper Hospitalist Physical - Physical exam Narrative exam: General.: Appears chronically ill HEENT: Moist mucous membranes, icteric sclera Neck: supple Cardiac: S1-S2 heard Lungs: clear to auscultation bilaterally Abdomen: soft , nontender, nondistended, bowel sounds positive Extremities: no edema clubbing or cyanosis Skin: no rash or lesions Neurologic: Awake alert oriented to person, she is confused and having visual hallucinations Psych: Calm and cooperative - Constitutional Vitals: Temp Pulse Resp BP Pulse Ox 98.1 F 105 H 22 112/72 98 01/10/19 11:53 01/10/19 11:53 01/10/19 11:53 01/10/19 11:53 01/10/19 11:53 General appearance: Present: no acute distress, obese Results - Labs CBC & Chem 7: 01/10/19 14:06 01/10/19 14:06 Labs: Laboratory Last Values WBC 34.3 K/mm3 (4.5-11.0) H 01/10/19 14:06 RBC 2.69 M/mm3 (3.65-5.03) L 01/10/19 14:06 Hgb 8.2 gm/dl (10.1-14.3) L 01/10/19 14:06 Hct 25.5 % (30.3-42.9) L 01/10/19 14:06 MCV 95 fl (79-97) 01/10/19 14:06 MCH 31 pg (28-32) 01/10/19 14:06 MCHC 32 % (30-34) 01/10/19 14:06 RDW 23.1 % (13.2-15.2) H 01/10/19 14:06 Plt Count 198 K/mm3 (140-440) 01/10/19 14:06 Lymph % (Auto) Halal Butcher 01/05/19 11:51 [place] % (Auto) Halal Butcher 01/05/19 11:51 Eos % (Auto) Halal Butcher 01/05/19 11:51 Baso % (Auto) Halal Butcher 01/05/19 11:51 Lymph # Halal Butcher 01/09/19 04:41 [place] # Halal Butcher 01/05/19 11:51 Eos # Halal Butcher 01/05/19 11:51 Baso # Halal Butcher 01/05/19 11:51 Add Manual Diff Complete 01/09/19 21:48 Total Counted 100 01/09/19 21:48 Seg Neutrophils % Halal Butcher 01/05/19 11:51 Seg Neuts % (Manual) 81.0 % (40.0-70.0) H 01/09/19 21:48 Band Neutrophils % 0 % 01/09/19 21:48 Lymphocytes % (Manual) 12.0 % (13.4-35.0) L 01/09/19 21:48 Reactive Lymphs % (Man) 0 % 01/09/19 21:48 Monocytes % (Manual) 7.0 % (0.0-7.3) 01/09/19 21:48 Eosinophils % (Manual) 0 % (0.0-4.3) 01/09/19 21:48 Basophils % (Manual) 0 % (0.0-1.8) 01/09/19 21:48 Metamyelocytes % 0 % 01/09/19 21:48 Myelocytes % 0 % 01/09/19 21:48 Promyelocytes % 0 % 01/09/19 21:48 Blast Cells % 0 % 01/09/19 21:48 Nucleated RBC % Not Reportable 01/09/19 21:48 Seg Neutrophils # Halal Butcher 01/05/19 11:51 Seg Neutrophils # Man 23.5 K/mm3 (1.8-7.7) H 01/09/19 21:48 Band Neutrophils # 0.0 K/mm3 01/09/19 21:48 Lymphocytes # (Manual) 3.5 K/mm3 (1.2-5.4) 01/09/19 21:48 Abs React Lymphs (Man) 0.0 K/mm3 01/09/19 21:48 Monocytes # (Manual) 2.0 K/mm3 (0.0-0.8) H 01/09/19 21:48 Eosinophils # (Manual) 0.0 K/mm3 (0.0-0.4) 01/09/19 21:48 Basophils # (Manual) 0.0 K/mm3 (0.0-0.1) 01/09/19 21:48 Metamyelocytes # 0.0 K/mm3 01/09/19 21:48 Myelocytes # 0.0 K/mm3 01/09/19 21:48 Promyelocytes # 0.0 K/mm3 01/09/19 21:48 Blast Cells # 0.0 K/mm3 01/09/19 21:48 Pathologist Review 01/04/19 12:10 WBC Morphology Not Reportable 01/09/19 21:48 Hypersegmented Neuts Not Reportable 01/09/19 21:48 Hyposegmented Neuts Not Reportable 01/09/19 21:48 Hypogranular Neuts Not Reportable 01/09/19 21:48 Smudge Cells Not Reportable 01/09/19 21:48 Toxic Granulation Not Reportable 01/09/19 21:48 Toxic Vacuolation Not Reportable 01/09/19 21:48 Dohle Bodies Not Reportable 01/09/19 21:48 Pelger-Huet Anomaly Not Reportable 01/09/19 21:48 Jonathan Rods Not Reportable 01/09/19 21:48 Platelet Estimate Not Reportable 01/09/19 21:48 Clumped Platelets Not Reportable 01/09/19 21:48 Plt Clumps, EDTA Not Reportable 01/09/19 21:48 Large Platelets Not Reportable 01/09/19 21:48 Giant Platelets Not Reportable 01/09/19 21:48 Platelet Satelliting Not Reportable 01/09/19 21:48 Plt Morphology Comment Not Reportable 01/09/19 21:48 RBC Morphology Not Reportable 01/09/19 21:48 Dimorphic RBCs Yes 01/09/19 21:48 Polychromasia Not Reportable 01/09/19 21:48 Hypochromasia Not Reportable 01/09/19 21:48 Poikilocytosis 1+ 01/09/19 21:48 Anisocytosis 2+ 01/09/19 21:48 Microcytosis Not Reportable 01/09/19 21:48 Macrocytosis Not Reportable 01/09/19 21:48 Spherocytes Not Reportable 01/09/19 21:48 Pappenheimer Bodies Not Reportable 01/09/19 21:48 Sickle Cells Not Reportable 01/09/19 21:48 Target Cells 1+ 01/09/19 21:48 Tear Drop Cells Not Reportable 01/09/19 21:48 Ovalocytes Not Reportable 01/09/19 21:48 Helmet Cells Not Reportable 01/09/19 21:48 [place] Bodies Not Reportable 01/09/19 21:48 [place] Rings Not Reportable 01/09/19 21:48 Louis Cells Not Reportable 01/09/19 21:48 Bite Cells Not Reportable 01/09/19 21:48 Crenated Cell Not Reportable 01/09/19 21:48 Elliptocytes Not Reportable 01/09/19 21:48 Acanthocytes (Spur) Not Reportable 01/09/19 21:48 Rouleaux Not Reportable 01/09/19 21:48 Hemoglobin C Crystals Not Reportable 01/09/19 21:48 Schistocytes Not Reportable 01/09/19 21:48 Malaria parasites Not Reportable 01/09/19 21:48 Bhavik Bodies Not Reportable 01/09/19 21:48 Hem Pathologist Commnt No 01/09/19 21:48 PT 19.1 Sec. (12.2-14.9) H 01/10/19 14:06 INR 1.63 (0.87-1.13) H 01/10/19 14:06 Sodium 145 mmol/L (137-145) 01/09/19 21:48 Potassium 3.6 mmol/L (3.6-5.0) D 01/09/19 21:48 Chloride 110.8 mmol/L (98-107) H 01/09/19 21:48 Carbon Dioxide 19 mmol/L (22-30) L 01/09/19 21:48 Anion Gap 19 mmol/L 01/09/19 21:48 BUN 56 mg/dL (7-17) H 01/09/19 21:48 Creatinine 1.0 mg/dL (0.7-1.2) 01/09/19 21:48 Estimated GFR > 60 ml/min 01/09/19 21:48 BUN/Creatinine Ratio 56 % 01/09/19 21:48 Glucose 286 mg/dL (65-100) H 01/09/19 21:48 POC Glucose 187 (70-105) H 01/10/19 12:01 Osmolality 307 Mosm/kg 01/04/19 18:32 Lactic Acid 13.90 mmol/L (0.7-2.0) H* 01/04/19 11:53 Calcium 8.8 mg/dL (8.4-10.2) 01/09/19 21:48 Phosphorus 2.60 mg/dL (2.5-4.5) 01/09/19 04:41 Magnesium 1.90 mg/dL (1.7-2.3) 01/09/19 04:41 Total Bilirubin 9.50 mg/dL (0.1-1.2) H 01/09/19 04:41 Direct Bilirubin 7.9 mg/dL (0-0.2) H 01/04/19 11:15 Indirect Bilirubin 2.3 mg/dL 01/04/19 11:15 AST 149 units/L (5-40) H 01/09/19 04:41 ALT 52 units/L (7-56) 01/09/19 04:41 Alkaline Phosphatase 57 units/L (35-129) 01/09/19 04:41 Ammonia 43.0 umol/L (25-60) 01/09/19 04:41 NT-Pro-B Natriuret Pep 5269 pg/mL (0-450) H 01/04/19 11:08 Total Protein 7.4 g/dL (6.3-8.2) 01/09/19 04:41 Albumin 2.0 g/dL (3.9-5) L 01/09/19 04:41 Albumin/Globulin Ratio 0.4 % 01/09/19 04:41 Amylase 19 units/L (27-131) L 01/04/19 19:48 Lipase 8 units/L (13-60) L 01/04/19 11:08 TSH 2.830 mlU/mL (0.270-4.200) 01/04/19 11:15 Free T4 0.83 ng/dL (0.76-1.46) 01/04/19 11:15 HCG, Qual Negative (Negative) 01/04/19 11:08 Urine Color Teena (Yellow) 01/07/19 13:55 Urine Turbidity Cloudy (Clear) 01/07/19 13:55 Urine pH 5.0 (5.0-7.0) 01/07/19 13:55 Ur Specific [place] 1.018 (1.003-1.030) 01/07/19 13:55 Urine Protein 30 mg/dl mg/dL (Negative) 01/07/19 13:55 Urine Glucose (UA) Neg mg/dL (Negative) 01/07/19 13:55 Urine Ketones Neg mg/dL (Negative) 01/07/19 13:55 Urine Blood Mod (Negative) 01/07/19 13:55 Urine Nitrite Neg (Negative) 01/07/19 13:55 Urine Bilirubin Mod (Negative) 01/07/19 13:55 Urine Ictotest Positive (Negative) 01/07/19 13:55 Urine Urobilinogen 2.0 mg/dL (<2.0) 01/07/19 13:55 Ur Leukocyte Esterase Mod (Negative) 01/07/19 13:55 Urine WBC (Auto) 33.0 /HPF (0.0-6.0) H 01/07/19 13:55 Urine RBC (Auto) 12.0 /HPF (0.0-6.0) 01/07/19 13:55 U Epithel Cells (Auto) 2.0 /HPF (0-13.0) 01/07/19 13:55 Urine Bacteria (Auto) 1+ /HPF (Negative) 01/07/19 13:55 Urine WBC Clumps 2+ /HPF 01/07/19 13:55 Urine Mucus Few /HPF 01/07/19 13:55 Random Vancomycin 24.8 ug/mL (0-40.0) 01/09/19 04:41 Acetaminophen < 5.0 ug/mL (10.0-30.0) L 01/04/19 11:15 Hepatitis A IgM Ab Non-reactive (NonReactive) 01/05/19 11:51 Hep Bs Antigen Non-reactive (Negative) 01/05/19 11:51 Hep B Core IgM Ab Non-reactive (NonReactive) 01/05/19 11:51 Hepatitis C Antibody Non-reactive (NonReactive) 01/05/19 11:51 Blood Type B POSITIVE 01/09/19 21:32 Antibody Screen Negative 01/09/19 21:32 Crossmatch See Detail 01/09/19 21:32 Active Medications - Current Medications Current Medications: Generic Name Dose Route Start Last Admin Trade Name Freq PRN Reason Stop Dose Admin Lipase/Protease/Amylase 1 each 01/06/19 10:59 Pancreaze 10,500 Unit FEEDTUBE PRN PRN For Clogged Feeding Tube Dextrose 50 ml 01/09/19 15:35 D50w (25gm) Syringe IV Q30MIN PRN Hypoglycemia Hydrophilic Ointment 1 applic 01/07/19 17:56 Vaseline Lip Therapy TP DIRECT PRN Dry Lips Metronidazole 500 mg in 100 mls @ 100 mls/hr 01/06/19 14:00 01/10/19 14:18 Flagyl 500 Mg/100 Ml IV 100 mls/hr Q8HR JULIETA Administration Cefepime HCl 2 gm in 100 mls @ 200 mls/hr 01/09/19 22:00 01/10/19 10:00 Cefepime/Ns 2 Gm/100 Ml IV 200 mls/hr Q12HR JULIETA Administration Protocol Insulin Human Lispro 0 unit 01/09/19 18:00 01/10/19 12:00 Humalog SUB-Q Not Given Q6HR [facility] Protocol Lactulose 20 gm 01/05/19 06:39 Cephulac PO Q6H PRN Constipation Lactulose 20 gm 01/09/19 14:00 01/10/19 14:07 Cephulac PO Not Given TID JULIETA Pantoprazole Sodium 40 mg 01/10/19 12:00 01/10/19 12:00 Protonix IV 40 mg BID JULIETA Administration Prednisolone Sodium Phosphate 40 mg 01/07/19 14:00 01/10/19 10:00 Orapred PO Not Given DAILY JULIETA Simple Syrup 15 ml 01/06/19 10:59 Simple Syrup FEEDTUBE PRN PRN Hypoglycemia Simple Syrup 30 ml 01/06/19 10:59 Simple Syrup FEEDTUBE PRN PRN Hypoglycemia Sodium Bicarbonate 325 mg 01/06/19 10:59 Sodium Bicarbonate FEEDTUBE PRN PRN For Clogged Feeding Tube Sodium Chloride 10 ml 01/04/19 22:00 01/10/19 10:00 Sodium Chloride Flush Syringe 10 Ml IV 10 ml BID JULIETA Administration Sodium Chloride 10 ml 01/04/19 19:36 Sodium Chloride Flush Syringe 10 Ml IV PRN PRN LINE FLUSH Trazodone HCl 50 mg 01/09/19 22:00 01/09/19 22:00 Desyrel PO 50 mg QHS JULIETA Administration Nutrition/Malnutrition Assess - Dietary Evaluation Nutrition/Malnutrition Findings: Nutrition Notes Start: 01/05/19 13:04 Freq: Status: Active Protocol: Document 01/10/19 11:05 LILY (Rec: 01/10/19 11:20 DW [id number]) Co-Sign 01/10/19 11:05 KH Nutrition Notes Need for Assessment generated from: MD Order Initial or Follow up Assessment Current Diagnosis Acute Kidney Injury,Decubitus( Pressure Ulcer),Sepsis, Hypertension Other Pertinent Diagnosis AMS, ETOH abuse, liver disease , pancreatitis, sacral wound Current Diet Nepro w/carb steady at 40ml/hr Labs/Tests POC Glu: 197 Pertinent Medications Reviewed Height 5 ft 6 in Weight 101.5 kg [place] Body Weight (kg) 59.09 BMI 36.1 Subjective/Other Information MD consult for tube feed management. Upon arrival tube feed was not running. Per event note tube feed held d/t dark bloody stool. Burn Absent Trauma Absent Current % PO Negligible Minimum of two criteria Yes Fluid Accumulation Moderate to Severe (severe) Reduced [employer] Marker Strength Measurably Reduced (severe) #2 Nutrition Diagnosis Inadequate oral intake As Evidenced by Signs and Symptoms Tube feed stopped d/t bloody stools Diagnosis Progress(for reassessment Continues documentation) #1 Nutrition Diagnosis Malnutrition As Evidenced by Signs and Symptoms Tube feed stopped d/t bloody stools Diagnosis Progress(for reassessment Worsened documentation) Is patient on ventilator? No Is Patient Ambulatory and/or Out of Bed No REE-([facility]-confined to bed) 2020.112 Kcal/Kg value to use for calculation 16 Approximate Energy Requirements Using 1624 kcal/Kg Calculation Used for Recommendations Kcal/kg Additional Notes Protein needs are 71-85g (1-1. 2g/kg Adjusted wt 70kg) Considering kidneys, liver, malnutrition, and wound. Fluid needs per MD Nutrition Intervention Change Diet Order: Reinitiate tube feed when medically feasible Goal #1 Restart tube feed Anticipated Discharge Needs: Unable to determine at this time Follow-Up By: 01/14/19 Additional Comments F/U tube feed restart
[2019-01-10 15:27] LABS: Basophils % (Manual) 0 % (0.0-1.8); Eosinophils % (Manual) 0 % (0.0-4.3); Total Cells Counted 100
[2019-01-10 15:38] LABS: Anisocytosis 2+
[2019-01-10] MEDS: traZODone 50 MG TAB PO SCH (22:08)
[2019-01-11] MEDS: INSULIN LISPRO 100 UNIT/ML SUB-Q SCH ×4 (00:07→18:57)
[2019-01-11] MEDS: LACTULOSE 20 GM/30 ML ORAL LIQD PO SCH ×4 (01:42→22:12)
[2019-01-11 04:47] LABS: Hemoglobin 8.8 gm/dl (10.1-14.3); Mean Corpuscular HGB Conc 33 % (30-34); Mean Corpuscular Volume 97 fl (79-97); Platelet Count 202 K/mm3 (140-440)
[2019-01-11 04:56] LABS: Red Cell Distribution Width 23.2 % (13.2-15.2)
[2019-01-11 05:01] LABS: Alanine Aminotransferase 70 units/L (7-56); Albumin 2.1 g/dL (3.9-5); BUN/Creatinine Ratio 49; Blood Urea Nitrogen 54 mg/dL (7-17); Calcium 9.3 mg/dL (8.4-10.2); Hemolysis Index 1
[2019-01-11] MEDS ORDERED: POTASSIUM CHLORIDE ER 20 MEQ TAB PO ONE (05:25)
[2019-01-11] MEDS ORDERED: POTASSIUM CHLORIDE 20 MEQ PACKET FEEDTUBE ONE (05:48)
[2019-01-11 06:43] LABS: Band Neutrophils # (Manual) 1.4 K/mm3; Basophils % (Manual) 0 % (0.0-1.8); Eosinophils % (Manual) 0 % (0.0-4.3); Total Cells Counted 100
[2019-01-11 06:44] LABS: Anisocytosis 2+
[2019-01-11 06:45] LABS: Target Cells 1+
[2019-01-11 06:46] LABS: Schistocytes Few
[2019-01-11 06:47] LABS: Platelet Estimate Consistent w Auto
[2019-01-11] MEDS: metroNIDAZOLE/NS 500 MG/100 ML 500 MG/100 ML BAG IV SCH ×2 (07:12→13:27)
[2019-01-11] MEDS: CEFEPIME/NS 2 GM/100 ML 2 GM/100 ML BAG IV SCH (10:00)
[2019-01-11] MEDS: PANTOPRAZOLE 40 MG INJ IV SCH ×2 (10:00→22:12)
[2019-01-11] MEDS: prednisoLONE SOD PHOSPHATE 15 MG/5 ML ORAL LIQD PO SCH (10:00)
--- NOTE | 2019-01-11 10:12 | Progress Note ---
Assessment and Plan Assessment and plan: 43-year-old woman with history of alcohol abuse who was brought into the hospital by her daughter. They state that the patient was confused and jaundiced. The patient had became housebound, progressively weak, jaundiced and not eating. They also stated that she had been having trouble sleeping at [facility]. 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 Continue prednisol one -Coagulopathy, patient received vitamin K and improved Hyponatremia and hypokalemia Most likely alcoholic potomania improved with IV fluids : Hepatic encephalopathy Continue lactulose, decrease dose bid Altered mentation MR brain, neurology consult Acute kidney injury due to vasomotor nephropathy, ATN and prerenal azotemia Resolved with hydration Etoh dependence and withdrawal - ciwa protocol, thiamine and folate -preventative health counseling performed for 17 minutes with both her daughters Sirs Empiric antibiotics, no obvious source of infection, infectious disease input appreciated Patient had episodes of hypotension which were likely due to dehydration. Severe malnutrition; dietitian consult appreciated Dysphasia Speech and swallow eval appreciated. Patient started on pured diet with nectar thickened liquids per speech therapy recommendation Hyperglycemia, patient does not have diabetes Sliding scale insulin as needed, A1c is normal Explained to her daughter as it is unlikely that she will improve, this is most likely her new state. Disposition is home with services when patient is improved Awaiting PT evaluation, will likely need walker and other devices at home Disposition likely home tomorrow with services, daughter expressed that she needs transportation to help get the mother up the steps at home History Interval history: She pulled out her NG tube last night, pulled out her IV this morning, when stated why she pulled it she said "why not?" Patient is confused, but conversant and pleasant today She has been bedbound and weak Per nursing staff she wakes up and is conversant and makes sense most of the time but sometimes goes off tangents Slept well last night No vomiting no seizures, no reported pain anywhere No further episodes of blood in diaper Hospitalist Physical - Physical exam Narrative exam: General.: Appears chronically ill HEENT: Moist mucous membranes, icteric sclera Neck: supple Cardiac: S1-S2 heard Lungs: clear to auscultation bilaterally Abdomen: soft , nontender, nondistended, bowel sounds positive Extremities: no edema clubbing or cyanosis Skin: no rash or lesions Neurologic: Awake alert oriented to person, she is confused Psych: Calm and cooperative - Constitutional Vitals: Temp Pulse Resp BP Pulse Ox 98.1 F 107 H 20 113/75 100 01/11/19 05:28 01/11/19 05:28 01/11/19 05:28 01/11/19 05:28 01/11/19 05:28 General appearance: Present: no acute distress, obese Results - Labs CBC & Chem 7: 01/11/19 04:09 01/11/19 04:09 Labs: Laboratory Last Values WBC 35.0 K/mm3 (4.5-11.0) H 01/11/19 04:09 RBC 2.80 M/mm3 (3.65-5.03) L 01/11/19 04:09 Hgb 8.8 gm/dl (10.1-14.3) L 01/11/19 04:09 Hct 27.0 % (30.3-42.9) L 01/11/19 04:09 MCV 97 fl (79-97) 01/11/19 04:09 MCH 31 pg (28-32) 01/11/19 04:09 MCHC 33 % (30-34) 01/11/19 04:09 RDW 23.2 % (13.2-15.2) H 01/11/19 04:09 Plt Count 202 K/mm3 (140-440) 01/11/19 04:09 Lymph % (Auto) [place]ane [place]ume Feeding Machine Operator 01/05/19 11:51 [place] % (Auto) Cane Flume Feeding Machine Operator 01/05/19 11:51 Eos % (Auto) Cane [employer] Feeding Machine Operator 01/05/19 11:51 Baso % (Auto) [employer]ane [employer] Feeding Machine Operator 01/05/19 11:51 Lymph # Cane [employer]ume Feeding Machine Operator 01/11/19 04:09 [place] # Cane Flume Feeding Machine Operator 01/05/19 11:51 Eos # Cane Flume Feeding Machine Operator 01/05/19 11:51 Baso # Cane [employer] Feeding Machine Operator 01/05/19 11:51 Add Manual Diff Complete 01/11/19 04:09 Total Counted 100 01/11/19 04:09 Seg Neutrophils % [place] [place] Feeding Machine Operator 01/05/19 11:51 Seg Neuts % (Manual) 80.0 % (40.0-70.0) H 01/11/19 04:09 Band Neutrophils % 4.0 % 01/11/19 04:09 Lymphocytes % (Manual) 13.0 % (13.4-35.0) L 01/11/19 04:09 Reactive Lymphs % (Man) 0 % 01/11/19 04:09 Monocytes % (Manual) 3.0 % (0.0-7.3) 01/11/19 04:09 Eosinophils % (Manual) 0 % (0.0-4.3) 01/11/19 04:09 Basophils % (Manual) 0 % (0.0-1.8) 01/11/19 04:09 Metamyelocytes % 0 % 01/11/19 04:09 Myelocytes % 0 % 01/11/19 04:09 Promyelocytes % 0 % 01/11/19 04:09 Blast Cells % 0 % 01/11/19 04:09 Nucleated RBC % Not Reportable 01/11/19 04:09 Seg Neutrophils # Cane [place]ume Feeding Machine Operator 01/05/19 11:51 Seg Neutrophils # Man 28.0 K/mm3 (1.8-7.7) H 01/11/19 04:09 Band Neutrophils # 1.4 K/mm3 01/11/19 04:09 Lymphocytes # (Manual) 4.6 K/mm3 (1.2-5.4) 01/11/19 04:09 Abs React Lymphs (Man) 0.0 K/mm3 01/11/19 04:09 Monocytes # (Manual) 1.1 K/mm3 (0.0-0.8) H 01/11/19 04:09 Eosinophils # (Manual) 0.0 K/mm3 (0.0-0.4) 01/11/19 04:09 Basophils # (Manual) 0.0 K/mm3 (0.0-0.1) 01/11/19 04:09 Metamyelocytes # 0.0 K/mm3 01/11/19 04:09 Myelocytes # 0.0 K/mm3 01/11/19 04:09 Promyelocytes # 0.0 K/mm3 01/11/19 04:09 Blast Cells # 0.0 K/mm3 01/11/19 04:09 Pathologist Review 01/04/19 12:10 WBC Morphology Not Reportable 01/11/19 04:09 Hypersegmented Neuts Not Reportable 01/11/19 04:09 Hyposegmented Neuts Not Reportable 01/11/19 04:09 Hypogranular Neuts Not Reportable 01/11/19 04:09 Smudge Cells Not Reportable 01/11/19 04:09 Toxic Granulation Not Reportable 01/11/19 04:09 Toxic Vacuolation Not Reportable 01/11/19 04:09 Dohle Bodies Not Reportable 01/11/19 04:09 Pelger-Huet Anomaly Not Reportable 01/11/19 04:09 Jonathan Rods Not Reportable 01/11/19 04:09 Platelet Estimate Consistent w auto 01/11/19 04:09 Clumped Platelets Not Reportable 01/11/19 04:09 Plt Clumps, EDTA Not Reportable 01/11/19 04:09 Large Platelets Not Reportable 01/11/19 04:09 Giant Platelets Not Reportable 01/11/19 04:09 Platelet Satelliting Not Reportable 01/11/19 04:09 Plt Morphology Comment Not Reportable 01/11/19 04:09 RBC Morphology Not Reportable 01/11/19 04:09 Dimorphic RBCs Not Reportable 01/11/19 04:09 Polychromasia Not Reportable 01/11/19 04:09 Hypochromasia Not Reportable 01/11/19 04:09 Poikilocytosis Not Reportable 01/11/19 04:09 Anisocytosis 2+ 01/11/19 04:09 Microcytosis Not Reportable 01/11/19 04:09 Macrocytosis Not Reportable 01/11/19 04:09 Spherocytes Not Reportable 01/11/19 04:09 Pappenheimer Bodies Not Reportable 01/11/19 04:09 Sickle Cells Not Reportable 01/11/19 04:09 Target Cells 1+ 01/11/19 04:09 Tear Drop Cells Not Reportable 01/11/19 04:09 Ovalocytes Not Reportable 01/11/19 04:09 Helmet Cells Not Reportable 01/11/19 04:09 Felix-Kill[place] Bodies Not Reportable 01/11/19 04:09 [place] Rings Not Reportable 01/11/19 04:09 Louis Cells Not Reportable 01/11/19 04:09 Bite Cells Not Reportable 01/11/19 04:09 Crenated Cell Not Reportable 01/11/19 04:09 Elliptocytes Not Reportable 01/11/19 04:09 Acanthocytes (Spur) Not Reportable 01/11/19 04:09 Rouleaux Not Reportable 01/11/19 04:09 Hemoglobin C Crystals Not Reportable 01/11/19 04:09 Schistocytes Few 01/11/19 04:09 Malaria parasites Not Reportable 01/11/19 04:09 Bhavik Bodies Not Reportable 01/11/19 04:09 Hem Pathologist Commnt No 01/11/19 04:09 PT 19.1 Sec. (12.2-14.9) H 01/10/19 14:06 INR 1.63 (0.87-1.13) H 01/10/19 14:06 Sodium 150 mmol/L (137-145) H 01/11/19 04:09 Potassium 2.9 mmol/L (3.6-5.0) L* 01/11/19 04:09 Chloride 113.7 mmol/L (98-107) H 01/11/19 04:09 Carbon Dioxide 20 mmol/L (22-30) L 01/11/19 04:09 Anion Gap 19 mmol/L 01/11/19 04:09 BUN 54 mg/dL (7-17) H 01/11/19 04:09 Creatinine 1.1 mg/dL (0.7-1.2) 01/11/19 04:09 Estimated GFR > 60 ml/min 01/11/19 04:09 BUN/Creatinine Ratio 49 % 01/11/19 04:09 Glucose 152 mg/dL (65-100) H 01/11/19 04:09 POC Glucose 147 (70-105) H 01/11/19 06:14 Hemoglobin A1c 5.3 % (4-6) 01/10/19 14:06 Osmolality 307 Mosm/kg 01/04/19 18:32 Lactic Acid 13.90 mmol/L (0.7-2.0) H* 01/04/19 11:53 Calcium 9.3 mg/dL (8.4-10.2) 01/11/19 04:09 Phosphorus 2.60 mg/dL (2.5-4.5) 01/09/19 04:41 Magnesium 1.90 mg/dL (1.7-2.3) 01/09/19 04:41 Total Bilirubin 9.30 mg/dL (0.1-1.2) H 01/11/19 04:09 Direct Bilirubin 7.9 mg/dL (0-0.2) H 01/04/19 11:15 Indirect Bilirubin 2.3 mg/dL 01/04/19 11:15 AST 165 units/L (5-40) H 01/11/19 04:09 ALT 70 units/L (7-56) H 01/11/19 04:09 Alkaline Phosphatase 47 units/L (35-129) 01/11/19 04:09 Ammonia 34.0 umol/L (25-60) 01/11/19 04:09 NT-Pro-B Natriuret Pep 5269 pg/mL (0-450) H 01/04/19 11:08 Total Protein 7.8 g/dL (6.3-8.2) 01/11/19 04:09 Albumin 2.1 g/dL (3.9-5) L 01/11/19 04:09 Albumin/Globulin Ratio 0.4 % 01/11/19 04:09 Amylase 19 units/L (27-131) L 01/04/19 19:48 Lipase 8 units/L (13-60) L 01/04/19 11:08 TSH 2.830 mlU/mL (0.270-4.200) 01/04/19 11:15 Free T4 0.83 ng/dL (0.76-1.46) 01/04/19 11:15 HCG, Qual Negative (Negative) 01/04/19 11:08 Urine Color Teena (Yellow) 01/07/19 13:55 Urine Turbidity Cloudy (Clear) 01/07/19 13:55 Urine pH 5.0 (5.0-7.0) 01/07/19 13:55 Ur Specific [place] 1.018 (1.003-1.030) 01/07/19 13:55 Urine Protein 30 mg/dl mg/dL (Negative) 01/07/19 13:55 Urine Glucose (UA) Neg mg/dL (Negative) 01/07/19 13:55 Urine Ketones Neg mg/dL (Negative) 01/07/19 13:55 Urine Blood Mod (Negative) 01/07/19 13:55 Urine Nitrite Neg (Negative) 01/07/19 13:55 Urine Bilirubin Mod (Negative) 01/07/19 13:55 Urine Ictotest Positive (Negative) 01/07/19 13:55 Urine Urobilinogen 2.0 mg/dL (<2.0) 01/07/19 13:55 Ur Leukocyte Esterase Mod (Negative) 01/07/19 13:55 Urine WBC (Auto) 33.0 /HPF (0.0-6.0) H 01/07/19 13:55 Urine RBC (Auto) 12.0 /HPF (0.0-6.0) 01/07/19 13:55 U Epithel Cells (Auto) 2.0 /HPF (0-13.0) 01/07/19 13:55 Urine Bacteria (Auto) 1+ /HPF (Negative) 01/07/19 13:55 Urine WBC Clumps 2+ /HPF 01/07/19 13:55 Urine Mucus Few /HPF 01/07/19 13:55 Random Vancomycin 24.8 ug/mL (0-40.0) 01/09/19 04:41 Acetaminophen < 5.0 ug/mL (10.0-30.0) L 01/04/19 11:15 Hepatitis A IgM Ab Non-reactive (NonReactive) 01/05/19 11:51 Hep Bs Antigen Non-reactive (Negative) 01/05/19 11:51 Hep B Core IgM Ab Non-reactive (NonReactive) 01/05/19 11:51 Hepatitis C Antibody Non-reactive (NonReactive) 01/05/19 11:51 Blood Type B POSITIVE 01/09/19 21:32 Antibody Screen Negative 01/09/19 21:32 Crossmatch See Detail 01/09/19 21:32 Active Medications - Current Medications Current Medications: Generic Name Dose Route Start Last Admin Trade Name Freq PRN Reason Stop Dose Admin Lipase/Protease/Amylase 1 each 01/06/19 10:59 Pancreaze 10,500 Unit FEEDTUBE PRN PRN For Clogged Feeding Tube Dextrose 50 ml 01/09/19 15:35 D50w (25gm) Syringe IV Q30MIN PRN Hypoglycemia Hydrophilic Ointment 1 applic 01/07/19 17:56 Vaseline Lip Therapy TP DIRECT PRN Dry Lips Metronidazole 500 mg in 100 mls @ 100 mls/hr 01/06/19 14:00 01/11/19 07:12 Flagyl 500 Mg/100 Ml IV 100 mls/hr Q8HR JULIETA Administration Cefepime HCl 2 gm in 100 mls @ 200 mls/hr 01/09/19 22:00 01/10/19 22:05 Cefepime/Ns 2 Gm/100 Ml IV 200 mls/hr Q12HR JULIETA Administration Protocol Potassium Chloride 20 meq/ 1,010 mls @ 125 mls/hr 01/11/19 10:30 Dextrose IV DIRECT JULIETA Insulin Human Lispro 0 unit 01/09/19 18:00 01/11/19 06:36 Humalog SUB-Q Not Given Q6HR [facility] Protocol Lactulose 20 gm 01/05/19 06:39 Cephulac PO Q6H PRN Constipation Lactulose 20 gm 01/09/19 14:00 01/10/19 20:54 Cephulac PO 20 gm TID JULIETA Administration Pantoprazole Sodium 40 mg 01/10/19 12:00 01/10/19 22:08 Protonix IV 40 mg BID JULIETA Administration Prednisolone Sodium Phosphate 40 mg 01/07/19 14:00 01/10/19 10:00 Orapred PO Not Given DAILY JULIETA Simple Syrup 15 ml 01/06/19 10:59 Simple Syrup FEEDTUBE PRN PRN Hypoglycemia Simple Syrup 30 ml 01/06/19 10:59 Simple Syrup FEEDTUBE PRN PRN Hypoglycemia Sodium Bicarbonate 325 mg 01/06/19 10:59 Sodium Bicarbonate FEEDTUBE PRN PRN For Clogged Feeding Tube Sodium Chloride 10 ml 01/04/19 22:00 01/10/19 22:19 Sodium Chloride Flush Syringe 10 Ml IV 10 ml BID JULIETA Administration Sodium Chloride 10 ml 01/04/19 19:36 Sodium Chloride Flush Syringe 10 Ml IV PRN PRN LINE FLUSH Trazodone HCl 50 mg 01/09/19 22:00 01/10/19 22:08 Desyrel PO 50 mg QHS JULIETA Administration Nutrition/Malnutrition Assess - Dietary Evaluation Nutrition/Malnutrition Findings: Nutrition Notes Start: 01/05/19 13:04 Freq: Status: Active Protocol: Document 01/10/19 11:05 LILY (Rec: 01/10/19 11:20 LILY [id number]) Co-Sign 01/10/19 11:05 KH Nutrition Notes Need for Assessment generated from: MD Order Initial or Follow up Assessment Current Diagnosis Acute Kidney Injury,Decubitus( Pressure Ulcer),Sepsis, Hypertension Other Pertinent Diagnosis AMS, ETOH abuse, liver disease , pancreatitis, sacral wound Current Diet Nepro w/carb steady at 40ml/hr Labs/Tests POC Glu: 197 Pertinent Medications Reviewed Height 5 ft 6 in Weight 101.5 kg [place] Body Weight (kg) 59.09 BMI 36.1 Subjective/Other Information MD consult for tube feed management. Upon arrival tube feed was not running. Per event note tube feed held d/t dark bloody stool. Burn Absent Trauma Absent Current % PO Negligible Minimum of two criteria Yes Fluid Accumulation Moderate to Severe (severe) Reduced Bowstring Maker Strength Measurably Reduced (severe) #2 Nutrition Diagnosis Inadequate oral intake As Evidenced by Signs and Symptoms Tube feed stopped d/t bloody stools Diagnosis Progress(for reassessment Continues documentation) #1 Nutrition Diagnosis Malnutrition As Evidenced by Signs and Symptoms Tube feed stopped d/t bloody stools Diagnosis Progress(for reassessment Worsened documentation) Is patient on ventilator? No Is Patient Ambulatory and/or Out of Bed No REE-([facility]-confined to bed) 2020.112 Kcal/Kg value to use for calculation 16 Approximate Energy Requirements Using 1624 kcal/Kg Calculation Used for Recommendations Kcal/kg Additional Notes Protein needs are 71-85g (1-1. 2g/kg Adjusted wt 70kg) Considering kidneys, liver, malnutrition, and wound. Fluid needs per MD Nutrition Intervention Change Diet Order: Reinitiate tube feed when medically feasible Goal #1 Restart tube feed Anticipated Discharge Needs: Unable to determine at this time Follow-Up By: 01/14/19 Additional Comments F/U tube feed restart
[2019-01-11] MEDS ORDERED: LORazepam 1 MG TAB PO PRN (11:58)
[2019-01-11] MEDS ORDERED: LORazepam 2 MG/ML VIAL IV PRN (11:58)
--- NOTE | 2019-01-11 12:31 | Gastroenterology Progress Note ---
<DARYA BELLE - Last Filed: 01/11/19 13:03> Assessment and Plan 1.jaundice 2.elevated LFTs 3.ETOH abuse 4.H/o gastric bypass -WBC 35-stable (no source of infection found; reactive?) -H/H 8.8/27.0- no active signs of bleeding -plt WNL -INR and LFTs stable -ammonia now WNL -abd CT and U/S- fatty liver -acetaminophen and hepatitis panel negative -etiology-most likely 2/2 alcoholic hepatitis -DF >32- continue prednisolone 40mg daily (x total of 28 then taper off by 10mg daily each week) -continue PPI and empiric lactulose -tolerating diet (transition medications to PO) -continue to trend labs and supportive care -alcohol cessation discussed with pt/family -no further recommendations at this time per GI standpoint -patient to f/u in clinic in 2-3 weeks upon discharge -will sign off, please call back if needed Subjective Date of service: 01/11/19 Principal diagnosis: jaundice, acute hepatic failure Interval history: Patient sitting up in bed this am noted to be alert w/o acute distress. Admits to mild abdominal discomfort but no N/v or active signs of bleeding. Tolerating pureed diet. Objective - Constitutional Vitals: Temp Pulse Resp BP Pulse Ox 98.1 F 107 H 20 113/75 100 01/11/19 05:28 01/11/19 05:28 01/11/19 05:28 01/11/19 05:28 01/11/19 05:28 General appearance: no acute distress, obese - EENT Eyes: scleral icterus - Respiratory Respiratory effort: normal - Cardiovascular Rhythm: other (tachycardia) - Gastrointestinal General gastrointestinal: Present: soft, tender (slight TTP in RUQ), non- distended, normal bowel sounds - Neurologic Neurological: oriented to person, oriented to place - Labs CBC & Chem 7: 01/11/19 04:09 01/11/19 04:09 Labs: Laboratory Results - last 24 hr 01/10/19 01/10/19 01/10/19 14:06 14:06 14:06 WBC RBC Hgb Hct MCV MCH MCHC RDW Plt Count Lymph # Add Manual Diff Total Counted Seg Neuts % (Manual) Band Neutrophils % Lymphocytes % (Manual) Reactive Lymphs % (Man) Monocytes % (Manual) Eosinophils % (Manual) Basophils % (Manual) Metamyelocytes % Myelocytes % Promyelocytes % Blast Cells % Nucleated RBC % Seg Neutrophils # Man Band Neutrophils # Lymphocytes # (Manual) Abs React Lymphs (Man) Monocytes # (Manual) Eosinophils # (Manual) Basophils # (Manual) Metamyelocytes # Myelocytes # Promyelocytes # Blast Cells # WBC Morphology Hypersegmented Neuts Hyposegmented Neuts Hypogranular Neuts Smudge Cells Toxic Granulation Toxic Vacuolation Dohle Bodies Pelger-Huet Anomaly Jonathan Rods Platelet Estimate Clumped Platelets Plt Clumps, EDTA Large Platelets Giant Platelets Platelet Satelliting Plt Morphology Comment RBC Morphology Dimorphic RBCs Polychromasia Hypochromasia Poikilocytosis Anisocytosis Microcytosis Macrocytosis Spherocytes Pappenheimer Bodies Sickle Cells Target Cells Tear Drop Cells Ovalocytes Helmet Cells Felix-Minto Bodies [place] Rings [place] Cells Bite Cells Crenated Cell Elliptocytes Acanthocytes (Spur) Rouleaux Hemoglobin C Crystals Schistocytes Malaria parasites Bhavik Bodies Hem Pathologist Commnt PT INR Sodium 148 H Potassium 3.1 L Chloride 112.2 H Carbon Dioxide 19 L Anion Gap 20 BUN 55 H Creatinine 1.0 Estimated GFR > 60 BUN/Creatinine Ratio 55 Glucose 153 H POC Glucose Hemoglobin A1c 5.3 Calcium 9.1 Total Bilirubin 9.40 H AST 149 H ALT 65 H Alkaline Phosphatase 48 Ammonia 46.0 Total Protein 7.6 Albumin 2.0 L Albumin/Globulin Ratio 0.4 01/10/19 01/10/19 01/10/19 14:06 14:06 18:14 WBC 34.3 H RBC 2.69 L Hgb 8.2 L Hct 25.5 L MCV 95 MCH 31 MCHC 32 RDW 23.1 H Plt Count 198 Lymph # Add Manual Diff Complete Total Counted 100 Seg Neuts % (Manual) 78.0 H Band Neutrophils % 0 Lymphocytes % (Manual) 12.0 L Reactive Lymphs % (Man) 0 Monocytes % (Manual) 10.0 H Eosinophils % (Manual) 0 Basophils % (Manual) 0 Metamyelocytes % 0 Myelocytes % 0 Promyelocytes % 0 Blast Cells % 0 Nucleated RBC % Not Reportable Seg Neutrophils # Man 26.8 H Band Neutrophils # 0.0 Lymphocytes # (Manual) 4.1 Abs React Lymphs (Man) 0.0 Monocytes # (Manual) 3.4 H Eosinophils # (Manual) 0.0 Basophils # (Manual) 0.0 Metamyelocytes # 0.0 Myelocytes # 0.0 Promyelocytes # 0.0 Blast Cells # 0.0 WBC Morphology Hypersegmented Neuts Not Reportable Hyposegmented Neuts Not Reportable Hypogranular Neuts Not Reportable Smudge Cells Not Reportable Toxic Granulation Not Reportable Toxic Vacuolation Not Reportable Dohle Bodies Not Reportable Pelger-Huet Anomaly Not Reportable Jonathan Rods Not Reportable Platelet Estimate Not Reportable Clumped Platelets Not Reportable Plt Clumps, EDTA Not Reportable Large Platelets Not Reportable Giant Platelets Not Reportable Platelet Satelliting Not Reportable Plt Morphology Comment Not Reportable RBC Morphology Not Reportable Dimorphic RBCs Not Reportable Polychromasia Not Reportable Hypochromasia Not Reportable Poikilocytosis Not Reportable Anisocytosis 2+ Microcytosis Not Reportable Macrocytosis Not Reportable Spherocytes Not Reportable Pappenheimer Bodies Not Reportable Sickle Cells Not Reportable Target Cells Not Reportable Tear Drop Cells Not Reportable Ovalocytes Not Reportable Helmet Cells Not Reportable Felix-Minto Bodies Not Reportable [place] Rings Not Reportable [place] Cells Not Reportable Bite Cells Not Reportable Crenated Cell Not Reportable Elliptocytes Not Reportable Acanthocytes (Spur) Not Reportable Rouleaux Not Reportable Hemoglobin C Crystals Not Reportable Schistocytes Not Reportable Malaria parasites Not Reportable Bhavik Bodies Not Reportable Hem Pathologist Commnt Sent to pathology PT 19.1 H INR 1.63 H Sodium Potassium Chloride Carbon Dioxide Anion Gap BUN Creatinine Estimated GFR BUN/Creatinine Ratio Glucose POC Glucose 128 H Hemoglobin A1c Calcium Total Bilirubin AST ALT Alkaline Phosphatase Ammonia Total Protein Albumin Albumin/Globulin Ratio 01/10/19 01/11/19 01/11/19 23:57 04:09 04:09 WBC RBC Hgb Hct MCV MCH MCHC RDW Plt Count Lymph # Add Manual Diff Total Counted Seg Neuts % (Manual) Band Neutrophils % Lymphocytes % (Manual) Reactive Lymphs % (Man) Monocytes % (Manual) Eosinophils % (Manual) Basophils % (Manual) Metamyelocytes % Myelocytes % Promyelocytes % Blast Cells % Nucleated RBC % Seg Neutrophils # Man Band Neutrophils # Lymphocytes # (Manual) Abs React Lymphs (Man) Monocytes # (Manual) Eosinophils # (Manual) Basophils # (Manual) Metamyelocytes # Myelocytes # Promyelocytes # Blast Cells # WBC Morphology Hypersegmented Neuts Hyposegmented Neuts Hypogranular Neuts Smudge Cells Toxic Granulation Toxic Vacuolation Dohle Bodies Pelger-Huet Anomaly Jonathan Rods Platelet Estimate Clumped Platelets Plt Clumps, EDTA Large Platelets Giant Platelets Platelet Satelliting Plt Morphology Comment RBC Morphology Dimorphic RBCs Polychromasia Hypochromasia Poikilocytosis Anisocytosis Microcytosis Macrocytosis Spherocytes Pappenheimer Bodies Sickle Cells Target Cells Tear Drop Cells Ovalocytes Helmet Cells Felix-Minto Bodies [place] Rings [place] Cells Bite Cells Crenated Cell Elliptocytes Acanthocytes (Spur) Rouleaux Hemoglobin C Crystals Schistocytes Malaria parasites Bhavik Bodies Hem Pathologist Commnt PT INR Sodium 150 H Potassium 2.9 L* Chloride 113.7 H Carbon Dioxide 20 L Anion Gap 19 BUN 54 H Creatinine 1.1 Estimated GFR > 60 BUN/Creatinine Ratio 49 Glucose 152 H POC Glucose 134 H Hemoglobin A1c Calcium 9.3 Total Bilirubin 9.30 H AST 165 H ALT 70 H Alkaline Phosphatase 47 Ammonia 34.0 Total Protein 7.8 Albumin 2.1 L Albumin/Globulin Ratio 0.4 01/11/19 01/11/19 04:09 06:14 WBC 35.0 H RBC 2.80 L Hgb 8.8 L Hct 27.0 L MCV 97 MCH 31 MCHC 33 RDW 23.2 H Plt Count 202 Lymph # Broodmare Foreman Add Manual Diff Complete Total Counted 100 Seg Neuts % (Manual) 80.0 H Band Neutrophils % 4.0 Lymphocytes % (Manual) 13.0 L Reactive Lymphs % (Man) 0 Monocytes % (Manual) 3.0 Eosinophils % (Manual) 0 Basophils % (Manual) 0 Metamyelocytes % 0 Myelocytes % 0 Promyelocytes % 0 Blast Cells % 0 Nucleated RBC % Not Reportable Seg Neutrophils # Man 28.0 H Band Neutrophils # 1.4 Lymphocytes # (Manual) 4.6 Abs React Lymphs (Man) 0.0 Monocytes # (Manual) 1.1 H Eosinophils # (Manual) 0.0 Basophils # (Manual) 0.0 Metamyelocytes # 0.0 Myelocytes # 0.0 Promyelocytes # 0.0 Blast Cells # 0.0 WBC Morphology Not Reportable Hypersegmented Neuts Not Reportable Hyposegmented Neuts Not Reportable Hypogranular Neuts Not Reportable Smudge Cells Not Reportable Toxic Granulation Not Reportable Toxic Vacuolation Not Reportable Dohle Bodies Not Reportable Pelger-Huet Anomaly Not Reportable Jonathan Rods Not Reportable Platelet Estimate Consistent w auto Clumped Platelets Not Reportable Plt Clumps, EDTA Not Reportable Large Platelets Not Reportable Giant Platelets Not Reportable Platelet Satelliting Not Reportable Plt Morphology Comment Not Reportable RBC Morphology Not Reportable Dimorphic RBCs Not Reportable Polychromasia Not Reportable Hypochromasia Not Reportable Poikilocytosis Not Reportable Anisocytosis 2+ Microcytosis Not Reportable Macrocytosis Not Reportable Spherocytes Not Reportable Pappenheimer Bodies Not Reportable Sickle Cells Not Reportable Target Cells 1+ Tear Drop Cells Not Reportable Ovalocytes Not Reportable Helmet Cells Not Reportable Felix-Minto Bodies Not Reportable [place] Rings Not Reportable [place] Cells Not Reportable Bite Cells Not Reportable Crenated Cell Not Reportable Elliptocytes Not Reportable Acanthocytes (Spur) Not Reportable Rouleaux Not Reportable Hemoglobin C Crystals Not Reportable Schistocytes Few Malaria parasites Not Reportable Bhavik Bodies Not Reportable Hem Pathologist Commnt No PT INR Sodium Potassium Chloride Carbon Dioxide Anion Gap BUN Creatinine Estimated GFR BUN/Creatinine Ratio Glucose POC Glucose 147 H Hemoglobin A1c Calcium Total Bilirubin AST ALT Alkaline Phosphatase Ammonia Total Protein Albumin Albumin/Globulin Ratio <DELROY RIOS R - Last Filed: 01/11/19 13:19> Assessment and Plan Pt doing well. Plan as noted. Objective - Constitutional Vitals: Temp Pulse Resp BP Pulse Ox 98.1 F 107 H 20 113/75 100 01/11/19 05:28 01/11/19 05:28 01/11/19 05:28 01/11/19 05:28 01/11/19 05:28 - Labs CBC & Chem 7: 01/11/19 04:09 01/11/19 04:09 Labs: Laboratory Results - last 24 hr 01/10/19 01/10/19 01/10/19 14:06 14:06 14:06 WBC RBC Hgb Hct MCV MCH MCHC RDW Plt Count Lymph # Add Manual Diff Total Counted Seg Neuts % (Manual) Band Neutrophils % Lymphocytes % (Manual) Reactive Lymphs % (Man) Monocytes % (Manual) Eosinophils % (Manual) Basophils % (Manual) Metamyelocytes % Myelocytes % Promyelocytes % Blast Cells % Nucleated RBC % Seg Neutrophils # Man Band Neutrophils # Lymphocytes # (Manual) Abs React Lymphs (Man) Monocytes # (Manual) Eosinophils # (Manual) Basophils # (Manual) Metamyelocytes # Myelocytes # Promyelocytes # Blast Cells # WBC Morphology Hypersegmented Neuts Hyposegmented Neuts Hypogranular Neuts Smudge Cells Toxic Granulation Toxic Vacuolation Dohle Bodies Pelger-Huet Anomaly Jonathan Rods Platelet Estimate Clumped Platelets Plt Clumps, EDTA Large Platelets Giant Platelets Platelet Satelliting Plt Morphology Comment RBC Morphology Dimorphic RBCs Polychromasia Hypochromasia Poikilocytosis Anisocytosis Microcytosis Macrocytosis Spherocytes Pappenheimer Bodies Sickle Cells Target Cells Tear Drop Cells Ovalocytes Helmet Cells Felix-Minto Bodies [place] Rings [place] Cells Bite Cells Crenated Cell Elliptocytes Acanthocytes (Spur) Rouleaux Hemoglobin C Crystals Schistocytes Malaria parasites Bhavik Bodies Hem Pathologist Commnt PT INR Sodium 148 H Potassium 3.1 L Chloride 112.2 H Carbon Dioxide 19 L Anion Gap 20 BUN 55 H Creatinine 1.0 Estimated GFR > 60 BUN/Creatinine Ratio 55 Glucose 153 H POC Glucose Hemoglobin A1c 5.3 Calcium 9.1 Total Bilirubin 9.40 H AST 149 H ALT 65 H Alkaline Phosphatase 48 Ammonia 46.0 Total Protein 7.6 Albumin 2.0 L Albumin/Globulin Ratio 0.4 01/10/19 01/10/19 01/10/19 14:06 14:06 18:14 WBC 34.3 H RBC 2.69 L Hgb 8.2 L Hct 25.5 L MCV 95 MCH 31 MCHC 32 RDW 23.1 H Plt Count 198 Lymph # Add Manual Diff Complete Total Counted 100 Seg Neuts % (Manual) 78.0 H Band Neutrophils % 0 Lymphocytes % (Manual) 12.0 L Reactive Lymphs % (Man) 0 Monocytes % (Manual) 10.0 H Eosinophils % (Manual) 0 Basophils % (Manual) 0 Metamyelocytes % 0 Myelocytes % 0 Promyelocytes % 0 Blast Cells % 0 Nucleated RBC % Not Reportable Seg Neutrophils # Man 26.8 H Band Neutrophils # 0.0 Lymphocytes # (Manual) 4.1 Abs React Lymphs (Man) 0.0 Monocytes # (Manual) 3.4 H Eosinophils # (Manual) 0.0 Basophils # (Manual) 0.0 Metamyelocytes # 0.0 Myelocytes # 0.0 Promyelocytes # 0.0 Blast Cells # 0.0 WBC Morphology Hypersegmented Neuts Not Reportable Hyposegmented Neuts Not Reportable Hypogranular Neuts Not Reportable Smudge Cells Not Reportable Toxic Granulation Not Reportable Toxic Vacuolation Not Reportable Dohle Bodies Not Reportable Pelger-Huet Anomaly Not Reportable Jonathan Rods Not Reportable Platelet Estimate Not Reportable Clumped Platelets Not Reportable Plt Clumps, EDTA Not Reportable Large Platelets Not Reportable Giant Platelets Not Reportable Platelet Satelliting Not Reportable Plt Morphology Comment Not Reportable RBC Morphology Not Reportable Dimorphic RBCs Not Reportable Polychromasia Not Reportable Hypochromasia Not Reportable Poikilocytosis Not Reportable Anisocytosis 2+ Microcytosis Not Reportable Macrocytosis Not Reportable Spherocytes Not Reportable Pappenheimer Bodies Not Reportable Sickle Cells Not Reportable Target Cells Not Reportable Tear Drop Cells Not Reportable Ovalocytes Not Reportable Helmet Cells Not Reportable Felix-Minto Bodies Not Reportable [place] Rings Not Reportable [place] Cells Not Reportable Bite Cells Not Reportable Crenated Cell Not Reportable Elliptocytes Not Reportable Acanthocytes (Spur) Not Reportable Rouleaux Not Reportable Hemoglobin C Crystals Not Reportable Schistocytes Not Reportable Malaria parasites Not Reportable Bhavik Bodies Not Reportable Hem Pathologist Commnt Sent to pathology PT 19.1 H INR 1.63 H Sodium Potassium Chloride Carbon Dioxide Anion Gap BUN Creatinine Estimated GFR BUN/Creatinine Ratio Glucose POC Glucose 128 H Hemoglobin A1c Calcium Total Bilirubin AST ALT Alkaline Phosphatase Ammonia Total Protein Albumin Albumin/Globulin Ratio 01/10/19 01/11/19 01/11/19 23:57 04:09 04:09 WBC RBC Hgb Hct MCV MCH MCHC RDW Plt Count Lymph # Add Manual Diff Total Counted Seg Neuts % (Manual) Band Neutrophils % Lymphocytes % (Manual) Reactive Lymphs % (Man) Monocytes % (Manual) Eosinophils % (Manual) Basophils % (Manual) Metamyelocytes % Myelocytes % Promyelocytes % Blast Cells % Nucleated RBC % Seg Neutrophils # Man Band Neutrophils # Lymphocytes # (Manual) Abs React Lymphs (Man) Monocytes # (Manual) Eosinophils # (Manual) Basophils # (Manual) Metamyelocytes # Myelocytes # Promyelocytes # Blast Cells # WBC Morphology Hypersegmented Neuts Hyposegmented Neuts Hypogranular Neuts Smudge Cells Toxic Granulation Toxic Vacuolation Dohle Bodies Pelger-Huet Anomaly Jonathan Rods Platelet Estimate Clumped Platelets Plt Clumps, EDTA Large Platelets Giant Platelets Platelet Satelliting Plt Morphology Comment RBC Morphology Dimorphic RBCs Polychromasia Hypochromasia Poikilocytosis Anisocytosis Microcytosis Macrocytosis Spherocytes Pappenheimer Bodies Sickle Cells Target Cells Tear Drop Cells Ovalocytes Helmet Cells Felix-Minto Bodies [place] Rings [place] Cells Bite Cells Crenated Cell Elliptocytes Acanthocytes (Spur) Rouleaux Hemoglobin C Crystals Schistocytes Malaria parasites Bhavik Bodies Hem Pathologist Commnt PT INR Sodium 150 H Potassium 2.9 L* Chloride 113.7 H Carbon Dioxide 20 L Anion Gap 19 BUN 54 H Creatinine 1.1 Estimated GFR > 60 BUN/Creatinine Ratio 49 Glucose 152 H POC Glucose 134 H Hemoglobin A1c Calcium 9.3 Total Bilirubin 9.30 H AST 165 H ALT 70 H Alkaline Phosphatase 47 Ammonia 34.0 Total Protein 7.8 Albumin 2.1 L Albumin/Globulin Ratio 0.4 01/11/19 01/11/19 01/11/19 04:09 06:14 13:06 WBC 35.0 H RBC 2.80 L Hgb 8.8 L Hct 27.0 L MCV 97 MCH 31 MCHC 33 RDW 23.2 H Plt Count 202 Lymph # Broodmare Foreman Add Manual Diff Complete Total Counted 100 Seg Neuts % (Manual) 80.0 H Band Neutrophils % 4.0 Lymphocytes % (Manual) 13.0 L Reactive Lymphs % (Man) 0 Monocytes % (Manual) 3.0 Eosinophils % (Manual) 0 Basophils % (Manual) 0 Metamyelocytes % 0 Myelocytes % 0 Promyelocytes % 0 Blast Cells % 0 Nucleated RBC % Not Reportable Seg Neutrophils # Man 28.0 H Band Neutrophils # 1.4 Lymphocytes # (Manual) 4.6 Abs React Lymphs (Man) 0.0 Monocytes # (Manual) 1.1 H Eosinophils # (Manual) 0.0 Basophils # (Manual) 0.0 Metamyelocytes # 0.0 Myelocytes # 0.0 Promyelocytes # 0.0 Blast Cells # 0.0 WBC Morphology Not Reportable Hypersegmented Neuts Not Reportable Hyposegmented Neuts Not Reportable Hypogranular Neuts Not Reportable Smudge Cells Not Reportable Toxic Granulation Not Reportable Toxic Vacuolation Not Reportable Dohle Bodies Not Reportable Pelger-Huet Anomaly Not Reportable Jonathan Rods Not Reportable Platelet Estimate Consistent w auto Clumped Platelets Not Reportable Plt Clumps, EDTA Not Reportable Large Platelets Not Reportable Giant Platelets Not Reportable Platelet Satelliting Not Reportable Plt Morphology Comment Not Reportable RBC Morphology Not Reportable Dimorphic RBCs Not Reportable Polychromasia Not Reportable Hypochromasia Not Reportable Poikilocytosis Not Reportable Anisocytosis 2+ Microcytosis Not Reportable Macrocytosis Not Reportable Spherocytes Not Reportable Pappenheimer Bodies Not Reportable Sickle Cells Not Reportable Target Cells 1+ Tear Drop Cells Not Reportable Ovalocytes Not Reportable Helmet Cells Not Reportable Felix-Minto Bodies Not Reportable [place] Rings Not Reportable [place] Cells Not Reportable Bite Cells Not Reportable Crenated Cell Not Reportable Elliptocytes Not Reportable Acanthocytes (Spur) Not Reportable Rouleaux Not Reportable Hemoglobin C Crystals Not Reportable Schistocytes Few Malaria parasites Not Reportable Bhavik Bodies Not Reportable Hem Pathologist Commnt No PT INR Sodium Potassium Chloride Carbon Dioxide Anion Gap BUN Creatinine Estimated GFR BUN/Creatinine Ratio Glucose POC Glucose 147 H 165 H Hemoglobin A1c Calcium Total Bilirubin AST ALT Alkaline Phosphatase Ammonia Total Protein Albumin Albumin/Globulin Ratio
--- NOTE | 2019-01-11 14:28 | Progress Note ---
Assessment and Plan Cultures: 01/04/2019 blood cultures - negative A/P: 43 yo F PMHx alcohol abuse admitted with altered mental status. 1. SIRS possible sepsis - unclear source, present on admission with leukocytosis and tachycardia. TTE without acute infectious issue. MRI cancelled. Source of confusion most likely hepatic encephalopathy. Still has leukocytosis, likely reactive, and now with systemic steroids. Cultures negative, and UTI fully treated at this point. Will consider stopping antibiotics tomorrow. No infective focus found, and she remains afebrile. 2. ELIZABETH - renally dose antibiotics 3. lactic Acidosis Recs: - repeat CBC in AM - stop antibiotics and monitor. Would restart cefepime and metronidazole if fevers appear, however I doubt there is a central infective process. Thank you for the consult, we will continue to follow. Whitney June MD [facility] ([facility]) M: [phone] O: [phone] F: [phone] Subjective Date of service: 01/11/19 Principal diagnosis: jaundice, acute hepatic failure Interval history: Afebrile, persistent leukocytosis. Objective - Exam Narrative Exam: Constitutional: more alert today. Head, Ears, Nose: Normocephalic, atraumatic. External ears, nose normal Eyes: Conjunctivae/corneas clear. No icterus. No ptosis. Neck: Supple, no meningeal signs Oral: dentition fair, no thrush Cardiovascular: S1, S2 normal. Respiratory: Good air entry, clear to auscultation bilaterally GI: Soft, non-tender; bowel sounds normal. No peritoneal signs. Musculoskeletal: No pedal edema, no cyanosis. Skin: No rash or abscess Hem/Lymphatic: No palpable cervical or supraclavicular nodes. No lymphangitis Psych: Mood ok. Affect normal Neurological: Awake, alert, oriented. No gross abnormality - Constitutional Vitals: Vital Signs Temp Pulse Resp BP Pulse Ox 98.1 F 107 H 20 113/75 100 01/11/19 05:28 01/11/19 05:28 01/11/19 05:28 01/11/19 05:28 01/11/19 05:28 Temperature -Last 24 Hours Temperature 98.1 F Temperature 98.6 F Temperature 98.4 F - Labs CBC & Chem 7: 01/11/19 04:09 01/11/19 04:09 Labs: Abnormal lab results 01/10/19 01/10/19 01/10/19 Range/Units 14:06 14:06 14:06 WBC 34.3 H (4.5-11.0) K/mm3 RBC 2.69 L (3.65-5.03) M/mm3 Hgb 8.2 L (10.1-14.3) gm/dl Hct 25.5 L (30.3-42.9) % RDW 23.1 H (13.2-15.2) % Seg Neuts % (Manual) 78.0 H (40.0-70.0) % Lymphocytes % (Manual) 12.0 L (13.4-35.0) % Monocytes % (Manual) 10.0 H (0.0-7.3) % Seg Neutrophils # Man 26.8 H (1.8-7.7) K/mm3 Monocytes # (Manual) 3.4 H (0.0-0.8) K/mm3 PT 19.1 H (12.2-14.9) Sec. INR 1.63 H (0.87-1.13) Sodium 148 H (137-145) mmol/L Potassium 3.1 L (3.6-5.0) mmol/L Chloride 112.2 H (98-107) mmol/L Carbon Dioxide 19 L (22-30) mmol/L BUN 55 H (7-17) mg/dL Glucose 153 H (65-100) mg/dL POC Glucose (70-105) Total Bilirubin 9.40 H (0.1-1.2) mg/dL AST 149 H (5-40) units/L ALT 65 H (7-56) units/L Albumin 2.0 L (3.9-5) g/dL 01/10/19 01/10/19 01/11/19 Range/Units 18:14 23:57 04:09 WBC (4.5-11.0) K/mm3 RBC (3.65-5.03) M/mm3 Hgb (10.1-14.3) gm/dl Hct (30.3-42.9) % RDW (13.2-15.2) % Seg Neuts % (Manual) (40.0-70.0) % Lymphocytes % (Manual) (13.4-35.0) % Monocytes % (Manual) (0.0-7.3) % Seg Neutrophils # Man (1.8-7.7) K/mm3 Monocytes # (Manual) (0.0-0.8) K/mm3 PT (12.2-14.9) Sec. INR (0.87-1.13) Sodium 150 H (137-145) mmol/L Potassium 2.9 L* (3.6-5.0) mmol/L Chloride 113.7 H (98-107) mmol/L Carbon Dioxide 20 L (22-30) mmol/L BUN 54 H (7-17) mg/dL Glucose 152 H (65-100) mg/dL POC Glucose 128 H 134 H (70-105) Total Bilirubin 9.30 H (0.1-1.2) mg/dL AST 165 H (5-40) units/L ALT 70 H (7-56) units/L Albumin 2.1 L (3.9-5) g/dL 01/11/19 01/11/19 01/11/19 Range/Units 04:09 06:14 13:06 WBC 35.0 H (4.5-11.0) K/mm3 RBC 2.80 L (3.65-5.03) M/mm3 Hgb 8.8 L (10.1-14.3) gm/dl Hct 27.0 L (30.3-42.9) % RDW 23.2 H (13.2-15.2) % Seg Neuts % (Manual) 80.0 H (40.0-70.0) % Lymphocytes % (Manual) 13.0 L (13.4-35.0) % Monocytes % (Manual) (0.0-7.3) % Seg Neutrophils # Man 28.0 H (1.8-7.7) K/mm3 Monocytes # (Manual) 1.1 H (0.0-0.8) K/mm3 PT (12.2-14.9) Sec. INR (0.87-1.13) Sodium (137-145) mmol/L Potassium (3.6-5.0) mmol/L Chloride (98-107) mmol/L Carbon Dioxide (22-30) mmol/L BUN (7-17) mg/dL Glucose (65-100) mg/dL POC Glucose 147 H 165 H (70-105) Total Bilirubin (0.1-1.2) mg/dL AST (5-40) units/L ALT (7-56) units/L Albumin (3.9-5) g/dL
--- NOTE | 2019-01-11 16:49 | Progress Note ---
Assessment and Plan - Patient Problems (1) ELIZABETH (acute kidney injury) Current Visit: Yes Status: Acute Plan to address problem: acute kidney injury ;resolved creatinine : 1.0 peak cr : 3.4 reviweed UA elevated Wbc, RBCs can obtain repeat UA (2) Acute encephalopathy Current Visit: Yes Status: Acute Plan to address problem: Encephalopathy :likely metabolic from liver disease improving continue supportive RX. (3) Hepatic failure Current Visit: Yes Status: Acute Qualifiers: Liver failure chronicity: acute Hepatic coma status: without hepatic coma Qualified Code(s): K72.00 - Acute and subacute hepatic failure without coma Plan to address problem: actue liver failure -history of alcohol abuse Elevated AST /ALT ratio . -GI following (4) Metabolic acidosis, increased anion gap Current Visit: Yes Status: Acute Plan to address problem: Metaboic acidosis -continue sodium bicarb (5) Hypernatremia Current Visit: Yes Status: Acute Plan to address problem: Hypernatremia -Continue free water replacement -agree with D5W (6) Hypokalemia Current Visit: Yes Status: Acute Plan to address problem: Hypokalemia -has received KCL - also Kcl added to maintenance fluids. Subjective Principal diagnosis: jaundice, acute hepatic failure Interval history: 43 year old with alcohol abuse, advanced liver disease admitted with confusion found to have UTI . patient seen today marked icteric no edema or shortness of breath. Objective - Vital Signs Vital signs: Vital Signs - 12hr 01/11/19 05:28 Temperature 98.1 F Pulse Rate 107 H Respiratory 20 Rate Blood Pressure 113/75 O2 Sat by Pulse 100 Oximetry - General Appearance General appearance: well-developed, well-nourished EENT: ATNC, mucous membranes moist, sclera incterus Neck: no JVD Respiratory: Present: Clear to Ascultation Cardiology: regular, S1S2 Gastrointestinal: normal, normoactive bowel sounds Integumentary: no rash Neurologic: alert and oriented x3, CN 3-12 intact - Lab 01/11/19 04:09 01/11/19 04:09 Most recent lab results Calcium 9.3 mg/dL (8.4-10.2) 01/11/19 04:09 Phosphorus 2.60 mg/dL (2.5-4.5) 01/09/19 04:41 Magnesium 1.90 mg/dL (1.7-2.3) 01/09/19 04:41 - Imaging Chest x-ray: image reviewed (I reviewed CXR which is clear. ) Medications & Allergies - Medications Allergies/Adverse Reactions: Allergies No Known Allergies Allergy (Unverified 04/01/17 17:36) Home Medications: Home Medications Medication Instructions Recorded Confirmed Last Taken Type HYDROcodone/ACETAMINOPHEN [[place] 1 each PO Q6H PRN #12 tablet 04/01/17 01/05/19 Unknown Rx 5-325 Tablet] Amoxicillin [Trimox CAP] 500 mg PO TID 01/05/19 01/05/19 Unknown History Cetirizine HCl [Allergy Relief] 10 mg PO QDAY 01/05/19 01/05/19 Unknown History Ferrous Sulfate [Ferrous Sulfate 324 mg PO QDAY 01/05/19 01/05/19 Unknown History 324 MG] Fexofenadine (Nf) 180 mg PO QDAY PRN 01/05/19 01/05/19 Unknown History Gabapentin 300 mg PO TID 01/05/19 01/05/19 Unknown History Montelukast [Singulair] 10 mg PO QPM 01/05/19 01/05/19 Unknown History Multivit-Min/Iron/Folic Acid/K 1 each PO QDAY 01/05/19 01/05/19 Unknown History [Adults Multivitamin Tablet] Omeprazole 40 mg PO PRN PRN 01/05/19 01/05/19 Unknown History Ranitidine HCl [Zantac] 300 mg PO QDAY 01/05/19 01/05/19 Unknown History Sod Phos Di, [place]/K Phos [place] 1 tab PO BID 01/05/19 01/05/19 Unknown History [Virt-Phos 250 Neutral Tablet] traZODone [Desyrel] 50 mg PO QHS 01/05/19 01/05/19 Unknown History Active Medications: Generic Name Dose Route Start Last Admin Trade Name Freq PRN Reason Stop Dose Admin Lipase/Protease/Amylase 1 each 01/06/19 10:59 Pancreaze 10,500 Unit FEEDTUBE PRN PRN For Clogged Feeding Tube Dextrose 50 ml 01/09/19 15:35 D50w (25gm) Syringe IV Q30MIN PRN Hypoglycemia Hydrophilic Ointment 1 applic 01/07/19 17:56 Vaseline Lip Therapy TP DIRECT PRN Dry Lips Potassium Chloride 20 meq/ 1,010 mls @ 125 mls/hr 01/11/19 10:30 Dextrose IV DIRECT [facility] Insulin Human Lispro 0 unit 01/09/19 18:00 01/11/19 12:00 Humalog SUB-Q Not Given Q6HR [facility] Protocol Lactulose 20 gm 01/05/19 06:39 Cephulac PO Q6H PRN Constipation Lactulose 20 gm 01/11/19 22:00 Cephulac PO BID JULIETA Lorazepam 1 mg 01/11/19 11:58 Ativan IV Q4H PRN Agitation Lorazepam 1 mg 01/11/19 11:58 Ativan PO Q4H PRN Agitation Pantoprazole Sodium 40 mg 01/10/19 12:00 01/11/19 10:00 Protonix IV 40 mg BID JULIETA Administration Prednisolone Sodium Phosphate 40 mg 01/07/19 14:00 01/11/19 10:00 Orapred PO 40 mg DAILY JULIETA Administration Simple Syrup 15 ml 01/06/19 10:59 Simple Syrup FEEDTUBE PRN PRN Hypoglycemia Simple Syrup 30 ml 01/06/19 10:59 Simple Syrup FEEDTUBE PRN PRN Hypoglycemia Sodium Bicarbonate 325 mg 01/06/19 10:59 Sodium Bicarbonate FEEDTUBE PRN PRN For Clogged Feeding Tube Sodium Chloride 10 ml 01/04/19 22:00 01/11/19 10:00 Sodium Chloride Flush Syringe 10 Ml IV 10 ml BID JULIETA Administration Sodium Chloride 10 ml 01/04/19 19:36 Sodium Chloride Flush Syringe 10 Ml IV PRN PRN LINE FLUSH Trazodone HCl 50 mg 01/09/19 22:00 01/10/19 22:08 Desyrel PO 50 mg QHS JULIETA Administration
[2019-01-11] MEDS: SODIUM BICARBONATE 650 MG TAB PO SCH (22:12)
[2019-01-11] MEDS: traZODone 50 MG TAB PO SCH (22:12)
[2019-01-12] MEDS: DEXTROSE 5% IN WATER 1,000 ML with POTASSIUM CHLORIDE 20 MEQ IV SCH ×2 (01:08→18:03)
[2019-01-12] MEDS: INSULIN LISPRO 100 UNIT/ML SUB-Q SCH ×4 (01:10→18:09)
[2019-01-12 05:11] LABS: Hematocrit 24.2 % (30.3-42.9); Hemoglobin 7.8 gm/dl (10.1-14.3); Mean Corpuscular HGB Conc 33 % (30-34); Mean Corpuscular Volume 97 fl (79-97); Platelet Count 191 K/mm3 (140-440); Red Blood Count 2.49 M/mm3 (3.65-5.03)
[2019-01-12 05:26] LABS: Red Cell Distribution Width 23.6 % (13.2-15.2)
[2019-01-12 05:29] LABS: Alanine Aminotransferase 67 units/L (7-56); BUN/Creatinine Ratio 41; Blood Urea Nitrogen 45 mg/dL (7-17); Calcium 8.8 mg/dL (8.4-10.2); Hemolysis Index 0
[2019-01-12 06:28] LABS: Band Neutrophils # (Manual) 0.4 K/mm3; Basophils % (Manual) 0 % (0.0-1.8); Eosinophils % (Manual) 0 % (0.0-4.3); Total Cells Counted 100
[2019-01-12 06:29] LABS: Anisocytosis 1+
[2019-01-12 06:30] LABS: Hypochromasia Few; Large Platelets Few; Macrocytosis Few; Platelet Estimate Consistent w Auto; Target Cells Rare
[2019-01-12] MEDS ORDERED: MAGNESIUM SULFATE 2 GM/50 ML BAG IV ONE ×2 (07:21→16:27)
[2019-01-12] MEDS ORDERED: POTASSIUM PHOSPHATE 45 MMOL in SODIUM CHLORIDE 0.9% 500 ML 500 ML IV ONE (07:21)
--- NOTE | 2019-01-12 07:23 | Progress Note ---
Assessment and Plan Assessment and plan: 43-year-old woman with history of alcohol abuse who was brought into the hospital by her daughter. They state that the patient was confused and jaundiced. The patient had became housebound, progressively weak, jaundiced and not eating. They also stated that she had been having trouble sleeping at [facility]. 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 Severe malnutrition; dietitian consult appreciated Dysphasia Speech and swallow eval appreciated. Patient started on pured diet with nectar thickened liquids per speech therapy recommendation Hyperglycemia, patient does not have diabetes Sliding scale insulin as needed, A1c is normal Explained to her daughter as it is unlikely that she will improve, this is most likely her new state. PT input appreciated, continue physical therapy Disposition likely home tomorrow with services versus jail facility, daughter expressed that she needs transportation to help get the mother up the steps at home History Interval history: She refused to eat, refused some of her meds. She has been bedbound and weak Per nursing staff she wakes up and is conversant and makes sense most of the time but sometimes goes off tangents Slept well last night No vomiting no seizures, no reported pain anywhere No further episodes of blood in diaper Hospitalist Physical - Physical exam Narrative exam: General.: Appears chronically ill HEENT: Moist mucous membranes, icteric sclera Neck: supple Cardiac: S1-S2 heard Lungs: clear to auscultation bilaterally Abdomen: soft , nontender, nondistended, bowel sounds positive Extremities: no edema clubbing or cyanosis Skin: no rash or lesions Neurologic: Awake alert oriented to person, she is confused Psych: Calm and cooperative - Constitutional Vitals: Temp Pulse Resp BP Pulse Ox 98.1 F 104 H 18 105/67 98 01/11/19 22:05 01/11/19 22:05 01/11/19 22:05 01/11/19 22:05 01/11/19 22:05 General appearance: Present: no acute distress, obese Results - Labs CBC & Chem 7: 01/12/19 04:23 01/12/19 04:23 Labs: Laboratory Last Values WBC 35.1 K/mm3 (4.5-11.0) H 01/12/19 04:23 RBC 2.49 M/mm3 (3.65-5.03) L 01/12/19 04:23 Hgb 7.8 gm/dl (10.1-14.3) L 01/12/19 04:23 Hct 24.2 % (30.3-42.9) L 01/12/19 04:23 MCV 97 fl (79-97) 01/12/19 04:23 MCH 32 pg (28-32) 01/12/19 04:23 MCHC 33 % (30-34) 01/12/19 04:23 RDW 23.6 % (13.2-15.2) H 01/12/19 04:23 Plt Count 191 K/mm3 (140-440) 01/12/19 04:23 Lymph % (Auto) Manager Intern 01/05/19 11:51 [place] % (Auto) Manager Intern 01/05/19 11:51 Eos % (Auto) Manager Intern 01/05/19 11:51 Baso % (Auto) Manager Intern 01/05/19 11:51 Lymph # Manager Intern 01/12/19 04:23 [place] # Manager Intern 01/05/19 11:51 Eos # Manager Intern 01/05/19 11:51 Baso # Manager Intern 01/05/19 11:51 Add Manual Diff Complete 01/12/19 04:23 Total Counted 100 01/12/19 04:23 Seg Neutrophils % Manager Intern 01/05/19 11:51 Seg Neuts % (Manual) 75.0 % (40.0-70.0) H 01/12/19 04:23 Band Neutrophils % 1.0 % 01/12/19 04:23 Lymphocytes % (Manual) 18.0 % (13.4-35.0) 01/12/19 04:23 Reactive Lymphs % (Man) 0 % 01/12/19 04:23 Monocytes % (Manual) 5.0 % (0.0-7.3) 01/12/19 04:23 Eosinophils % (Manual) 0 % (0.0-4.3) 01/12/19 04:23 Basophils % (Manual) 0 % (0.0-1.8) 01/12/19 04:23 Metamyelocytes % 1.0 % 01/12/19 04:23 Myelocytes % 0 % 01/12/19 04:23 Promyelocytes % 0 % 01/12/19 04:23 Blast Cells % 0 % 01/12/19 04:23 Nucleated RBC % Not Reportable 01/12/19 04:23 Seg Neutrophils # Manager Intern 01/05/19 11:51 Seg Neutrophils # Man 26.3 K/mm3 (1.8-7.7) H 01/12/19 04:23 Band Neutrophils # 0.4 K/mm3 01/12/19 04:23 Lymphocytes # (Manual) 6.3 K/mm3 (1.2-5.4) H 01/12/19 04:23 Abs React Lymphs (Man) 0.0 K/mm3 01/12/19 04:23 Monocytes # (Manual) 1.8 K/mm3 (0.0-0.8) H 01/12/19 04:23 Eosinophils # (Manual) 0.0 K/mm3 (0.0-0.4) 01/12/19 04:23 Basophils # (Manual) 0.0 K/mm3 (0.0-0.1) 01/12/19 04:23 Metamyelocytes # 0.4 K/mm3 01/12/19 04:23 Myelocytes # 0.0 K/mm3 01/12/19 04:23 Promyelocytes # 0.0 K/mm3 01/12/19 04:23 Blast Cells # 0.0 K/mm3 01/12/19 04:23 Pathologist Review 01/10/19 14:06 WBC Morphology Not Reportable 01/12/19 04:23 Hypersegmented Neuts Not Reportable 01/12/19 04:23 Hyposegmented Neuts Not Reportable 01/12/19 04:23 Hypogranular Neuts Not Reportable 01/12/19 04:23 Smudge Cells Not Reportable 01/12/19 04:23 Toxic Granulation Not Reportable 01/12/19 04:23 Toxic Vacuolation Not Reportable 01/12/19 04:23 Dohle Bodies Not Reportable 01/12/19 04:23 Pelger-Huet Anomaly Not Reportable 01/12/19 04:23 Jonathan Rods Not Reportable 01/12/19 04:23 Platelet Estimate Consistent w auto 01/12/19 04:23 Clumped Platelets Not Reportable 01/12/19 04:23 Plt Clumps, EDTA Not Reportable 01/12/19 04:23 Large Platelets Few 01/12/19 04:23 Giant Platelets Not Reportable 01/12/19 04:23 Platelet Satelliting Not Reportable 01/12/19 04:23 Plt Morphology Comment Not Reportable 01/12/19 04:23 RBC Morphology Not Reportable 01/12/19 04:23 Dimorphic RBCs Not Reportable 01/12/19 04:23 Polychromasia Not Reportable 01/12/19 04:23 Hypochromasia Few 01/12/19 04:23 Poikilocytosis Not Reportable 01/12/19 04:23 Anisocytosis 1+ 01/12/19 04:23 Microcytosis Few 01/12/19 04:23 Macrocytosis Few 01/12/19 04:23 Spherocytes Not Reportable 01/12/19 04:23 Pappenheimer Bodies Not Reportable 01/12/19 04:23 Sickle Cells Not Reportable 01/12/19 04:23 Target Cells Rare 01/12/19 04:23 Tear Drop Cells Not Reportable 01/12/19 04:23 Ovalocytes Not Reportable 01/12/19 04:23 Helmet Cells Not Reportable 01/12/19 04:23 [place] Bodies Not Reportable 01/12/19 04:23 [place] Rings Not Reportable 01/12/19 04:23 [place] Cells Not Reportable 01/12/19 04:23 Bite Cells Not Reportable 01/12/19 04:23 Crenated Cell Not Reportable 01/12/19 04:23 Elliptocytes Not Reportable 01/12/19 04:23 Acanthocytes (Spur) Not Reportable 01/12/19 04:23 Rouleaux Not Reportable 01/12/19 04:23 Hemoglobin C Crystals Not Reportable 01/12/19 04:23 Schistocytes Not Reportable 01/12/19 04:23 Malaria parasites Not Reportable 01/12/19 04:23 Bhavik Bodies Not Reportable 01/12/19 04:23 Hem Pathologist Commnt No 01/12/19 04:23 PT 19.1 Sec. (12.2-14.9) H 01/10/19 14:06 INR 1.63 (0.87-1.13) H 01/10/19 14:06 Sodium 149 mmol/L (137-145) H 01/12/19 04:23 Potassium 3.2 mmol/L (3.6-5.0) L 01/12/19 04:23 Chloride 114.1 mmol/L (98-107) H 01/12/19 04:23 Carbon Dioxide 21 mmol/L (22-30) L 01/12/19 04:23 Anion Gap 17 mmol/L 01/12/19 04:23 BUN 45 mg/dL (7-17) H 01/12/19 04:23 Creatinine 1.1 mg/dL (0.7-1.2) 01/12/19 04:23 Estimated GFR > 60 ml/min 01/12/19 04:23 BUN/Creatinine Ratio 41 % 01/12/19 04:23 Glucose 180 mg/dL (65-100) H 01/12/19 04:23 POC Glucose 185 (70-105) H 01/11/19 22:17 Hemoglobin A1c 5.3 % (4-6) 01/10/19 14:06 Osmolality 307 Mosm/kg 01/04/19 18:32 Lactic Acid 13.90 mmol/L (0.7-2.0) H* 01/04/19 11:53 Calcium 8.8 mg/dL (8.4-10.2) 01/12/19 04:23 Phosphorus 2.20 mg/dL (2.5-4.5) L 01/12/19 04:23 Magnesium 1.60 mg/dL (1.7-2.3) L 01/12/19 04:23 Total Bilirubin 8.40 mg/dL (0.1-1.2) H 01/12/19 04:23 Direct Bilirubin 7.9 mg/dL (0-0.2) H 01/04/19 11:15 Indirect Bilirubin 2.3 mg/dL 01/04/19 11:15 AST 138 units/L (5-40) H 01/12/19 04:23 ALT 67 units/L (7-56) H 01/12/19 04:23 Alkaline Phosphatase 42 units/L (35-129) 01/12/19 04:23 Ammonia 56.0 umol/L (25-60) 01/12/19 04:23 NT-Pro-B Natriuret Pep 5269 pg/mL (0-450) H 01/04/19 11:08 Total Protein 7.2 g/dL (6.3-8.2) 01/12/19 04:23 Albumin 2.0 g/dL (3.9-5) L 01/12/19 04:23 Albumin/Globulin Ratio 0.4 % 01/12/19 04:23 Amylase 19 units/L (27-131) L 01/04/19 19:48 Lipase 8 units/L (13-60) L 01/04/19 11:08 TSH 2.830 mlU/mL (0.270-4.200) 01/04/19 11:15 Free T4 0.83 ng/dL (0.76-1.46) 01/04/19 11:15 HCG, Qual Negative (Negative) 01/04/19 11:08 Urine Color Teena (Yellow) 01/07/19 13:55 Urine Turbidity Cloudy (Clear) 01/07/19 13:55 Urine pH 5.0 (5.0-7.0) 01/07/19 13:55 Ur Specific [place] 1.018 (1.003-1.030) 01/07/19 13:55 Urine Protein 30 mg/dl mg/dL (Negative) 01/07/19 13:55 Urine Glucose (UA) Neg mg/dL (Negative) 01/07/19 13:55 Urine Ketones Neg mg/dL (Negative) 01/07/19 13:55 Urine Blood Mod (Negative) 01/07/19 13:55 Urine Nitrite Neg (Negative) 01/07/19 13:55 Urine Bilirubin Mod (Negative) 01/07/19 13:55 Urine Ictotest Positive (Negative) 01/07/19 13:55 Urine Urobilinogen 2.0 mg/dL (<2.0) 01/07/19 13:55 Ur Leukocyte Esterase Mod (Negative) 01/07/19 13:55 Urine WBC (Auto) 33.0 /HPF (0.0-6.0) H 01/07/19 13:55 Urine RBC (Auto) 12.0 /HPF (0.0-6.0) 01/07/19 13:55 U Epithel Cells (Auto) 2.0 /HPF (0-13.0) 01/07/19 13:55 Urine Bacteria (Auto) 1+ /HPF (Negative) 01/07/19 13:55 Urine WBC Clumps 2+ /HPF 01/07/19 13:55 Urine Mucus Few /HPF 01/07/19 13:55 Random Vancomycin 24.8 ug/mL (0-40.0) 01/09/19 04:41 Acetaminophen < 5.0 ug/mL (10.0-30.0) L 01/04/19 11:15 Hepatitis A IgM Ab Non-reactive (NonReactive) 01/05/19 11:51 Hep Bs Antigen Non-reactive (Negative) 01/05/19 11:51 Hep B Core IgM Ab Non-reactive (NonReactive) 01/05/19 11:51 Hepatitis C Antibody Non-reactive (NonReactive) 01/05/19 11:51 Blood Type B POSITIVE 01/09/19 21:32 Antibody Screen Negative 01/09/19 21:32 Crossmatch See Detail 01/09/19 21:32 Active Medications - Current Medications Current Medications: Generic Name Dose Route Start Last Admin Trade Name Freq PRN Reason Stop Dose Admin Lipase/Protease/Amylase 1 each 01/06/19 10:[address] 10,500 Unit FEEDTUBE PRN PRN For Clogged Feeding Tube Dextrose 50 ml 01/09/19 15:35 D50w (25gm) Syringe IV Q30MIN PRN Hypoglycemia Hydrophilic Ointment 1 applic 01/07/19 17:56 Vaseline Lip Therapy TP DIRECT PRN Dry Lips Potassium Chloride 20 meq/ 1,010 mls @ 125 mls/hr 01/11/19 10:30 01/12/19 01:08 Dextrose IV 125 mls/hr DIRECT JULIETA Administration Potassium Phosphate 45 mmol/ 515 mls @ 85 mls/hr 01/12/19 07:21 Sodium Chloride IV 01/12/19 13:24 ONCE ONE Magnesium Sulfate 2 gm in 50 mls @ 25 mls/hr 01/12/19 07:21 Magnesium Sulfate 2gm/50ml IV 01/12/19 09:20 ONCE ONE Insulin Human Lispro 0 unit 01/09/19 18:00 01/12/19 01:10 Humalog SUB-Q Not Given Q6HR JULIETA Protocol Lactulose 20 gm 01/05/19 06:39 Cephulac PO Q6H PRN Constipation Lactulose 20 gm 01/11/19 22:00 01/11/19 22:12 Cephulac PO 20 gm BID JULIETA Administration Lorazepam 1 mg 01/11/19 11:58 Ativan IV Q4H PRN Agitation Lorazepam 1 mg 01/11/19 11:58 Ativan PO Q4H PRN Agitation Pantoprazole Sodium 40 mg 01/10/19 12:00 01/11/19 22:12 Protonix IV 40 mg BID JULIETA Administration Prednisolone Sodium Phosphate 40 mg 01/07/19 14:00 01/11/19 10:00 Orapred PO 40 mg DAILY JULIETA Administration Simple Syrup 15 ml 01/06/19 10:59 Simple Syrup FEEDTUBE PRN PRN Hypoglycemia Simple Syrup 30 ml 01/06/19 10:59 Simple Syrup FEEDTUBE PRN PRN Hypoglycemia Sodium Bicarbonate 325 mg 01/06/19 10:59 Sodium Bicarbonate FEEDTUBE PRN PRN For Clogged Feeding Tube Sodium Bicarbonate 650 mg 01/11/19 20:00 01/11/19 22:12 Sodium Bicarbonate PO 650 mg TID JULIETA Administration Sodium Chloride 10 ml 01/04/19 22:00 01/11/19 22:12 Sodium Chloride Flush Syringe 10 Ml IV 10 ml BID JULIETA Administration Sodium Chloride 10 ml 01/04/19 19:36 Sodium Chloride Flush Syringe 10 Ml IV PRN PRN LINE FLUSH Trazodone HCl 50 mg 01/09/19 22:00 01/11/19 22:12 Desyrel PO 50 mg QHS JULIETA Administration Nutrition/Malnutrition Assess - Dietary Evaluation Nutrition/Malnutrition Findings: Nutrition Notes Start: 01/05/19 13:04 Freq: Status: Active Protocol: Document 01/10/19 11:05 LILY (Rec: 01/10/19 11:20 [id number]) Co-Sign 01/10/19 11:05 KH Nutrition Notes Need for Assessment generated from: MD Order Initial or Follow up Assessment Current Diagnosis Acute Kidney Injury,Decubitus( Pressure Ulcer),Sepsis, Hypertension Other Pertinent Diagnosis AMS, ETOH abuse, liver disease , pancreatitis, sacral wound Current Diet Nepro w/carb steady at 40ml/hr Labs/Tests POC Glu: 197 Pertinent Medications Reviewed Height 5 ft 6 in Weight 101.5 kg [place] Body Weight (kg) 59.09 BMI 36.1 Subjective/Other Information MD consult for tube feed management. Upon arrival tube feed was not running. Per event note tube feed held d/t dark bloody stool. Burn Absent Trauma Absent Current % PO Negligible Minimum of two criteria Yes Fluid Accumulation Moderate to Severe (severe) Reduced Safemaker Strength Measurably Reduced (severe) #2 Nutrition Diagnosis Inadequate oral intake As Evidenced by Signs and Symptoms Tube feed stopped d/t bloody stools Diagnosis Progress(for reassessment Continues documentation) #1 Nutrition Diagnosis Malnutrition As Evidenced by Signs and Symptoms Tube feed stopped d/t bloody stools Diagnosis Progress(for reassessment Worsened documentation) Is patient on ventilator? No Is Patient Ambulatory and/or Out of Bed No REE-([facility]-confined to bed) 2020.112 Kcal/Kg value to use for calculation 16 Approximate Energy Requirements Using 1624 kcal/Kg Calculation Used for Recommendations Kcal/kg Additional Notes Protein needs are 71-85g (1-1. 2g/kg Adjusted wt 70kg) Considering kidneys, liver, malnutrition, and wound. Fluid needs per MD Nutrition Intervention Change Diet Order: Reinitiate tube feed when medically feasible Goal #1 Restart tube feed Anticipated Discharge Needs: Unable to determine at this time Follow-Up By: 01/14/19 Additional Comments F/U tube feed restart
[2019-01-12] MEDS: PANTOPRAZOLE 40 MG INJ IV SCH ×2 (09:35→21:38)
[2019-01-12] MEDS: prednisoLONE SOD PHOSPHATE 15 MG/5 ML ORAL LIQD PO SCH (09:35)
[2019-01-12] MEDS: SODIUM BICARBONATE 650 MG TAB PO SCH ×3 (12:19→21:38)
[2019-01-12] MEDS: LACTULOSE 20 GM/30 ML ORAL LIQD PO SCH ×2 (12:19→21:38)
[2019-01-12] MEDS ORDERED: DEXTROSE 5% IN WATER 400 ML IV SCH (16:00)
--- NOTE | 2019-01-12 16:42 | Progress Note ---
Assessment and Plan - Patient Problems (1) ELIZABETH (acute kidney injury) Current Visit: Yes Status: Acute Plan to address problem: acute kidney injury ;resolved creatinine : 1.0 peak cr : 3.4 reviweed UA elevated Wbc, RBCs can obtain repeat UA (2) Acute encephalopathy Current Visit: Yes Status: Acute Plan to address problem: Encephalopathy :likely metabolic from liver disease improving continue supportive RX. (3) Hepatic failure Current Visit: Yes Status: Acute Qualifiers: Liver failure chronicity: acute Hepatic coma status: without hepatic coma Qualified Code(s): K72.00 - Acute and subacute hepatic failure without coma Plan to address problem: actue liver failure -history of alcohol abuse Elevated AST /ALT ratio . -GI following (4) Metabolic acidosis, increased anion gap Current Visit: Yes Status: Acute Plan to address problem: Metaboic acidosis -continue sodium bicarb (5) Hypernatremia Current Visit: Yes Status: Acute Plan to address problem: Hypernatremia -Continue free water replacement -agree with D5W will increase @ 150cc/hr - Will also give D5W 500cc bolus. (6) Hypokalemia Current Visit: Yes Status: Acute Plan to address problem: Hypokalemia -has received KCL - also Kcl added to maintenance fluids. -Magnesium is low @ 1.6 -will give magnesium sulphate 4grams total. Subjective Principal diagnosis: jaundice, acute hepatic failure Interval history: 43 year old with alcohol abuse, advanced liver disease admitted with confusion found to have UTI . patient seen today marked icteric no edema or shortness of breath. feelsl better . Objective - Vital Signs Vital signs: Vital Signs - 12hr 01/12/19 01/12/19 01/12/19 05:58 07:44 11:02 Temperature 98.5 F 98.2 F 98.2 F Pulse Rate 104 H Respiratory 18 20 20 Rate Blood Pressure 113/74 104/69 117/78 O2 Sat by Pulse 98 Oximetry - General Appearance General appearance: well-developed, well-nourished EENT: ATNC, PERRL, mucous membranes moist Neck: no JVD Respiratory: Present: Clear to Ascultation Cardiology: regular, S1S2 Gastrointestinal: normal, normoactive bowel sounds Integumentary: no rash Neurologic: alert and oriented x3 Psychiatric: mood/affect appropriate - Lab 01/12/19 04:23 01/12/19 04:23 Most recent lab results Calcium 8.8 mg/dL (8.4-10.2) 01/12/19 04:23 Phosphorus 2.20 mg/dL (2.5-4.5) L 01/12/19 04:23 Magnesium 1.60 mg/dL (1.7-2.3) L 01/12/19 04:23 - Imaging Chest x-ray: image reviewed Medications & Allergies - Medications Allergies/Adverse Reactions: Allergies No Known Allergies Allergy (Unverified 04/01/17 17:36) Home Medications: Home Medications Medication Instructions Recorded Confirmed Last Taken Type HYDROcodone/ACETAMINOPHEN [Udell 1 each PO Q6H PRN #12 tablet 04/01/17 01/05/19 Unknown Rx 5-325 Tablet] Amoxicillin [Trimox CAP] 500 mg PO TID 01/05/19 01/05/19 Unknown History Cetirizine HCl [Allergy Relief] 10 mg PO QDAY 01/05/19 01/05/19 Unknown History Ferrous Sulfate [Ferrous Sulfate 324 mg PO QDAY 01/05/19 01/05/19 Unknown History 324 MG] Fexofenadine (Nf) 180 mg PO QDAY PRN 01/05/19 01/05/19 Unknown History Gabapentin 300 mg PO TID 01/05/19 01/05/19 Unknown History Montelukast [Singulair] 10 mg PO QPM 01/05/19 01/05/19 Unknown History Multivit-Min/Iron/Folic Acid/K 1 each PO QDAY 01/05/19 01/05/19 Unknown History [Adults Multivitamin Tablet] Omeprazole 40 mg PO PRN PRN 01/05/19 01/05/19 Unknown History Ranitidine HCl [Zantac] 300 mg PO QDAY 01/05/19 01/05/19 Unknown History Sod Phos Di, Traill/K Phos Traill 1 tab PO BID 01/05/19 01/05/19 Unknown History [Virt-Phos 250 Neutral Tablet] traZODone [Desyrel] 50 mg PO QHS 01/05/19 01/05/19 Unknown History Active Medications: Generic Name Dose Route Start Last Admin Trade Name Freq PRN Reason Stop Dose Admin Lipase/Protease/Amylase 1 each 01/06/19 10:[address] 10,500 Unit FEEDTUBE PRN PRN For Clogged Feeding Tube Dextrose 50 ml 01/09/19 15:35 D50w (25gm) Syringe IV Q30MIN PRN Hypoglycemia Hydrophilic Ointment 1 applic 01/07/19 17:56 Vaseline Lip Therapy TP DIRECT PRN Dry Lips Potassium Chloride 20 meq/ 1,010 mls @ 150 mls/hr 01/11/19 10:30 01/12/19 01:08 Dextrose IV 125 mls/hr DIRECT JULIETA Administration Magnesium Sulfate 2 gm in 50 mls @ 25 mls/hr 01/12/19 16:27 Magnesium Sulfate 2gm/50ml IV 01/12/19 18:26 ONCE ONE Dextrose 400 mls @ 0 mls/hr 01/12/19 16:00 D5w IV DIRECT JULIETA Wide Open Insulin Human Lispro 0 unit 01/09/19 18:00 01/12/19 14:03 Humalog SUB-Q 4 unit Q6HR JULIETA Administration Protocol Lactulose 20 gm 01/05/19 06:39 Cephulac PO Q6H PRN Constipation Lactulose 20 gm 01/11/19 22:00 01/12/19 12:19 Cephulac PO 20 gm BID JULIETA Administration Lorazepam 1 mg 01/11/19 11:58 Ativan IV Q4H PRN Agitation Lorazepam 1 mg 01/11/19 11:58 Ativan PO Q4H PRN Agitation Pantoprazole Sodium 40 mg 01/10/19 12:00 01/12/19 09:35 Protonix IV 40 mg BID JULIETA Administration Prednisolone Sodium Phosphate 40 mg 01/07/19 14:00 01/12/19 09:35 Orapred PO 40 mg DAILY JULIETA Administration Simple Syrup 15 ml 01/06/19 10:59 Simple Syrup FEEDTUBE PRN PRN Hypoglycemia Simple Syrup 30 ml 01/06/19 10:59 Simple Syrup FEEDTUBE PRN PRN Hypoglycemia Sodium Bicarbonate 325 mg 01/06/19 10:59 Sodium Bicarbonate FEEDTUBE PRN PRN For Clogged Feeding Tube Sodium Bicarbonate 650 mg 01/11/19 20:00 01/12/19 14:03 Sodium Bicarbonate PO 650 mg TID JULIETA Administration Sodium Chloride 10 ml 01/04/19 22:00 01/12/19 09:38 Sodium Chloride Flush Syringe 10 Ml IV 10 ml BID JULIETA Administration Sodium Chloride 10 ml 01/04/19 19:36 Sodium Chloride Flush Syringe 10 Ml IV PRN PRN LINE FLUSH Trazodone HCl 50 mg 01/09/19 22:00 01/11/19 22:12 Desyrel PO 50 mg QHS JULIETA Administration
[2019-01-12] MEDS: traZODone 50 MG TAB PO SCH (21:39)
[2019-01-13] MEDS: INSULIN LISPRO 100 UNIT/ML SUB-Q SCH ×4 (01:10→18:39)
[2019-01-13] MEDS ORDERED: POTASSIUM CHLORIDE 20 MEQ in DEXTROSE 5% IN WATER 1,000 ML IV SCH (04:00)
[2019-01-13 09:02] LABS: Alanine Aminotransferase 75 units/L (7-56); Albumin 2.1 g/dL (3.9-5); BUN/Creatinine Ratio 35; Blood Urea Nitrogen 39 mg/dL (7-17); Hemolysis Index 0
[2019-01-13] MEDS: SODIUM BICARBONATE 650 MG TAB PO SCH ×3 (09:07→21:46)
[2019-01-13] MEDS: prednisoLONE SOD PHOSPHATE 15 MG/5 ML ORAL LIQD PO SCH (09:08)
[2019-01-13] MEDS: PANTOPRAZOLE 40 MG INJ IV SCH ×2 (09:09→21:46)
[2019-01-13] MEDS: LACTULOSE 20 GM/30 ML ORAL LIQD PO SCH ×2 (09:09→21:46)
[2019-01-13 09:14] LABS: Hematocrit 24.6 % (30.3-42.9); Hemoglobin 7.8 gm/dl (10.1-14.3); Mean Corpuscular HGB Conc 32 % (30-34); Mean Corpuscular Volume 98 fl (79-97); Platelet Count 255 K/mm3 (140-440); Red Blood Count 2.51 M/mm3 (3.65-5.03)
[2019-01-13 09:16] LABS: Red Cell Distribution Width 25.1 % (13.2-15.2)
[2019-01-13 10:08] LABS: Band Neutrophils # (Manual) 0.4 K/mm3; Basophils % (Manual) 0 % (0.0-1.8); Total Cells Counted 100
[2019-01-13 10:14] LABS: Hypochromasia 1+; Ovalocytes Few; Platelet Estimate Consistent w Auto; Target Cells 1+
--- NOTE | 2019-01-13 11:36 | Progress Note ---
Assessment and Plan Assessment and plan: 43-year-old woman with history of alcohol abuse who was brought into the hospital by her daughter. They state that the patient was confused and jaundiced. The patient had became housebound, progressively weak, jaundiced and not eating. They also stated that she had been having trouble sleeping at [facility]. 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 Severe malnutrition; dietitian consult appreciated, will discuss PEG tube with the patient's daughters tomorrow Dysphasia Speech and swallow eval appreciated. Patient started on pured diet with nectar thickened liquids per speech therapy recommendation Hyperglycemia, patient does not have diabetes Sliding scale insulin as needed, A1c is normal Explained to her daughter as it is unlikely that she will improve, this is most likely her new state. PT input appreciated, continue physical therapy We will plan to discuss patient's poor nutrition with her daughters tomorrow, patient may benefit from PEG tube as she is not eating Disposition likely home tomorrow with services versus alf facility, daughter expressed that she needs transportation to help get the mother up the steps at home History Interval history: She refused to eat, refused some of her meds. She has been bedbound and weak Per nursing staff she wakes up and is conversant and makes sense most of the time but sometimes goes off tangents Slept well last night No vomiting no seizures, no reported pain anywhere No further episodes of blood in diaper Hospitalist Physical - Physical exam Narrative exam: General.: Appears chronically ill HEENT: Moist mucous membranes, icteric sclera Neck: supple Cardiac: S1-S2 heard Lungs: clear to auscultation bilaterally Abdomen: soft , nontender, nondistended, bowel sounds positive Extremities: no edema clubbing or cyanosis Skin: no rash or lesions Neurologic: Awake alert oriented to person, she is confused Psych: Calm and cooperative - Constitutional Vitals: Temp Pulse Resp BP Pulse Ox 97.9 F 104 H 16 123/82 95 01/13/19 06:02 01/13/19 06:02 01/13/19 06:02 01/13/19 06:02 01/13/19 06:02 General appearance: Present: no acute distress, obese Results - Labs CBC & Chem 7: 01/13/19 08:20 01/13/19 08:20 Labs: Laboratory Last Values WBC 36.1 K/mm3 (4.5-11.0) H 01/13/19 08:20 RBC 2.51 M/mm3 (3.65-5.03) L 01/13/19 08:20 Hgb 7.8 gm/dl (10.1-14.3) L 01/13/19 08:20 Hct 24.6 % (30.3-42.9) L 01/13/19 08:20 MCV 98 fl (79-97) H 01/13/19 08:20 MCH 31 pg (28-32) 01/13/19 08:20 MCHC 32 % (30-34) 01/13/19 08:20 RDW 25.1 % (13.2-15.2) H 01/13/19 08:20 Plt Count 255 K/mm3 (140-440) 01/13/19 08:20 Lymph % (Auto) Manager Outreach 01/05/19 11:51 Tyler % (Auto) Manager Outreach 01/05/19 11:51 Eos % (Auto) Manager Outreach 01/05/19 11:51 Baso % (Auto) Manager Outreach 01/05/19 11:51 Lymph # Manager Outreach 01/13/19 08:20 Tyler # Manager Outreach 01/05/19 11:51 Eos # Manager Outreach 01/05/19 11:51 Baso # Manager Outreach 01/05/19 11:51 Add Manual Diff Complete 01/13/19 08:20 Total Counted 100 01/13/19 08:20 Seg Neutrophils % Manager Outreach 01/05/19 11:51 Seg Neuts % (Manual) 79.0 % (40.0-70.0) H 01/13/19 08:20 Band Neutrophils % 1.0 % 01/13/19 08:20 Lymphocytes % (Manual) 10.0 % (13.4-35.0) L 01/13/19 08:20 Reactive Lymphs % (Man) 3.0 % 01/13/19 08:20 Monocytes % (Manual) 5.0 % (0.0-7.3) 01/13/19 08:20 Eosinophils % (Manual) 2.0 % (0.0-4.3) 01/13/19 08:20 Basophils % (Manual) 0 % (0.0-1.8) 01/13/19 08:20 Metamyelocytes % 0 % 01/13/19 08:20 Myelocytes % 0 % 01/13/19 08:20 Promyelocytes % 0 % 01/13/19 08:20 Blast Cells % 0 % 01/13/19 08:20 Nucleated RBC % Not Reportable 01/13/19 08:20 Seg Neutrophils # Manager Outreach 01/05/19 11:51 Seg Neutrophils # Man 28.5 K/mm3 (1.8-7.7) H 01/13/19 08:20 Band Neutrophils # 0.4 K/mm3 01/13/19 08:20 Lymphocytes # (Manual) 3.6 K/mm3 (1.2-5.4) 01/13/19 08:20 Abs React Lymphs (Man) 1.1 K/mm3 01/13/19 08:20 Monocytes # (Manual) 1.8 K/mm3 (0.0-0.8) H 01/13/19 08:20 Eosinophils # (Manual) 0.7 K/mm3 (0.0-0.4) H 01/13/19 08:20 Basophils # (Manual) 0.0 K/mm3 (0.0-0.1) 01/13/19 08:20 Metamyelocytes # 0.0 K/mm3 01/13/19 08:20 Myelocytes # 0.0 K/mm3 01/13/19 08:20 Promyelocytes # 0.0 K/mm3 01/13/19 08:20 Blast Cells # 0.0 K/mm3 01/13/19 08:20 Pathologist Review 01/10/19 14:06 WBC Morphology Not Reportable 01/13/19 08:20 Hypersegmented Neuts Not Reportable 01/13/19 08:20 Hyposegmented Neuts Not Reportable 01/13/19 08:20 Hypogranular Neuts Not Reportable 01/13/19 08:20 Smudge Cells Not Reportable 01/13/19 08:20 Toxic Granulation Not Reportable 01/13/19 08:20 Toxic Vacuolation Not Reportable 01/13/19 08:20 Dohle Bodies Not Reportable 01/13/19 08:20 Pelger-Huet Anomaly Not Reportable 01/13/19 08:20 Jonathan Rods Not Reportable 01/13/19 08:20 Platelet Estimate Consistent w auto 01/13/19 08:20 Clumped Platelets Not Reportable 01/13/19 08:20 Plt Clumps, EDTA Not Reportable 01/13/19 08:20 Large Platelets Not Reportable 01/13/19 08:20 Giant Platelets Not Reportable 01/13/19 08:20 Platelet Satelliting Not Reportable 01/13/19 08:20 Plt Morphology Comment Not Reportable 01/13/19 08:20 RBC Morphology Not Reportable 01/13/19 08:20 Dimorphic RBCs Not Reportable 01/13/19 08:20 Polychromasia Few 01/13/19 08:20 Hypochromasia 1+ 01/13/19 08:20 Poikilocytosis Not Reportable 01/13/19 08:20 Anisocytosis Not Reportable 01/13/19 08:20 Microcytosis Not Reportable 01/13/19 08:20 Macrocytosis Not Reportable 01/13/19 08:20 Spherocytes Not Reportable 01/13/19 08:20 Pappenheimer Bodies Not Reportable 01/13/19 08:20 Sickle Cells Not Reportable 01/13/19 08:20 Target Cells 1+ 01/13/19 08:20 Tear Drop Cells Not Reportable 01/13/19 08:20 Ovalocytes Few 01/13/19 08:20 Helmet Cells Not Reportable 01/13/19 08:20 Felix-[place] Bodies Not Reportable 01/13/19 08:20 [place] Rings Not Reportable 01/13/19 08:20 Louis Cells Not Reportable 01/13/19 08:20 Bite Cells Not Reportable 01/13/19 08:20 Crenated Cell Not Reportable 01/13/19 08:20 Elliptocytes Not Reportable 01/13/19 08:20 Acanthocytes (Spur) Not Reportable 01/13/19 08:20 Rouleaux Not Reportable 01/13/19 08:20 Hemoglobin C Crystals Not Reportable 01/13/19 08:20 Schistocytes Not Reportable 01/13/19 08:20 Malaria parasites Not Reportable 01/13/19 08:20 Bhavik Bodies Not Reportable 01/13/19 08:20 Hem Pathologist Commnt No 01/13/19 08:20 PT 19.1 Sec. (12.2-14.9) H 01/10/19 14:06 INR 1.63 (0.87-1.13) H 01/10/19 14:06 Sodium 146 mmol/L (137-145) H 01/13/19 08:20 Potassium 3.7 mmol/L (3.6-5.0) 01/13/19 08:20 Chloride 111.9 mmol/L (98-107) H 01/13/19 08:20 Carbon Dioxide 19 mmol/L (22-30) L 01/13/19 08:20 Anion Gap 19 mmol/L 01/13/19 08:20 BUN 39 mg/dL (7-17) H 01/13/19 08:20 Creatinine 1.1 mg/dL (0.7-1.2) 01/13/19 08:20 Estimated GFR > 60 ml/min 01/13/19 08:20 BUN/Creatinine Ratio 35 % 01/13/19 08:20 Glucose 165 mg/dL (65-100) H 01/13/19 08:20 POC Glucose 205 (70-105) H 01/13/19 07:14 Hemoglobin A1c 5.3 % (4-6) 01/10/19 14:06 Osmolality 307 Mosm/kg 01/04/19 18:32 Lactic Acid 13.90 mmol/L (0.7-2.0) H* 01/04/19 11:53 Calcium 9.0 mg/dL (8.4-10.2) 01/13/19 08:20 Phosphorus 3.30 mg/dL (2.5-4.5) D 01/13/19 08:20 Magnesium 2.30 mg/dL (1.7-2.3) 01/13/19 08:20 Total Bilirubin 7.70 mg/dL (0.1-1.2) H 01/13/19 08:20 Direct Bilirubin 7.9 mg/dL (0-0.2) H 01/04/19 11:15 Indirect Bilirubin 2.3 mg/dL 01/04/19 11:15 AST 147 units/L (5-40) H 01/13/19 08:20 ALT 75 units/L (7-56) H 01/13/19 08:20 Alkaline Phosphatase 45 units/L (35-129) 01/13/19 08:20 Ammonia 43.0 umol/L (25-60) 01/13/19 08:20 NT-Pro-B Natriuret Pep 5269 pg/mL (0-450) H 01/04/19 11:08 Total Protein 7.8 g/dL (6.3-8.2) 01/13/19 08:20 Albumin 2.1 g/dL (3.9-5) L 01/13/19 08:20 Albumin/Globulin Ratio 0.4 % 01/13/19 08:20 Amylase 19 units/L (27-131) L 01/04/19 19:48 Lipase 8 units/L (13-60) L 01/04/19 11:08 TSH 2.830 mlU/mL (0.270-4.200) 01/04/19 11:15 Free T4 0.83 ng/dL (0.76-1.46) 01/04/19 11:15 HCG, Qual Negative (Negative) 01/04/19 11:08 Urine Color Teena (Yellow) 01/07/19 13:55 Urine Turbidity Cloudy (Clear) 01/07/19 13:55 Urine pH 5.0 (5.0-7.0) 01/07/19 13:55 Ur Specific [place] 1.018 (1.003-1.030) 01/07/19 13:55 Urine Protein 30 mg/dl mg/dL (Negative) 01/07/19 13:55 Urine Glucose (UA) Neg mg/dL (Negative) 01/07/19 13:55 Urine Ketones Neg mg/dL (Negative) 01/07/19 13:55 Urine Blood Mod (Negative) 01/07/19 13:55 Urine Nitrite Neg (Negative) 01/07/19 13:55 Urine Bilirubin Mod (Negative) 01/07/19 13:55 Urine Ictotest Positive (Negative) 01/07/19 13:55 Urine Urobilinogen 2.0 mg/dL (<2.0) 01/07/19 13:55 Ur Leukocyte Esterase Mod (Negative) 01/07/19 13:55 Urine WBC (Auto) 33.0 /HPF (0.0-6.0) H 01/07/19 13:55 Urine RBC (Auto) 12.0 /HPF (0.0-6.0) 01/07/19 13:55 U Epithel Cells (Auto) 2.0 /HPF (0-13.0) 01/07/19 13:55 Urine Bacteria (Auto) 1+ /HPF (Negative) 01/07/19 13:55 Urine WBC Clumps 2+ /HPF 01/07/19 13:55 Urine Mucus Few /HPF 01/07/19 13:55 Random Vancomycin 24.8 ug/mL (0-40.0) 01/09/19 04:41 Acetaminophen < 5.0 ug/mL (10.0-30.0) L 01/04/19 11:15 Hepatitis A IgM Ab Non-reactive (NonReactive) 01/05/19 11:51 Hep Bs Antigen Non-reactive (Negative) 01/05/19 11:51 Hep B Core IgM Ab Non-reactive (NonReactive) 01/05/19 11:51 Hepatitis C Antibody Non-reactive (NonReactive) 01/05/19 11:51 Blood Type B POSITIVE 01/09/19 21:32 Antibody Screen Negative 01/09/19 21:32 Crossmatch See Detail 01/09/19 21:32 Active Medications - Current Medications Current Medications: Generic Name Dose Route Start Last Admin Trade Name Freq PRN Reason Stop Dose Admin Lipase/Protease/Amylase 1 each 01/06/19 10:[address] 10,500 Unit FEEDTUBE PRN PRN For Clogged Feeding Tube Dextrose 50 ml 01/09/19 15:35 D50w (25gm) Syringe IV Q30MIN PRN Hypoglycemia Hydrophilic Ointment 1 applic 01/07/19 17:56 Vaseline Lip Therapy TP DIRECT PRN Dry Lips Dextrose 400 mls @ 0 mls/hr 01/12/19 16:00 D5w IV DIRECT JULIETA Wide Open Potassium Chloride 20 meq/ 1,010 mls @ 150 mls/hr 01/13/19 04:00 01/13/19 05:13 Dextrose IV 150 mls/hr DIRECT JULIETA Administration Insulin Human Lispro 0 unit 01/09/19 18:00 01/13/19 06:22 Humalog SUB-Q 3 unit Q6HR JULIETA Administration Protocol Lactulose 20 gm 01/05/19 06:39 Cephulac PO Q6H PRN Constipation Lactulose 20 gm 01/11/19 22:00 01/13/19 09:09 Cephulac PO 20 gm BID JULIETA Administration Lorazepam 1 mg 01/11/19 11:58 Ativan IV Q4H PRN Agitation Lorazepam 1 mg 01/11/19 11:58 Ativan PO Q4H PRN Agitation Pantoprazole Sodium 40 mg 01/10/19 12:00 01/13/19 09:09 Protonix IV 40 mg BID JULIETA Administration Prednisolone Sodium Phosphate 40 mg 01/07/19 14:00 01/13/19 09:08 Orapred PO 40 mg DAILY JULIETA Administration Simple Syrup 15 ml 01/06/19 10:59 Simple Syrup FEEDTUBE PRN PRN Hypoglycemia Simple Syrup 30 ml 01/06/19 10:59 Simple Syrup FEEDTUBE PRN PRN Hypoglycemia Sodium Bicarbonate 325 mg 01/06/19 10:59 Sodium Bicarbonate FEEDTUBE PRN PRN For Clogged Feeding Tube Sodium Bicarbonate 650 mg 01/11/19 20:00 01/13/19 09:07 Sodium Bicarbonate PO 650 mg TID JULIETA Administration Sodium Chloride 10 ml 01/04/19 22:00 01/13/19 09:10 Sodium Chloride Flush Syringe 10 Ml IV 10 ml BID JULIETA Administration Sodium Chloride 10 ml 01/04/19 19:36 Sodium Chloride Flush Syringe 10 Ml IV PRN PRN LINE FLUSH Trazodone HCl 50 mg 01/09/19 22:00 01/12/19 21:39 Desyrel PO 50 mg QHS JULIETA Administration Nutrition/Malnutrition Assess - Dietary Evaluation Nutrition/Malnutrition Findings: Nutrition Notes Start: 01/05/19 13:04 Freq: Status: Active Protocol: Document 01/10/19 11:05 DW (Rec: 01/10/19 11:20 DW [id number]) Co-Sign 01/10/19 11:05 KH Nutrition Notes Need for Assessment generated from: MD Order Initial or Follow up Assessment Current Diagnosis Acute Kidney Injury,Decubitus( Pressure Ulcer),Sepsis, Hypertension Other Pertinent Diagnosis AMS, ETOH abuse, liver disease , pancreatitis, sacral wound Current Diet Nepro w/carb steady at 40ml/hr Labs/Tests POC Glu: 197 Pertinent Medications Reviewed Height 5 ft 6 in Weight 101.5 kg [place] Body Weight (kg) 59.09 BMI 36.1 Subjective/Other Information MD consult for tube feed management. Upon arrival tube feed was not running. Per event note tube feed held d/t dark bloody stool. Burn Absent Trauma Absent Current % PO Negligible Minimum of two criteria Yes Fluid Accumulation Moderate to Severe (severe) Reduced House Wrecker Strength Measurably Reduced (severe) #2 Nutrition Diagnosis Inadequate oral intake As Evidenced by Signs and Symptoms Tube feed stopped d/t bloody stools Diagnosis Progress(for reassessment Continues documentation) #1 Nutrition Diagnosis Malnutrition As Evidenced by Signs and Symptoms Tube feed stopped d/t bloody stools Diagnosis Progress(for reassessment Worsened documentation) Is patient on ventilator? No Is Patient Ambulatory and/or Out of Bed No REE-([facility]-confined to bed) 2020.112 Kcal/Kg value to use for calculation 16 Approximate Energy Requirements Using 1624 kcal/Kg Calculation Used for Recommendations Kcal/kg Additional Notes Protein needs are 71-85g (1-1. 2g/kg Adjusted wt 70kg) Considering kidneys, liver, malnutrition, and wound. Fluid needs per MD Nutrition Intervention Change Diet Order: Reinitiate tube feed when medically feasible Goal #1 Restart tube feed Anticipated Discharge Needs: Unable to determine at this time Follow-Up By: 01/14/19 Additional Comments F/U tube feed restart
--- NOTE | 2019-01-13 14:55 | Progress Note ---
Assessment and Plan - Patient Problems (1) ELIZABETH (acute kidney injury) Current Visit: Yes Status: Acute Plan to address problem: acute kidney injury ;resolved creatinine : 1.0 peak cr : 3.4 reviweed UA elevated Wbc, RBCs Avoid nephrotoxins (2) Acute encephalopathy Current Visit: Yes Status: Acute Plan to address problem: Encephalopathy :likely metabolic from liver disease improving continue supportive RX. (3) Hepatic failure Current Visit: Yes Status: Acute Qualifiers: Liver failure chronicity: acute Hepatic coma status: without hepatic coma Qualified Code(s): K72.00 - Acute and subacute hepatic failure without coma Plan to address problem: actue liver failure -history of alcohol abuse Elevated AST /ALT ratio . -GI following (4) Metabolic acidosis, increased anion gap Current Visit: Yes Status: Acute Plan to address problem: Metaboic acidosis -continue sodium bicarb -Will add sodium bicarb to D5W infusion as well. (5) Hypernatremia Current Visit: Yes Status: Acute Plan to address problem: Hypernatremia :improving. -Continue free water replacement -agree with D5W will increase @ 150cc/hr (6) Hypokalemia Current Visit: Yes Status: Acute Plan to address problem: Hypokalemia :resolved. -has received KCL - also Kcl added to maintenance fluids. -Magnesium is low @ 1.6 -will give magnesium sulphate 4grams total. Subjective Principal diagnosis: jaundice, acute hepatic failure Interval history: 43 year old with alcohol abuse, advanced liver disease admitted with confusion found to have UTI . patient seen today marked icteric no edema or shortness of breath. feels better . Objective - Vital Signs Vital signs: Vital Signs - 12hr 01/13/19 01/13/19 06:02 13:22 Temperature 97.9 F 97.5 F L Pulse Rate 104 H 103 H Respiratory 16 16 Rate Blood Pressure 123/82 128/84 O2 Sat by Pulse 95 99 Oximetry - General Appearance General appearance: well-developed, well-nourished EENT: ATNC, PERRL Neck: no JVD Respiratory: Present: Clear to Ascultation Cardiology: regular, S1S2 Gastrointestinal: normal, normoactive bowel sounds Integumentary: no rash Neurologic: confused, CN 3-12 intact Musculoskeletal: deferred Psychiatric: cooperative - Lab 01/13/19 08:20 01/13/19 08:20 Most recent lab results Calcium 9.0 mg/dL (8.4-10.2) 01/13/19 08:20 Phosphorus 3.30 mg/dL (2.5-4.5) D 01/13/19 08:20 Magnesium 2.30 mg/dL (1.7-2.3) 01/13/19 08:20 - Imaging Chest x-ray: image reviewed (reviewed CXR without edema. ) Medications & Allergies - Medications Allergies/Adverse Reactions: Allergies No Known Allergies Allergy (Unverified 04/01/17 17:36) Home Medications: Home Medications Medication Instructions Recorded Confirmed Last Taken Type HYDROcodone/ACETAMINOPHEN [[place] 1 each PO Q6H PRN #12 tablet 04/01/17 01/05/19 Unknown Rx 5-325 Tablet] Amoxicillin [Trimox CAP] 500 mg PO TID 01/05/19 01/05/19 Unknown History Cetirizine HCl [Allergy Relief] 10 mg PO QDAY 01/05/19 01/05/19 Unknown History Ferrous Sulfate [Ferrous Sulfate 324 mg PO QDAY 01/05/19 01/05/19 Unknown History 324 MG] Fexofenadine (Nf) 180 mg PO QDAY PRN 01/05/19 01/05/19 Unknown History Gabapentin 300 mg PO TID 01/05/19 01/05/19 Unknown History Montelukast [Singulair] 10 mg PO QPM 01/05/19 01/05/19 Unknown History Multivit-Min/Iron/Folic Acid/K 1 each PO QDAY 01/05/19 01/05/19 Unknown History [Adults Multivitamin Tablet] Omeprazole 40 mg PO PRN PRN 01/05/19 01/05/19 Unknown History Ranitidine HCl [Zantac] 300 mg PO QDAY 01/05/19 01/05/19 Unknown History Sod Phos Di, [place]/K Phos [place] 1 tab PO BID 01/05/19 01/05/19 Unknown History [Virt-Phos 250 Neutral Tablet] traZODone [Desyrel] 50 mg PO QHS 01/05/19 01/05/19 Unknown History Active Medications: Generic Name Dose Route Start Last Admin Trade Name Freq PRN Reason Stop Dose Admin Lipase/Protease/Amylase 1 each 01/06/19 10:[address] 10,500 Unit FEEDTUBE PRN PRN For Clogged Feeding Tube Dextrose 50 ml 01/09/19 15:35 D50w (25gm) Syringe IV Q30MIN PRN Hypoglycemia Hydrophilic Ointment 1 applic 01/07/19 17:56 Vaseline Lip Therapy TP DIRECT PRN Dry Lips Dextrose 400 mls @ 0 mls/hr 01/12/19 16:00 D5w IV DIRECT JULIETA Wide Open Sodium Bicarbonate 75 meq/ 1,075 mls @ 125 mls/hr 01/13/19 15:00 Dextrose IV DIRECT JULIETA Insulin Human Lispro 0 unit 01/09/19 18:00 01/13/19 14:27 Humalog SUB-Q 4 unit Q6HR JULIETA Administration Protocol Lactulose 20 gm 01/05/19 06:39 Cephulac PO Q6H PRN Constipation Lactulose 20 gm 01/11/19 22:00 01/13/19 09:09 Cephulac PO 20 gm BID JULIETA Administration Lorazepam 1 mg 01/11/19 11:58 Ativan IV Q4H PRN Agitation Lorazepam 1 mg 01/11/19 11:58 Ativan PO Q4H PRN Agitation Pantoprazole Sodium 40 mg 01/10/19 12:00 01/13/19 09:09 Protonix IV 40 mg BID JULIETA Administration Prednisolone Sodium Phosphate 40 mg 01/07/19 14:00 01/13/19 09:08 Orapred PO 40 mg DAILY JULIETA Administration Simple Syrup 15 ml 01/06/19 10:59 Simple Syrup FEEDTUBE PRN PRN Hypoglycemia Simple Syrup 30 ml 01/06/19 10:59 Simple Syrup FEEDTUBE PRN PRN Hypoglycemia Sodium Bicarbonate 325 mg 01/06/19 10:59 Sodium Bicarbonate FEEDTUBE PRN PRN For Clogged Feeding Tube Sodium Bicarbonate 650 mg 01/11/19 20:00 01/13/19 14:23 Sodium Bicarbonate PO 650 mg TID JULIETA Administration Sodium Chloride 10 ml 01/04/19 22:00 01/13/19 09:10 Sodium Chloride Flush Syringe 10 Ml IV 10 ml BID JULIETA Administration Sodium Chloride 10 ml 01/04/19 19:36 Sodium Chloride Flush Syringe 10 Ml IV PRN PRN LINE FLUSH Trazodone HCl 50 mg 01/09/19 22:00 01/12/19 21:39 Desyrel PO 50 mg QHS JULIETA Administration
[2019-01-13] MEDS ORDERED: DEXTROSE 5% IN WATER 1,000 ML with SODIUM BICARBONATE 75 MEQ IV SCH (15:00)
[2019-01-13] MEDS: SODIUM CHLORIDE 0.45% 1000 ML 1,000 ML IV SCH (18:45)
[2019-01-13] MEDS: traZODone 50 MG TAB PO SCH (21:46)
[2019-01-14] MEDS: INSULIN LISPRO 100 UNIT/ML SUB-Q SCH ×4 (01:05→18:04)
[2019-01-14] MEDS: SODIUM CHLORIDE 0.45% 1000 ML 1,000 ML IV SCH (06:24)
[2019-01-14 08:01] LABS: Hematocrit 25.2 % (30.3-42.9); Hemoglobin 8.1 gm/dl (10.1-14.3); Mean Corpuscular HGB Conc 32 % (30-34); Mean Corpuscular Volume 98 fl (79-97); Platelet Count 268 K/mm3 (140-440); Red Blood Count 2.57 M/mm3 (3.65-5.03)
[2019-01-14 08:05] LABS: Red Cell Distribution Width 24.1 % (13.2-15.2)
--- NOTE | 2019-01-14 08:20 | Progress Note ---
Subjective Principal diagnosis: jaundice, acute hepatic failure Interval history: Patient was seen today for follow-up on multiple renal related issues Events of this hospitalization were noted patient is a very poor historian patient developed acute renal failure, creatinine currently normalized Interdisciplinary notes were also reviewed Vitals intake output medications were reviewed Past medical history: Reviewed Family, social history: Reviewed Allergies: Reviewed Physical examination General: No acute distress Vitals: Reviewed HEENT: Oral mucosa moist no icterus Neck: Supple no thyromegaly nodular mass or JVD Chest: Clear to auscultation anteriorly Heart: Regular rate and rhythm S1-S2 heard no S3-S4 Abdomen: Soft nontender no suprapubic masses no organomegaly Extremity: Dry skin less than 1+ edema Psych: No evidence of any agitation and aggression noted Derm: No petechial rash Assessment and plan: Acute kidney injury, currently in remission, patient will need a follow-up appointment office upon discharge Creatinine 1.1 as of yesterday Mild metabolic acidosis 19 please follow Encephalopathy mostly resulting from metabolic, toxic causes patient does have history of hepatic failure, alcohol abuse, needs to follow up with 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 CAT scan shows no significant abnormality in the kidneys Physical function is improved we'll sign off the case be skull if needed All renal related issues were discussed with the patient, patient does exhibit good understanding, lab results were also discussed with patient in simple [place] patient was advised to make an appointment in the office upon discharge/ she is a very poor historian Objective - Vital Signs Vital signs: Vital Signs - 12hr 01/13/19 01/14/19 23:09 05:15 Temperature 98.1 F 98.8 F Pulse Rate 108 H 101 H Respiratory 20 Rate Blood Pressure 134/97 113/73 O2 Sat by Pulse 96 97 Oximetry - Lab 01/14/19 06:56 01/14/19 07:42 Most recent lab results Calcium 9.0 mg/dL (8.4-10.2) 01/13/19 08:20 Phosphorus 3.30 mg/dL (2.5-4.5) D 01/13/19 08:20 Magnesium 2.30 mg/dL (1.7-2.3) 01/13/19 08:20 Medications & Allergies - Medications Allergies/Adverse Reactions: Allergies No Known Allergies Allergy (Unverified 04/01/17 17:36) Home Medications: Home Medications Medication Instructions Recorded Confirmed Last Taken Type HYDROcodone/ACETAMINOPHEN [[place] 1 each PO Q6H PRN #12 tablet 04/01/17 01/05/19 Unknown Rx 5-325 Tablet] Amoxicillin [Trimox CAP] 500 mg PO TID 01/05/19 01/05/19 Unknown History Cetirizine HCl [Allergy Relief] 10 mg PO QDAY 01/05/19 01/05/19 Unknown History Ferrous Sulfate [Ferrous Sulfate 324 mg PO QDAY 01/05/19 01/05/19 Unknown History 324 MG] Fexofenadine (Nf) 180 mg PO QDAY PRN 01/05/19 01/05/19 Unknown History Gabapentin 300 mg PO TID 01/05/19 01/05/19 Unknown History Montelukast [Singulair] 10 mg PO QPM 01/05/19 01/05/19 Unknown History Multivit-Min/Iron/Folic Acid/K 1 each PO QDAY 01/05/19 01/05/19 Unknown History [Adults Multivitamin Tablet] Omeprazole 40 mg PO PRN PRN 01/05/19 01/05/19 Unknown History Ranitidine HCl [Zantac] 300 mg PO QDAY 01/05/19 01/05/19 Unknown History Sod Phos Di, [place]/K Phos [place] 1 tab PO BID 01/05/19 01/05/19 Unknown History [Virt-Phos 250 Neutral Tablet] traZODone [Desyrel] 50 mg PO QHS 01/05/19 01/05/19 Unknown History Active Medications: Generic Name Dose Route Start Last Admin Trade Name Freq PRN Reason Stop Dose Admin Lipase/Protease/Amylase 1 each 01/06/19 10:59 Pancre[address] [place] 10,500 Unit FEEDTUBE PRN PRN For Clogged Feeding Tube Dextrose 50 ml 01/09/19 15:35 D50w (25gm) Syringe IV Q30MIN PRN Hypoglycemia Hydrophilic Ointment 1 applic 01/07/19 17:56 Vaseline Lip Therapy TP DIRECT PRN Dry Lips Sodium Bicarbonate 75 meq/ 1,075 mls @ 125 mls/hr 01/13/19 15:00 Dextrose IV DIRECT JULIETA Sodium Chloride 1,000 mls @ 100 mls/hr 01/13/19 16:00 01/14/19 06:24 Nacl 0.45% 1000 Ml IV 100 mls/hr DIRECT JULIETA Administration Insulin Human Lispro 0 unit 01/09/19 18:00 01/14/19 06:14 Humalog SUB-Q Not Given Q6HR [facility] Protocol Lactulose 20 gm 01/05/19 06:39 Cephulac PO Q6H PRN Constipation Lactulose 20 gm 01/11/19 22:00 01/13/19 21:46 Cephulac PO 20 gm BID JULIETA Administration Lorazepam 1 mg 01/11/19 11:58 Ativan IV Q4H PRN Agitation Lorazepam 1 mg 01/11/19 11:58 Ativan PO Q4H PRN Agitation Pantoprazole Sodium 40 mg 01/10/19 12:00 01/13/19 21:46 Protonix IV 40 mg BID JULIETA Administration Prednisolone Sodium Phosphate 40 mg 01/07/19 14:00 01/13/19 09:08 Orapred PO 40 mg DAILY JULIETA Administration Simple Syrup 15 ml 01/06/19 10:59 Simple Syrup FEEDTUBE PRN PRN Hypoglycemia Simple Syrup 30 ml 01/06/19 10:59 Simple Syrup FEEDTUBE PRN PRN Hypoglycemia Sodium Bicarbonate 325 mg 01/06/19 10:59 Sodium Bicarbonate FEEDTUBE PRN PRN For Clogged Feeding Tube Sodium Bicarbonate 650 mg 01/11/19 20:00 01/13/19 21:46 Sodium Bicarbonate PO 650 mg TID JULIETA Administration Sodium Chloride 10 ml 01/04/19 22:00 01/13/19 21:47 Sodium Chloride Flush Syringe 10 Ml IV 10 ml BID JULIETA Administration Sodium Chloride 10 ml 01/04/19 19:36 Sodium Chloride Flush Syringe 10 Ml IV PRN PRN LINE FLUSH Trazodone HCl 50 mg 01/09/19 22:00 01/13/19 21:46 Desyrel PO 50 mg QHS JULIETA Administration
[2019-01-14 08:26] LABS: Calcium 9.4 mg/dL (8.4-10.2)
[2019-01-14 08:55] LABS: Total Cells Counted 100
[2019-01-14 08:56] LABS: Band Neutrophils # (Manual) 1.3 K/mm3; Basophils % (Manual) 0 % (0.0-1.8); Eosinophils % (Manual) 0 % (0.0-4.3)
[2019-01-14 09:15] LABS: Anisocytosis 2+; Hypochromasia 1+
[2019-01-14 09:16] LABS: Ovalocytes Few; Platelet Estimate Consistent w Auto; Target Cells Few
--- NOTE | 2019-01-14 09:50 | Progress Note ---
Assessment and Plan Assessment and plan: 43-year-old woman with history of alcohol abuse who was brought into the hospital by her daughter. They state that the patient was confused and jaundiced. The patient had became housebound, progressively weak, jaundiced and not eating. They also stated that she had been having trouble sleeping at [facility]. 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 Patient is improved but still confused, this appears to be a new baseline mentation Altered mentation MR brain no acute findings, neurology consult appreciated, this is most likely her new baseline mental status Acute kidney injury due to vasomotor nephropathy, ATN and prerenal azotemia Resolved with hydration Etoh dependence and withdrawal - ciwa protocol, thiamine and folate -preventative health counseling performed for 17 minutes with both her daughters Sirs Empiric antibiotics, no obvious source of infection, infectious disease input appreciated Patient had episodes of hypotension which were likely due to dehydration. Severe malnutrition; dietitian consult appreciated, will discuss PEG tube with the patient's daughters tomorrow Dysphasia Now resolved, patient is a put back on normal consistency diet Hyperglycemia, patient does not have diabetes Sliding scale insulin as needed, A1c is normal, avoid D5 as it does cause hyperglycemia in this patient. And is likely contributing to her dehydration. Half-normal saline is a better choice of IV fluid Explained to her daughter as it is unlikely that she will improve, this is most likely her new state. PT input appreciated, continue physical therapy We will plan to discuss patient's poor nutrition with her daughters tomorrow, patient may benefit from PEG tube as she is not eating Disposition to subacute rehab. PT working with the patient, case management aware History Interval history: She refused to eat, refused some of her meds. She has been bedbound and weak Per nursing staff she wakes up and is conversant and makes sense most of the time but sometimes goes off tangents Slept well last night No vomiting no seizures, no reported pain anywhere No further episodes of blood in diaper Hospitalist Physical - Physical exam Narrative exam: General.: Appears chronically ill HEENT: Moist mucous membranes, icteric sclera Neck: supple Cardiac: S1-S2 heard Lungs: clear to auscultation bilaterally Abdomen: soft , nontender, nondistended, bowel sounds positive Extremities: no edema clubbing or cyanosis Skin: no rash or lesions Neurologic: Awake alert oriented to person, she is confused Psych: Calm and cooperative - Constitutional Vitals: Temp Pulse Resp BP Pulse Ox 98.8 F 101 H 20 113/73 97 01/14/19 05:15 01/14/19 05:15 01/13/19 23:09 01/14/19 05:15 01/14/19 05:15 General appearance: Present: no acute distress, obese Results - Labs CBC & Chem 7: 01/14/19 06:56 01/14/19 07:42 Labs: Laboratory Last Values WBC 32.0 K/mm3 (4.5-11.0) H 01/14/19 06:56 RBC 2.57 M/mm3 (3.65-5.03) L 01/14/19 06:56 Hgb 8.1 gm/dl (10.1-14.3) L 01/14/19 06:56 Hct 25.2 % (30.3-42.9) L 01/14/19 06:56 MCV 98 fl (79-97) H 01/14/19 06:56 MCH 32 pg (28-32) 01/14/19 06:56 MCHC 32 % (30-34) 01/14/19 06:56 RDW 24.1 % (13.2-15.2) H 01/14/19 06:56 Plt Count 268 K/mm3 (140-440) 01/14/19 06:56 Lymph % (Auto) [place] Operator 01/05/19 11:51 [place] % (Auto) [place] Operator 01/05/19 11:51 Eos % (Auto) [place] Operator 01/05/19 11:51 Baso % (Auto) [place] Operator 01/05/19 11:51 Lymph # [place] Operator 01/13/19 08:20 [place] # [place] Operator 01/05/19 11:51 Eos # [place] Operator 01/05/19 11:51 Baso # [place] Operator 01/05/19 11:51 Add Manual Diff Complete 01/14/19 06:56 Total Counted 100 01/14/19 06:56 Seg Neutrophils % [place] Operator 01/05/19 11:51 Seg Neuts % (Manual) 87.0 % (40.0-70.0) H 01/14/19 06:56 Band Neutrophils % 4.0 % 01/14/19 06:56 Lymphocytes % (Manual) 6.0 % (13.4-35.0) L 01/14/19 06:56 Reactive Lymphs % (Man) 0 % 01/14/19 06:56 Monocytes % (Manual) 3.0 % (0.0-7.3) 01/14/19 06:56 Eosinophils % (Manual) 0 % (0.0-4.3) 01/14/19 06:56 Basophils % (Manual) 0 % (0.0-1.8) 01/14/19 06:56 Metamyelocytes % 0 % 01/14/19 06:56 Myelocytes % 0 % 01/14/19 06:56 Promyelocytes % 0 % 01/14/19 06:56 Blast Cells % 0 % 01/14/19 06:56 Nucleated RBC % Not Reportable 01/14/19 06:56 Seg Neutrophils # [place] Operator 01/05/19 11:51 Seg Neutrophils # Man 27.8 K/mm3 (1.8-7.7) H 01/14/19 06:56 Band Neutrophils # 1.3 K/mm3 01/14/19 06:56 Lymphocytes # (Manual) 1.9 K/mm3 (1.2-5.4) 01/14/19 06:56 Abs React Lymphs (Man) 0.0 K/mm3 01/14/19 06:56 Monocytes # (Manual) 1.0 K/mm3 (0.0-0.8) H 01/14/19 06:56 Eosinophils # (Manual) 0.0 K/mm3 (0.0-0.4) 01/14/19 06:56 Basophils # (Manual) 0.0 K/mm3 (0.0-0.1) 01/14/19 06:56 Metamyelocytes # 0.0 K/mm3 01/14/19 06:56 Myelocytes # 0.0 K/mm3 01/14/19 06:56 Promyelocytes # 0.0 K/mm3 01/14/19 06:56 Blast Cells # 0.0 K/mm3 01/14/19 06:56 Pathologist Review 01/10/19 14:06 WBC Morphology Not Reportable 01/14/19 06:56 Hypersegmented Neuts Not Reportable 01/14/19 06:56 Hyposegmented Neuts Not Reportable 01/14/19 06:56 Hypogranular Neuts Not Reportable 01/14/19 06:56 Smudge Cells Not Reportable 01/14/19 06:56 Toxic Granulation Not Reportable 01/14/19 06:56 Toxic Vacuolation Not Reportable 01/14/19 06:56 Dohle Bodies Not Reportable 01/14/19 06:56 Pelger-Huet Anomaly Not Reportable 01/14/19 06:56 Jonathan Rods Not Reportable 01/14/19 06:56 Platelet Estimate Consistent w auto 01/14/19 06:56 Clumped Platelets Not Reportable 01/14/19 06:56 Plt Clumps, EDTA Not Reportable 01/14/19 06:56 Large Platelets Not Reportable 01/14/19 06:56 Giant Platelets Not Reportable 01/14/19 06:56 Platelet Satelliting Not Reportable 01/14/19 06:56 Plt Morphology Comment Not Reportable 01/14/19 06:56 RBC Morphology Not Reportable 01/14/19 06:56 Dimorphic RBCs Not Reportable 01/14/19 06:56 Polychromasia Few 01/14/19 06:56 Hypochromasia 1+ 01/14/19 06:56 Poikilocytosis Not Reportable 01/14/19 06:56 Anisocytosis 2+ 01/14/19 06:56 Microcytosis Not Reportable 01/14/19 06:56 Macrocytosis Not Reportable 01/14/19 06:56 Spherocytes Not Reportable 01/14/19 06:56 Pappenheimer Bodies Not Reportable 01/14/19 06:56 Sickle Cells Not Reportable 01/14/19 06:56 Target Cells Few 01/14/19 06:56 Tear Drop Cells Not Reportable 01/14/19 06:56 Ovalocytes Few 01/14/19 06:56 Helmet Cells Not Reportable 01/14/19 06:56 [place] Bodies Not Reportable 01/14/19 06:56 [place] Rings Not Reportable 01/14/19 06:56 [place] Cells Not Reportable 01/14/19 06:56 Bite Cells Not Reportable 01/14/19 06:56 Crenated Cell Not Reportable 01/14/19 06:56 Elliptocytes Not Reportable 01/14/19 06:56 Acanthocytes (Spur) Not Reportable 01/14/19 06:56 Rouleaux Not Reportable 01/14/19 06:56 Hemoglobin C Crystals Not Reportable 01/14/19 06:56 Schistocytes Not Reportable 01/14/19 06:56 Malaria parasites Not Reportable 01/14/19 06:56 Bhavik Bodies Not Reportable 01/14/19 06:56 Hem Pathologist Commnt No 01/14/19 06:56 PT 19.1 Sec. (12.2-14.9) H 01/10/19 14:06 INR 1.63 (0.87-1.13) H 01/10/19 14:06 Sodium 142 mmol/L (137-145) 01/14/19 07:42 Potassium 3.5 mmol/L (3.6-5.0) L 01/14/19 07:42 Chloride 109.6 mmol/L (98-107) H 01/14/19 07:42 Carbon Dioxide 17 mmol/L (22-30) L 01/14/19 07:42 Anion Gap 19 mmol/L 01/14/19 07:42 BUN 37 mg/dL (7-17) H 01/14/19 07:42 Creatinine 1.2 mg/dL (0.7-1.2) 01/14/19 07:42 Estimated GFR 59 ml/min 01/14/19 07:42 BUN/Creatinine Ratio 31 % 01/14/19 07:42 Glucose 136 mg/dL (65-100) H 01/14/19 07:42 POC Glucose 120 (70-105) H 01/14/19 05:59 Hemoglobin A1c 5.3 % (4-6) 01/10/19 14:06 Osmolality 307 Mosm/kg 01/04/19 18:32 Lactic Acid 13.90 mmol/L (0.7-2.0) H* 01/04/19 11:53 Calcium 9.4 mg/dL (8.4-10.2) 01/14/19 07:42 Phosphorus 3.30 mg/dL (2.5-4.5) D 01/13/19 08:20 Magnesium 2.30 mg/dL (1.7-2.3) 01/13/19 08:20 Total Bilirubin 7.60 mg/dL (0.1-1.2) H 01/14/19 07:42 Direct Bilirubin 7.9 mg/dL (0-0.2) H 01/04/19 11:15 Indirect Bilirubin 2.3 mg/dL 01/04/19 11:15 AST 194 units/L (5-40) H 01/14/19 07:42 ALT 91 units/L (7-56) H 01/14/19 07:42 Alkaline Phosphatase 44 units/L (35-129) 01/14/19 07:42 Ammonia 43.0 umol/L (25-60) 01/13/19 08:20 NT-Pro-B Natriuret Pep 5269 pg/mL (0-450) H 01/04/19 11:08 Total Protein 7.5 g/dL (6.3-8.2) 01/14/19 07:42 Albumin 2.0 g/dL (3.9-5) L 01/14/19 07:42 Albumin/Globulin Ratio 0.4 % 01/14/19 07:42 Amylase 19 units/L (27-131) L 01/04/19 19:48 Lipase 8 units/L (13-60) L 01/04/19 11:08 TSH 2.830 mlU/mL (0.270-4.200) 01/04/19 11:15 Free T4 0.83 ng/dL (0.76-1.46) 01/04/19 11:15 HCG, Qual Negative (Negative) 01/04/19 11:08 Urine Color Teena (Yellow) 01/07/19 13:55 Urine Turbidity Cloudy (Clear) 01/07/19 13:55 Urine pH 5.0 (5.0-7.0) 01/07/19 13:55 Ur Specific Center 1.018 (1.003-1.030) 01/07/19 13:55 Urine Protein 30 mg/dl mg/dL (Negative) 01/07/19 13:55 Urine Glucose (UA) Neg mg/dL (Negative) 01/07/19 13:55 Urine Ketones Neg mg/dL (Negative) 01/07/19 13:55 Urine Blood Mod (Negative) 01/07/19 13:55 Urine Nitrite Neg (Negative) 01/07/19 13:55 Urine Bilirubin Mod (Negative) 01/07/19 13:55 Urine Ictotest Positive (Negative) 01/07/19 13:55 Urine Urobilinogen 2.0 mg/dL (<2.0) 01/07/19 13:55 Ur Leukocyte Esterase Mod (Negative) 01/07/19 13:55 Urine WBC (Auto) 33.0 /HPF (0.0-6.0) H 01/07/19 13:55 Urine RBC (Auto) 12.0 /HPF (0.0-6.0) 01/07/19 13:55 U Epithel Cells (Auto) 2.0 /HPF (0-13.0) 01/07/19 13:55 Urine Bacteria (Auto) 1+ /HPF (Negative) 01/07/19 13:55 Urine WBC Clumps 2+ /HPF 01/07/19 13:55 Urine Mucus Few /HPF 01/07/19 13:55 Random Vancomycin 24.8 ug/mL (0-40.0) 01/09/19 04:41 Acetaminophen < 5.0 ug/mL (10.0-30.0) L 01/04/19 11:15 Hepatitis A IgM Ab Non-reactive (NonReactive) 01/05/19 11:51 Hep Bs Antigen Non-reactive (Negative) 01/05/19 11:51 Hep B Core IgM Ab Non-reactive (NonReactive) 01/05/19 11:51 Hepatitis C Antibody Non-reactive (NonReactive) 01/05/19 11:51 Blood Type B POSITIVE 01/09/19 21:32 Antibody Screen Negative 01/09/19 21:32 Crossmatch See Detail 01/09/19 21:32 Active Medications - Current Medications Current Medications: Generic Name Dose Route Start Last Admin Trade Name Freq PRN Reason Stop Dose Admin Lipase/Protease/Amylase 1 each 01/06/19 10:[address] 10,500 Unit FEEDTUBE PRN PRN For Clogged Feeding Tube Dextrose 50 ml 01/09/19 15:35 D50w (25gm) Syringe IV Q30MIN PRN Hypoglycemia Hydrophilic Ointment 1 applic 01/07/19 17:56 Vaseline Lip Therapy TP DIRECT PRN Dry Lips Sodium Bicarbonate 75 meq/ 1,075 mls @ 125 mls/hr 01/13/19 15:00 Dextrose IV DIRECT JULIETA Sodium Chloride 1,000 mls @ 100 mls/hr 01/13/19 16:00 01/14/19 06:24 Nacl 0.45% 1000 Ml IV 100 mls/hr DIRECT JULIETA Administration Insulin Human Lispro 0 unit 01/09/19 18:00 01/14/19 06:14 Humalog SUB-Q Not Given Q6HR JULIETA Protocol Lactulose 20 gm 01/05/19 06:39 Cephulac PO Q6H PRN Constipation Lactulose 20 gm 01/11/19 22:00 01/13/19 21:46 Cephulac PO 20 gm BID JULIETA Administration Lorazepam 1 mg 01/11/19 11:58 Ativan IV Q4H PRN Agitation Lorazepam 1 mg 01/11/19 11:58 Ativan PO Q4H PRN Agitation Pantoprazole Sodium 40 mg 01/10/19 12:00 01/13/19 21:46 Protonix IV 40 mg BID JULIETA Administration Prednisolone Sodium Phosphate 40 mg 01/07/19 14:00 01/13/19 09:08 Orapred PO 40 mg DAILY JULIETA Administration Simple Syrup 15 ml 01/06/19 10:59 Simple Syrup FEEDTUBE PRN PRN Hypoglycemia Simple Syrup 30 ml 01/06/19 10:59 Simple Syrup FEEDTUBE PRN PRN Hypoglycemia Sodium Bicarbonate 325 mg 01/06/19 10:59 Sodium Bicarbonate FEEDTUBE PRN PRN For Clogged Feeding Tube Sodium Bicarbonate 650 mg 01/11/19 20:00 01/13/19 21:46 Sodium Bicarbonate PO 650 mg TID JULIETA Administration Sodium Chloride 10 ml 01/04/19 22:00 01/13/19 21:47 Sodium Chloride Flush Syringe 10 Ml IV 10 ml BID JULIETA Administration Sodium Chloride 10 ml 01/04/19 19:36 Sodium Chloride Flush Syringe 10 Ml IV PRN PRN LINE FLUSH Trazodone HCl 50 mg 01/09/19 22:00 01/13/19 21:46 Desyrel PO 50 mg QHS JULIETA Administration Nutrition/Malnutrition Assess - Dietary Evaluation Nutrition/Malnutrition Findings: Nutrition Notes Start: 01/05/19 13:04 Freq: Status: Active Protocol: Document 01/10/19 11:05 DW (Rec: 01/10/19 11:20 DW [id number]) Co-Sign 01/10/19 11:05 KH Nutrition Notes Need for Assessment generated from: MD Order Initial or Follow up Assessment Current Diagnosis Acute Kidney Injury,Decubitus( Pressure Ulcer),Sepsis, Hypertension Other Pertinent Diagnosis AMS, ETOH abuse, liver disease , pancreatitis, sacral wound Current Diet Nepro w/carb steady at 40ml/hr Labs/Tests POC Glu: 197 Pertinent Medications Reviewed Height 5 ft 6 in Weight 101.5 kg [place] Body Weight (kg) 59.09 BMI 36.1 Subjective/Other Information MD consult for tube feed management. Upon arrival tube feed was not running. Per event note tube feed held d/t dark bloody stool. Burn Absent Trauma Absent Current % PO Negligible Minimum of two criteria Yes Fluid Accumulation Moderate to Severe (severe) Reduced [employer] Developer Strength Measurably Reduced (severe) #2 Nutrition Diagnosis Inadequate oral intake As Evidenced by Signs and Symptoms Tube feed stopped d/t bloody stools Diagnosis Progress(for reassessment Continues documentation) #1 Nutrition Diagnosis Malnutrition As Evidenced by Signs and Symptoms Tube feed stopped d/t bloody stools Diagnosis Progress(for reassessment Worsened documentation) Is patient on ventilator? No Is Patient Ambulatory and/or Out of Bed No REE-([place]confined [facility] bed) 2020.112 Kcal/Kg value to use for calculation 16 Approximate Energy Requirements Using 1624 kcal/Kg Calculation Used for Recommendations Kcal/kg Additional Notes Protein needs are 71-85g (1-1. 2g/kg Adjusted wt 70kg) Considering kidneys, liver, malnutrition, and wound. Fluid needs per MD Nutrition Intervention Change Diet Order: Reinitiate tube feed when medically feasible Goal #1 Restart tube feed Anticipated Discharge Needs: Unable to determine at this time Follow-Up By: 01/14/19 Additional Comments F/U tube feed restart
[2019-01-14] MEDS: LACTULOSE 20 GM/30 ML ORAL LIQD PO SCH ×2 (10:14→22:25)
[2019-01-14] MEDS: PANTOPRAZOLE 40 MG INJ IV SCH ×2 (10:14→22:25)
[2019-01-14] MEDS: SODIUM BICARBONATE 650 MG TAB PO SCH ×3 (10:14→22:25)
[2019-01-14] MEDS: prednisoLONE SOD PHOSPHATE 15 MG/5 ML ORAL LIQD PO SCH (10:28)
[2019-01-14] MEDS: POTASSIUM CHLORIDE ER 20 MEQ TAB PO SCH (10:51)
--- NOTE | 2019-01-14 15:03 | Progress Note ---
Assessment and Plan Cultures: 01/04/2019 blood cultures - negative A/P: 43 yo F PMHx alcohol abuse admitted with altered mental status. 1. Hepatic encephalopathy - Treated with lactulose and steroids, likely secondary to alcohol abuse. 2. ELIZABETH - renally dose antibiotics 3. lactic Acidosis Recs: - Continue to monitor off antibiotics. Leukocytosis is stable Thank you for the consult, we will continue to follow. Whitney June MD [facility] ([facility]) M: [phone] O: [phone] F: [phone] Subjective Date of service: 01/14/19 Principal diagnosis: jaundice, acute hepatic failure Interval history: Afebrile, persistent leukocytosis. Objective - Exam Narrative Exam: Constitutional: Alert Head, Ears, Nose: Normocephalic, atraumatic. External ears, nose normal Eyes: Conjunctivae/corneas clear. No icterus. No ptosis. Neck: Supple, no meningeal signs Oral: dentition fair, no thrush Cardiovascular: S1, S2 normal. Respiratory: Good air entry, clear to auscultation bilaterally GI: Soft, non-tender; bowel sounds normal. No peritoneal signs. Musculoskeletal: No pedal edema, no cyanosis. Skin: No rash or abscess Hem/Lymphatic: No palpable cervical or supraclavicular nodes. No lymphangitis Psych: Mood ok. Affect normal Neurological: Awake, alert, oriented. No gross abnormality - Constitutional Vitals: Vital Signs Temp Pulse Resp BP Pulse Ox 97.0 F L 107 H 20 105/71 99 01/14/19 13:18 01/14/19 13:18 01/14/19 13:18 01/14/19 13:18 01/14/19 13:18 Temperature -Last 24 Hours Temperature 97.0 F Temperature 98.8 F Temperature 98.1 F Temperature 99.2 F - Labs CBC & Chem 7: 01/14/19 06:56 01/14/19 07:42 Labs: Abnormal lab results 01/13/19 01/13/19 01/14/19 Range/Units 18:45 23:34 05:59 WBC (4.5-11.0) K/mm3 RBC (3.65-5.03) M/mm3 Hgb (10.1-14.3) gm/dl Hct (30.3-42.9) % MCV (79-97) fl RDW (13.2-15.2) % Seg Neuts % (Manual) (40.0-70.0) % Lymphocytes % (Manual) (13.4-35.0) % Seg Neutrophils # Man (1.8-7.7) K/mm3 Monocytes # (Manual) (0.0-0.8) K/mm3 Potassium (3.6-5.0) mmol/L Chloride (98-107) mmol/L Carbon Dioxide (22-30) mmol/L BUN (7-17) mg/dL Glucose (65-100) mg/dL POC Glucose 251 H 194 H 120 H (70-105) Total Bilirubin (0.1-1.2) mg/dL AST (5-40) units/L ALT (7-56) units/L Albumin (3.9-5) g/dL 01/14/19 01/14/19 01/14/19 Range/Units 06:56 07:42 11:49 WBC 32.0 H (4.5-11.0) K/mm3 RBC 2.57 L (3.65-5.03) M/mm3 Hgb 8.1 L (10.1-14.3) gm/dl Hct 25.2 L (30.3-42.9) % MCV 98 H (79-97) fl RDW 24.1 H (13.2-15.2) % Seg Neuts % (Manual) 87.0 H (40.0-70.0) % Lymphocytes % (Manual) 6.0 L (13.4-35.0) % Seg Neutrophils # Man 27.8 H (1.8-7.7) K/mm3 Monocytes # (Manual) 1.0 H (0.0-0.8) K/mm3 Potassium 3.5 L (3.6-5.0) mmol/L Chloride 109.6 H (98-107) mmol/L Carbon Dioxide 17 L (22-30) mmol/L BUN 37 H (7-17) mg/dL Glucose 136 H (65-100) mg/dL POC Glucose 156 H (70-105) Total Bilirubin 7.60 H (0.1-1.2) mg/dL AST 194 H (5-40) units/L ALT 91 H (7-56) units/L Albumin 2.0 L (3.9-5) g/dL
[2019-01-14] MEDS: traZODone 50 MG TAB PO SCH (22:25)
[2019-01-15] MEDS: INSULIN LISPRO 100 UNIT/ML SUB-Q SCH ×4 (00:25→18:30)
[2019-01-15] MEDS: SODIUM CHLORIDE 0.45% 1000 ML 1,000 ML IV SCH (01:23)
[2019-01-15 05:12] LABS: Hematocrit 23.9 % (30.3-42.9); Hemoglobin 7.6 gm/dl (10.1-14.3); Mean Corpuscular HGB Conc 32 % (30-34); Mean Corpuscular Volume 99 fl (79-97); Platelet Count 275 K/mm3 (140-440); Red Blood Count 2.42 M/mm3 (3.65-5.03)
[2019-01-15 05:18] LABS: Red Cell Distribution Width 23.7 % (13.2-15.2)
[2019-01-15] MEDS: SODIUM BICARBONATE 75 MEQ in DEXTROSE 5% IN WATER 1,000 ML IV SCH ×2 (07:54→22:55)
[2019-01-15 08:35] LABS: Anisocytosis 2+; Basophils % (Manual) 0 % (0.0-1.8); Eosinophils % (Manual) 0 % (0.0-4.3); Total Cells Counted 100
[2019-01-15 08:36] LABS: Hypochromasia 1+; Platelet Estimate Consistent w Auto
[2019-01-15] MEDS: SODIUM BICARBONATE 650 MG TAB PO SCH ×3 (10:00→20:34)
[2019-01-15] MEDS: LACTULOSE 20 GM/30 ML ORAL LIQD PO SCH ×3 (10:53→22:55)
[2019-01-15] MEDS: PANTOPRAZOLE 40 MG TAB PO SCH ×2 (10:54→22:55)
[2019-01-15] MEDS: POTASSIUM CHLORIDE ER 20 MEQ TAB PO SCH ×2 (10:54→12:23)
--- NOTE | 2019-01-15 11:42 | Fluoroscopy Report ---
MODIFIED BARIUM SWALLOW INDICATION: difficulty swallowing. Dysphagia. TECHNIQUE: Swallowing was evaluated in the lateral position under direct fluoroscopy. FINDINGS: The patient was evaluated with thin liquids, puree, semisolids and solids. Poor patient cooperation. The swallowing reflex appeared normal. No evidence for aspiration or penetr ation. IMPRESSION: Unremarkable exam. Fluoroscopic time: 3.6 minutes Number of fluoroscopic images: 2 Signer Name: Trevon Burton Jr, MD Signed: 01/15/2019 11:37 AM Workstation Name: [id number]
[2019-01-15] MEDS: prednisoLONE SOD PHOSPHATE 15 MG/5 ML ORAL LIQD PO SCH (12:24)
--- NOTE | 2019-01-15 13:43 | Progress Note ---
Assessment and Plan Cultures: 01/04/2019 blood cultures - negative A/P: 43 yo F PMHx alcohol abuse admitted with altered mental status. 1. Hepatic encephalopathy - Treated with lactulose and steroids, likely secondary to alcohol abuse. 2. ELIZABETH - renally dose antibiotics 3. lactic Acidosis Recs: - Continue to monitor off antibiotics. Leukocytosis is improved Thank you for the consult, we will continue to follow. Whitney June MD [facility] ([facility]) M: [phone] O: [phone] F: [phone] Subjective Date of service: 01/15/19 Principal diagnosis: jaundice, acute hepatic failure Interval history: Afebrile, improved leukocytosis. Objective - Exam Narrative Exam: Constitutional: Alert Head, Ears, Nose: Normocephalic, atraumatic. External ears, nose normal Eyes: Conjunctivae/corneas clear. No icterus. No ptosis. Neck: Supple, no meningeal signs Oral: dentition fair, no thrush Cardiovascular: S1, S2 normal. Respiratory: Good air entry, clear to auscultation bilaterally GI: Soft, non-tender; bowel sounds normal. No peritoneal signs. Musculoskeletal: No pedal edema, no cyanosis. Skin: No rash or abscess Hem/Lymphatic: No palpable cervical or supraclavicular nodes. No lymphangitis Psych: Mood ok. Affect normal Neurological: Awake, alert, oriented. No gross abnormality - Constitutional Vitals: Vital Signs Temp Pulse Resp BP Pulse Ox 98.1 F 99 H 16 125/82 97 01/15/19 04:46 01/15/19 04:46 01/15/19 08:47 01/15/19 04:46 01/15/19 04:46 Temperature -Last 24 Hours Temperature 98.1 F Temperature 98.0 F - Labs CBC & Chem 7: 01/15/19 04:26 01/14/19 07:42 Labs: Abnormal lab results 01/14/19 01/15/19 01/15/19 Range/Units 17:02 00:26 04:26 WBC 24.4 H (4.5-11.0) K/mm3 RBC 2.42 L (3.65-5.03) M/mm3 Hgb 7.6 L (10.1-14.3) gm/dl Hct 23.9 L (30.3-42.9) % MCV 99 H (79-97) fl RDW 23.7 H (13.2-15.2) % Seg Neuts % (Manual) 86.0 H (40.0-70.0) % Lymphocytes % (Manual) 10.0 L (13.4-35.0) % Seg Neutrophils # Man 21.0 H (1.8-7.7) K/mm3 Monocytes # (Manual) 1.0 H (0.0-0.8) K/mm3 POC Glucose 207 H 197 H (70-105) 01/15/19 01/15/19 Range/Units 06:30 12:16 WBC (4.5-11.0) K/mm3 RBC (3.65-5.03) M/mm3 Hgb (10.1-14.3) gm/dl Hct (30.3-42.9) % MCV (79-97) fl RDW (13.2-15.2) % Seg Neuts % (Manual) (40.0-70.0) % Lymphocytes % (Manual) (13.4-35.0) % Seg Neutrophils # Man (1.8-7.7) K/mm3 Monocytes # (Manual) (0.0-0.8) K/mm3 POC Glucose 180 H 212 H (70-105)
--- NOTE | 2019-01-15 16:53 | Progress Note ---
Assessment and Plan Assessment and plan: Patient is a 43 yo woman with a history of alcohol abuse, pancreatitis, obesity, uterine fibroids with heavy bleeding who presented to [facility] with AMS and jaundice. Last alcoholic drink unknown. * CT abd/pelvis without contrast IMPRESSION: 1. Hepatomegaly with marked diffuse fatty infiltration. Borderline splenomegaly. 2. Small pericardial effusion. * pCXR unremarkable * CT head without contrast reported no acute findings * UA ordered but uncollected per EMR * TTE Conclusions: There is a a small moderate size circumferential pericardial effusion, no evidence of tamponade, global left ventricular systolic function is normal, the estimated EF is 60-65%, trace MR, trace TR * US abdomen complete IMPRESSION: 1. Suboptimal study due to body habitus and bowel gas. 2. Moderate diffuse fatty infiltration of the liver. 3. Mild bile duct prominence in a postcholecystectomy patient. 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 Hyponatremia: treated with IVF and monitor bmp/cmp Hyperkalemia: treated with kayexalate Metabolic Acidosis: treat the renal failure Acute Renal Failure vasomotor nephropathy, poa: treat with IVFs, Renal is following, input noted, abd/renal u/s reviewed Hypomagnesemia: replete and monitor closely Severe Malnutrition: 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 Follow-up on current diagnosis of AMS. No overnight events reported to me. Imaging, nursing note, chart, labs and old chart reviewed. Hospitalist Physical - Physical exam Narrative exam: Gen: ill appearing, bmi 37.4 confused HEENT: NCAT, EOMI, PERRL, OP Clear, sclera icterus Neck: supple, no adenopathy, no thyromegaly, no JVD CVS/Heart: RRR, normal S1S2, pulses present bilaterally Chest/Lungs: CTA B, Symmetrical chest expansion, good air entry bilaterally GI/Abdomen: soft, NTND, good bowel sounds, no guarding or rebound /Bladder: no suprapubic tenderness, no CVA or paraspinal tenderness Extermity/Skin: jaundice MSK: spontaneous FROM x 4 Neuro: CN 2-12 grossly intact, doesn't follow all commands Psych: confused - Constitutional Vitals: Temp Pulse Resp BP Pulse Ox 98.2 F 102 H 20 105/74 100 01/15/19 12:08 01/15/19 12:08 01/15/19 12:08 01/15/19 12:08 01/15/19 12:08 General appearance: Present: no acute distress, obese Results - Labs CBC & Chem 7: 01/15/19 04:26 01/14/19 07:42 Labs: Laboratory Last Values WBC 24.4 K/mm3 (4.5-11.0) H 01/15/19 04:26 RBC 2.42 M/mm3 (3.65-5.03) L 01/15/19 04:26 Hgb 7.6 gm/dl (10.1-14.3) L 01/15/19 04:26 Hct 23.9 % (30.3-42.9) L 01/15/19 04:26 MCV 99 fl (79-97) H 01/15/19 04:26 MCH 31 pg (28-32) 01/15/19 04:26 MCHC 32 % (30-34) 01/15/19 04:26 RDW 23.7 % (13.2-15.2) H 01/15/19 04:26 Plt Count 275 K/mm3 (140-440) 01/15/19 04:26 Lymph % (Auto) Silk Conditioner 01/05/19 11:51 Twiggs % (Auto) Silk Conditioner 01/05/19 11:51 Eos % (Auto) Silk Conditioner 01/05/19 11:51 Baso % (Auto) Silk Conditioner 01/05/19 11:51 Lymph # Silk Conditioner 01/13/19 08:20 Twiggs # Silk Conditioner 01/05/19 11:51 Eos # Silk Conditioner 01/05/19 11:51 Baso # Silk Conditioner 01/05/19 11:51 Add Manual Diff Complete 01/15/19 04:26 Total Counted 100 01/15/19 04:26 Seg Neutrophils % Silk Conditioner 01/05/19 11:51 Seg Neuts % (Manual) 86.0 % (40.0-70.0) H 01/15/19 04:26 Band Neutrophils % 0 % 01/15/19 04:26 Lymphocytes % (Manual) 10.0 % (13.4-35.0) L 01/15/19 04:26 Reactive Lymphs % (Man) 0 % 01/15/19 04:26 Monocytes % (Manual) 4.0 % (0.0-7.3) 01/15/19 04:26 Eosinophils % (Manual) 0 % (0.0-4.3) 01/15/19 04:26 Basophils % (Manual) 0 % (0.0-1.8) 01/15/19 04:26 Metamyelocytes % 0 % 01/15/19 04:26 Myelocytes % 0 % 01/15/19 04:26 Promyelocytes % 0 % 01/15/19 04:26 Blast Cells % 0 % 01/15/19 04:26 Nucleated RBC % Not Reportable 01/15/19 04:26 Seg Neutrophils # Silk Conditioner 01/05/19 11:51 Seg Neutrophils # Man 21.0 K/mm3 (1.8-7.7) H 01/15/19 04:26 Band Neutrophils # 0.0 K/mm3 01/15/19 04:26 Lymphocytes # (Manual) 2.4 K/mm3 (1.2-5.4) 01/15/19 04:26 Abs React Lymphs (Man) 0.0 K/mm3 01/15/19 04:26 Monocytes # (Manual) 1.0 K/mm3 (0.0-0.8) H 01/15/19 04:26 Eosinophils # (Manual) 0.0 K/mm3 (0.0-0.4) 01/15/19 04:26 Basophils # (Manual) 0.0 K/mm3 (0.0-0.1) 01/15/19 04:26 Metamyelocytes # 0.0 K/mm3 01/15/19 04:26 Myelocytes # 0.0 K/mm3 01/15/19 04:26 Promyelocytes # 0.0 K/mm3 01/15/19 04:26 Blast Cells # 0.0 K/mm3 01/15/19 04:26 Pathologist Review 01/10/19 14:06 WBC Morphology Not Reportable 01/15/19 04:26 Hypersegmented Neuts Not Reportable 01/15/19 04:26 Hyposegmented Neuts Not Reportable 01/15/19 04:26 Hypogranular Neuts Not Reportable 01/15/19 04:26 Smudge Cells Not Reportable 01/15/19 04:26 Toxic Granulation Not Reportable 01/15/19 04:26 Toxic Vacuolation Not Reportable 01/15/19 04:26 Dohle Bodies Not Reportable 01/15/19 04:26 Pelger-Huet Anomaly Not Reportable 01/15/19 04:26 Jonathan Rods Not Reportable 01/15/19 04:26 Platelet Estimate Consistent w auto 01/15/19 04:26 Clumped Platelets Not Reportable 01/15/19 04:26 Plt Clumps, EDTA Not Reportable 01/15/19 04:26 Large Platelets Not Reportable 01/15/19 04:26 Giant Platelets Not Reportable 01/15/19 04:26 Platelet Satelliting Not Reportable 01/15/19 04:26 Plt Morphology Comment Not Reportable 01/15/19 04:26 RBC Morphology Not Reportable 01/15/19 04:26 Dimorphic RBCs Not Reportable 01/15/19 04:26 Polychromasia Not Reportable 01/15/19 04:26 Hypochromasia 1+ 01/15/19 04:26 Poikilocytosis Not Reportable 01/15/19 04:26 Anisocytosis 2+ 01/15/19 04:26 Microcytosis Not Reportable 01/15/19 04:26 Macrocytosis Not Reportable 01/15/19 04:26 Spherocytes Not Reportable 01/15/19 04:26 Pappenheimer Bodies Not Reportable 01/15/19 04:26 Sickle Cells Not Reportable 01/15/19 04:26 Target Cells Not Reportable 01/15/19 04:26 Tear Drop Cells Not Reportable 01/15/19 04:26 Ovalocytes Not Reportable 01/15/19 04:26 Helmet Cells Not Reportable 01/15/19 04:26 Felix-Topaz Bodies Not Reportable 01/15/19 04:26 [place] Rings Not Reportable 01/15/19 04:26 Harper Cells Not Reportable 01/15/19 04:26 Bite Cells Not Reportable 01/15/19 04:26 Crenated Cell Not Reportable 01/15/19 04:26 Elliptocytes Not Reportable 01/15/19 04:26 Acanthocytes (Spur) Not Reportable 01/15/19 04:26 Rouleaux Not Reportable 01/15/19 04:26 Hemoglobin C Crystals Not Reportable 01/15/19 04:26 Schistocytes Not Reportable 01/15/19 04:26 Malaria parasites Not Reportable 01/15/19 04:26 Bhavik Bodies Not Reportable 01/15/19 04:26 Hem Pathologist Commnt No 01/15/19 04:26 PT 19.1 Sec. (12.2-14.9) H 01/10/19 14:06 INR 1.63 (0.87-1.13) H 01/10/19 14:06 Sodium 142 mmol/L (137-145) 01/14/19 07:42 Potassium 3.5 mmol/L (3.6-5.0) L 01/14/19 07:42 Chloride 109.6 mmol/L (98-107) H 01/14/19 07:42 Carbon Dioxide 17 mmol/L (22-30) L 01/14/19 07:42 Anion Gap 19 mmol/L 01/14/19 07:42 BUN 37 mg/dL (7-17) H 01/14/19 07:42 Creatinine 1.2 mg/dL (0.7-1.2) 01/14/19 07:42 Estimated GFR 59 ml/min 01/14/19 07:42 BUN/Creatinine Ratio 31 % 01/14/19 07:42 Glucose 136 mg/dL (65-100) H 01/14/19 07:42 POC Glucose 212 (70-105) H 01/15/19 12:16 Hemoglobin A1c 5.3 % (4-6) 01/10/19 14:06 Osmolality 307 Mosm/kg 01/04/19 18:32 Lactic Acid 13.90 mmol/L (0.7-2.0) H* 01/04/19 11:53 Calcium 9.4 mg/dL (8.4-10.2) 01/14/19 07:42 Phosphorus 3.30 mg/dL (2.5-4.5) D 01/13/19 08:20 Magnesium 2.30 mg/dL (1.7-2.3) 01/13/19 08:20 Total Bilirubin 7.60 mg/dL (0.1-1.2) H 01/14/19 07:42 Direct Bilirubin 7.9 mg/dL (0-0.2) H 01/04/19 11:15 Indirect Bilirubin 2.3 mg/dL 01/04/19 11:15 AST 194 units/L (5-40) H 01/14/19 07:42 ALT 91 units/L (7-56) H 01/14/19 07:42 Alkaline Phosphatase 44 units/L (35-129) 01/14/19 07:42 Ammonia 43.0 umol/L (25-60) 01/13/19 08:20 NT-Pro-B Natriuret Pep 5269 pg/mL (0-450) H 01/04/19 11:08 Total Protein 7.5 g/dL (6.3-8.2) 01/14/19 07:42 Albumin 2.0 g/dL (3.9-5) L 01/14/19 07:42 Albumin/Globulin Ratio 0.4 % 01/14/19 07:42 Amylase 19 units/L (27-131) L 01/04/19 19:48 Lipase 8 units/L (13-60) L 01/04/19 11:08 TSH 2.830 mlU/mL (0.270-4.200) 01/04/19 11:15 Free T4 0.83 ng/dL (0.76-1.46) 01/04/19 11:15 HCG, Qual Negative (Negative) 01/04/19 11:08 Urine Color Teena (Yellow) 01/07/19 13:55 Urine Turbidity Cloudy (Clear) 01/07/19 13:55 Urine pH 5.0 (5.0-7.0) 01/07/19 13:55 Ur Specific [place] 1.018 (1.003-1.030) 01/07/19 13:55 Urine Protein 30 mg/dl mg/dL (Negative) 01/07/19 13:55 Urine Glucose (UA) Neg mg/dL (Negative) 01/07/19 13:55 Urine Ketones Neg mg/dL (Negative) 01/07/19 13:55 Urine Blood Mod (Negative) 01/07/19 13:55 Urine Nitrite Neg (Negative) 01/07/19 13:55 Urine Bilirubin Mod (Negative) 01/07/19 13:55 Urine Ictotest Positive (Negative) 01/07/19 13:55 Urine Urobilinogen 2.0 mg/dL (<2.0) 01/07/19 13:55 Ur Leukocyte Esterase Mod (Negative) 01/07/19 13:55 Urine WBC (Auto) 33.0 /HPF (0.0-6.0) H 01/07/19 13:55 Urine RBC (Auto) 12.0 /HPF (0.0-6.0) 01/07/19 13:55 U Epithel Cells (Auto) 2.0 /HPF (0-13.0) 01/07/19 13:55 Urine Bacteria (Auto) 1+ /HPF (Negative) 01/07/19 13:55 Urine WBC Clumps 2+ /HPF 01/07/19 13:55 Urine Mucus Few /HPF 01/07/19 13:55 Random Vancomycin 24.8 ug/mL (0-40.0) 01/09/19 04:41 Acetaminophen < 5.0 ug/mL (10.0-30.0) L 01/04/19 11:15 Hepatitis A IgM Ab Non-reactive (NonReactive) 01/05/19 11:51 Hep Bs Antigen Non-reactive (Negative) 01/05/19 11:51 Hep B Core IgM Ab Non-reactive (NonReactive) 01/05/19 11:51 Hepatitis C Antibody Non-reactive (NonReactive) 01/05/19 11:51 Blood Type B POSITIVE 01/09/19 21:32 Antibody Screen Negative 01/09/19 21:32 Crossmatch See Detail 01/09/19 21:32 Active Medications - Current Medications Current Medications: Generic Name Dose Route Start Last Admin Trade Name Freq PRN Reason Stop Dose Admin Lipase/Protease/Amylase 1 each 01/06/19 10:[address] 10,500 Unit FEEDTUBE PRN PRN For Clogged Feeding Tube Dextrose 50 ml 01/09/19 15:35 D50w (25gm) Syringe IV Q30MIN PRN Hypoglycemia Hydrophilic Ointment 1 applic 01/07/19 17:56 Vaseline Lip Therapy TP DIRECT PRN Dry Lips Sodium Chloride 1,000 mls @ 100 mls/hr 01/13/19 16:00 01/15/19 01:23 Nacl 0.45% 1000 Ml IV 100 mls/hr DIRECT JULIETA Administration Sodium Bicarbonate 75 meq/ 1,075 mls @ 125 mls/hr 01/14/19 10:00 01/15/19 07:54 Dextrose IV 125 mls/hr DIRECT JULIETA Administration Insulin Human Lispro 0 unit 01/09/19 18:00 01/15/19 12:58 Humalog SUB-Q 3 unit Q6HR JULIETA Administration Protocol Lactulose 20 gm 01/05/19 06:39 Cephulac PO Q6H PRN Constipation Lactulose 20 gm 01/11/19 22:00 01/15/19 12:24 Cephulac PO Not Given BID JULIETA Lorazepam 1 mg 01/11/19 11:58 Ativan IV Q4H PRN Agitation Lorazepam 1 mg 01/11/19 11:58 Ativan PO Q4H PRN Agitation Pantoprazole Sodium 40 mg 01/15/19 10:00 01/15/19 10:54 Protonix PO 40 mg BID JULIETA Administration Potassium Chloride 20 meq 01/14/19 10:00 01/15/19 12:23 K-Dur PO Not Given QDAY JULIETA Prednisolone Sodium Phosphate 40 mg 01/07/19 14:00 01/15/19 12:24 Orapred PO Not Given DAILY JULIETA Simple Syrup 15 ml 01/06/19 10:59 Simple Syrup FEEDTUBE PRN PRN Hypoglycemia Simple Syrup 30 ml 01/06/19 10:59 Simple Syrup FEEDTUBE PRN PRN Hypoglycemia Sodium Bicarbonate 325 mg 01/06/19 10:59 Sodium Bicarbonate FEEDTUBE PRN PRN For Clogged Feeding Tube Sodium Bicarbonate 650 mg 01/11/19 20:00 01/15/19 13:03 Sodium Bicarbonate PO 650 mg TID JULIETA Administration Sodium Chloride 10 ml 01/04/19 22:00 01/15/19 11:02 Sodium Chloride Flush Syringe 10 Ml IV 10 ml BID JULIETA Administration Sodium Chloride 10 ml 01/04/19 19:36 01/14/19 10:17 Sodium Chloride Flush Syringe 10 Ml IV 10 ml PRN PRN Administration LINE FLUSH Trazodone HCl 50 mg 01/09/19 22:00 01/14/19 22:25 Desyrel PO 50 mg QHS JULIETA Administration Nutrition/Malnutrition Assess - Dietary Evaluation Nutrition/Malnutrition Findings: Nutrition Notes Start: 01/05/19 13:04 Freq: Status: Active Protocol: Document 01/14/19 16:04 RM (Rec: 01/14/19 16:19 [id number]) Nutrition Notes Initial or Follow up Reassessment Current Diagnosis Acute Kidney Injury,Decubitus( Pressure Ulcer),Sepsis, Hypertension Other Pertinent Diagnosis AMS, ETOH abuse, liver disease , pancreatitis, sacral wound Current Diet Regular Labs/Tests Reviewed Pertinent Medications Reviewed Height 5 ft 6 in Weight 102.7 kg [place] Body Weight (kg) 59.09 BMI 36.5 Weight change and time frame [facility] Subjective[facility]Other Information Diet advanced to regular. Pt and pt daughter in room at time of visit. Pt somehwat confused so pt daughter helped answer questions. Pt stated that she ate 50% of her breakfast. Daughter stated that pt eats a little bit of her meals. 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 No Is Patient Ambulatory and/or Out of Bed No REE-([place]-confined to bed) 2035.488 Kcal/Kg value to use for calculation 16 Approximate Energy Requirements Using 1643 kcal/Kg Calculation Used for Recommendations Kcal/kg Additional Notes Protein needs are 71-85g (1-1. 2g/kg Adjusted wt 70kg) Considering kidneys, liver, malnutrition, and wound. Fluid needs per MD Nutrition Intervention Change Diet Order: Continue current Add Supplement/Snack (indicate name/kcal Ensure Enlive BID /protein ) Provides kCal: 700 Provides Protein (gm) 40 Goal #1 Meet at least 75% of calorie and protein needs via PO and ONS intakes Anticipated Discharge Needs: Regular diet Follow-Up By: 01/16/19 Additional Comments Follow for PO and ONS intakes
[2019-01-15] MEDS: traZODone 50 MG TAB PO SCH (22:55)
[2019-01-16] MEDS: INSULIN LISPRO 100 UNIT/ML SUB-Q SCH ×2 (00:44→06:08)
[2019-01-16 02:59] LABS: Hematocrit 23.3 % (30.3-42.9); Hemoglobin 7.4 gm/dl (10.1-14.3); Mean Corpuscular HGB Conc 32 % (30-34); Mean Corpuscular Volume 98 fl (79-97); Platelet Count 300 K/mm3 (140-440); Red Blood Count 2.37 M/mm3 (3.65-5.03)
[2019-01-16] MEDS ORDERED: ACETAMINOPHEN 650 MG RECT SUPP PR PRN (03:01)
[2019-01-16 03:12] LABS: Albumin 2.2 g/dL (3.9-5); Calcium 8.9 mg/dL (8.4-10.2)
[2019-01-16 03:14] LABS: Red Cell Distribution Width 23.5 % (13.2-15.2)
[2019-01-16 05:34] LABS: Band Neutrophils # (Manual) 0.1 K/mm3; Basophils % (Manual) 0 % (0.0-1.8); Monocytes % (Manual) 9.5 % (0.0-7.3); Total Cells Counted 200
[2019-01-16 05:35] LABS: Anisocytosis 1+; Platelet Estimate Consistent w Auto
--- NOTE | 2019-01-16 08:24 | Progress Note ---
Assessment and Plan Assessment and plan: Patient is a 43 yo woman with a history of alcohol abuse, pancreatitis, obesity, uterine fibroids with heavy bleeding who presented to [facility] with AMS and jaundice. Last alcoholic drink unknown. * CT abd/pelvis without contrast IMPRESSION: 1. Hepatomegaly with marked diffuse fatty infiltration. Borderline splenomegaly. 2. Small pericardial effusion. * pCXR unremarkable * CT head without contrast reported no acute findings * UA ordered but uncollected per EMR * TTE Conclusions: There is a a small moderate size circumferential pericardial effusion, no evidence of tamponade, global left ventricular systolic function is normal, the estimated EF is 60-65%, trace MR, trace TR * US abdomen complete IMPRESSION: 1. Suboptimal study due to body habitus and bowel gas. 2. Moderate diffuse fatty infiltration of the liver. 3. Mild bile duct prominence in a postcholecystectomy patient. AMS with Acute hepatic encephalopathy: treat with Lactulose Acute Alcoholic Liver Failure: consult GI, give vitamin k, follow coags and CMP Hypotension, tachycardic with SIRs with organ dysfunction, poa with suspected Sepsis: treat with empiric abx, re-ordered UA, blood cultures pending Alcoholic related fatty liver per CT: once mental status improve, career development counselor on stopping alcohol use Hyponatremia: treated with IVF and monitor bmp/cmp Hyperkalemia: treated with kayexalate Metabolic Acidosis: treat the renal failure Acute Renal Failure vasomotor nephropathy, ATN poa: treat with IVFs, Renal is following, input noted, abd/renal u/s reviewed Hypomagnesemia: replete and monitor closely Severe Malnutrition: 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 37.4: lifestyle modification Hyperbilirubemia: treat the liver failure, get GB US reviewed Isolated AST elevation, serum ETOH not measured HyperAmmonemia: serial ammonia levels and treat with Lactulose Coagulopathic: best with vitamin k Small pericardial effusion: ECHO ordered and reviewed, no tamponade, I did d/w Self Rising Flour Mixer Vaginal Discharge per chart: s/p flagyl, given Diflucan x 1 Disposition: MBS done and diet modified, unable to place into SNF per Case management, d/c today Ammonia level is up because patient has been refusing dosages of lactulose, only took it once yesterday and refused the other doses. Counseling done, nothing more to offer for the non-adherence to medical therapy. History Interval history: Patient was seen and examined. Follow-up on current diagnosis of AMS. No overnight events reported to me. Imaging, nursing note, chart, labs and old chart reviewed. Hospitalist Physical - Physical exam Narrative exam: Gen: ill appearing, bmi 37.4 confused HEENT: NCAT, EOMI, PERRL, OP Clear, sclera icterus Neck: supple, no adenopathy, no thyromegaly, no JVD CVS/Heart: RRR, normal S1S2, pulses present bilaterally Chest/Lungs: CTA B, Symmetrical chest expansion, good air entry bilaterally GI/Abdomen: soft, NTND, good bowel sounds, no guarding or rebound /Bladder: no suprapubic tenderness, no CVA or paraspinal tenderness Extermity/Skin: jaundice MSK: spontaneous FROM x 4 Neuro: CN 2-12 grossly intact, doesn't follow all commands Psych: confused - Constitutional Vitals: Temp Pulse Resp BP Pulse Ox 98.3 F 103 H 17 118/79 98 01/16/19 04:36 01/16/19 04:36 01/16/19 05:16 01/16/19 04:36 01/16/19 04:36 General appearance: Present: no acute distress, obese Results - Labs CBC & Chem 7: 01/16/19 02:37 01/16/19 02:37 Labs: Laboratory Last Values WBC 29.9 K/mm3 (4.5-11.0) H 01/16/19 02:37 RBC 2.37 M/mm3 (3.65-5.03) L 01/16/19 02:37 Hgb 7.4 gm/dl (10.1-14.3) L 01/16/19 02:37 Hct 23.3 % (30.3-42.9) L 01/16/19 02:37 MCV 98 fl (79-97) H 01/16/19 02:37 MCH 31 pg (28-32) 01/16/19 02:37 MCHC 32 % (30-34) 01/16/19 02:37 RDW 23.5 % (13.2-15.2) H 01/16/19 02:37 Plt Count 300 K/mm3 (140-440) 01/16/19 02:37 Lymph % (Auto) Sheet Metal Insulator 01/05/19 11:51 [place] % (Auto) Sheet Metal Insulator 01/16/19 02:37 Eos % (Auto) Sheet Metal Insulator 01/05/19 11:51 Baso % (Auto) Sheet Metal Insulator 01/05/19 11:51 Lymph # Sheet Metal Insulator 01/13/19 08:20 [place] # Sheet Metal Insulator 01/05/19 11:51 Eos # Sheet Metal Insulator 01/05/19 11:51 Baso # Sheet Metal Insulator 01/05/19 11:51 Add Manual Diff Complete 01/16/19 02:37 Total Counted 200 01/16/19 02:37 Seg Neutrophils % Sheet Metal Insulator 01/05/19 11:51 Seg Neuts % (Manual) 82.5 % (40.0-70.0) H 01/16/19 02:37 Band Neutrophils % 0.5 % 01/16/19 02:37 Lymphocytes % (Manual) 6.5 % (13.4-35.0) L 01/16/19 02:37 Reactive Lymphs % (Man) 0 % 01/16/19 02:37 Monocytes % (Manual) 9.5 % (0.0-7.3) H 01/16/19 02:37 Eosinophils % (Manual) 1.0 % (0.0-4.3) 01/16/19 02:37 Basophils % (Manual) 0 % (0.0-1.8) 01/16/19 02:37 Metamyelocytes % 0 % 01/16/19 02:37 Myelocytes % 0 % 01/16/19 02:37 Promyelocytes % 0 % 01/16/19 02:37 Blast Cells % 0 % 01/16/19 02:37 Nucleated RBC % Not Reportable 01/16/19 02:37 Seg Neutrophils # Sheet Metal Insulator 01/05/19 11:51 Seg Neutrophils # Man 24.7 K/mm3 (1.8-7.7) H 01/16/19 02:37 Band Neutrophils # 0.1 K/mm3 01/16/19 02:37 Lymphocytes # (Manual) 1.9 K/mm3 (1.2-5.4) 01/16/19 02:37 Abs React Lymphs (Man) 0.0 K/mm3 01/16/19 02:37 Monocytes # (Manual) 2.8 K/mm3 (0.0-0.8) H 01/16/19 02:37 Eosinophils # (Manual) 0.3 K/mm3 (0.0-0.4) 01/16/19 02:37 Basophils # (Manual) 0.0 K/mm3 (0.0-0.1) 01/16/19 02:37 Metamyelocytes # 0.0 K/mm3 01/16/19 02:37 Myelocytes # 0.0 K/mm3 01/16/19 02:37 Promyelocytes # 0.0 K/mm3 01/16/19 02:37 Blast Cells # 0.0 K/mm3 01/16/19 02:37 Pathologist Review 01/10/19 14:06 WBC Morphology Not Reportable 01/16/19 02:37 Hypersegmented Neuts Not Reportable 01/16/19 02:37 Hyposegmented Neuts Not Reportable 01/16/19 02:37 Hypogranular Neuts Not Reportable 01/16/19 02:37 Smudge Cells Not Reportable 01/16/19 02:37 Toxic Granulation Not Reportable 01/16/19 02:37 Toxic Vacuolation Not Reportable 01/16/19 02:37 Dohle Bodies Not Reportable 01/16/19 02:37 Pelger-Huet Anomaly Not Reportable 01/16/19 02:37 Jonathan Rods Not Reportable 01/16/19 02:37 Platelet Estimate Consistent w auto 01/16/19 02:37 Clumped Platelets Not Reportable 01/16/19 02:37 Plt Clumps, EDTA Not Reportable 01/16/19 02:37 Large Platelets Not Reportable 01/16/19 02:37 Giant Platelets Not Reportable 01/16/19 02:37 Platelet Satelliting Not Reportable 01/16/19 02:37 Plt Morphology Comment Not Reportable 01/16/19 02:37 RBC Morphology Not Reportable 01/16/19 02:37 Dimorphic RBCs Not Reportable 01/16/19 02:37 Polychromasia Not Reportable 01/16/19 02:37 Hypochromasia Not Reportable 01/16/19 02:37 Poikilocytosis Not Reportable 01/16/19 02:37 Anisocytosis 1+ 01/16/19 02:37 Microcytosis Not Reportable 01/16/19 02:37 Macrocytosis Not Reportable 01/16/19 02:37 Spherocytes Not Reportable 01/16/19 02:37 Pappenheimer Bodies Not Reportable 01/16/19 02:37 Sickle Cells Not Reportable 01/16/19 02:37 Target Cells Not Reportable 01/16/19 02:37 Tear Drop Cells Not Reportable 01/16/19 02:37 Ovalocytes Not Reportable 01/16/19 02:37 Helmet Cells Not Reportable 01/16/19 02:37 Felix-Flasher Bodies Not Reportable 01/16/19 02:37 [place] Rings Not Reportable 01/16/19 02:37 Bad Axe Cells Not Reportable 01/16/19 02:37 Bite Cells Not Reportable 01/16/19 02:37 Crenated Cell Not Reportable 01/16/19 02:37 Elliptocytes Not Reportable 01/16/19 02:37 Acanthocytes (Spur) Not Reportable 01/16/19 02:37 Rouleaux Not Reportable 01/16/19 02:37 Hemoglobin C Crystals Not Reportable 01/16/19 02:37 Schistocytes Not Reportable 01/16/19 02:37 Malaria parasites Not Reportable 01/16/19 02:37 Bhavik Bodies Not Reportable 01/16/19 02:37 Hem Pathologist Commnt No 01/16/19 02:37 PT 19.1 Sec. (12.2-14.9) H 01/10/19 14:06 INR 1.63 (0.87-1.13) H 01/10/19 14:06 Sodium 139 mmol/L (137-145) 01/16/19 02:37 Potassium 3.5 mmol/L (3.6-5.0) L 01/16/19 02:37 Chloride 105.3 mmol/L (98-107) 01/16/19 02:37 Carbon Dioxide 20 mmol/L (22-30) L 01/16/19 02:37 Anion Gap 17 mmol/L 01/16/19 02:37 BUN 37 mg/dL (7-17) H 01/16/19 02:37 Creatinine 1.2 mg/dL (0.7-1.2) 01/16/19 02:37 Estimated GFR 59 ml/min 01/16/19 02:37 BUN/Creatinine Ratio 31 % 01/16/19 02:37 Glucose 158 mg/dL (65-100) H 01/16/19 02:37 POC Glucose 169 (70-105) H 01/16/19 05:36 Hemoglobin A1c 5.3 % (4-6) 01/10/19 14:06 Osmolality 307 Mosm/kg 01/04/19 18:32 Lactic Acid 13.90 mmol/L (0.7-2.0) H* 01/04/19 11:53 Calcium 8.9 mg/dL (8.4-10.2) 01/16/19 02:37 Phosphorus 3.30 mg/dL (2.5-4.5) D 01/13/19 08:20 Magnesium 2.30 mg/dL (1.7-2.3) 01/13/19 08:20 Total Bilirubin 7.90 mg/dL (0.1-1.2) H 01/16/19 02:37 Direct Bilirubin 7.9 mg/dL (0-0.2) H 01/04/19 11:15 Indirect Bilirubin 2.3 mg/dL 01/04/19 11:15 AST 263 units/L (5-40) H 01/16/19 02:37 ALT 131 units/L (7-56) H 01/16/19 02:37 Alkaline Phosphatase 42 units/L (35-129) 01/16/19 02:37 Ammonia 79.0 umol/L (25-60) H 01/16/19 02:37 NT-Pro-B Natriuret Pep 5269 pg/mL (0-450) H 01/04/19 11:08 Total Protein 6.7 g/dL (6.3-8.2) 01/16/19 02:37 Albumin 2.2 g/dL (3.9-5) L 01/16/19 02:37 Albumin/Globulin Ratio 0.5 % 01/16/19 02:37 Amylase 19 units/L (27-131) L 01/04/19 19:48 Lipase 8 units/L (13-60) L 01/04/19 11:08 TSH 2.830 mlU/mL (0.270-4.200) 01/04/19 11:15 Free T4 0.83 ng/dL (0.76-1.46) 01/04/19 11:15 HCG, Qual Negative (Negative) 01/04/19 11:08 Urine Color Teena (Yellow) 01/07/19 13:55 Urine Turbidity Cloudy (Clear) 01/07/19 13:55 Urine pH 5.0 (5.0-7.0) 01/07/19 13:55 Ur Specific [place] 1.018 (1.003-1.030) 01/07/19 13:55 Urine Protein 30 mg/dl mg/dL (Negative) 01/07/19 13:55 Urine Glucose (UA) Neg mg/dL (Negative) 01/07/19 13:55 Urine Ketones Neg mg/dL (Negative) 01/07/19 13:55 Urine Blood Mod (Negative) 01/07/19 13:55 Urine Nitrite Neg (Negative) 01/07/19 13:55 Urine Bilirubin Mod (Negative) 01/07/19 13:55 Urine Ictotest Positive (Negative) 01/07/19 13:55 Urine Urobilinogen 2.0 mg/dL (<2.0) 01/07/19 13:55 Ur Leukocyte Esterase Mod (Negative) 01/07/19 13:55 Urine WBC (Auto) 33.0 /HPF (0.0-6.0) H 01/07/19 13:55 Urine RBC (Auto) 12.0 /HPF (0.0-6.0) 01/07/19 13:55 U Epithel Cells (Auto) 2.0 /HPF (0-13.0) 01/07/19 13:55 Urine Bacteria (Auto) 1+ /HPF (Negative) 01/07/19 13:55 Urine WBC Clumps 2+ /HPF 01/07/19 13:55 Urine Mucus Few /HPF 01/07/19 13:55 Random Vancomycin 24.8 ug/mL (0-40.0) 01/09/19 04:41 Acetaminophen < 5.0 ug/mL (10.0-30.0) L 01/04/19 11:15 Hepatitis A IgM Ab Non-reactive (NonReactive) 01/05/19 11:51 Hep Bs Antigen Non-reactive (Negative) 01/05/19 11:51 Hep B Core IgM Ab Non-reactive (NonReactive) 01/05/19 11:51 Hepatitis C Antibody Non-reactive (NonReactive) 01/05/19 11:51 Blood Type B POSITIVE 01/09/19 21:32 Antibody Screen Negative 01/09/19 21:32 Crossmatch See Detail 01/09/19 21:32 Active Medications - Current Medications Current Medications: Generic Name Dose Route Start Last Admin Trade Name Freq PRN Reason Stop Dose Admin Acetaminophen 650 mg 01/16/19 03:01 01/16/19 04:16 Tylenol [place] 650 mg Q4H PRN Administration Pain, Mild (1-3), fever>100.5 Lipase/Protease/Amylase 1 each 01/06/19 10:59 Pancrealina Barber 10,500 Unit FEEDTUBE PRN PRN For Clogged Feeding Tube Dextrose 50 ml 01/09/19 15:35 D50w (25gm) Syringe IV Q30MIN PRN Hypoglycemia Hydrophilic Ointment 1 applic 01/07/19 17:56 Vaseline Lip Therapy TP DIRECT PRN Dry Lips Sodium Chloride 1,000 mls @ 100 mls/hr 01/13/19 16:00 01/15/19 01:23 Nacl 0.45% 1000 Ml IV 100 mls/hr DIRECT JULIETA Administration Sodium Bicarbonate 75 meq/ 1,075 mls @ 125 mls/hr 01/14/19 10:00 01/15/19 22:55 Dextrose IV 125 mls/hr DIRECT JULIETA Administration Insulin Human Lispro 0 unit 01/09/19 18:00 01/16/19 06:08 Humalog SUB-Q 2 unit Q6HR JULIETA Administration Protocol Lactulose 20 gm 01/05/19 06:39 Cephulac PO Q6H PRN Constipation Lactulose 20 gm 01/11/19 22:00 01/15/19 22:55 Cephulac PO 20 gm BID JULIETA Administration Lorazepam 1 mg 01/11/19 11:58 Ativan IV Q4H PRN Agitation Lorazepam 1 mg 01/11/19 11:58 Ativan PO Q4H PRN Agitation Pantoprazole Sodium 40 mg 01/15/19 10:00 01/15/19 22:55 Protonix PO 40 mg BID JULIETA Administration Potassium Chloride 20 meq 01/14/19 10:00 01/15/19 12:23 K-Dur PO Not Given QDAY JULIETA Prednisolone Sodium Phosphate 40 mg 01/07/19 14:00 01/15/19 12:24 Orapred PO Not Given DAILY JULIETA Simple Syrup 15 ml 01/06/19 10:59 Simple Syrup FEEDTUBE PRN PRN Hypoglycemia Simple Syrup 30 ml 01/06/19 10:59 Simple Syrup FEEDTUBE PRN PRN Hypoglycemia Sodium Bicarbonate 325 mg 01/06/19 10:59 Sodium Bicarbonate FEEDTUBE PRN PRN For Clogged Feeding Tube Sodium Bicarbonate 650 mg 01/11/19 20:00 01/15/19 20:34 Sodium Bicarbonate PO 650 mg TID JULIETA Administration Sodium Chloride 10 ml 01/04/19 22:00 01/15/19 22:56 Sodium Chloride Flush Syringe 10 Ml IV 10 ml BID JULIETA Administration Sodium Chloride 10 ml 01/04/19 19:36 01/14/19 10:17 Sodium Chloride Flush Syringe 10 Ml IV 10 ml PRN PRN Administration LINE FLUSH Trazodone HCl 50 mg 01/09/19 22:00 01/15/19 22:55 Desyrel PO 50 mg QHS JULIETA Administration Nutrition/Malnutrition Assess - Dietary Evaluation Nutrition/Malnutrition Findings: Nutrition Notes Start: 01/05/19 13:04 Freq: Status: Active Protocol: Document 01/14/19 16:04 (Rec: 01/14/19 16:19 [id number]) Nutrition Notes Initial or Follow up Reassessment Current Diagnosis Acute Kidney Injury,Decubitus( Pressure Ulcer),Sepsis, Hypertension Other Pertinent Diagnosis AMS, ETOH abuse, liver disease , pancreatitis, sacral wound Current Diet Regular Labs/Tests Reviewed Pertinent Medications Reviewed Height 5 ft 6 in Weight 102.7 kg [place] Body Weight (kg) 59.09 BMI 36.5 Weight change and time frame Current wt obtained from [facility] Subjective/Other Information Diet advanced to regular. Pt and pt daughter in room at time of visit. Pt somehwat confused so pt daughter helped answer questions. Pt stated that she ate 50% of her breakfast. Daughter stated that pt eats a little bit of her meals. Percent of energy/protein needs met: 71%/61% Burn Absent Trauma Absent Minimum of two criteria Yes Fluid Accumulation Moderate to Severe (severe) Reduced Wheat Washer Strength Measurably Reduced (severe) #2 Nutrition Diagnosis Inadequate oral intake As Evidenced by Signs and Symptoms pt meeting 71% of calorie and 61% of protein needs Diagnosis Progress(for reassessment Improved documentation) #1 Nutrition Diagnosis Malnutrition Diagnosis Progress(for reassessment Continues documentation) Is patient on ventilator? No Is Patient Ambulatory and/or Out of Bed No [facility] 2035.488 Kcal/Kg value to use for calculation 16 Approximate Energy Requirements Using 1643 kcal/Kg Calculation Used for Recommendations Kcal/kg Additional Notes Protein needs are 71-85g (1-1. 2g/kg Adjusted wt 70kg) Considering kidneys, liver, malnutrition, and wound. Fluid needs per MD Nutrition Intervention Change Diet Order: Continue current Add Supplement/Snack (indicate name/kcal Ensure Enlive BID /protein ) Provides kCal: 700 Provides Protein (gm) 40 Goal #1 Meet at least 75% of calorie and protein needs via PO and ONS intakes Anticipated Discharge Needs: Regular diet Follow-Up By: 01/16/19 Additional Comments Follow for PO and ONS intakes
--- NOTE | 2019-01-16 08:27 | Discharge Summary ---
Providers - Providers Date of Admission: 01/04/19 13:53 Date of discharge: 01/16/19 Attending physician: KRISTIN ZAYAS 01/04/19 13:01 Consult to Physician [CONS] Urgent Comment: Consulting Provider: DIOGENES ANSARI Physician Instructions: Reason For Exam: ARF 01/04/19 19:32 Consult to Wound/ET Nurse [CONS] Routine Reason For Exam: wound eval 01/04/19 19:36 Consult to Dietitian/Nutrition [CONS] Routine Physician Instructions: Reason For Exam: Reason for Consult: Diet education 01/04/19 19:41 Consult to Physician [CONS] Routine Comment: Consulting Provider: DELROY RIOS Physician Instructions: Reason For Exam: acute hepatic failure 01/04/19 19:44 Consult to Physician [CONS] Routine Comment: Consulting Provider: ROSA ISELA IRVING Physician Instructions: Reason For Exam: sepsis 01/06/19 09:01 Consult to Dietitian/Nutrition [CONS] Routine Physician Instructions: Reason For Exam: Reason for Consult: Write/Manage Tube Feeding 01/06/19 12:27 Speech Therapy Evaluation and Treat [CONS] Routine Reason For Exam: failed bedside swallow eval 01/06/19 16:27 Physical Therapy Evaluation and Treat [CONS] Routine Comment: Reason For Exam: generalized weakness change in ambulatory status 01/06/19 16:28 Occupational Therapy Evaluate and Treat [CONS] Routine Comment: Reason For Exam: weakness 01/08/19 16:44 Consult to Physician [CONS] Routine Comment: Consulting Provider: ERNST GONGORA Physician Instructions: Reason For Exam: AMS, [email or web address]>? 01/09/19 14:31 Consult to Dietitian/Nutrition [CONS] Routine Physician Instructions: Assess nutrtn needs, initiate, modify, manage TF Reason For Exam: Reason for Consult: Write/Manage Tube Feeding Reason for Consult: Write/Manage Tube Feeding Primary care physician: POLYGRAPH OPERATOR Hospitalization Condition: Fair Hospital course: Patient is a 43 yo woman with a history of alcohol abuse, pancreatitis, obesity, uterine fibroids with heavy bleeding who presented [facility] with AMS and jaundice. Last alcoholic drink unknown. * CT abd/pelvis without contrast IMPRESSION: 1. Hepatomegaly with marked diffuse fatty infiltration. Borderline splenomegaly. 2. Small pericardial effusion. * pCXR unremarkable * CT head without contrast reported no acute findings * UA ordered but uncollected per EMR * TTE Conclusions: There is a a small moderate size circumferential pericardial effusion, no evidence of tamponade, global left ventricular systolic function is normal, the estimated EF is 60-65%, trace MR, trace TR * US abdomen complete IMPRESSION: 1. Suboptimal study due to body habitus and bowel gas. 2. Moderate diffuse fatty infiltration of the liver. 3. Mild bile duct prominence in a postcholecystectomy patient. AMS with Acute hepatic encephalopathy: treat with Lactulose Acute Alcoholic Liver Failure: consult GI, give vitamin k, follow coags and CMP Hypotension, tachycardic with SIRs with organ dysfunction, poa with suspected Sepsis: treat with empiric abx, re-ordered UA, blood cultures pending Alcoholic related fatty liver per CT: once mental status improve, certified alcohol counselor on stopping alcohol use Hyponatremia: treated with IVF and monitor bmp/cmp Hyperkalemia: treated with kayexalate Metabolic Acidosis: treat the renal failure Acute Renal Failure vasomotor nephropathy, ATN poa: treat with IVFs, Renal is following, input noted, abd/renal u/s reviewed Hypomagnesemia: replete and monitor closely Severe Malnutrition: 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: lifestyle modification Hyperbilirubemia: treat the liver failure, get GB US reviewed Isolated AST elevation, serum ETOH not measured HyperAmmonemia: serial ammonia levels and treat with Lactulose Coagulopathic: best with vitamin k Small pericardial effusion: ECHO ordered and reviewed, no tamponade, I did d/w Break Out Worker Vaginal Discharge per chart: s/p flagyl, given Diflucan x 1 Disposition: MBS done and diet modified, unable to place into SNF per Case management, d/c today Ammonia level is up because patient has been refusing dosages of lactulose, only took it once yesterday and refused the other doses. Counseling done, nothing more to offer for the non-adherence to medical therapy. D/w Aunt, daughters Mona and Ewelina at bedside. We discussed the possibility for liver transplant but she must be abstinence from all alcohol. She can follow up with [facility] * Directions * Website * Address: [facility] [address] [place], [place] [address] * Disposition: DC-01 TO HOME OR SELFCARE Time spent for discharge: 35 minutes Core Measure Documentation - Palliative Care Palliative Care/ Comfort Measures: Not Applicable - Core Measures Any of the following diagnoses?: none - VTE Discharge Requirements Deep Vein Thrombosis/Pulmonary Embolism Present on Admission: No Has pt received <5 days of overlap therapy or INR<2.0: No Anticoagulant overlap therapy prescribed at discharge: No Contraindication No Overlap Therapy order at DC: Not Indicated Exam - Physical Exam Narrative exam: Gen: ill appearing, bmi 37.4 confused HEENT: NCAT, EOMI, PERRL, OP Clear, sclera icterus Neck: supple, no adenopathy, no thyromegaly, no JVD CVS/Heart: RRR, normal S1S2, pulses present bilaterally Chest/Lungs: CTA B, Symmetrical chest expansion, good air entry bilaterally GI/Abdomen: soft, NTND, good bowel sounds, no guarding or rebound /Bladder: no suprapubic tenderness, no CVA or paraspinal tenderness Extermity/Skin: jaundice MSK: spontaneous FROM x 4 Neuro: CN 2-12 grossly intact, doesn't follow all commands Psych: confused - Constitutional Vitals: Temp Pulse Resp BP Pulse Ox 98.3 F 103 H 17 118/79 98 01/16/19 04:36 01/16/19 04:36 01/16/19 05:16 01/16/19 04:36 01/16/19 04:36 Plan Activity: up only with assistance, fall precautions, other (no strenous activities) Diet: other (mechanical soft diet with thin liquids) Additional Instructions: [facility]. [facility]. Address: [address] [place] [address], [place] [address]. Follow up with: ALLI CHAIREZ MD [Primary Care Provider] - 3-5 Days DELROY RIOS MD [Staff Physician] - 7 Days DIOGENES ANSARI MD [Staff Physician] - 7 Days Prescriptions: traZODone [Desyrel] 50 mg PO QHS #15 tablet Lactulose [Cephulac] 20 gm PO BID 31 Days #30 oral.liqd Pantoprazole [Protonix TAB] 40 mg PO QDAY #30 tablet oxyCODONE [roxiCODONE] 5 mg PO Q6HR PRN #20 tablet PRN Reason: Pain , Severe (7-10) Sodium Bicarbonate 650 mg PO TID #90 tablet
[2019-01-16] MEDS ORDERED: LACTULOSE ENEMA 1000 ML PR ONE (10:00)
[2019-01-16 13:14] VITALS: BP 115/76
[2019-01-16] MEDS: LACTULOSE 20 GM/30 ML ORAL LIQD PO SCH (14:16)
[2019-01-16] MEDS: SODIUM BICARBONATE 650 MG TAB PO SCH ×2 (14:16→14:17)
[2019-01-16] MEDS: POTASSIUM CHLORIDE ER 20 MEQ TAB PO SCH (14:16)
[2019-01-16] MEDS: PANTOPRAZOLE 40 MG TAB PO SCH (14:17)
[2019-01-16] MEDS: prednisoLONE SOD PHOSPHATE 15 MG/5 ML ORAL LIQD PO SCH (14:17)
== END 2019-01-16 14:18 | disposition home or self-care (01) | DRG 441 ==
LOC: ED 10:15 → CC1 13:53 → 3A 01-06 15:59
PROVIDERS: ADMIT Internal Medicine; ATTEND Internal Medicine
PROC: 30233N1 Transfusion of Nonautologous Red Blood Cells into Peripheral Vein, Percutaneous Approach (ICD-10-PCS; principal; 2019-01-10)
DX: K72.00 Acute and subacute hepatic failure without coma (principal); N17.0 Acute kidney failure with tubular necrosis; E43 Unspecified severe protein-calorie malnutrition; G93.41 Metabolic encephalopathy; E87.2 Acidosis; K70.40 Alcoholic hepatic failure without coma; K70.0 Alcoholic fatty liver; E87.5 Hyperkalemia; R73.9 Hyperglycemia, unspecified; R47.02 Dysphasia; I10 Essential (primary) hypertension; F10.239 Alcohol dependence with withdrawal, unspecified; Z68.37 Body mass index [BMI] 37.0-37.9, adult; E83.39 Other disorders of phosphorus metabolism; E87.0 Hyperosmolality and hypernatremia; E87.6 Hypokalemia; Y90.9 Presence of alcohol in blood, level not specified; E83.42 Hypomagnesemia; E87.1 Hypo-osmolality and hyponatremia; D68.9 Coagulation defect, unspecified; I31.3 Pericardial effusion (noninflammatory); K92.2 Gastrointestinal hemorrhage, unspecified; Z90.49 Acquired absence of other specified parts of digestive tract; Z82.49 Family history of ischemic heart disease and other diseases of the circulatory system; Z98.84 Bariatric surgery status
CPT/HCPCS: 36415; 70450; 70551; 71045; 74018; 74176; 74230; 76700; 80048; 80053; 80074; 80076; 80202; 80320; 81001; 82040; 82140; 82150; 82310; 82962; 83036; 83690; 83735; 83880; 83930; 84100; 84132; 84439; 84443; 84703; 85007; 85025; 85027; 85610; 86850; 86900; 86901; 86920; 87040; 87086; 93005; 93010; 93306; 96365; 99292; G0378; C9113; G0480; J0610; J0692; J1170; J1815; J2060; J2185; J2543; J3370; J3430; J3475; J3480; J7030; J7040; J7070; J7510; P9016